=== PATIENT | male | born 1970 | race Caucasian/White ===

== ENCOUNTER 2016-07-17 18:25 | Inpatient (IN) | payer OTHER ==
[~2016-07-17] VITALS: Ht 182.9 cm; Wt 62.5 kg
[~2016-07-17 18:25] MED LIST: DTR/5 PO; HYDR-5688 PO; MULT-1027; URC10 PO; ZINC1CAP PO; [UNRECOGNIZED DRUG - CODE] INJ
[2016-07-17 21:00] VITALS: BP 96/66; PULSE 96; TEMP 37.1; O2SAT 99; Ht 182.9 cm; Wt 62.5 kg
[2016-07-17] MEDS ORDERED: ACETAMINOPHEN 325 MG TAB PO PRN (22:15)
[2016-07-17] MEDS ORDERED: ONDANSETRON INJ 2 MG/ML 2 ML VIAL IV PRN (22:15)
[2016-07-17] MEDS ORDERED: ERTAPENEM IV 1 GM in SODIUM CHLOR 0.9% AD-VAN 50ML 50 ML IV ONE (22:30)
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
[2016-07-17] MEDS: SODIUM CHLORIDE 0.9% 1000ML 1,000 ML IV SCH (22:58)
[2016-07-17 23:02] VITALS: BP 101/69; PULSE 100; TEMP 37.2; O2SAT 98
[2016-07-18] VITALS (7 sets, daily range): BP systolic 80–176; BP diastolic 45–117; PULSE 94–125; TEMP 37–38.1; O2SAT 94–100
[2016-07-18] MEDS: MoRPHine SULFATE 2 MG/ML CARP IV PRN ×2 (00:27→07:26)
[2016-07-18 06:59] LABS: BASO % 0.1 %; BASO ABS # 0.02 K/uL (0-0.2); COMPLETE YES; EOS % 0.9 %; HEMATOCRIT 33.1 % (42-52); IG% 0.2 %; LYMPH % 9.4 %; LYMPH ABS # 1.26 K/uL (1.2-3.4); MEAN CELL VOLUME 79.2 fL (80-100); MEAN CORPUSCULAR HEMOGLOBIN 25.8 pg (25-34); MEAN CORPUSCULAR HGB CONC 32.6 g/dl (32-36); MEAN PLATELET VOLUME 9.3 fL (7.4-10.4); MONO % 7.9 %; NEUT % 81.5 %; PLATELET COUNT 366 K/uL (130-400); RED BLOOD COUNT 4.18 M/uL (4.7-6.1); WHITE BLOOD COUNT 13.36 K/uL (4.8-10.8)
[2016-07-18 07:16] LABS: INR 1.2 (0.9-1.1); PROTHROMBIN TIME (PATIENT) 12.7 SECONDS (9.0-12.0)
[2016-07-18 07:37] LABS: ALB/GLOB RATIO 0.4 (0.9-2); ALKALINE PHOSPHATASE 101 U/L (45-117); ALT/SGPT 31 U/L (12-78); BLOOD UREA NITROGEN 10 mg/dl (7-18); BUN/CREATININE RATIO 22.6 (10-20); CARBON DIOXIDE 25 mmol/L (21-32); CHLORIDE 107 mmol/L (98-107); CREATININE 0.43 mg/dl (0.60-1.40); GLUCOSE 83 mg/dl (70-99); SODIUM 141 mmol/L (136-145)
[2016-07-18] MEDS: SODIUM CHLORIDE 0.9% 1000ML 1,000 ML IV SCH ×2 (08:04→18:16)
[2016-07-18] MEDS ORDERED: HYDROmorphone INJ 0.5 MG/0.5 ML SYR IV PRN (08:15)
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
[2016-07-18 08:55] LABS: POTASSIUM 2.8 mmol/L (3.5-5.1)
[2016-07-18] MEDS: SENNA 8.6 MG TAB PO SCH (09:00)
[2016-07-18] MEDS: OXYBUTYNIN CHLORIDE 5 MG TAB PO SCH ×2 (09:00→20:44)
[2016-07-18] MEDS: HEPARIN SOD 5000 UNIT/0.5 ML CARP SQ SCH ×3 (09:08→22:54)
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
[2016-07-18] MEDS: HYDROmorphone HCL 2 MG TAB PO PRN ×2 (15:03→21:13)
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
[2016-07-18] MEDS ORDERED: POTASSIUM CHLORIDE 10 MEQ TABCR PO ONE ×2 (20:30→22:00)
[2016-07-18] MEDS: NSS + 20MEQ KCL 1000ML 1,000 ML IV SCH (20:44)
[2016-07-18] MEDS: ALBUMIN HUMAN 25% 12.5 GM/50 ML VIAL IV SCH ×4 (20:44→22:53)
[2016-07-18] MEDS: ERTAPENEM IV 1 GM in SODIUM CHLOR 0.9% AD-VAN 50ML 50 ML IV SCH (21:31)
--- NOTE | 2016-07-18 22:00 | DIAGNOSTIC IMAGING REPORT ---
KUB CLINICAL HISTORY: Nephrolithiasis. FINDINGS: 3 AP, portable, supine abdominal radiographs are compared to study dated 05/08/2015 and correlated with abdominal CT dated 10/29/2014. The examination is significantly degraded by portable technique and patient rotation. There is a nonobstructed abdominal bowel gas pattern. Moderate colonic fecal retention is observed. There are at least 3 nonobstructing left renal calculi measuring up to 9 mm. No right renal calculi are identified and there is no radiodense calculus projecting along the course of the ureters. Suture material is noted in the pelvis. A neurostimulator device projects over the right lower quadrant. Leads enter the central canal in the lumbar region. The skeletal structures are osteopenic. Lumbosacral spondylosis is observed. Chronic degenerative change/deformity is suggested in the hips. IMPRESSION: 1. Nonobstructed abdominal bowel gas pattern noting moderate constipation. 2. Nonobstructing left renal calculi. Electronically signed by: Juma Cordoba M.D. 07/18/2016 9:59 PM Dictated Date/Time: 07/18/2016 9:55 PM
[2016-07-19 02:51] VITALS: BP 99/65; PULSE 115; TEMP 36.7; O2SAT 98
[2016-07-19] MEDS: HYDROmorphone HCL 2 MG TAB PO PRN ×2 (04:01→15:34)
[2016-07-19 05:42] LABS: BASO % 0.2 %; BASO ABS # 0.02 K/uL (0-0.2); EOS % 1.2 %; HEMATOCRIT 25.9 % (42-52); IG% 0.2 %; LYMPH % 15.6 %; LYMPH ABS # 1.46 K/uL (1.2-3.4); MEAN CELL VOLUME 79.7 fL (80-100); MEAN CORPUSCULAR HEMOGLOBIN 25.8 pg (25-34); MEAN CORPUSCULAR HGB CONC 32.4 g/dl (32-36); MEAN PLATELET VOLUME 8.4 fL (7.4-10.4); MONO % 9.1 %; NEUT % 73.7 %; PLATELET COUNT 314 K/uL (130-400); RED BLOOD COUNT 3.25 M/uL (4.7-6.1); WHITE BLOOD COUNT 9.33 K/uL (4.8-10.8)
[2016-07-19 05:48] LABS: INR 1.2 (0.9-1.1); PROTHROMBIN TIME (PATIENT) 12.6 SECONDS (9.0-12.0)
[2016-07-19] MEDS: NSS + 20MEQ KCL 1000ML 1,000 ML IV SCH (06:04)
[2016-07-19] MEDS: HEPARIN SOD 5000 UNIT/0.5 ML CARP SQ SCH ×3 (06:04→21:09)
[2016-07-19 06:17] LABS: ANISOCYTOSIS PRESENT; COMPLETE YES
[2016-07-19 06:28] LABS: ALB/GLOB RATIO 0.5 (0.9-2); ALKALINE PHOSPHATASE 80 U/L (45-117); ALT/SGPT 22 U/L (12-78); AST/SGOT 16 U/L (15-37); BUN/CREATININE RATIO 15.3 (10-20); CALCIUM 6.9 mg/dl (8.5-10.1); CARBON DIOXIDE 23 mmol/L (21-32); CHLORIDE 116 mmol/L (98-107); CREATININE 0.34 mg/dl (0.60-1.40); GLUCOSE 98 mg/dl (70-99); POTASSIUM 5.5 mmol/L (3.5-5.1); SODIUM 145 mmol/L (136-145)
[2016-07-19] MEDS ORDERED: NURSING VERBAL MED ORDER ONE (06:45)
[2016-07-19] MEDS: SODIUM CHLORIDE 0.9% 1000ML 1,000 ML IV SCH ×2 (07:00→16:58)
[2016-07-19 07:12] LABS: BLOOD UREA NITROGEN 5 mg/dl (7-18)
[2016-07-19 08:14] VITALS: BP 132/85; PULSE 102; TEMP 37.5; O2SAT 98
[2016-07-19] MEDS: OXYBUTYNIN CHLORIDE 5 MG TAB PO SCH ×3 (08:26→20:04)
[2016-07-19] MEDS: SENNA 8.6 MG TAB PO SCH (08:26)
--- NOTE | 2016-07-19 10:25 | Nephrology Progress Note ---
Nephrology Progress Note Date of Service Jul 19, 2016. Chief Complaint Nephrology follow up Subjective No acute events overnight. Rafael feels well this morning. Appetite improving. No subjective fevers or chills overnight. Tmax 38.1. Denies pain. Review of Systems A complete review of systems was performed. Pertinent positives are noted above. All other systems are negative. Vital Signs Last 8 Hrs Date Time Temp Pulse Resp B/P Pulse Ox O2 Delivery O2 Flow Rate FiO2 07/19/16 09:00 Room Air 07/19/16 08:14 37.5 102 18 132/85 98 Room Air 07/19/16 04:00 Room Air 07/19/16 02:51 36.7 115 20 99/65 98 Room Air I & O 24-Hour Column 07/19/16 07:59 Intake Total 3741 ml Output Total 2375 ml Balance 1366 ml Last Recorded Weight Weight (Kilograms): 62.500 Physical Exam General Appearance: no apparent distress, + thin Head: normocephalic, atraumatic Eyes: normal inspection, sclerae normal ENT: normal ENT inspection, pharynx normal Neck: supple, no JVD Respiratory/Chest: lungs clear, no respiratory distress, no accessory muscle use Cardiovascular: regular rate, rhythm Abdomen/GI: non tender, soft Genitourinary - Male: + pertinent finding (Urostomy draining clear yellow urine with sediment) Extremities/Musculoskelatal: + pertinent finding (contracture and atrophy, no edema or cyanosis) Neurologic/Psych: alert, oriented x 3 Social History Drug Use: none Marital Status: single Housing Status: lives with family Occupation: disabled Laboratory Results Past 24 Hours 07/19/16 05:28 Red Blood Count 3.25, Mean Corpuscular Volume 79.7, Mean Corpuscular Hemoglobin 25.8, Mean Corpuscular Hemoglobin Concent 32.4, Mean Platelet Volume 8.4, Neutrophils (%) (Auto) 73.7, Lymphocytes (%) (Auto) 15.6, Monocytes (%) (Auto) 9.1, Eosinophils (%) (Auto) 1.2, Basophils (%) (Auto) 0.2, Neutrophils # (Auto) 6.87, Lymphocytes # (Auto) 1.46, Monocytes # (Auto) 0.85, Eosinophils # (Auto) 0.11, Basophils # (Auto) 0.02 07/19/16 05:25 Test 07/18/16 14:06 07/19/16 05:25 07/19/16 05:28 Prothrombin Time 12.6 SECONDS (9.0-12.0) Prothromb Time International Ratio 1.2 (0.9-1.1) Anion Gap 6.0 mmol/L (3-11) Est Creatinine Clear Calc Drug Dose 237.4 ml/min Estimated GFR () > 150.0 Estimated GFR (Non- > 150.0 BUN/Creatinine Ratio 15.3 (10-20) Calcium Level 6.9 mg/dl (8.5-10.1) Total Bilirubin 0.4 mg/dl (0.2-1) Aspartate Amino Transf (AST/SGOT) 16 U/L (15-37) Alanine Aminotransferase (ALT/SGPT) 22 U/L (12-78) Alkaline Phosphatase 80 U/L (45-117) Total Protein 6.0 gm/dl (6.4-8.2) Albumin 2.1 gm/dl (3.4-5.0) Globulin 3.9 gm/dl (2.5-4.0) Albumin/Globulin Ratio 0.5 (0.9-2) White Blood Count 9.33 K/uL (4.8-10.8) Red Blood Count 3.25 M/uL (4.7-6.1) Hemoglobin 8.4 g/dL (14.0-18.0) Hematocrit 25.9 % (42-52) Mean Corpuscular Volume 79.7 fL (80-100) Mean Corpuscular Hemoglobin 25.8 pg (25-34) Mean Corpuscular Hemoglobin Concent 32.4 g/dl (32-36) Platelet Count 314 K/uL (130-400) Mean Platelet Volume 8.4 fL (7.4-10.4) Neutrophils (%) (Auto) 73.7 % Lymphocytes (%) (Auto) 15.6 % Monocytes (%) (Auto) 9.1 % Eosinophils (%) (Auto) 1.2 % Basophils (%) (Auto) 0.2 % Neutrophils # (Auto) 6.87 K/uL (1.4-6.5) Lymphocytes # (Auto) 1.46 K/uL (1.2-3.4) Monocytes # (Auto) 0.85 K/uL (0.11-0.59) Eosinophils # (Auto) 0.11 K/uL (0-0.5) Basophils # (Auto) 0.02 K/uL (0-0.2) RDW Standard Deviation 42.2 fL (36.4-46.3) RDW Coefficient of Variation 14.4 % (11.5-14.5) Immature Granulocyte % (Auto) 0.2 % Immature Granulocyte # (Auto) 0.02 K/uL (0.00-0.02) Anisocytosis PRESENT Allergies Coded Allergies: Sulfa Antibiotics (Unverified Allergy, Mild, RASH, 05/07/16) Medications Current Inpatient Medications Medications (Trade) Dose Ordered Sig/Chalo Route Start Time Stop Time Status Last Admin Dose Admin Heparin Sodium (Porcine) (Heparin Sq 5000 Unit/0.5ml) 5,000 unit Q8 SQ 07/18/16 08:00 08/17/16 07:59 07/19/16 06:04 5,000 UNIT Acetaminophen (Tylenol Tab) 650 mg Q4H PRN PO 07/17/16 22:15 08/16/16 22:14 07/18/16 20:45 650 MG Ondansetron HCl 4 mg 4 mg Q6H PRN IV 07/17/16 22:15 08/16/16 22:14 Ertapenem/Sodium Chloride (Invanz Iv/Nss Ad-Van 50ml) 50 ml @ 120 mls/hr Q24H IV 07/18/16 21:00 07/27/16 20:59 07/18/16 21:31 120 MLS/HR Oxybutynin Chloride (Ditropan Tab) 5 mg BID PO 07/18/16 09:00 08/17/16 08:59 Senna (Senokot Tab) 17.2 mg QAM PO 07/18/16 09:00 08/17/16 08:59 07/19/16 08:26 17.2 MG Hydromorphone HCl (Dilaudid Inj) 0.5 mg Q3H PRN IV 07/18/16 08:15 08/01/16 08:14 Hydromorphone HCl 4 mg 4 mg Q4H PRN PO 07/18/16 12:15 08/01/16 12:14 07/19/16 04:01 4 MG Sodium Chloride (Nss 1000ml) 1,000 ml @ 100 mls/hr Q10H IV 07/19/16 07:00 08/18/16 06:59 07/19/16 07:00 100 MLS/HR Impression (1) Nephrolithiasis (2) Calcium oxalate renal calculi (3) History of urostomy (4) Hydronephrosis of left kidney (5) Osteomyelitis (6) Spasticity Mr. 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 He was admitted to [facility] for management of sepsis associated with infection of sacral ulcer. He has chronic pain and spasticity controlled with a baclofen pump. He has an extensive history of nephrolithiasis. Prior stone analysis consistent with calcium oxalate stone formation. Prior 24 hour urine collections and additional metabolic evaluated by Dr. Aquino in the nephrology clinic reviewed. CT abdomen report obtained at outside hospital prior to transfer to [facility] on 07/18/16. Labile blood pressure consistent with autonomic dysfunction. Volume status appropriate. Signs of infection improving. Recommendations -- Continue IVF with NS to maintain positive fluid balance (100 ml/hr) -- Urine strained for stone for analysis, pending -- K citrate held pending stone analysis -- Urology consultation reviewed -- Do not suspect urosepsis -- Renal function preserved -- Hyperkalemia following potassium replacement yesterday, will monitor and suggest dietary potassium restriction -- Left hydronephrosis appears chronic and no additional evaluation needed at this time
--- NOTE | 2016-07-19 10:34 | Surgery Progress Note ---
Surgery Progress Note Date of Service Jul 19, 2016. Subjective Post OP Day: HD 2 No complaints Objective Vital Signs: Date Time Temp Pulse Resp B/P Pulse Ox O2 Delivery O2 Flow Rate FiO2 07/19/16 09:00 Room Air 07/19/16 08:14 37.5 102 18 132/85 98 Room Air 07/19/16 04:00 Room Air 07/19/16 02:51 36.7 115 20 99/65 98 Room Air 07/18/16 23:59 Room Air 07/18/16 23:39 37.4 104 18 102/67 98 Room Air 07/18/16 21:34 128/83 07/18/16 20:00 Room Air 07/18/16 19:45 37.7 124 16 80/45 94 Room Air 07/18/16 16:00 Room Air 07/18/16 15:52 37.5 105 20 118/77 97 Room Air 07/18/16 12:05 38.1 118 18 107/63 96 Room Air 07/18/16 12:00 Room Air General Appearance: WD/WN, no apparent distress Head: normocephalic, atraumatic Neck: supple, trachea midline Respiratory/Chest: lungs clear Cardiovascular: regular rate, rhythm Abdomen: non tender, soft Extremities: non-tender Laboratory Results: Results Past 24 Hours Test 07/18/16 14:06 07/19/16 05:25 07/19/16 05:28 Range/Units Prothrombin Time 12.6 9.0-12.0 SECONDS Prothromb Time International Ratio 1.2 0.9-1.1 Sodium Level 145 136-145 mmol/L Potassium Level 5.5 3.5-5.1 mmol/L Chloride Level 116 98-107 mmol/L Carbon Dioxide Level 23 21-32 mmol/L Anion Gap 6.0 3-11 mmol/L Blood Urea Nitrogen 5 7-18 mg/dl Creatinine 0.34 0.60-1.40 mg/dl Est Creatinine Clear Calc Drug Dose 237.4 ml/min Estimated GFR () > 150.0 Estimated GFR (Non- > 150.0 BUN/Creatinine Ratio 15.3 10-20 Random Glucose 98 70-99 mg/dl Calcium Level 6.9 8.5-10.1 mg/dl Total Bilirubin 0.4 0.2-1 mg/dl Aspartate Amino Transf (AST/SGOT) 16 15-37 U/L Alanine Aminotransferase (ALT/SGPT) 22 12-78 U/L Alkaline Phosphatase 80 45-117 U/L Total Protein 6.0 6.4-8.2 gm/dl Albumin 2.1 3.4-5.0 gm/dl Globulin 3.9 2.5-4.0 gm/dl Albumin/Globulin Ratio 0.5 0.9-2 White Blood Count 9.33 4.8-10.8 K/uL Red Blood Count 3.25 4.7-6.1 M/uL Hemoglobin 8.4 14.0-18.0 g/dL Hematocrit 25.9 42-52 % Mean Corpuscular Volume 79.7 80-100 fL Mean Corpuscular Hemoglobin 25.8 25-34 pg Mean Corpuscular Hemoglobin Concent 32.4 32-36 g/dl Platelet Count 314 130-400 K/uL Mean Platelet Volume 8.4 7.4-10.4 fL Neutrophils (%) (Auto) 73.7 % Lymphocytes (%) (Auto) 15.6 % Monocytes (%) (Auto) 9.1 % Eosinophils (%) (Auto) 1.2 % Basophils (%) (Auto) 0.2 % Neutrophils # (Auto) 6.87 1.4-6.5 K/uL Lymphocytes # (Auto) 1.46 1.2-3.4 K/uL Monocytes # (Auto) 0.85 0.11-0.59 K/uL Eosinophils # (Auto) 0.11 0-0.5 K/uL Basophils # (Auto) 0.02 0-0.2 K/uL RDW Standard Deviation 42.2 36.4-46.3 fL RDW Coefficient of Variation 14.4 11.5-14.5 % Immature Granulocyte % (Auto) 0.2 % Immature Granulocyte # (Auto) 0.02 0.00-0.02 K/uL Anisocytosis PRESENT Assessment & Plan Sacral decubitus -agree with wound care consult -believe wound vac wound be best dressing -will sign off; no debridement needed
[2016-07-19 12:56] VITALS: BP 134/88; PULSE 112; TEMP 36.8; O2SAT 97
--- NOTE | 2016-07-19 13:05 | Progress Note ---
Subjective Date of Service: Jul 19, 2016. Subjective Pt evaluation today including: conversation w/ patient, physical exam, chart review, lab review, review of inpatient medication list Pain: Denies PO Intake: Francie PO Voiding: brooks catheter in place (urostomy draining freely.) 46 yo male admitted with osteomyelitis of sacral decubitus, history of L stones. KUB images reviewed - radioopaque stones present, some reaccumulation since last ESWL in 2014, findings reviewed with patient. Past notes reviewed including nephrology recommendations. He denies any of the symptoms he typically associates with colic or stone passage. Review of Systems Constitutional: + fever (last PM), + sweats Eyes: No worsening of vision ENT: No hearing loss Respiratory: No shortness of breath Cardiac: No chest pain Abdomen: No nausea, No vomiting Male : + see HPI Neurologic: + paralysis, No memory loss Psychiatric: No depression symptoms Heme: No abnormal bleeding/bruising Objective Vital Signs Date Time Temp Pulse Resp B/P Pulse Ox O2 Delivery O2 Flow Rate FiO2 07/19/16 09:00 Room Air 07/19/16 08:14 37.5 102 18 132/85 98 Room Air 07/19/16 04:00 Room Air 07/19/16 02:51 36.7 115 20 99/65 98 Room Air 07/18/16 23:59 Room Air 07/18/16 23:39 37.4 104 18 102/67 98 Room Air 07/18/16 21:34 128/83 07/18/16 20:00 Room Air 07/18/16 19:45 37.7 124 16 80/45 94 Room Air 07/18/16 16:00 Room Air 07/18/16 15:52 37.5 105 20 118/77 97 Room Air Physical Exam General Appearance: no apparent distress ENT: hearing grossly normal Neck: no adenopathy Respiratory/Chest: no respiratory distress Cardiovascular: no JVD Abdomen: non tender, soft, + pertinent finding (functional urostomy) Neurologic/Psychiatric: alert, + motor weakness, + sensory deficit ( quadreplegia) Skin: normal color Laboratory Results Last 24 Hours Test 07/18/16 14:06 07/19/16 05:25 07/19/16 05:28 07/19/16 12:00 Prothrombin Time 12.6 SECONDS Prothromb Time International Ratio 1.2 Sodium Level 145 mmol/L Potassium Level 5.5 mmol/L Chloride Level 116 mmol/L Carbon Dioxide Level 23 mmol/L Anion Gap 6.0 mmol/L Blood Urea Nitrogen 5 mg/dl Creatinine 0.34 mg/dl Est Creatinine Clear Calc Drug Dose 237.4 ml/min Estimated GFR () > 150.0 Estimated GFR (Non- > 150.0 BUN/Creatinine Ratio 15.3 Random Glucose 98 mg/dl Calcium Level 6.9 mg/dl Total Bilirubin 0.4 mg/dl Aspartate Amino Transf (AST/SGOT) 16 U/L Alanine Aminotransferase (ALT/SGPT) 22 U/L Alkaline Phosphatase 80 U/L Total Protein 6.0 gm/dl Albumin 2.1 gm/dl Globulin 3.9 gm/dl Albumin/Globulin Ratio 0.5 White Blood Count 9.33 K/uL Red Blood Count 3.25 M/uL Hemoglobin 8.4 g/dL Hematocrit 25.9 % Mean Corpuscular Volume 79.7 fL Mean Corpuscular Hemoglobin 25.8 pg Mean Corpuscular Hemoglobin Concent 32.4 g/dl Platelet Count 314 K/uL Mean Platelet Volume 8.4 fL Neutrophils (%) (Auto) 73.7 % Lymphocytes (%) (Auto) 15.6 % Monocytes (%) (Auto) 9.1 % Eosinophils (%) (Auto) 1.2 % Basophils (%) (Auto) 0.2 % Neutrophils # (Auto) 6.87 K/uL Lymphocytes # (Auto) 1.46 K/uL Monocytes # (Auto) 0.85 K/uL Eosinophils # (Auto) 0.11 K/uL Basophils # (Auto) 0.02 K/uL RDW Standard Deviation 42.2 fL RDW Coefficient of Variation 14.4 % Immature Granulocyte % (Auto) 0.2 % Immature Granulocyte # (Auto) 0.02 K/uL Anisocytosis PRESENT Assessment and Plan A/P 46 yo male with L stones, neurogenic bladder. Findings reviewed with patient. No acute intervention should be needed from a urologic perspective but I suspect he would benefit from elective ESWL of his left stones at some point in the not distant future. Will arrange for outpatient follow-up in the next few months to address this further. Hopefully between now and then his ongoing wound care and infection issues will be improved. Thank you for allowing us to participate in this patient's care. Will sign off - please recall PRN new questions or concerns.
[2016-07-19 13:51] LABS: BLOOD UREA NITROGEN 5 mg/dl (7-18); BUN/CREATININE RATIO 11.6 (10-20); CALCIUM 8.3 mg/dl (8.5-10.1); CARBON DIOXIDE 27 mmol/L (21-32); CHLORIDE 107 mmol/L (98-107); CREATININE 0.43 mg/dl (0.60-1.40); GLUCOSE 100 mg/dl (70-99); MAGNESIUM 2.1 mg/dl (1.8-2.4); POTASSIUM 3.9 mmol/L (3.5-5.1); SODIUM 142 mmol/L (136-145)
[2016-07-19 15:14] VITALS: BP 168/118; PULSE 110; TEMP 37.2; O2SAT 97
--- NOTE | 2016-07-19 18:30 | Medical Consult ---
Consultation Date of Consultation: Jul 19, 2016. Attending Physician: Kodak Chavez D.O. Reason for Consultation: Osteomyelitis History of Present Illness 46-year-old male with long history of quadriplegia who developed stage IV sacral decubitus with underlying osteomyelitis last summer, requiring prolonged IV antibiotics and wound VAC care with ultimate healing. He now returns with recurrent sacral decubitus formation , significantly worsening over the last week, and has had MRI scan, read by me, which shows evidence of sacral osteomyelitis. He has been started on ertapenem therapy. Blood cultures have been negative to date. Patient denies any significant fever. Does not experience any pain. tolerating his antibiotics thus far. Past Medical/Surgical History Medical Problems: (1) Calcium oxalate renal calculi (2) Hydronephrosis of left kidney (3) Nephrolithiasis (4) Osteomyelitis (5) Spasticity Surgical Problems: (1) History of urostomy Family History noncontributory Social History Smoking Status: Former Smoker Drug Use: none Marital Status: single Occupation Status: disabled Allergies Coded Allergies: Sulfa Antibiotics (Unverified Allergy, Mild, RASH, 05/07/16) Current Inpatient Medications Current Inpatient Medications Medications (Trade) Dose Ordered Sig/Chalo Route Start Time Stop Time Status Last Admin Dose Admin Heparin Sodium (Porcine) (Heparin Sq 5000 Unit/0.5ml) 5,000 unit Q8 SQ 07/18/16 08:00 08/17/16 07:59 07/19/16 14:00 5,000 UNIT Acetaminophen (Tylenol Tab) 650 mg Q4H PRN PO 07/17/16 22:15 08/16/16 22:14 07/18/16 20:45 650 MG Ondansetron HCl 4 mg 4 mg Q6H PRN IV 07/17/16 22:15 08/16/16 22:14 Ertapenem/Sodium Chloride (Invanz Iv/Nss Ad-Van 50ml) 50 ml @ 120 mls/hr Q24H IV 07/18/16 21:00 07/27/16 20:59 07/18/16 21:31 120 MLS/HR Oxybutynin Chloride (Ditropan Tab) 5 mg BID PO 07/18/16 09:00 08/17/16 08:59 Senna (Senokot Tab) 17.2 mg QAM PO 07/18/16 09:00 4/24/17 08:59 07/19/16 08:26 17.2 MG Hydromorphone HCl (Dilaudid Inj) 0.5 mg Q3H PRN IV 07/18/16 08:15 08/01/16 08:14 Hydromorphone HCl 4 mg 4 mg Q4H PRN PO 07/18/16 12:15 08/01/16 12:14 07/19/16 15:34 4 MG Sodium Chloride (Nss 1000ml) 1,000 ml @ 100 mls/hr Q10H IV 07/19/16 07:00 08/18/16 06:59 07/19/16 16:58 100 MLS/HR Review of Systems all systems were reviewed and are negative except as per HPI Physical Exam Date Time Temp Pulse Resp B/P Pulse Ox O2 Delivery O2 Flow Rate FiO2 07/19/16 16:00 Room Air 07/19/16 15:14 37.2 110 19 168/118 97 Room Air 07/19/16 12:56 36.8 112 16 134/88 97 Room Air 07/19/16 12:00 Room Air 07/19/16 09:00 Room Air 07/19/16 08:14 37.5 102 18 132/85 98 Room Air 07/19/16 04:00 Room Air 07/19/16 02:51 36.7 115 20 99/65 98 Room Air 07/18/16 23:59 Room Air 07/18/16 23:39 37.4 104 18 102/67 98 Room Air 07/18/16 21:34 128/83 07/18/16 20:00 Room Air 07/18/16 19:45 37.7 124 16 80/45 94 Room Air General Appearance: WD/WN, no apparent distress Head: normocephalic, atraumatic Eyes: normal inspection, EOMI, sclerae normal ENT: normal ENT inspection, hearing grossly normal, pharynx normal Neck: supple, no adenopathy, thyroid normal, trachea midline Respiratory/Chest: chest non-tender, lungs clear, normal breath sounds, no respiratory distress Cardiovascular: regular rate, rhythm, no gallop, no murmur Abdomen/GI: normal bowel sounds, non tender, soft, no organomegaly Genitourinary - Male: + pertinent finding ( suprapubic catheter in place) Back: normal inspection, no CVA tenderness Extremities/Musculoskelatal: normal inspection, no calf tenderness Neurologic/Psych: alert, normal reflexes, + pertinent finding ( quadriplegic) Skin: normal color, no rash, + pertinent finding ( stage IV sacral decubitus with exposed bone) Lymphatic: no adenopathy Laboratory Results RUN DATE: 07/19/16 [facility] LAB PAGE 1 RUN TIME: 701 Specimen Inquiry PATIENT: IDRIS YIP LOC: Gene U # : [id number] AGE/SX: 46/M ROOM: [facility] REG : 07/17/[address]: Kodak Chavez D.O : 1970 BED: 1 DIS : STATUS: ADM IN TLOC: SPEC #: [id number] MACI: 07/17/16-2244 STATUS: RES REQ #: [id number] RECD: 07/17/16-[address]: Kodak Chavez D.O. SOURCE: BLOOD ENTR: 07/17/16-[address]: Gilbert Arreola MD [facility]: Lan Issa M.D. Miller, Howard I., MD, Urology Boyd Vergara M.D. ORDERED: BLOOD CULTURE Procedure Result Verified Site BLD CULT Preliminary 07/19/16-701 NO GROWTH TO DATE. Last 24 Hours Test 07/19/16 05:25 07/19/16 05:28 07/19/16 12:45 Prothrombin Time 12.6 SECONDS Prothromb Time International Ratio 1.2 Sodium Level 145 mmol/L 142 mmol/L Potassium Level 5.5 mmol/L 3.9 mmol/L Chloride Level 116 mmol/L 107 mmol/L Carbon Dioxide Level 23 mmol/L 27 mmol/L Anion Gap 6.0 mmol/L 8.0 mmol/L Blood Urea Nitrogen 5 mg/dl 5 mg/dl Creatinine 0.34 mg/dl 0.43 mg/dl Est Creatinine Clear Calc Drug Dose 237.4 ml/min 187.7 ml/min Estimated GFR () > 150.0 > 150.0 Estimated GFR (Non- > 150.0 137.3 BUN/Creatinine Ratio 15.3 11.6 Random Glucose 98 mg/dl 100 mg/dl Calcium Level 6.9 mg/dl 8.3 mg/dl Total Bilirubin 0.4 mg/dl Aspartate Amino Transf (AST/SGOT) 16 U/L Alanine Aminotransferase (ALT/SGPT) 22 U/L Alkaline Phosphatase 80 U/L Total Protein 6.0 gm/dl Albumin 2.1 gm/dl Globulin 3.9 gm/dl Albumin/Globulin Ratio 0.5 White Blood Count 9.33 K/uL Red Blood Count 3.25 M/uL Hemoglobin 8.4 g/dL Hematocrit 25.9 % Mean Corpuscular Volume 79.7 fL Mean Corpuscular Hemoglobin 25.8 pg Mean Corpuscular Hemoglobin Concent 32.4 g/dl Platelet Count 314 K/uL Mean Platelet Volume 8.4 fL Neutrophils (%) (Auto) 73.7 % Lymphocytes (%) (Auto) 15.6 % Monocytes (%) (Auto) 9.1 % Eosinophils (%) (Auto) 1.2 % Basophils (%) (Auto) 0.2 % Neutrophils # (Auto) 6.87 K/uL Lymphocytes # (Auto) 1.46 K/uL Monocytes # (Auto) 0.85 K/uL Eosinophils # (Auto) 0.11 K/uL Basophils # (Auto) 0.02 K/uL RDW Standard Deviation 42.2 fL RDW Coefficient of Variation 14.4 % Immature Granulocyte % (Auto) 0.2 % Immature Granulocyte # (Auto) 0.02 K/uL Anisocytosis PRESENT Magnesium Level 2.1 mg/dl Patient Name: IDRIS YIP Unit Number: [id number] Dictated: 07/18/162154 Transcribed: 07/18/162154 EV Printed Date/Time: [~ rep prt dt]/[~ rep prt tm] [~ rep ct labl] - [~ rep ct ivnm] [facility] [place] [address] Dictated: 07/18/162154 Transcribed: 07/18/162154 EV Printed Date/Time: [~ rep prt dt]/[~ rep prt tm] [~ rep ct labl] - [~ rep ct ivnm] CLINICAL HISTORY: Nephrolithiasis. FINDINGS: 3 AP, portable, supine abdominal radiographs are compared to study dated 05/08/2015 and correlated with abdominal CT dated 10/29/2014. The examination is significantly degraded by portable technique and patient rotation. There is a nonobstructed abdominal bowel gas pattern. Moderate colonic fecal retention is observed. There are at least 3 nonobstructing left renal calculi measuring up to 9 mm. No right renal calculi are identified and there is no radiodense calculus projecting along the course of the ureters. Suture material is noted in the pelvis. A neurostimulator device projects over the right lower quadrant. Leads enter the central canal in the lumbar region. The skeletal structures are osteopenic. Lumbosacral spondylosis is observed. Chronic degenerative change/deformity is suggested in the hips. IMPRESSION: 1. Nonobstructed abdominal bowel gas pattern noting moderate constipation. 2. Nonobstructing left renal calculi. Electronically signed by: Juma Cordoba M.D. 07/18/2016 9:59 PM Dictated Date/Time: 07/18/2016 9:55 PM The status of this report is Signed. Draft = Not yet reviewed or approved by Radiologist. Signed = Reviewed and approved by Radiologist. <AttendingPhy>Kodak Chavez D.O.</AttendingPhy> <FamilyPhy>Boyd Vergara M.D.</FamilyPhy> <PrimaryPhy>Boyd Vergara M.D.</PrimaryPhy> <UnitNumber> [id number]</UnitNumber> <VisitNumber>[id number]</VisitNumber> <PatientName> IDRIS YIP</PatientName> <DateOfBirth>1970</DateOfBirth> <Location>C.2T </Location> <ServiceDate></ServiceDate> <MNE>ESINDI</MNE> <OrderingPhy>Jose Lewis MD</OrderingPhy> <OrderingPhyMNE>f rep ord dr mendoza</OrderingPhyMNE> < DictatingPhyMNE>f rep dict dr mendoza</DictatingPhyMNE> <CCListMNE>f rep ct kelly</ CCListMNE> <AdmittingPhyMNE>f pt admit dr mendoza</AdmittingPhyMNE> <AttendingPhyMNE >f pt attend dr mendoza</AttendingPhyMNE> <ConsultingPhyMNE>f pt consult dr mendoza</ConsultingPhyMNE> <FamilyPhyMNE>f pt fam dr mendoza</FamilyPhyMNE> <OtherPhyMNE>f pt other dr mendoza</OtherPhyMNE> < PrimaryPhyMNE>f pt prim care dr mendoza</PrimaryPhyMNE> <ReferringPhyMNE>f pt referring dr mendoza</ReferringPhyMNE> Assessment & Plan sepsis associated with stage IV decubitus ulcer with underlying sacral osteomyelitis. Current antibiotic should provide appropriate coverage pending review of prior Wound Care cultures and clinical response. Patient will likely require wound VAC placement for further management. Patient will also likely require prolonged i.e. 6-8 weeks of IV antibiotics for osteomyelitis. Will discuss with all involved.
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
[2016-07-19 19:14] VITALS: BP 162/102; PULSE 119; TEMP 37.6; O2SAT 96
[2016-07-19] MEDS: ERTAPENEM IV 1 GM in SODIUM CHLOR 0.9% AD-VAN 50ML 50 ML IV SCH (19:22)
[2016-07-19 23:10] VITALS: BP 142/91; PULSE 112; TEMP 36.6; O2SAT 97
[2016-07-20] MEDS: SODIUM CHLORIDE 0.9% 1000ML 1,000 ML IV SCH ×3 (02:43→23:44)
[2016-07-20] MEDS: HYDROmorphone HCL 2 MG TAB PO PRN ×3 (02:43→22:03)
[2016-07-20 03:43] VITALS: BP 146/91; PULSE 110; TEMP 37.1; O2SAT 97
[2016-07-20] MEDS: HEPARIN SOD 5000 UNIT/0.5 ML CARP SQ SCH ×3 (05:54→22:45)
[2016-07-20 07:08] LABS: BASO % 0.2 %; BASO ABS # 0.02 K/uL (0-0.2); COMPLETE YES; HEMATOCRIT 33.3 % (42-52); IG% 0.3 %; LYMPH % 18.8 %; LYMPH ABS # 1.74 K/uL (1.2-3.4); MEAN CORPUSCULAR HEMOGLOBIN 25.3 pg (25-34); MEAN CORPUSCULAR HGB CONC 32.4 g/dl (32-36); MEAN PLATELET VOLUME 8.7 fL (7.4-10.4); NEUT % 71.7 %; PLATELET COUNT 400 K/uL (130-400); RED BLOOD COUNT 4.27 M/uL (4.7-6.1); WHITE BLOOD COUNT 9.26 K/uL (4.8-10.8)
[2016-07-20 07:22] LABS: PROTHROMBIN TIME (PATIENT) 10.7 SECONDS (9.0-12.0)
[2016-07-20 07:43] LABS: BUN/CREATININE RATIO 13.2 (10-20); CALCIUM 8.5 mg/dl (8.5-10.1); CREATININE 0.53 mg/dl (0.60-1.40)
[2016-07-20 07:48] LABS: ALB/GLOB RATIO 0.4 (0.9-2); PHOSPHORUS 2.9 mg/dl (2.5-4.9)
[2016-07-20 07:58] VITALS: BP 120/84; PULSE 104; TEMP 37; O2SAT 96
[2016-07-20] MEDS: OXYBUTYNIN CHLORIDE 5 MG TAB PO SCH ×2 (08:08→20:00)
[2016-07-20] MEDS: SENNA 8.6 MG TAB PO SCH (08:08)
--- NOTE | 2016-07-20 10:36 | Pain Management Progress Note ---
Pain Management Progress Note Date of Service Jul 20, 2016. Subjective Mr. 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 Patient is admitted for a sacral decubitus stage 4 ulcer. Patient is currently on Ertapenem IV and going to be placed on a wound vac. Patient states that his pain is better controlled with Dilaudid 4mg PO x 4 hours. He was previously uncontrolled with Hydrocodone 5/325mg PO. Patient states that his spasms are well controlled. His scheduled intrathecal Baclofen pump refill is on 07/30/16. Patient denies any fevers, chills, nausea, vomiting, abdominal pain, radicular pain. Case discussed with Dr. Patel Objective Vital Signs: Last Vital Signs Documentation Date Time Temp Pulse Resp B/P Pulse Ox O2 Delivery O2 Flow Rate FiO2 07/20/16 07:58 37.0 104 16 120/84 96 Room Air Physical Exam: GENERAL: Mr. Perkins is a 46 y/o white male that appears his stated age. Speech and cognition is intact. Mood and affect is appropriate. Does not appear to be in any acute distress. HEAD: Normocephalic; atraumatic. EYES: Pupils are round, equal, and reactive to light; EOM intact. ENT: No external ear discharge or lesions. No rhinorrhea or epistaxis. No mucosal lesions. + dry buccal mucosa. CHEST: Regular chest respiration and excursion. EXTREMITIES: Flexion contractures of bilateral wrists. Intermittent spasms noted of the arms and legs. No active strength of the lower extremities. NEURO: CN II-XII grossly intact with no focal deficits noted. Laboratory (Last CBC): 07/20/16 06:47 Red Blood Count 4.27 L, Mean Corpuscular Volume 78.0 L, Mean Corpuscular Hemoglobin 25.3, Mean Corpuscular Hemoglobin Concent 32.4, Mean Platelet Volume 8.7, Neutrophils (%) (Auto) 71.7, Lymphocytes (%) (Auto) 18.8, Monocytes (%) ( Auto) 6.0, Eosinophils (%) (Auto) 3.0, Basophils (%) (Auto) 0.2, Neutrophils # ( Auto) 6.63 H, Lymphocytes # (Auto) 1.74, Monocytes # (Auto) 0.56, Eosinophils # (Auto) 0.28, Basophils # (Auto) 0.02 Assessment 1. Stage 4 sacral ulceration with osteomyelitis. 2. Intrathecal pump and catheter delivery system implantation due to spastic quadriplegia. 3. Nephrolithiasis. Recommendations 1. Patient's pump does not alarm until August 31, 2016. Will not make any pump adjustments at this time. His pump refill date on July 30 was cancelled as he cannot be filled with an infection. 2. Continue IV ABX treatment and wound care for stage 4 sacral ulcer. 3. Patient reports improved pain relief with PO Dilaudid 4mg x 4 hrs PRN pain. [employer] Voice Recognition This chart was completed in part utilizing [employer] Voice Recognition Software. Random word insertions, pronoun errors, and incomplete sentences are an occasional consequence of this system due to software limitations and ambient noise. Any questions or concerns about the content, text or information contained within the body of this dictation should be directly addressed to the provider for clarification.
--- NOTE | 2016-07-20 10:39 | Clinical Documentation Query ---
QUERY 1 OF [address] OWEN, In your clinical opinion is this patient being managed for: X(X ) Pressure ulcer of left heel, stage 2, POA ( ) Other explanation of clinical findings (Please Explain) ( ) Unable to determine (Please Define) ( ) Need to Discuss ( ) Not Agree The medical record reflects the following clinical findings, treatment, and risk factors. Clinical Indicators:46 yo male presenting with sepsis, stage IV sacral decubitus. Review of WOCN note indicates pt also has a stage II pressure ulcer on his L heel Treatment: WOCN consult, cleanse with NSS and apply aquacel AG, cover with optifoam and change qod and prn, clinitron bed, offloading, increased dietary protein for wound healing Risk Factors: quadriplegia QUERY 2 OF 2 In your clinical opinion is this patient being managed for: (X ) severe protein-calorie malnutrition ( ) Other explanation of clinical findings (Please Explain) ( ) Unable to determine (Please Define) ( ) Need to Discuss ( ) Not Agree The medical record reflects the following clinical findings, treatment, and risk factors. Clinical Indicators: Dietary consult indicates pt with 14% wt loss in the past 3 months. Pt also with multiple pressure ulcers. Treatment: dietary consult, increased protein and calorie, trial CBE tid with meals. Maintain fluid intake, monitor electrolytes, check iron studies. Pt must be fed. Risk Factors: quadriplegia, pressure ulcers, ileostomy, osteomyelitis. Severe Malnutrition Criteria: (2 criteria needed) Energy intake: <75% of estimated energy requirement for > 1 month Wt loss: >5% in 1 month, > 7.5% in 3 months, >10% in 6 months, >20% in 1 year Body fat: severe loss of SQ fat from the orbits, triceps or fat overlying the ribs Muscle mass: severe muscle wasting at the temples, clavicles, shoulders, interosseous spaces, scapula, thigh, calf Fluid accumulation: severe localized or generalized edema of the extremities, vulva, scrotum-wt loss may be masked by edema Please clarify and document your clinical opinion in the progress notes and discharge summary. Terms such as "probable", "suspected", "likely", "questionable", "possible", or "still to be ruled out" are acceptable. IF IN AGREEMENT, YOU MUST DOCUMENT ABOVE DIAGNOSTIC STATEMENT IN DAILY PROGRESS NOTES AND DISCHARGE SUMMARY. This document is not part of the patient's record. Thank You, Do Palomino RN [phone]
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
[2016-07-20 16:38] VITALS: BP 143/100; PULSE 89; TEMP 36.8; O2SAT 99
--- NOTE | 2016-07-20 17:05 | Infectious Disease Progress Nt ---
Progress Note Date of Service Jul 20, 2016. Subjective Pt evaluation today including: conversation w/ patient, physical exam, chart review, lab review, review of studies, conversation w/ client consultant, review of inpatient medication list wound care consultation noted and discussed with Dr. Borja. Patient offering no new complaints today. Remains afebrile. Tolerating antibiotics without apparent difficulty. All Other Systems: Reviewed and Negative Medications Current Inpatient Medications Medications (Trade) Dose Ordered Sig/Chalo Route Start Time Stop Time Status Last Admin Dose Admin Heparin Sodium (Porcine) (Heparin Sq 5000 Unit/0.5ml) 5,000 unit Q8 SQ 07/18/16 08:00 08/17/16 07:59 07/20/16 12:58 5,000 UNIT Acetaminophen (Tylenol Tab) 650 mg Q4H PRN PO 07/17/16 22:15 08/16/16 22:14 07/18/16 20:45 650 MG Ondansetron HCl 4 mg 4 mg Q6H PRN IV 07/17/16 22:15 08/16/16 22:14 Ertapenem/Sodium Chloride (Invanz Iv/Nss Ad-Van 50ml) 50 ml @ 120 mls/hr Q24H IV 07/18/16 21:00 07/27/16 20:59 07/19/16 19:22 120 MLS/HR Oxybutynin Chloride (Ditropan Tab) 5 mg BID PO 07/18/16 09:00 08/17/16 08:59 07/20/16 08:08 5 MG Senna (Senokot Tab) 17.2 mg QAM PO 07/18/16 09:00 08/17/16 08:59 07/20/16 08:08 17.2 MG Hydromorphone HCl (Dilaudid Inj) 0.5 mg Q3H PRN IV 07/18/16 08:15 08/01/16 08:14 07/19/16 20:16 0.5 MG Hydromorphone HCl 4 mg 4 mg Q4H PRN PO 07/18/16 12:15 08/01/16 12:14 07/20/16 10:29 4 MG Sodium Chloride (Nss 1000ml) 1,000 ml @ 100 mls/hr Q10H IV 07/19/16 07:00 08/18/16 06:59 07/20/16 12:55 100 MLS/HR Objective Vital Signs Date Time Temp Pulse Resp B/P Pulse Ox O2 Delivery O2 Flow Rate FiO2 07/20/16 16:38 36.8 89 16 143/100 99 Room Air 07/20/16 12:00 Room Air 07/20/16 08:00 Room Air 07/20/16 07:58 37.0 104 16 120/84 96 Room Air 07/20/16 04:00 Room Air 07/20/16 03:43 37.1 110 18 146/91 97 Room Air 07/19/16 23:59 Room Air 07/19/16 23:10 36.6 112 18 142/91 97 Room Air 07/19/16 20:00 Room Air 07/19/16 19:14 37.6 119 18 162/102 96 Room Air Physical Exam General Appearance: WD/WN, no apparent distress, + thin Eyes: normal inspection, EOMI, sclerae normal ENT: normal ENT inspection, pharynx normal Neck: supple, no adenopathy, trachea midline Respiratory/Chest: chest non-tender, lungs clear, normal breath sounds, no respiratory distress Cardiovascular: regular rate, rhythm, no gallop, no murmur Abdomen: normal bowel sounds, non tender, soft, no organomegaly Extremities: non-tender, no calf tenderness Neurologic/Psychiatric: alert, oriented x 3 Skin: normal color, no rash, + pertinent finding ( Sacral decubitus without purulence or foul odor, heel unchanged) Lymphatic: no adenopathy Laboratory Results Last 24 Hours Test 07/20/16 06:47 White Blood Count 9.26 K/uL Red Blood Count 4.27 M/uL Hemoglobin 10.8 g/dL Hematocrit 33.3 % Mean Corpuscular Volume 78.0 fL Mean Corpuscular Hemoglobin 25.3 pg Mean Corpuscular Hemoglobin Concent 32.4 g/dl Platelet Count 400 K/uL Mean Platelet Volume 8.7 fL Neutrophils (%) (Auto) 71.7 % Lymphocytes (%) (Auto) 18.8 % Monocytes (%) (Auto) 6.0 % Eosinophils (%) (Auto) 3.0 % Basophils (%) (Auto) 0.2 % Neutrophils # (Auto) 6.63 K/uL Lymphocytes # (Auto) 1.74 K/uL Monocytes # (Auto) 0.56 K/uL Eosinophils # (Auto) 0.28 K/uL Basophils # (Auto) 0.02 K/uL RDW Standard Deviation 40.1 fL RDW Coefficient of Variation 14.2 % Immature Granulocyte % (Auto) 0.3 % Immature Granulocyte # (Auto) 0.03 K/uL Prothrombin Time 10.7 SECONDS Prothromb Time International Ratio 1.0 Sodium Level 139 mmol/L Potassium Level 4.0 mmol/L Chloride Level 104 mmol/L Carbon Dioxide Level 27 mmol/L Anion Gap 8.0 mmol/L Blood Urea Nitrogen 7 mg/dl Creatinine 0.53 mg/dl Est Creatinine Clear Calc Drug Dose 152.3 ml/min Estimated GFR () 146.0 Estimated GFR (Non- 126.0 BUN/Creatinine Ratio 13.2 Random Glucose 107 mg/dl Calcium Level 8.5 mg/dl Ionized Calcium 1.09 mmol/l Phosphorus Level 2.9 mg/dl Total Bilirubin 0.2 mg/dl Aspartate Amino Transf (AST/SGOT) 28 U/L Alanine Aminotransferase (ALT/SGPT) 32 U/L Alkaline Phosphatase 126 U/L Total Protein 7.7 gm/dl Albumin 2.3 gm/dl Globulin 5.4 gm/dl Albumin/Globulin Ratio 0.4 Assessment and Plan (1) Sacral decubitus ulcer, stage IV (2) Sepsis (3) Nephrolithiasis sepsis associated with stage IV decubitus ulcer with underlying sacral osteomyelitis. Current antibiotic should provide appropriate coverage pending review of prior Wound Care cultures and clinical response. Patient will likely require wound VAC placement for further management. Patient will also likely require prolonged i.e. 6-8 weeks of IV antibiotics for osteomyelitis. Will discuss with all involved.
[2016-07-20] MEDS: ERTAPENEM IV 1 GM in SODIUM CHLOR 0.9% AD-VAN 50ML 50 ML IV SCH (22:43)
[2016-07-21] VITALS (21 sets, daily range): BP systolic 67–199; BP diastolic 39–143; PULSE 76–153; TEMP 36.4–36.9; O2SAT 96–98
[2016-07-21] MEDS ORDERED: GLYCERIN ADULT 1 EA SUPP PR PRN (00:30)
[2016-07-21] MEDS: BISACODYL 10 MG SUPP PR PRN ×2 (00:48→22:13)
[2016-07-21] MEDS: HydrALAZINE HCL 20 MG/ML VIAL IV. PRN ×2 (00:48→05:54)
[2016-07-21] MEDS: HEPARIN SOD 5000 UNIT/0.5 ML CARP SQ SCH ×3 (05:55→22:13)
[2016-07-21 06:13] LABS: BASO % 0.3 %; BASO ABS # 0.02 K/uL (0-0.2); COMPLETE YES; EOS % 4.6 %; HEMATOCRIT 32.1 % (42-52); IG% 0.4 %; LYMPH % 23.9 %; LYMPH ABS # 1.82 K/uL (1.2-3.4); MEAN CELL VOLUME 79.7 fL (80-100); MEAN CORPUSCULAR HEMOGLOBIN 25.6 pg (25-34); MEAN CORPUSCULAR HGB CONC 32.1 g/dl (32-36); MEAN PLATELET VOLUME 8.8 fL (7.4-10.4); MONO % 6.9 %; NEUT % 63.9 %; PLATELET COUNT 412 K/uL (130-400); RED BLOOD COUNT 4.03 M/uL (4.7-6.1); WHITE BLOOD COUNT 7.63 K/uL (4.8-10.8)
[2016-07-21 06:38] LABS: PROTHROMBIN TIME (PATIENT) 10.3 SECONDS (9.0-12.0)
[2016-07-21 06:46] LABS: ALT/SGPT 27 U/L (12-78); BUN/CREATININE RATIO 25.6 (10-20); CALCIUM 8.5 mg/dl (8.5-10.1); CARBON DIOXIDE 25 mmol/L (21-32); CHLORIDE 106 mmol/L (98-107); CREATININE 0.41 mg/dl (0.60-1.40); GLUCOSE 101 mg/dl (70-99); POTASSIUM 4.1 mmol/L (3.5-5.1); SODIUM 139 mmol/L (136-145)
[2016-07-21 06:49] LABS: ALB/GLOB RATIO 0.4 (0.9-2); ALKALINE PHOSPHATASE 124 U/L (45-117); AST/SGOT 18 U/L (15-37)
--- NOTE | 2016-07-21 07:46 | Clinical Documentation Query ---
QUERY 1 OF [address] IYER, In your clinical opinion is this patient being managed for: ( x ) Pressure ulcer of left heel, stage 2, POA ( ) Other explanation of clinical findings (Please Explain) ( ) Unable to determine (Please Define) ( ) Need to Discuss ( ) Not Agree The medical record reflects the following clinical findings, treatment, and risk factors. Clinical Indicators:46 yo male presenting with sepsis, stage IV sacral decubitus. Review of WOCN note indicates pt also has a stage II pressure ulcer on his L heel Treatment: WOCN consult, cleanse with NSS and apply aquacel AG, cover with optifoam and change qod and prn, clinitron bed, offloading, increased dietary protein for wound healing Risk Factors: quadriplegia QUERY 2 OF 2 In your clinical opinion is this patient being managed for: ( x ) severe protein-calorie malnutrition ( ) Other explanation of clinical findings (Please Explain) ( ) Unable to determine (Please Define) ( ) Need to Discuss ( ) Not Agree The medical record reflects the following clinical findings, treatment, and risk factors. Clinical Indicators: Dietary consult indicates pt with 14% wt loss in the past 3 months. Pt also with multiple pressure ulcers. Treatment: dietary consult, increased protein and calorie, trial CBE tid with meals. Maintain fluid intake, monitor electrolytes, check iron studies. Pt must be fed. Risk Factors: quadriplegia, pressure ulcers, ileostomy, osteomyelitis. Severe Malnutrition Criteria: (2 criteria needed) Energy intake: <75% of estimated energy requirement for > 1 month Wt loss: >5% in 1 month, > 7.5% in 3 months, >10% in 6 months, >20% in 1 year Body fat: severe loss of SQ fat from the orbits, triceps or fat overlying the ribs Muscle mass: severe muscle wasting at the temples, clavicles, shoulders, interosseous spaces, scapula, thigh, calf Fluid accumulation: severe localized or generalized edema of the extremities, vulva, scrotum-wt loss may be masked by edema Please clarify and document your clinical opinion in the progress notes and discharge summary. Terms such as "probable", "suspected", "likely", "questionable", "possible", or "still to be ruled out" are acceptable. IF IN AGREEMENT, YOU MUST DOCUMENT ABOVE DIAGNOSTIC STATEMENT IN DAILY PROGRESS NOTES AND DISCHARGE SUMMARY. This document is not part of the patient's record. Thank You, Do Palomino RN [phone]
[2016-07-21] MEDS: SODIUM CHLORIDE 0.9% 1000ML 1,000 ML IV SCH ×2 (07:57→22:11)
[2016-07-21] MEDS: OXYBUTYNIN CHLORIDE 5 MG TAB PO SCH ×2 (07:57→21:33)
[2016-07-21] MEDS: SENNA 8.6 MG TAB PO SCH (07:57)
[2016-07-21] MEDS: HYDROmorphone HCL 2 MG TAB PO PRN ×2 (07:58→21:34)
[2016-07-21 08:23] LABS: BLOOD UREA NITROGEN 11 mg/dl (7-18)
--- NOTE | 2016-07-21 08:35 | Progress Note ---
Progress Note Date of Service Jul 21, 2016. Progress Note At around 2 am, I received a call about patient's Blood pressure and constipation. Placed orders for hydralazine PRN and DUlcolax suppository At 6 am I received another call about pt's blood pressure again and not having a bowel movement I went to evaluate the patient. He was asymptomatic but with most recent b/p of 199/140. He was complaining of some abdominal spasming/pain but is unable to tell difference due to pain from Sacral wound. Repeat blood pressure was 125/90 but with tachycardia at 135- still asymptomatic. No Shortness of breath or chest pain, no Neuro Sx. Patient was hesitant to have an enema or stool softeners due to close proximity of sacral Wound and potential for infection with fecal matter. Exam: General: Laying in bed, no acute distress Abd: Bowel sounds hyperactive, Mildly tender in lower quadrants, baclofen pump in place, No guarding or rigidity Lungs: Clear Heart: Tachycardia, S1S2 present A/P Hypertensive urgency treated with hydralazine 10 mg IV x 2 doses , 4 hours apart and resulting rebound tachycardia- asked nurses to do vitals q15 mins- patient still asymptomatic Constipation/ fecal impaction- KUB Xray ordered. May need manual disimpaction if patient does not want any stool softeners. Nurses to discuss with day team about alternatives for B/P control but this may all be due to pain / constipation. Labetalol > hydralazine.
--- NOTE | 2016-07-21 09:17 | DIAGNOSTIC IMAGING REPORT ---
KUB CLINICAL HISTORY: Abdominal pain. Kidney stones. COMPARISON STUDY: CT of the abdomen and pelvis October 29, 2014 and KUB July 18, 2016. FINDINGS: An intrathecal catheter is in place. Several left renal calculi measure up to 1 cm. Are similar to prior exam of July 18, 2016. Evaluation was suboptimal due to difficulty with patient positioning. No ureteral calculi are identified although sensitivity is diminished on this exam. The pelvis was not well evaluated on this exam. IMPRESSION: 1. No change in left-sided nephrolithiasis. 2. No ureteral calculi identified although sensitivity significantly diminished on this exam. 3. No evidence for a bowel obstruction. Electronically signed by: Darrin Herman M.D. 07/21/2016 9:15 AM Dictated Date/Time: 07/21/2016 9:13 AM
[2016-07-21] MEDS ORDERED: SODIUM CHLORIDE 0.9% 1000ML 1,000 ML IV ONE (09:39)
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
[2016-07-21] MEDS ORDERED: SODIUM CHLORIDE 0.9% 1000ML 1,000 ML IV SCH (11:45)
[2016-07-21] MEDS ORDERED: OPTIRAY 320 IV PRN (14:15)
--- NOTE | 2016-07-21 14:24 | DIAGNOSTIC IMAGING REPORT ---
CT ANGIOGRAM OF THE CHEST CLINICAL HISTORY: Acute onset tachycardia. COMPARISON STUDY: Chest x-ray dated 02/23/2014 TECHNIQUE: Following the IV administration of 93 mL of Optiray-320, CT angiogram of the thorax was performed from the thoracic inlet to the lung bases utilizing the pulmonary embolus protocol. Images are reviewed in the axial, sagittal, and coronal planes. IV contrast was administered without complication. MIP imaging was performed. CT DOSE: 445.86 mGy.cm FINDINGS: No pathologically enlarged axillary mediastinal or hilar lymph nodes were visualized. There was no evidence of thoracic aortic dilatation. There were no pulmonary artery filling defects to indicate acute pulmonary embolism. No pleural effusions are visualized. There are left basilar dependent atelectatic changes. There were areas of mild cylindrical bronchiectasis. There is an azygos fissure. There is no focal pulmonary consolidation. IMPRESSION: 1. No CT evidence of acute pulmonary embolism 2. Mild dependent left lower lobe atelectatic change 3. Areas of mild surgical bronchiectasis. 4. No evidence of focal pulmonary consolidation Electronically signed by: Ezequiel Kessler M.D. 07/21/2016 2:22 PM Dictated Date/Time: 07/21/2016 2:19 PM
--- NOTE | 2016-07-21 15:22 | Infectious Disease Progress Nt ---
Progress Note Date of Service Jul 21, 2016. Subjective Pt evaluation today including: conversation w/ patient, physical exam, chart review, lab review, review of studies, conversation w/ information systems consultant, review of inpatient medication list Mild abdominal discomfort, otherwise offers no new specific complaints. Remains afebrile. Culture from sacral tissue growing Staph. Continues to tolerate antibiotics. All Other Systems: Reviewed and Negative Medications Current Inpatient Medications Medications (Trade) Dose Ordered Sig/Chalo Route Start Time Stop Time Status Last Admin Dose Admin Heparin Sodium (Porcine) (Heparin Sq 5000 Unit/0.5ml) 5,000 unit Q8 SQ 07/18/16 08:00 08/17/16 07:59 07/21/16 13:22 5,000 UNIT Acetaminophen (Tylenol Tab) 650 mg Q4H PRN PO 07/17/16 22:15 08/16/16 22:14 07/18/16 20:45 650 MG Ondansetron HCl 4 mg 4 mg Q6H PRN IV 07/17/16 22:15 08/16/16 22:14 Ertapenem/Sodium Chloride (Invanz Iv/Nss Ad-Van 50ml) 50 ml @ 120 mls/hr Q24H IV 07/18/16 21:00 07/27/16 20:59 07/20/16 22:43 120 MLS/HR Oxybutynin Chloride (Ditropan Tab) 5 mg BID PO 07/18/16 09:00 08/17/16 08:59 07/21/16 07:57 5 MG Senna (Senokot Tab) 17.2 mg QAM PO 07/18/16 09:00 08/17/16 08:59 07/21/16 07:57 17.2 MG Hydromorphone HCl (Dilaudid Inj) 0.5 mg Q3H PRN IV 07/18/16 08:15 08/01/16 08:14 07/19/16 20:16 0.5 MG Hydromorphone HCl 4 mg 4 mg Q4H PRN PO 07/18/16 12:15 08/01/16 12:14 07/21/16 07:58 4 MG Sodium Chloride (Nss 1000ml) 1,000 ml @ 100 mls/hr Q10H IV 07/19/16 07:00 08/18/16 06:59 07/21/16 07:57 100 MLS/HR Glycerin (Glycerin Adult Supp) 1 ea DAILY PRN WI 07/21/16 00:30 08/20/16 00:29 Bisacodyl (Dulcolax Supp) 10 mg DAILY PRN WI 07/21/16 00:30 08/20/16 00:29 07/21/16 00:48 10 MG Ioversol (Optiray 320) 125 ml UD PRN IV 07/21/16 14:15 07/25/16 14:14 Objective Vital Signs Date Time Temp Pulse Resp B/P Pulse Ox O2 Delivery O2 Flow Rate FiO2 07/21/16 14:00 116 117/69 07/21/16 12:50 97 106/73 07/21/16 12:35 126 67/39 07/21/16 12:10 Room Air 07/21/16 12:08 112 87/53 07/21/16 11:37 93 77/48 07/21/16 10:45 36.4 125 16 85/53 98 Room Air 07/21/16 09:51 125 84/50 07/21/16 09:34 101 125/90 07/21/16 09:00 111 83/59 07/21/16 08:00 96 Room Air 07/21/16 07:30 36.6 124 18 99/63 96 Room Air 07/21/16 07:15 36.5 121 20 133/87 97 07/21/16 06:48 133 125/87 07/21/16 06:35 153 125/90 07/21/16 05:45 80 199/143 07/21/16 00:00 98 Room Air 07/21/16 00:00 36.5 76 18 190/132 98 Room Air 197/119 07/20/16 16:38 36.8 89 16 143/100 99 Room Air 07/20/16 16:00 Room Air Physical Exam General Appearance: WD/WN, no apparent distress, + thin Eyes: normal inspection, sclerae normal ENT: normal ENT inspection, pharynx normal Neck: supple, no adenopathy, trachea midline Respiratory/Chest: chest non-tender, lungs clear, normal breath sounds, no respiratory distress Cardiovascular: regular rate, rhythm, no gallop, no murmur Abdomen: normal bowel sounds, non tender, soft, no organomegaly Extremities: non-tender, no calf tenderness Neurologic/Psychiatric: alert, oriented x 3 Skin: normal color, no rash, + pertinent finding (No cellulitis surrounding sacral decubitus) Lymphatic: no adenopathy Laboratory Results RUN DATE: 07/21/16 [facility] LAB PAGE 1 RUN TIME: 2878 Specimen Inquiry PATIENT: IDRIS YIP LOC: [facility] U # : [id number] AGE/SX: 46/M ROOM: [facility] REG : 07/17/[address]: Kodak Chavez D.O : 1970 BED: 2 DIS : STATUS: ADM IN TLOC: SPEC #: [id number] MACI: 07/20/16-UNK STATUS: RES REQ #: [id number] RECD: 07/20/[address] [facility] [address]: Kodak Chavez D.O. SOURCE: TISSUE ENTR: 07/20/[address]: Gilbert Arreola MD [facility]: Lan Lopez M.D. Miller, Howard I., MD, Urology Lima Aquino MD, Brandon M. M.D. Shaw, Mark R., DO Thaker, Upendra., M.D. ORDERED: DEP WND CUL/MID [facility] COMMENTS: Has Specimen Been Obtained/Collected? Y Procedure Result Verified Site GRAM STAIN Final 07/21/16-817 RESULT FEW EPITHELIAL CELLS FEW WBCs SEEN NO ORGANISMS SEEN DEEP WOUND CULTURE Preliminary 07/21/16-141 Organism 1 STAPH SPECIES QUANITY RARE SENS SENSITIVITIES DEPENDENT ON FURTHER IDENTIFICATION Last 24 Hours Test 07/21/16 05:25 07/21/16 12:49 White Blood Count 7.63 K/uL Red Blood Count 4.03 M/uL Hemoglobin 10.3 g/dL Hematocrit 32.1 % Mean Corpuscular Volume 79.7 fL Mean Corpuscular Hemoglobin 25.6 pg Mean Corpuscular Hemoglobin Concent 32.1 g/dl Platelet Count 412 K/uL Mean Platelet Volume 8.8 fL Neutrophils (%) (Auto) 63.9 % Lymphocytes (%) (Auto) 23.9 % Monocytes (%) (Auto) 6.9 % Eosinophils (%) (Auto) 4.6 % Basophils (%) (Auto) 0.3 % Neutrophils # (Auto) 4.88 K/uL Lymphocytes # (Auto) 1.82 K/uL Monocytes # (Auto) 0.53 K/uL Eosinophils # (Auto) 0.35 K/uL Basophils # (Auto) 0.02 K/uL RDW Standard Deviation 41.3 fL RDW Coefficient of Variation 14.2 % Immature Granulocyte % (Auto) 0.4 % Immature Granulocyte # (Auto) 0.03 K/uL Prothrombin Time 10.3 SECONDS Prothromb Time International Ratio 1.0 Sodium Level 139 mmol/L Potassium Level 4.1 mmol/L Chloride Level 106 mmol/L Carbon Dioxide Level 25 mmol/L Anion Gap 8.0 mmol/L Blood Urea Nitrogen 11 mg/dl Creatinine 0.41 mg/dl Est Creatinine Clear Calc Drug Dose 196.9 ml/min Estimated GFR () > 150.0 Estimated GFR (Non- 140.0 BUN/Creatinine Ratio 25.6 Random Glucose 101 mg/dl Calcium Level 8.5 mg/dl Total Bilirubin 0.1 mg/dl Aspartate Amino Transf (AST/SGOT) 18 U/L Alanine Aminotransferase (ALT/SGPT) 27 U/L Alkaline Phosphatase 124 U/L Total Protein 7.0 gm/dl Albumin 2.1 gm/dl Globulin 4.9 gm/dl Albumin/Globulin Ratio 0.4 Random Cortisol 12.01 mcg/dl Assessment and Plan (1) Sacral decubitus ulcer, stage IV (2) Sepsis (3) Nephrolithiasis sepsis associated with stage IV decubitus ulcer with underlying sacral osteomyelitis. Current antibiotic should provide appropriate coverage pending review of prior Wound Care cultures and clinical response. Patient will likely require wound VAC placement for further management. Patient will also likely require prolonged i.e. 6-8 weeks of IV antibiotics for osteomyelitis. Will discuss with all involved.
[2016-07-21] MEDS: ERTAPENEM IV 1 GM in SODIUM CHLOR 0.9% AD-VAN 50ML 50 ML IV SCH (21:33)
[2016-07-22 03:56] VITALS: BP 140/102; PULSE 80; TEMP 36.3; O2SAT 97
[2016-07-22] MEDS: SODIUM CHLORIDE 0.9% 1000ML 1,000 ML IV SCH ×2 (05:54→10:20)
[2016-07-22] MEDS: HEPARIN SOD 5000 UNIT/0.5 ML CARP SQ SCH ×3 (06:09→21:31)
[2016-07-22 06:25] LABS: BASO % 0.5 %; BASO ABS # 0.03 K/uL (0-0.2); COMPLETE YES; HEMATOCRIT 29.9 % (42-52); IG% 0.5 %; LYMPH % 32.5 %; LYMPH ABS # 2.08 K/uL (1.2-3.4); MEAN CELL VOLUME 79.5 fL (80-100); MEAN CORPUSCULAR HEMOGLOBIN 25.5 pg (25-34); MEAN CORPUSCULAR HGB CONC 32.1 g/dl (32-36); MEAN PLATELET VOLUME 8.7 fL (7.4-10.4); MONO % 9.5 %; PLATELET COUNT 403 K/uL (130-400); RED BLOOD COUNT 3.76 M/uL (4.7-6.1)
[2016-07-22 06:30] LABS: PROTHROMBIN TIME (PATIENT) 10.9 SECONDS (9.0-12.0)
[2016-07-22 06:52] LABS: ALT/SGPT 20 U/L (12-78); BLOOD UREA NITROGEN 9 mg/dl (7-18); BUN/CREATININE RATIO 28.2 (10-20); CALCIUM 8.1 mg/dl (8.5-10.1); CARBON DIOXIDE 24 mmol/L (21-32); CHLORIDE 111 mmol/L (98-107); CREATININE 0.33 mg/dl (0.60-1.40); GLUCOSE 84 mg/dl (70-99); POTASSIUM 3.7 mmol/L (3.5-5.1); SODIUM 143 mmol/L (136-145)
[2016-07-22 06:55] LABS: ALB/GLOB RATIO 0.4 (0.9-2); ALKALINE PHOSPHATASE 84 U/L (45-117); AST/SGOT 12 U/L (15-37)
[2016-07-22 08:00] VITALS: BP 122/63; PULSE 77; TEMP 36.7; O2SAT 94
[2016-07-22] MEDS: SENNA 8.6 MG TAB PO SCH (08:19)
[2016-07-22] MEDS: OXYBUTYNIN CHLORIDE 5 MG TAB PO SCH ×2 (08:20→21:19)
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
[2016-07-22 10:26] VITALS: BP 122/63; PULSE 77; TEMP 36.7; O2SAT 94
[2016-07-22 10:33] VITALS: BP 179/79; PULSE 91; TEMP 36.3; O2SAT 97
[2016-07-22] MEDS: HYDROmorphone HCL 2 MG TAB PO PRN (10:55)
[2016-07-22 15:48] VITALS: BP 114/76; PULSE 103; TEMP 36.4; O2SAT 97
[2016-07-22] MEDS: ERTAPENEM IV 1 GM in SODIUM CHLOR 0.9% AD-VAN 50ML 50 ML IV SCH (21:19)
--- NOTE | 2016-07-22 21:38 | Infectious Disease Progress Nt ---
Progress Note Date of Service Jul 22, 2016. Subjective Pt evaluation today including: conversation w/ patient, physical exam, chart review, lab review, review of studies, conversation w/ senior staff consultant, review of inpatient medication list Complaining of moderate pain in the sacral area, now about 3/10 in intensity. Remains afebrile. No obvious problems with antibiotics. All Other Systems: Reviewed and Negative Medications Current Inpatient Medications Medications (Trade) Dose Ordered Sig/Chalo Route Start Time Stop Time Status Last Admin Dose Admin Heparin Sodium (Porcine) (Heparin Sq 5000 Unit/0.5ml) 5,000 unit Q8 SQ 07/18/16 08:00 08/17/16 07:59 07/22/16 14:14 5,000 UNIT Acetaminophen (Tylenol Tab) 650 mg Q4H PRN PO 07/17/16 22:15 08/16/16 22:14 07/18/16 20:45 650 MG Ondansetron HCl 4 mg 4 mg Q6H PRN IV 07/17/16 22:15 08/16/16 22:14 Ertapenem/Sodium Chloride (Invanz Iv/Nss Ad-Van 50ml) 50 ml @ 120 mls/hr Q24H IV 07/18/16 21:00 07/27/16 20:59 07/21/16 21:33 120 MLS/HR Oxybutynin Chloride (Ditropan Tab) 5 mg BID PO 07/18/16 09:00 08/17/16 08:59 07/22/16 08:20 5 MG Senna (Senokot Tab) 17.2 mg QAM PO 07/18/16 09:00 08/17/16 08:59 07/22/16 08:19 17.2 MG Hydromorphone HCl (Dilaudid Inj) 0.5 mg Q3H PRN IV 07/18/16 08:15 08/01/16 08:14 07/19/16 20:16 0.5 MG Hydromorphone HCl 4 mg 4 mg Q4H PRN PO 07/18/16 12:15 08/01/16 12:14 07/22/16 10:55 4 MG Sodium Chloride (Nss 1000ml) 1,000 ml @ 100 mls/hr Q10H IV 07/19/16 07:00 08/18/16 06:59 07/22/16 10:20 100 MLS/HR Glycerin (Glycerin Adult Supp) 1 ea DAILY PRN WV 07/21/16 00:30 08/20/16 00:29 Bisacodyl (Dulcolax Supp) 10 mg DAILY PRN WV 07/21/16 00:30 08/20/16 00:29 07/21/16 22:13 10 MG Ioversol (Optiray 320) 125 ml UD PRN IV 07/21/16 14:15 07/25/16 14:14 Objective Vital Signs Date Time Temp Pulse Resp B/P Pulse Ox O2 Delivery O2 Flow Rate FiO2 07/22/16 16:30 Room Air 07/22/16 15:48 36.4 103 16 114/76 97 Room Air 07/22/16 10:33 36.3 91 18 179/79 97 Room Air 07/22/16 10:26 36.7 77 16 94 07/22/16 08:00 36.7 77 16 122/63 94 07/22/16 08:00 Room Air 07/22/16 04:10 Room Air 07/22/16 03:56 36.3 80 15 140/102 97 Room Air 07/22/16 00:00 Room Air 07/21/16 23:08 36.6 96 20 127/97 97 Room Air Physical Exam General Appearance: WD/WN, no apparent distress, + thin Eyes: normal inspection, sclerae normal ENT: normal ENT inspection, pharynx normal Neck: supple, no adenopathy, trachea midline Respiratory/Chest: chest non-tender, lungs clear, normal breath sounds, no respiratory distress Cardiovascular: regular rate, rhythm, no gallop (c), no murmur Abdomen: normal bowel sounds, non tender, soft, no organomegaly Extremities: non-tender, no calf tenderness Neurologic/Psychiatric: alert, oriented x 3, + pertinent finding (quadraplegic) Skin: normal color, no rash, + pertinent finding (sacral decubitus about same) Lymphatic: no adenopathy Laboratory Results RUN DATE: 07/22/16 [facility] PAGE 1 RUN TIME: 1306 Specimen Inquiry PATIENT: IDRIS YIP LOC: [place] U # : [id number] AGE/SX: 46/M ROOM: [facility] REG : 07/17/[address]: Dami Guy MD : 1970 BED: 1 DIS : STATUS: ADM IN TLOC: SPEC #: [id number] MACI: 07/20/16-UNK STATUS: RES REQ #: [id number] RECD: 07/20/16 [facility] [address]: [place] Chavez , D.O. SOURCE: TISSUE ENTR: 07/20/16-[address] [facility] [address]: Gilbert Arreola MD SPDESC: Lan Lopez M.D. Miller, Howard I., MD, Urology Lima Aquino MD, Brandon M. M.D. Shaw, Mark R., DO Thaker, Upendra., M.D. ORDERED: DEP WNHarpreet CUL/ANTONINO COMMENTS: Has Specimen Been Obtained/Collected? Y Procedure Result Verified Site GRAM STAIN Final 07/21/16-817 RESULT FEW EPITHELIAL CELLS FEW WBCs SEEN NO ORGANISMS SEEN DEEP WOUND CULTURE Preliminary 07/22/16-6 Organism 1 STAPHYLOCOCCUS AUREUS QUANITY RARE SENS SENSITIVITY TO FOLLOW +MIXWOUND PLUS LOW COUNTS OF PROBABLE SKIN KLEBER Last 24 Hours Test 07/22/16 05:59 White Blood Count 6.40 K/uL Red Blood Count 3.76 M/uL Hemoglobin 9.6 g/dL Hematocrit 29.9 % Mean Corpuscular Volume 79.5 fL Mean Corpuscular Hemoglobin 25.5 pg Mean Corpuscular Hemoglobin Concent 32.1 g/dl Platelet Count 403 K/uL Mean Platelet Volume 8.7 fL Neutrophils (%) (Auto) 52.0 % Lymphocytes (%) (Auto) 32.5 % Monocytes (%) (Auto) 9.5 % Eosinophils (%) (Auto) 5.0 % Basophils (%) (Auto) 0.5 % Neutrophils # (Auto) 3.33 K/uL Lymphocytes # (Auto) 2.08 K/uL Monocytes # (Auto) 0.61 K/uL Eosinophils # (Auto) 0.32 K/uL Basophils # (Auto) 0.03 K/uL RDW Standard Deviation 42.1 fL RDW Coefficient of Variation 14.6 % Immature Granulocyte % (Auto) 0.5 % Immature Granulocyte # (Auto) 0.03 K/uL Prothrombin Time 10.9 SECONDS Prothromb Time International Ratio 1.0 Sodium Level 143 mmol/L Potassium Level 3.7 mmol/L Chloride Level 111 mmol/L Carbon Dioxide Level 24 mmol/L Anion Gap 8.0 mmol/L Blood Urea Nitrogen 9 mg/dl Creatinine 0.33 mg/dl Est Creatinine Clear Calc Drug Dose 244.6 ml/min Estimated GFR () > 150.0 Estimated GFR (Non- > 150.0 BUN/Creatinine Ratio 28.2 Random Glucose 84 mg/dl Calcium Level 8.1 mg/dl Total Bilirubin 0.1 mg/dl Aspartate Amino Transf (AST/SGOT) 12 U/L Alanine Aminotransferase (ALT/SGPT) 20 U/L Alkaline Phosphatase 84 U/L Total Protein 6.5 gm/dl Albumin 2.0 gm/dl Globulin 4.5 gm/dl Albumin/Globulin Ratio 0.4 CT ANGIOGRAM OF THE CHEST CLINICAL HISTORY: Acute onset tachycardia. COMPARISON STUDY: Chest x-ray dated 02/23/2014 TECHNIQUE: Following the IV administration of 93 mL of Optiray-320, CT angiogram of the thorax was performed from the thoracic inlet to the lung bases utilizing the pulmonary embolus protocol. Images are reviewed in the axial, sagittal, and coronal planes. IV contrast was administered without complication. MIP imaging was performed. CT DOSE: 445.86 mGy.cm FINDINGS: No pathologically enlarged axillary mediastinal or hilar lymph nodes were visualized. There was no evidence of thoracic aortic dilatation. There were no pulmonary artery filling defects to indicate acute pulmonary embolism. No pleural effusions are visualized. There are left basilar dependent atelectatic changes. There w Assessment and Plan (1) Sacral decubitus ulcer, stage IV (2) Sepsis (3) Nephrolithiasis sepsis associated with stage IV decubitus ulcer with underlying sacral osteomyelitis, culture now with Staph aureus. Current antibiotic should provide appropriate coverage pending review of prior Wound Care cultures and clinical response. Patient will likely require wound VAC placement for further management. Patient will also likely require prolonged i.e. 6-8 weeks of IV antibiotics for osteomyelitis. Will discuss with all involved.
[2016-07-23] VITALS (8 sets, daily range): BP systolic 92–187; BP diastolic 61–115; PULSE 80–102; TEMP 36.5–36.9; O2SAT 91–99
[2016-07-23] MEDS: HYDROmorphone HCL 2 MG TAB PO PRN ×2 (00:34→16:26)
[2016-07-23] MEDS: SODIUM CHLORIDE 0.9% 1000ML 1,000 ML IV SCH ×3 (00:34→21:04)
[2016-07-23] MEDS: SENNA 8.6 MG TAB PO SCH (08:01)
[2016-07-23] MEDS: OXYBUTYNIN CHLORIDE 5 MG TAB PO SCH ×2 (08:01→21:08)
[2016-07-23] MEDS: HEPARIN SOD 5000 UNIT/0.5 ML CARP SQ SCH ×3 (08:13→22:08)
[2016-07-23 08:28] LABS: BASO % 0.3 %; BASO ABS # 0.02 K/uL (0-0.2); COMPLETE YES; EOS % 4.1 %; HEMATOCRIT 32.5 % (42-52); IG% 1.5 %; LYMPH % 26.4 %; LYMPH ABS # 1.75 K/uL (1.2-3.4); MEAN CELL VOLUME 79.1 fL (80-100); MEAN CORPUSCULAR HEMOGLOBIN 25.8 pg (25-34); MEAN CORPUSCULAR HGB CONC 32.6 g/dl (32-36); MEAN PLATELET VOLUME 8.4 fL (7.4-10.4); MONO % 6.2 %; NEUT % 61.5 %; PLATELET COUNT 385 K/uL (130-400); RED BLOOD COUNT 4.11 M/uL (4.7-6.1); WHITE BLOOD COUNT 6.62 K/uL (4.8-10.8)
[2016-07-23 09:02] LABS: ALT/SGPT 24 U/L (12-78); BLOOD UREA NITROGEN 11 mg/dl (7-18); BUN/CREATININE RATIO 33.1 (10-20); CALCIUM 8.5 mg/dl (8.5-10.1); CARBON DIOXIDE 22 mmol/L (21-32); CHLORIDE 109 mmol/L (98-107); CREATININE 0.32 mg/dl (0.60-1.40); GLUCOSE 91 mg/dl (70-99); POTASSIUM 3.8 mmol/L (3.5-5.1); SODIUM 140 mmol/L (136-145)
[2016-07-23 09:05] LABS: ALB/GLOB RATIO 0.5 (0.9-2); ALKALINE PHOSPHATASE 108 U/L (45-117); AST/SGOT 21 U/L (15-37)
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
[2016-07-23] MEDS: ERTAPENEM IV 1 GM in SODIUM CHLOR 0.9% AD-VAN 50ML 50 ML IV SCH (21:04)
[2016-07-23] MEDS: BISACODYL 10 MG SUPP PR PRN (21:47)
[2016-07-24 05:19] LABS: BASO % 0.4 %; BASO ABS # 0.03 K/uL (0-0.2); COMPLETE YES; HEMATOCRIT 29.4 % (42-52); IG% 1.9 %; LYMPH ABS # 1.88 K/uL (1.2-3.4); MEAN CELL VOLUME 80.3 fL (80-100); MEAN CORPUSCULAR HEMOGLOBIN 25.4 pg (25-34); MEAN CORPUSCULAR HGB CONC 31.6 g/dl (32-36); MEAN PLATELET VOLUME 8.4 fL (7.4-10.4); MONO % 9.5 %; NEUT % 56.2 %; PLATELET COUNT 362 K/uL (130-400); RED BLOOD COUNT 3.66 M/uL (4.7-6.1); WHITE BLOOD COUNT 6.71 K/uL (4.8-10.8)
[2016-07-24 05:37] LABS: ALT/SGPT 27 U/L (12-78); AST/SGOT 25 U/L (15-37); BLOOD UREA NITROGEN 14 mg/dl (7-18); BUN/CREATININE RATIO 33.1 (10-20); CALCIUM 7.9 mg/dl (8.5-10.1); CARBON DIOXIDE 29 mmol/L (21-32); CHLORIDE 107 mmol/L (98-107); CREATININE 0.43 mg/dl (0.60-1.40); GLUCOSE 94 mg/dl (70-99); POTASSIUM 4.2 mmol/L (3.5-5.1); SODIUM 141 mmol/L (136-145)
[2016-07-24 05:40] LABS: ALB/GLOB RATIO 0.5 (0.9-2); ALKALINE PHOSPHATASE 99 U/L (45-117)
[2016-07-24] MEDS: HEPARIN SOD 5000 UNIT/0.5 ML CARP SQ SCH ×3 (05:41→21:21)
[2016-07-24 08:07] VITALS: BP 130/86; PULSE 70; TEMP 37; O2SAT 94
[2016-07-24] MEDS: OXYBUTYNIN CHLORIDE 5 MG TAB PO SCH ×2 (08:40→21:20)
[2016-07-24] MEDS: SENNA 8.6 MG TAB PO SCH ×2 (08:40→08:41)
[2016-07-24 11:15] VITALS: O2SAT 94
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
--- NOTE | 2016-07-24 15:55 | ECHOCARDIOGRAM REPORT ---
*NOTICE TO RECEIVING [employer] This information is strictly Confidential and protected under [place] law. [place] law prohibits you from making any further disclosure of this information unless further disclosure is expressly permitted by the written consent of the person to whom it pertains or is authorized by law. A general authorization for the release of medical or other information is not sufficient for this purpose. Hospital accepts no responsibility if the information is made available to any other person, INCLUDING THE PATIENT. Interpretation Summary * Name: IDRIS YIP Study Date: 07/24/2016 02:32 PM BP: 120/78 mmHg * Patient Location: .[id number]\S\1 HR: 96 * : 1970 (M/d/yyyy) Gender: Male Height: 72 in * Age: 46 yrs Ethnicity: CA Weight: 137 lb * Ordering Physician: Kalina Yeboah * Referring Physician: No Doctor, Assigned * Performed By: Munira Holloway RCS * * Reason For Study: R/O CARDIOGENIC SHOCK / H/O HYPOTENSION / TACHYCARDIA * BSA: 1.8 m2 * -- Conclusions -- * The left ventricular cavity is small. * There is moderate concentric left ventricular hypertrophy. * Left ventricular systolic function is normal. * Normal diastolic function * Moderate aortic root dilatation. Procedure Details * A complete two-dimensional transthoracic echocardiogram was performed (2D, M-mode, Doppler and color flow Doppler). Left Ventricle * The left ventricular cavity is small. * There is moderate concentric left ventricular hypertrophy. * Left ventricular systolic function is normal. * Ejection Fraction = 60-65%. * Normal diastolic function Right Ventricle * The right ventricle is normal in size and function. Atria * The left atrial size is normal. * Right atrial size is normal. Mitral Valve * The mitral valve anatomy is normal. * Significant mitral regurgitation is absent. Tricuspid Valve * The tricuspid valve is not well visualized, but is grossly normal. * There is trace tricuspid regurgitation. Aortic Valve * The aortic valve is normal in structure and function. * No hemodynamically significant valvular aortic stenosis. * There is no significant aortic regurgitation. Great Vessels * Moderate aortic root dilatation. Pericardium/Pleural * There is no pericardial effusion. Great Vessels * Normal inferior vena cava size and collapsability with sniff indicates a normal right atrial pressure of 3 mmHg MMode 2D Measurements and Calculations IVSd 1.7 cm IVSs 2.1 cm LVIDd 3.5 cm LVIDs 2.1 cm LVPWd 1.6 cm LVPWs 1.5 cm IVS/LVPW 1.0 FS 38.6 % EDV(Teich) 50.9 ml ESV(Teich) 15.2 ml EF(Teich) 70.0 % EDV(cubed) 42.9 ml ESV(cubed) 9.9 ml EF(cubed) 76.9 % % IVS thick 27.7 % % LVPW thick -3.68 % LV mass(C)d 223.5 grams LV mass(C)dI 123.2 grams/m\S\2 LV mass(C)s 156.9 grams LV mass(C)sI 86.5 grams/m\S\2 SV(Teich) 35.6 ml SI(Teich) 19.6 ml/m\S\2 SV(cubed) 33.0 ml SI(cubed) 18.2 ml/m\S\2 Ao root diam 4.9 cm Ao root area 18.8 cm\S\2 ACS 2.2 cm LA dimension 2.5 cm LA/Ao 0.51 LVOT diam 2.0 cm LVOT area 3.1 cm\S\2 LVAd ap4 28.6 cm\S\2 LVLd ap4 8.5 cm EDV(MOD-sp4) 79.2 ml EDV(sp4-el) 82.3 ml LVAs ap4 18.8 cm\S\2 LVLs ap4 7.5 cm ESV(MOD-sp4) 38.9 ml ESV(sp4-el) 40.1 ml EF(MOD-sp4) 50.9 % EF(sp4-el) 51.3 % LVAd ap2 24.2 cm\S\2 LVLd ap2 8.0 cm EDV(MOD-sp2) 60.2 ml EDV(sp2-el) 62.0 ml LVAs ap2 15.1 cm\S\2 LVLs ap2 6.7 cm ESV(MOD-sp2) 29.6 ml ESV(sp2-el) 28.7 ml EF(MOD-sp2) 50.9 % EF(sp2-el) 53.7 % LVLd %diff -5.36 % EDV(MOD-bp) 70.8 ml LVLs %diff -11.24 % ESV(MOD-bp) 35.4 ml EF(MOD-bp) 49.9 % SV(MOD-sp4) 40.4 ml SI(MOD-sp4) 22.2 ml/m\S\2 SV(MOD-sp2) 30.7 ml SI(MOD-sp2) 16.9 ml/m\S\2 SV(MOD-bp) 35.3 ml SI(MOD-bp) 19.5 ml/m\S\2 SV(sp4-el) 42.3 ml SI(sp4-el) 23.3 ml/m\S\2 SV(sp2-el) 33.3 ml SI(sp2-el) 18.3 ml/m\S\2 Doppler Measurements and Calculations MV E max ken 69.0 cm/sec MV A max ken 59.9 cm/sec MV E/A 1.2 MV dec time 0.24 sec Ao V2 max 120.1 cm/sec Ao max PG 5.8 mmHg Ao max PG (full) 0.83 mmHg MARTIN(V,A) 2.9 cm\S\2 MARTIN(V,D) 2.9 cm\S\2 LV V1 max PG 4.9 mmHg LV V1 max 111.1 cm/sec PA V2 max 117.7 cm/sec PA max PG 5.5 mmHg
[2016-07-24 16:00] VITALS: O2SAT 97
[2016-07-24 17:00] VITALS: BP 76/47; PULSE 81; TEMP 36.3; O2SAT 97
[2016-07-24] MEDS: ERTAPENEM IV 1 GM in SODIUM CHLOR 0.9% AD-VAN 50ML 50 ML IV SCH (21:09)
[2016-07-24] MEDS: HYDROmorphone HCL 2 MG TAB PO PRN (22:15)
[2016-07-25 00:43] VITALS: BP 83/59; PULSE 88; TEMP 36.6; O2SAT 95
[2016-07-25] MEDS: HEPARIN SOD 5000 UNIT/0.5 ML CARP SQ SCH ×3 (05:36→21:02)
[2016-07-25 06:03] LABS: BASO % 0.3 %; BASO ABS # 0.02 K/uL (0-0.2); COMPLETE YES; EOS % 3.8 %; HEMATOCRIT 29.4 % (42-52); IG% 1.9 %; LYMPH % 31.3 %; LYMPH ABS # 2.15 K/uL (1.2-3.4); MEAN CELL VOLUME 79.9 fL (80-100); MEAN CORPUSCULAR HEMOGLOBIN 25.3 pg (25-34); MEAN CORPUSCULAR HGB CONC 31.6 g/dl (32-36); MEAN PLATELET VOLUME 8.4 fL (7.4-10.4); MONO % 9.3 %; NEUT % 53.4 %; PLATELET COUNT 350 K/uL (130-400); RED BLOOD COUNT 3.68 M/uL (4.7-6.1); WHITE BLOOD COUNT 6.86 K/uL (4.8-10.8)
[2016-07-25 06:31] LABS: ALT/SGPT 30 U/L (12-78); AST/SGOT 24 U/L (15-37); BLOOD UREA NITROGEN 18 mg/dl (7-18); BUN/CREATININE RATIO 36.4 (10-20); CALCIUM 8.2 mg/dl (8.5-10.1); CARBON DIOXIDE 28 mmol/L (21-32); CHLORIDE 107 mmol/L (98-107); CREATININE 0.49 mg/dl (0.60-1.40); GLUCOSE 94 mg/dl (70-99); POTASSIUM 4.2 mmol/L (3.5-5.1); SODIUM 141 mmol/L (136-145)
[2016-07-25 06:34] LABS: ALB/GLOB RATIO 0.4 (0.9-2); ALKALINE PHOSPHATASE 111 U/L (45-117)
[2016-07-25] MEDS ORDERED: SODIUM CHLORIDE 0.9% 1000ML 1,000 ML IV SCH (08:30)
[2016-07-25] MEDS: SENNA 8.6 MG TAB PO SCH (09:00)
[2016-07-25] MEDS: OXYBUTYNIN CHLORIDE 5 MG TAB PO SCH ×2 (09:00→20:58)
[2016-07-25 09:21] VITALS: BP 99/63; PULSE 67; TEMP 36.7; O2SAT 95
[2016-07-25] MEDS: FERROUS SULFATE 325 MG TAB PO SCH ×2 (12:42→16:51)
[2016-07-25] MEDS: ERTAPENEM IV 1 GM in SODIUM CHLOR 0.9% AD-VAN 50ML 50 ML IV SCH (20:58)
[2016-07-26 00:33] VITALS: BP 91/57; PULSE 76; TEMP 36.4; O2SAT 97
[2016-07-26 06:12] LABS: BASO % 0.4 %; BASO ABS # 0.03 K/uL (0-0.2); COMPLETE YES; EOS % 3.6 %; HEMATOCRIT 30.7 % (42-52); IG% 1.6 %; LYMPH % 25.8 %; LYMPH ABS # 1.91 K/uL (1.2-3.4); MEAN CELL VOLUME 82.3 fL (80-100); MEAN CORPUSCULAR HEMOGLOBIN 25.7 pg (25-34); MEAN CORPUSCULAR HGB CONC 31.3 g/dl (32-36); MEAN PLATELET VOLUME 8.5 fL (7.4-10.4); MONO % 8.1 %; NEUT % 60.5 %; PLATELET COUNT 334 K/uL (130-400); RED BLOOD COUNT 3.73 M/uL (4.7-6.1)
[2016-07-26] MEDS: HEPARIN SOD 5000 UNIT/0.5 ML CARP SQ SCH ×3 (06:18→21:40)
[2016-07-26 06:49] LABS: ALT/SGPT 35 U/L (12-78); AST/SGOT 24 U/L (15-37); BLOOD UREA NITROGEN 18 mg/dl (7-18); BUN/CREATININE RATIO 39.9 (10-20); CARBON DIOXIDE 28 mmol/L (21-32); CHLORIDE 109 mmol/L (98-107); CREATININE 0.45 mg/dl (0.60-1.40); GLUCOSE 98 mg/dl (70-99); POTASSIUM 4.2 mmol/L (3.5-5.1); SODIUM 141 mmol/L (136-145)
[2016-07-26 06:52] LABS: ALB/GLOB RATIO 0.5 (0.9-2); ALKALINE PHOSPHATASE 119 U/L (45-117)
[2016-07-26 07:31] VITALS: BP 97/62; PULSE 75; TEMP 36.5; O2SAT 96
--- NOTE | 2016-07-26 08:15 | Progress Note ---
Subjective Date of Service: LATE ENTRY FOR VISIT Jul 25, 2016. Subjective Pt evaluation today including: conversation w/ patient, physical exam, chart review, lab review, review of studies (ECHO), review of inpatient medication list Pain: NONE VOICED PO Intake: EXCELLENT; EXCITED ABOUT EATING CHICKEN FINGERS Voiding: brooks catheter in place NO ISSUES OVERNIGHT FEELS GOOD Despite BPs being low-normal he denies feeling lightheaded, dizzy, short of breath, etc and has had excellent UOP. Review of Systems Constitutional: No chills, No fever Respiratory: No shortness of breath Cardiac: No chest pain Abdomen: No pain Objective Vital Signs Date Time Temp Pulse Resp B/P Pulse Ox O2 Delivery O2 Flow Rate FiO2 07/26/16 07:31 36.5 75 18 97/62 96 Room Air 07/26/16 00:33 36.4 76 18 91/57 97 Room Air 07/25/16 23:59 Room Air 07/25/16 16:00 Room Air 07/25/16 11:13 Room Air 07/25/16 09:21 36.7 67 20 99/63 95 Room Air Physical Exam General Appearance: no apparent distress, + pertinent finding (quadriplegic) ENT: pharynx normal Neck: no JVD Respiratory/Chest: lungs clear, no respiratory distress, no accessory muscle use Cardiovascular: regular rate, rhythm, no gallop, no murmur Abdomen: normal bowel sounds, non tender, soft, no organomegaly, + pertinent finding (baclofen pump right side of abdomen, urostomy left side of abdomen ) Extremities: no pedal edema Neurologic/Psychiatric: alert, oriented x 3, + motor weakness (quad status; significant muscle wasting of all 4 limbs) Skin: + pertinent finding (stage 2 pressure ulcer, left heel - unchanged) Laboratory Results Last 24 Hours Test 07/26/16 05:58 White Blood Count 7.40 K/uL Red Blood Count 3.73 M/uL Hemoglobin 9.6 g/dL Hematocrit 30.7 % Mean Corpuscular Volume 82.3 fL Mean Corpuscular Hemoglobin 25.7 pg Mean Corpuscular Hemoglobin Concent 31.3 g/dl Platelet Count 334 K/uL Mean Platelet Volume 8.5 fL Neutrophils (%) (Auto) 60.5 % Lymphocytes (%) (Auto) 25.8 % Monocytes (%) (Auto) 8.1 % Eosinophils (%) (Auto) 3.6 % Basophils (%) (Auto) 0.4 % Neutrophils # (Auto) 4.47 K/uL Lymphocytes # (Auto) 1.91 K/uL Monocytes # (Auto) 0.60 K/uL Eosinophils # (Auto) 0.27 K/uL Basophils # (Auto) 0.03 K/uL RDW Standard Deviation 45.7 fL RDW Coefficient of Variation 15.8 % Immature Granulocyte % (Auto) 1.6 % Immature Granulocyte # (Auto) 0.12 K/uL Sodium Level 141 mmol/L Potassium Level 4.2 mmol/L Chloride Level 109 mmol/L Carbon Dioxide Level 28 mmol/L Anion Gap 4.0 mmol/L Blood Urea Nitrogen 18 mg/dl Creatinine 0.45 mg/dl Est Creatinine Clear Calc Drug Dose 179.4 ml/min Estimated GFR () > 150.0 Estimated GFR (Non- 134.8 BUN/Creatinine Ratio 39.9 Random Glucose 98 mg/dl Calcium Level 8.0 mg/dl Total Bilirubin 0.1 mg/dl Aspartate Amino Transf (AST/SGOT) 24 U/L Alanine Aminotransferase (ALT/SGPT) 35 U/L Alkaline Phosphatase 119 U/L Total Protein 6.7 gm/dl Albumin 2.1 gm/dl Globulin 4.6 gm/dl Albumin/Globulin Ratio 0.5 Assessment and Plan (1) Sacral decubitus ulcer, stage IV (2) Sepsis (3) Nephrolithiasis 46yo male with: 1. Sepsis secondary to osteomyelitis of sacrum in the setting of stage 4 sacral decubitus ulcer - Plan: * 6-8 weeks of IV ertapenem (wound cx grew MSSA but Dr. Arreola concerned about polymicrobial process) - day #9 of IV abx at this time * wound vac placed, to be changed M/W/F * Blood cultures negative x 2 * RUE PICC line in place * continue clinitron bed for now * optimize nutrition 2. shock - resolved. Suspect due to autonomic dysfunction in the setting of his cervical spine injury and quadriplegic status. EF preserved on echo. Could have had some iatrogenic role from 2 doses of hydralazine. PE and addisonian crisis all ruled out. H/H stable. likely autonomic dysfunction. 3. pressure ulcer of left heel, stage 2, present on admission - local wound care. 4. severe protein-calorie malnutrition - boost, MVI. 5. nephrolithiasis - urology has seen; planning stone removal in future as outpatient. 6. quadriplegic status - on baclofen pump for spasticity. Will need refill later in July. 7. DVT proph - heparin TID. 8. moderate LVH on echo - not a good candidate for beta narayan due to low- normal BPs and propensity, due to autonomic dysfunction, for very low BPs 9. urostomy status spoke with Dr. Hess at [facility] on Wednesday they are concerned they may not be able to accommodate him because of the bed he is currently using SW involved he will stay the weekend to determine disposition ([facility], [facility], etc) Continued [facility] stay due to: multiple IV medications needed, other (wound care) Discharge planning: uncertain
[2016-07-26] MEDS: OXYBUTYNIN CHLORIDE 5 MG TAB PO SCH ×2 (09:00→20:56)
[2016-07-26] MEDS: SENNA 8.6 MG TAB PO SCH (09:00)
[2016-07-26] MEDS: FERROUS SULFATE 325 MG TAB PO SCH ×2 (09:13→16:48)
[2016-07-26 15:07] VITALS: BP 102/70; PULSE 79; TEMP 36.6; O2SAT 94
[2016-07-26] MEDS: DESONIDE CR 15 GM TUBE EXT SCH ×2 (16:48→21:04)
[2016-07-26] MEDS: BISACODYL 10 MG SUPP PR PRN (20:06)
[2016-07-26] MEDS: ERTAPENEM IV 1 GM in SODIUM CHLOR 0.9% AD-VAN 50ML 50 ML IV SCH (20:56)
--- NOTE | 2016-07-26 23:03 | Progress Note ---
Subjective Date of Service: Jul 26, 2016. Subjective Pt evaluation today including: conversation w/ patient, physical exam, chart review, lab review, review of inpatient medication list Pain: denies PO Intake: normal Voiding: brooks catheter in place (urostomy ) no events overnight feels good no complaints eating well he reports that he has an electric scooter at home but has no way of getting it to our hospital Review of Systems Constitutional: No fever Respiratory: No shortness of breath Cardiac: No chest pain Abdomen: No pain Objective Vital Signs Date Time Temp Pulse Resp B/P Pulse Ox O2 Delivery O2 Flow Rate FiO2 07/26/16 16:00 Room Air 07/26/16 15:07 36.6 79 20 102/70 94 Room Air 07/26/16 10:32 Room Air 07/26/16 07:31 36.5 75 18 97/62 96 Room Air 07/26/16 00:33 36.4 76 18 91/57 97 Room Air 07/25/16 23:59 Room Air Physical Exam General Appearance: no apparent distress, + thin, + pertinent finding ( quadriplegic) ENT: pharynx normal Neck: no JVD Respiratory/Chest: lungs clear, no respiratory distress, no accessory muscle use Cardiovascular: regular rate, rhythm, no gallop, no murmur Abdomen: normal bowel sounds, non tender, soft, no organomegaly, + pertinent finding (scant distension; baclofen pump right abdomen, urostomy left abdomen ) Extremities: no pedal edema Neurologic/Psychiatric: alert, oriented x 3, + motor weakness (quadriplegic with contractures of legs), + pertinent finding (muscle atrophy all 4 extremities) Skin: + rash (severe zachary derm on face; severe seborrhea on scalp), + pertinent finding (stage 2 ulcer, left heel - clean, no cellulitis) Comments: PICC RUE clean Laboratory Results Last 24 Hours Test 07/26/16 05:58 White Blood Count 7.40 K/uL Red Blood Count 3.73 M/uL Hemoglobin 9.6 g/dL Hematocrit 30.7 % Mean Corpuscular Volume 82.3 fL Mean Corpuscular Hemoglobin 25.7 pg Mean Corpuscular Hemoglobin Concent 31.3 g/dl Platelet Count 334 K/uL Mean Platelet Volume 8.5 fL Neutrophils (%) (Auto) 60.5 % Lymphocytes (%) (Auto) 25.8 % Monocytes (%) (Auto) 8.1 % Eosinophils (%) (Auto) 3.6 % Basophils (%) (Auto) 0.4 % Neutrophils # (Auto) 4.47 K/uL Lymphocytes # (Auto) 1.91 K/uL Monocytes # (Auto) 0.60 K/uL Eosinophils # (Auto) 0.27 K/uL Basophils # (Auto) 0.03 K/uL RDW Standard Deviation 45.7 fL RDW Coefficient of Variation 15.8 % Immature Granulocyte % (Auto) 1.6 % Immature Granulocyte # (Auto) 0.12 K/uL Sodium Level 141 mmol/L Potassium Level 4.2 mmol/L Chloride Level 109 mmol/L Carbon Dioxide Level 28 mmol/L Anion Gap 4.0 mmol/L Blood Urea Nitrogen 18 mg/dl Creatinine 0.45 mg/dl Est Creatinine Clear Calc Drug Dose 179.4 ml/min Estimated GFR () > 150.0 Estimated GFR (Non- 134.8 BUN/Creatinine Ratio 39.9 Random Glucose 98 mg/dl Calcium Level 8.0 mg/dl Total Bilirubin 0.1 mg/dl Aspartate Amino Transf (AST/SGOT) 24 U/L Alanine Aminotransferase (ALT/SGPT) 35 U/L Alkaline Phosphatase 119 U/L Total Protein 6.7 gm/dl Albumin 2.1 gm/dl Globulin 4.6 gm/dl Albumin/Globulin Ratio 0.5 Assessment and Plan (1) Sacral decubitus ulcer, stage IV (2) Sepsis (3) Nephrolithiasis 46yo male with: 1. Sepsis secondary to osteomyelitis of sacrum in the setting of stage 4 sacral decubitus ulcer - Plan: * 6-8 weeks of IV ertapenem (wound cx grew MSSA but Dr. Arreola concerned about polymicrobial process) - day #10 of IV abx at this time * wound vac placed, to be changed M/W/F * Blood cultures negative x 2 * RUE PICC line in place * continue clinitron bed for now * optimize nutrition; add MVI; add vit C and zinc x 2 weeks to promote wound healing * boost BID w/ meals 2. shock earlier this hospitalization - resolved. Suspect due to autonomic dysfunction in the setting of his cervical spine injury and quadriplegic status. EF preserved on echo. No valvular disease. Could have had some iatrogenic role from 2 doses of hydralazine. PE and addisonian crisis all ruled out. H/H stable. likely autonomic dysfunction. 3. pressure ulcer of left heel, stage 2, present on admission - local wound care. 4. severe protein-calorie malnutrition - boost, MVI, vit C, zinc. 5. nephrolithiasis - urology has seen; planning stone removal in future as outpatient. 6. quadriplegic status - on baclofen pump for spasticity. Will need refill later in July. Pain management recommends that at time of discharge we provide oral baclofen in the event his pump runs out before it can be adequately refilled. 7. DVT proph - heparin TID. 8. moderate LVH on echo - not a good candidate for beta narayan due to low- normal BPs and propensity for very low BPs 9. urostomy status 10. severe seborrheic dermatitis - start desowen cream to face BID; asked that he call his family and have them bring in OTC nizoral shampoo for his scalp as we do not have medicated shampoo in the pharmacy spoke with Dr. Hess at [facility] on Wednesday they are concerned they may not be able to accommodate him because of the bed he is currently using SW involved he will stay the weekend to determine disposition ([facility], [facility] , etc) Continued [facility] stay due to: multiple IV medications needed, other (wound care) Discharge planning: uncertain
[2016-07-26 23:55] VITALS: BP 84/57; PULSE 80; TEMP 36.4; O2SAT 94
[2016-07-27] MEDS: HEPARIN SOD 5000 UNIT/0.5 ML CARP SQ SCH ×3 (06:22→21:38)
[2016-07-27 07:48] VITALS: BP 108/82; PULSE 69; TEMP 37; O2SAT 99
[2016-07-27] MEDS ORDERED: BOOST VANILLA PO SCH ×2 (08:00)
[2016-07-27 08:27] VITALS: O2SAT 99
[2016-07-27] MEDS: FERROUS SULFATE 325 MG TAB PO SCH ×2 (08:58→18:19)
[2016-07-27] MEDS: DESONIDE CR 15 GM TUBE EXT SCH ×2 (08:58→21:37)
[2016-07-27] MEDS: CEROVITE ADV FORMULA TAB PO SCH (08:58)
[2016-07-27] MEDS: ASCORBIC ACID 500 MG TAB PO SCH (08:58)
[2016-07-27] MEDS: ZINC SULFATE 220 MG CAP PO SCH (08:58)
[2016-07-27] MEDS: OXYBUTYNIN CHLORIDE 5 MG TAB PO SCH ×2 (08:59→21:00)
[2016-07-27] MEDS: SENNA 8.6 MG TAB PO SCH (08:59)
--- NOTE | 2016-07-27 11:14 | Progress Note ---
Subjective Date of Service: Jul 27, 2016. Subjective Pt evaluation today including: conversation w/ patient, physical exam, chart review, review of inpatient medication list Per nursing report patient continued doing the same, he is awake alert and talk , follow-up commands, no acute distress Review of Systems Constitutional: + problem reported (denied fever and chill) Eyes: No diplopia, No discharge, No eye pain, No problem reported, No redness, No see HPI, No worsening of vision ENT: No dental problems, No hearing loss, No nasal symptoms, No problem reported, No see HPI, No sore throat, No tinnitus, No trouble swallowing, No unusual epistaxis Respiratory: No cough, No dyspnea at rest, No dyspnea on exertion, No hemoptysis, No problem reported, No see HPI, No shortness of breath, No sputum, No wheezing Cardiac: No PND, No chest pain, No claudication, No edema, No orthopnea, No palpitations, No problem reported, No see HPI Abdomen: No GI bleeding, No constipation, No diarrhea, No nausea, No pain, No problem reported, No see HPI, No vomiting Musculoskeletal: + problem reported (quadraparasitic with upper arm and hands contracture which is not new) Objective Vital Signs Date Time Temp Pulse Resp B/P Pulse Ox O2 Delivery O2 Flow Rate FiO2 07/27/16 10:01 Room Air 07/27/16 08:27 99 Room Air 07/27/16 07:48 37.0 69 16 108/82 99 Room Air 07/26/16 23:59 Room Air 07/26/16 23:55 36.4 80 16 84/57 94 Room Air 07/26/16 16:00 Room Air 07/26/16 15:07 36.6 79 20 102/70 94 Room Air Physical Exam General Appearance: + thin, + pertinent finding Eyes: PERRL, EOMI ENT: normal ENT inspection, hearing grossly normal, + pertinent finding (mild) Neck: supple, no adenopathy, thyroid normal Respiratory/Chest: normal breath sounds, no respiratory distress, + decreased breath sounds Cardiovascular: regular rate, rhythm, no edema, no gallop, no JVD Abdomen: normal bowel sounds, non tender, + pertinent finding (left lower abdomen urostomy in place, with urologist urine) Extremities: normal range of motion, + pertinent finding (RUE PICC line in place, local no tender no erythema) Neurologic/Psychiatric: + motor weakness (with quadraparasis which is not new) , + pertinent finding (arthritis noticed speeches) Skin: normal color, + pertinent finding (sacral area wound VAC in place) Assessment and Plan (1) Sacral decubitus ulcer, stage IV (2) Sepsis (3) Nephrolithiasis 46yo male dated on 07/17/2016 because of Sepsis secondary to osteomyelitis of sacrum in the setting of stage 4 sacral decubitus ulcer Sepsis secondary to osteomyelitis of sacrum in the setting of stage 4 sacral decubitus ulcer ; stable * 6-8 weeks of IV ertapenem (wound cx grew MSSA but Dr. Arreola concerned about polymicrobial process) - day #11 of IV abx at this time * wound vac placed, to be changed M/W/F * Blood cultures negative x 2 * RUE PICC line in place * continue clinitron bed for now * optimize nutrition; add MVI; add vit C and zinc x 2 weeks to promote wound healing * boost BID w/ meals shock earlier this hospitalization - resolved. Suspect due to autonomic dysfunction in the setting of his cervical spine injury and quadriplegic status. EF preserved on echo. No valvular disease. Could have had some iatrogenic role from 2 doses of hydralazine. PE and addisonian crisis all ruled out. H/H stable. likely autonomic dysfunction. pressure ulcer of left heel, stage 2, present on admission - local wound care. severe protein-calorie malnutrition - boost, MVI, vit C, zinc. nephrolithiasis - urology has seen; planning stone removal in future as outpatient. quadriplegic status - on baclofen pump for spasticity. Will need refill later in July. Pain management recommends that at time of discharge we provide oral baclofen in the event his pump runs out before it can be adequately refilled. moderate LVH on echo - not a good candidate for beta narayan due to low-normal BPs and propensity for very low BPs urostomy status severe seborrheic dermatitis - start desowen cream to face BID; asked that he call his family and have them bring in OTC nizoral shampoo for his scalp as we do not have medicated shampoo in the pharmacy DVT proph - heparin TID. Hospitalist before me was talk with Dr. Hess at [facility] on Wednesday they are concerned they may not be able to accommodate him because of the bed he is currently using SW involved he will stay the weekend to determine disposition ([facility], [facility], etc) Continued [facility] stay due to: multiple IV medications needed, other (wound care) Discharge planning: uncertain
[2016-07-27] MEDS: ERTAPENEM IV 1 GM in SODIUM CHLOR 0.9% AD-VAN 50ML 50 ML IV SCH (14:01)
[2016-07-27 14:34] LABS: BASO % 0.4 %; BASO ABS # 0.03 K/uL (0-0.2); COMPLETE YES; HEMATOCRIT 32.3 % (42-52); IG% 1.7 %; LYMPH % 29.5 %; LYMPH ABS # 2.42 K/uL (1.2-3.4); MEAN CELL VOLUME 80.3 fL (80-100); MEAN CORPUSCULAR HEMOGLOBIN 25.6 pg (25-34); MEAN CORPUSCULAR HGB CONC 31.9 g/dl (32-36); MONO % 5.9 %; NEUT % 59.5 %; PLATELET COUNT 392 K/uL (130-400); RED BLOOD COUNT 4.02 M/uL (4.7-6.1)
[2016-07-27 15:00] LABS: BUN/CREATININE RATIO 32.3 (10-20); C-REACTIVE PROTEIN 1.39 mg/dl (0-0.29); CALCIUM 8.3 mg/dl (8.5-10.1); CREATININE 0.57 mg/dl (0.60-1.40)
[2016-07-27 15:08] VITALS: BP 119/78; PULSE 74; TEMP 36.8; O2SAT 97
[2016-07-27] MEDS: BOOST VANILLA PO SCH ×2 (17:00)
[2016-07-28 00:55] VITALS: BP 96/63; PULSE 87; TEMP 36.6; O2SAT 94
[2016-07-28] MEDS: HEPARIN SOD 5000 UNIT/0.5 ML CARP SQ SCH (05:21)
[2016-07-28 07:42] VITALS: BP 108/75; PULSE 70; TEMP 36.4; O2SAT 96
[2016-07-28] MEDS: FERROUS SULFATE 325 MG TAB PO SCH (09:15)
[2016-07-28] MEDS: CEROVITE ADV FORMULA TAB PO SCH (09:15)
[2016-07-28] MEDS: BOOST VANILLA PO SCH ×4 (09:15→11:52)
[2016-07-28] MEDS: DESONIDE CR 15 GM TUBE EXT SCH (09:15)
[2016-07-28] MEDS: OXYBUTYNIN CHLORIDE 5 MG TAB PO SCH (09:16)
[2016-07-28] MEDS: SENNA 8.6 MG TAB PO SCH (09:16)
[2016-07-28] MEDS: ZINC SULFATE 220 MG CAP PO SCH (09:16)
[2016-07-28] MEDS: ASCORBIC ACID 500 MG TAB PO SCH (09:16)
[2016-07-28] MEDS ORDERED: ASCA500 PO (11:07)
[2016-07-28] MEDS ORDERED: Enteral Nutrition Formula PO (11:07)
[2016-07-28] MEDS ORDERED: HYDR-5688 PO (11:07)
[2016-07-28] MEDS ORDERED: FRRS300 PO (11:07)
[2016-07-28] MEDS ORDERED: ERTA1INJ IV ×2 (11:07→11:09)
--- NOTE | 2016-07-28 11:08 | Discharge Instructions ---
Discharge Instructions Date of Service Jul 28, 2016. Admission Reason for Admission: Osteomylitis, Kidney Stones Discharge Discharge Diagnosis / Problem: Sepsis secondary to osteomyelitis of sacrum in the setting of stage 4 sacra Discharge Goals Goal(s): Decrease discomfort, Improve function, Increase independence, Improve disease control, Improve nutritional status, Learn about illness, Diagnostic testing, Therapeutic intervention, Prevent Disease Progression, Specific goals Activity Recommendations Activity Level: Bedrest Therapies: Physical Therapy, Occupational Therapy . Additional Information Patient informed of condition: Yes Advance Directives: No DNR: No Level of Care: Skilled Communicable Disease: No Prognosis: Other (guarded) Instructions / Follow-Up Instructions / Follow-Up you have Sepsis secondary to osteomyelitis of sacrum in the setting of stage 4 sacral decubitus ulcer you was having shock earlier this hospitalization you have pressure ulcer of left heel, stage 2 severe protein-calorie malnutrition - boost, MVI, vit C, zinc. you have nephrolithiasis - urology has seen; planning stone removal in future as outpatient , please keep appt with quadriplegic status - on baclofen pump for spasticity. you have urostomy status , need to continue urostomy care - you need to follow up with your primary care physician in 1 week, - take medication as instructed, never overdose or any misuse, or take with alcohol, because misuse of medicine may cause organ damage or , call your primary care physician if have questions of medicaitons. - call your primary care physician OR go to local emergency room if has any fever/chill, chest pain, shortness of breathing, nausea/vomiting/abdominal pain , facial droop/slurry speech/local weakness, or if has any questions. - fall precaution - diet as instructed - you need to follow up with your subspecialists - you should understand that it is important to follow up the above instruction , and "not following the above instruction" may cause delayed or missed care of your medical conditions which may cause permanent organ damage and even . Current Hospital Diet Patient's current hospital diet: Regular Diet Discharge Diet Recommended Diet: Regular Diet Pending Studies Studies pending at discharge: no Physician Orders On Transfer POLST Discussion: without POLST completion Medical Emergencies . Who to Call and When: Medical Emergencies: If at any time you feel your situation is an emergency, please call 911 immediately. . Non-Emergent Contact Non-Emergency issues call your: Primary Care Provider . . "Provider Documentation" section prepared by Joshua Fried. Core Measure Problem Core Measures: None
[2016-07-28] MEDS: ERTAPENEM IV 1 GM in SODIUM CHLOR 0.9% AD-VAN 50ML 50 ML IV SCH (11:52)
--- NOTE | 2016-07-28 11:57 | Discharge Summary ---
Discharge Summary Date of Service Jul 28, 2016. Discharge Summary Admission Date: Jul 17, 2016 at 20:57 Discharge Date: Jul 28, 2016 Discharge Disposition: custodial facility Principal Diagnosis: Sepsis secondary to osteomyelitis of sacrum in the setting of stage 4 sacra Problems/Secondary Diagnoses: Sepsis secondary to osteomyelitis of sacrum in the setting of stage 4 sacral decubitus ulcer shock earlier this hospitalization pressure ulcer of left heel, stage 2 severe protein-calorie malnutrition nephrolithiasi quadriplegic Immunizations: Have You Had Influenza Vaccine: Yes Influenza Vaccine Date: Feb 18, 2010 History of Tetanus Vaccine?: Unknown History of Pneumococcal: Yes History of Hepatitis B Vaccine: No Consultations: Infectious disease, urologist, Medication Reconciliation New Medications: Ertapenem Sodium (Invanz) 1 Gm Inj 1 GM IV DAILY for 42 Days, VIAL today is day 12 of 6-8 week Ascorbic Acid (Vitamin C) 500 Mg Tab 500 MG PO QAM for 30 Days, #30 TAB Ferrous Sulfate (Ferrous Sulfate) 325 Mg Tab 325 MG PO BIDM for 30 Days, TAB [Enteral Nutrition Formula] () 1 CAN LIQD 1 CAN PO TIDM for 30 Days Continued Medications: Baclofen (Lioresal Intrathecal) 0.05 Mg/Ml Inj 1 DOSE INJ PUMP BACLOFEN PUMP PER YOGI ALSO HAS CLONIDINE Hydrocodone/Acetaminophen 5MG/325MG ([place] 5MG/325MG) Tab 2 TABLETS PO TID PRN for Pain for 3 Days, TAB (This prescription has been renewed) PRN PAIN Multiple Vitamin (Multi Vitamin) 1 Tab Tab Oxybutynin Chloride (Ditropan) 5 Mg Tab 5 MG PO HS, TAB Potassium Citrate (Potassium Citrate) 10 Meq Tab 10 MEQ PO QAM Zinc Sulfate (Zinc Sulfate) 220 Mg Cap 220 MG PO TID, CAP Discharge Exam Pleasant conversational, the feeding, no other complaint Review of Systems: Constitutional: No chills, No fatigue, No fever, No problem reported, No sweats, No weakness, No weight loss ENT: No dental problems, No hearing loss, No nasal symptoms, No problem reported, No sore throat, No tinnitus, No trouble swallowing, No unusual epistaxis Respiratory: No cough, No dyspnea at rest, No dyspnea on exertion, No hemoptysis, No problem reported, No shortness of breath, No sputum, No wheezing Cardiovascular: No PND, No chest pain, No claudication, No edema, No orthopnea, No palpitations, No problem reported Abdomen: No nausea, No pain, No vomiting Musculoskeletal: No calf pain, No joint pain, No muscle pain, No problem reported, No swelling Genitourinary - Male: No dysuria, No hematuria, No impotence, No lesions, No penile discharge, No problem reported, No urinary frequency, No urinary hesitancy, No urinary incontinence, No urinary retention, No urinary urgency Neurologic: + paralysis Psychiatric: No anhedonism, No anxiety, No depression symptoms, No insomnia , No problem reported, No substance abuse Endocrine: No excessive thirst, No excessive urination, No fatigue, No problem reported Hematologic / Lymphatic: No abnormal bleeding/bruising, No clotting problems , No night sweats, No problem reported, No swollen lymph nodes Integumentary: + problem reported (oscillations is in dressing) Physical Exam: General Appearance: WD/WN, no apparent distress Eyes: normal inspection, PERRL, EOMI ENT: normal ENT inspection, hearing grossly normal, TMs normal Neck: supple, no adenopathy, thyroid normal Respiratory/Chest: chest non-tender, normal breath sounds, no respiratory distress, no accessory muscle use, + decreased breath sounds Cardiovascular: regular rate, rhythm, no edema, no gallop, no JVD, no murmur Abdomen / GI: normal bowel sounds, non tender, soft Extremities: normal inspection, no calf tenderness, normal capillary refill Neurologic/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: 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 Arreola concerned about polymicrobial process) - day #12 of IV abx at this time * wound vac placed, to be changed M/W/F * Blood cultures negative x 2 * RUE PICC line in place * continue clinitron bed for now * optimize nutrition; add MVI; add vit C and zinc x 2 weeks to promote wound healing * boost BID w/ meals shock earlier this hospitalization - resolved. Suspect due to autonomic dysfunction in the setting of his cervical spine injury and quadriplegic status. EF preserved on echo. No valvular disease. Could have had some iatrogenic role from 2 doses of hydralazine. PE and addisonian crisis all ruled out. H/H stable. likely autonomic dysfunction. pressure ulcer of left heel, stage 2, present on admission - local wound care. severe protein-calorie malnutrition - boost, MVI, vit C, zinc. nephrolithiasis - urology has seen; planning stone removal in future as outpatient. quadriplegic status - on baclofen pump for spasticity. Will need refill later in July. Pain management recommends that at time of discharge we provide oral baclofen in the event his pump runs out before it can be adequately refilled. moderate LVH on echo - not a good candidate for beta narayan due to low-normal BPs and propensity for very low BPs urostomy status , stable making urine severe seborrheic dermatitis - start desowen cream to face BID; asked that he call his family and have them bring in OTC nizoral shampoo for his scalp as we do not have medicated shampoo in the pharmacy DVT proph - heparin TID. Instructions / Follow-Up you have Sepsis secondary to osteomyelitis of sacrum in the setting of stage 4 sacral decubitus ulcer you was having shock earlier this hospitalization you have pressure ulcer of left heel, stage 2 severe protein-calorie malnutrition - boost, MVI, vit C, zinc. you have nephrolithiasis - urology has seen; planning stone removal in future as outpatient , please keep appt with quadriplegic status - on baclofen pump for spasticity. you have urostomy status , need to continue urostomy care - you need to follow up with your primary care physician in 1 week, - take medication as instructed, never overdose or any misuse, or take with alcohol, because misuse of medicine may cause organ damage or , call your primary care physician if have questions of medicaitons. - call your primary care physician OR go to local emergency room if has any fever/chill, chest pain, shortness of breathing, nausea/vomiting/abdominal pain , facial droop/slurry speech/local weakness, or if has any questions. - fall precaution - diet as instructed - you need to follow up with your subspecialists - you should understand that it is important to follow up the above instruction , and "not following the above instruction" may cause delayed or missed care of your medical conditions which may cause permanent organ damage and even . Total Time Spent: Greater than 30 minutes This includes examination of the patient, discharge planning, medication reconciliation, and communication with other providers. Discharge Instructions Please refer to the electronic Patient Visit Report (Discharge Instructions) for additional information.
[2016-07-28] MEDS: HYDROmorphone HCL 2 MG TAB PO PRN (12:14)
[2016-07-28 12:23] VITALS: BP 108/75; PULSE 70; TEMP 36.4; O2SAT 96
[2016-12-30] MEDS ORDERED: BISA10SU3 PR (10:49)
[2016-12-30] MEDS ORDERED: HYDR-5688 PO (10:49)
[2016-12-30] MEDS ORDERED: APIX1TAB3 PO (10:49)
[2016-12-30] MEDS ORDERED: DOXY100C76 PO (10:49)
[2016-12-30] MEDS ORDERED: PROT1POW PO (10:49)
[2017-02-25] MEDS ORDERED: HYDR-5688 PO (11:53)
== END 2016-07-28 12:45 | DRG 871 ==
LOC: ENRESERVTM → ENRESERVDT → CANRESERV → C.2T 20:57 → EDBEDREQ 07-20 10:08 → C.MS4W 07-20 16:02 → C.2E 07-21 15:11 → C.MS2W 07-22 08:21
PROVIDERS: ADMIT Hospitalist; ATTEND Internal Medicine
DX: A41.9 Sepsis, unspecified organism (principal); G82.51 Quadriplegia, C1-C4 complete; L89.154 Pressure ulcer of sacral region, stage 4; R65.21 Severe sepsis with septic shock; E43 Unspecified severe protein-calorie malnutrition; N13.2 Hydronephrosis with renal and ureteral calculous obstruction; M86.9 Osteomyelitis, unspecified; N31.9 Neuromuscular dysfunction of bladder, unspecified; L89.622 Pressure ulcer of left heel, stage 2; M62.838 Other muscle spasm; Z87.891 Personal history of nicotine dependence; E87.5 Hyperkalemia; K56.41 Fecal impaction; I16.0 Hypertensive urgency; J47.9 Bronchiectasis, uncomplicated; L21.9 Seborrheic dermatitis, unspecified

== ENCOUNTER → 2016-10-12 | Outpatient (CLI) | payer OTHER ==
[~2016-10-12] MED LIST changes: +APIX1TAB3 PO; +ASCA500 PO; +BISA10SU3 PR; +DOXY100C76 PO; +ERTA1INJ IV; +Enteral Nutrition Formula PO; +FRRS300 PO; +MCRB100 PO; +MRLP17X PO; +ONDA4TAB10 SL; +PROT1POW PO; +SNTO30 TOP; +VLTG EXT; +[UNRECOGNIZED DRUG - CODE] TOP
--- NOTE | 2016-10-12 11:17 | DIAGNOSTIC IMAGING REPORT ---
KUB CLINICAL HISTORY: N20.0 [id number] moderate facet COMPARISON STUDY: 07/21/2016 FINDINGS: Nonobstructive bowel pattern. Moderate increase in fecal load throughout the colon. Multiple left renal calcifications unchanged in the prior study. Right infusion pump unaltered in location. IMPRESSION: 1. Moderate increase in fecal load throughout the colon. 2. Left renal nephrocalcinosis unchanged. Electronically signed by: Jules Moralez M.D. 10/12/2016 11:16 AM Dictated Date/Time: 10/12/2016 11:12 AM
== END | disposition home or self-care (01) ==
LOC: C.RAD 10:18
PROVIDERS: ATTEND Urology
DX: N20.0 Calculus of kidney (principal); E83.59 Other disorders of calcium metabolism; N29 Other disorders of kidney and ureter in diseases classified elsewhere

== ENCOUNTER → 2016-11-19 | Outpatient (CLI) | payer OTHER ==
[~2016-11-19] MED LIST changes: +BACL0.05 INJ; -DTR/5 PO; -MCRB100 PO; -MRLP17X PO; -ONDA4TAB10 SL; +OXYB5TAB74 PO; -SNTO30 TOP; -VLTG EXT; -[UNRECOGNIZED DRUG - CODE] INJ; -[UNRECOGNIZED DRUG - CODE] TOP
--- NOTE | 2016-11-19 16:05 | DIAGNOSTIC IMAGING REPORT ---
LEFT HEEL MIN 2 VIEWS HISTORY: 46 years-old Male LEFT FOOT PAIN; R/O OSTEOMYELITIS COMPARISON: None available TECHNIQUE: 3 views of the left calcaneus FINDINGS: The bones are severely demineralized which limits evaluation for acute nondisplaced fracture. Severe degenerative changes are present within the tibiotalar joint with at least moderate midfoot degenerative changes also present. Corticated ossification, 5.3 cm is seen within the region of the Achilles tendon mid fibers. There there are postsurgical changes with absence of the posterior most aspect of the calcaneus. Cortical lucency and irregularity is seen throughout the posterior aspect of the calcaneus, notably along the lateral margin. There is been partial dilatation of the fifth digit. There is a large skin defect of the posterior heel pad Negative for a foreign body or fracture. IMPRESSION: 1. Severe bone mineralization with apparent postsurgical changes of the distal calcaneus. 2. Large skin defect of the heel pad with cortical lucency and irregularity involving the posterior lateral calcaneus, suspicious for osteomyelitis. 3. Partial amputation of the fifth digit. The above report was generated using voice recognition software. It may contain grammatical, syntax or spelling errors. Electronically signed by: Tres Villanueva M.D. 11/19/2016 4:04 PM Dictated Date/Time: 11/19/2016 4:00 PM
== END ==
LOC: C.RADBC 14:57
PROVIDERS: ATTEND Physician Assistant Medical
DX: M79.672 Pain in left foot (principal)

== ENCOUNTER 2017-03-10 12:34 | Inpatient (IN) | payer OTHER ==
[~2017-03-10] VITALS: Ht 182.9 cm; Wt 74.2 kg
[~2017-03-10 12:34] MED LIST changes: -SNTO30 TOP; -[UNRECOGNIZED DRUG - CODE] TOP
[2017-03-10] MEDS ORDERED: ONDANSETRON INJ 2 MG/ML 2 ML VIAL IV STA (12:54)
[2017-03-10] MEDS ORDERED: MoRPHine SULFATE 10 MG/ML CARP/VIAL IV PRN (13:00)
--- NOTE | 2017-03-10 13:53 | DIAGNOSTIC IMAGING REPORT ---
CHEST ONE VIEW PORTABLE CLINICAL HISTORY: 46 years-old Male presenting with FLANK PAIN/HEMATURIA. TECHNIQUE: Portable upright AP view of the chest was obtained. COMPARISON: 02/18/2017. FINDINGS: Cardiomediastinal silhouette normal. Biapical scarring suggested. Lungs and pleural spaces clear. Degenerative changes of the thoracic spine. Upper abdomen normal. IMPRESSION: 1. No acute cardiopulmonary disease. Electronically signed by: Judah Galraza M.D. 03/10/2017 1:51 PM Dictated Date/Time: 03/10/2017 1:50 PM
--- NOTE | 2017-03-10 13:54 | EMERGENCY ROOM VISIT NOTE ---
History Report prepared by Hannah: Igor Caraballo Under the Supervision of: Dr. Juma Lassiter M.D. First contact with patient: 12:47 Chief Complaint: ABDOMINAL PAIN Stated Complaint: KIDNEY STONES, BLOOD IN URINE, SENT BY DR CELESTE History of Present Illness The patient is a 46 year old male who presents to the Emergency Room with complaints of intermittent generalized abdominal pain beginning two days ago. The patient has a urostomy in place, and a history of quadriplegia. He was recently seen in the ED for sepsis from a kidney stone. He has a history of frequent kidney stones. The patient states that his current pain feels very similar to his previous kidney stones. He also complains of chills, subjective fevers, nausea and hematuria. He has a right urinary stent in place, and was scheduled to have it removed today. The patient is on Eliquis. He is currently on Doxycycline for infection prevention. Source of History: patient Onset: Two days ago Position: abdomen (generalized) Timing: intermittent Associated Symptoms: + fevers (subjective), + chills, + nausea, + urinary symptoms (hematuria) Review of Systems See HPI for pertinent positives & negatives. A total of 10 systems reviewed and were otherwise negative. 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 (15) Spasticity (16) Thrombocytopenia Surgical Problems: (1) History of urostomy Social History Smoking Status: Former Smoker Alcohol Use: occasionally Drug Use: none Marital Status: single Occupation Status: disabled Current/Historical Medications Scheduled Apixaban (Eliquis), 5 MG PO BID Baclofen (Lioresal Intrathecal), 1 DOSE INJ PUMP Bisacodyl (Dulcolax), 1 SUPP [place] PRN Clobetasol Propionate Emollien (Clobetasol Propionate E), 1 APPLN TOP BID Collagenase (Santyl), 1 APPLN TOP 3XWK Doxycycline Monohydrate (Monodox), 100 MG PO QD Potassium Citrate (Potassium Citrate), 5 MEQ PO BID Protein (Protein), 60 GR PO QD Scheduled PRN Hydrocodone/Acetaminophen 5MG/325MG ([place] 5MG/325MG), 2 TABLETS PO Q6H PRN for Pain Oxybutynin Chloride (Ditropan), 5 MG PO HS PRN for BLADDER SPASMS Allergies Coded Allergies: Sulfa Antibiotics (Unverified Adverse Reaction, Mild, N/V, 03/10/17) Physical Exam Vital Signs Date Time Temp Pulse Resp B/P (MAP) Pulse Ox O2 Delivery O2 Flow Rate FiO2 03/10/17 17:50 95 16 102/59 98 Room Air 03/10/17 15:57 76 16 94/63 98 Room Air 03/10/17 15:03 70 03/10/17 14:40 65 16 116/79 95 Room Air 03/10/17 14:16 79 16 98/65 98 Room Air 03/10/17 12:37 36.6 87 20 99/69 97 Room Air Physical Exam GENERAL: Patient is in no acute distress. HEENT: No acute trauma, normocephalic atraumatic, mucous membranes moist, no nasal congestion, no scleral icterus. NECK: No stridor, no adenopathy, no meningismus, trachea is midline. LUNGS: Clear to auscultation bilaterally, no wheeze, no rhonchi, breath sounds equal. HEART: Without murmurs gallops or rubs, regular rate and rhythm. ABDOMEN: Soft, nontender, bowel sounds positive, no hernias, no peritonitis. Urostomy draining bloody urine. EXTREMITIES: Contractures and wasting consistent with quadriplegia. NEUROLOGIC: Awake, and alert. Quadriplegia noted. SKIN: No rash, no jaundice, no diaphoresis. Medical Decision & Procedures ER Provider Diagnostic Interpretation: Radiology results as stated below per my review and radiologist interpretation: CHEST ONE VIEW PORTABLE FINDINGS: Cardiomediastinal silhouette normal. Biapical scarring suggested. Lungs and pleural spaces clear. Degenerative changes of the thoracic spine. Upper abdomen normal. IMPRESSION: 1. No acute cardiopulmonary disease. Electronically signed by: Judah Galarza M.D. 03/10/2017 1:[address] OF THE ABDOMEN AND PELVIS WITHOUT CONTRAST, STONE PROTOCOL FINDINGS: A right ureteral stent remains in place. There is no right hydronephrosis. No ureteral calculi are present. Numerous left renal calculi are unchanged. These measure up to 1.2 cm. There are no left ureteral calculi. There is mild left ureteral dilatation which is unchanged. There is urothelial thickening of the left ureter and renal pelvis which is unchanged since previous exams. A few hypodense right renal lesions are suboptimally assessed on this exam but may reflect cysts. Unenhanced images of the liver, spleen, adrenal glands and pancreas are unremarkable. There is a retroaortic left renal vein. There is no evidence for a bowel obstruction. 3 mm bladder calculus is noted. A previous suprapubic catheter tract is suspected. Caliber and wall thickness of small and large bowel are normal. There is a moderate amount of stool within the colon. A possible sacral the results are as noted with irregularity of the inferior sacrum or coccyx which is probably chronic. Intrathecal catheter is noted. IMPRESSION: 1. Right ureteral stent in place. No ureteral calculi. Punctate bladder calculus. 2. No change in left-sided nephrolithiasis. Stable mild left ureteral dilatation and urothelial thickening which may be chronic however could be correlated with urinalysis to exclude an infectious etiology such as pyelitis. 3. Possible sacral decubitus ulcer. Bony loss of the inferior sacrum and coccyx which is age-indeterminate but likely chronic. Electronically signed by: Darrin Herman M.D. 03/10/2017 2:23 PM Laboratory Results 03/10/17 13:34 Red Blood Count 4.11, Mean Corpuscular Volume 80.5, Mean Corpuscular Hemoglobin 27.5, Mean Corpuscular Hemoglobin Concent 34.1, Mean Platelet Volume 10.0, Neutrophils (%) (Auto) 75.6, Lymphocytes (%) (Auto) 18.3, Monocytes (%) (Auto) 4.6, Eosinophils (%) (Auto) 0.9, Basophils (%) (Auto) 0.3, Neutrophils # (Auto) 5.72, Lymphocytes # (Auto) 1.38, Monocytes # (Auto) 0.35, Eosinophils # (Auto) 0.07, Basophils # (Auto) 0.02 03/10/17 13:34 Test 03/10/17 13:34 03/10/17 14:10 White Blood Count 7.56 K/uL (4.8-10.8) Red Blood Count 4.11 M/uL (4.7-6.1) Hemoglobin 11.3 g/dL (14.0-18.0) Hematocrit 33.1 % (42-52) Mean Corpuscular Volume 80.5 fL (80-100) Mean Corpuscular Hemoglobin 27.5 pg (25-34) Mean Corpuscular Hemoglobin Concent 34.1 g/dl (32-36) Platelet Count 280 K/uL (130-400) Mean Platelet Volume 10.0 fL (7.4-10.4) Neutrophils (%) (Auto) 75.6 % Lymphocytes (%) (Auto) 18.3 % Monocytes (%) (Auto) 4.6 % Eosinophils (%) (Auto) 0.9 % Basophils (%) (Auto) 0.3 % Neutrophils # (Auto) 5.72 K/uL (1.4-6.5) Lymphocytes # (Auto) 1.38 K/uL (1.2-3.4) Monocytes # (Auto) 0.35 K/uL (0.11-0.59) Eosinophils # (Auto) 0.07 K/uL (0-0.5) Basophils # (Auto) 0.02 K/uL (0-0.2) RDW Standard Deviation 44.2 fL (36.4-46.3) RDW Coefficient of Variation 15.0 % (11.5-14.5) Immature Granulocyte % (Auto) 0.3 % Immature Granulocyte # (Auto) 0.02 K/uL (0.00-0.02) Prothrombin Time 11.4 SECONDS (9.0-12.0) Prothromb Time International Ratio 1.1 (0.9-1.1) Activated Partial Thromboplast Time 28.8 SECONDS (21.0-31.0) Partial Thromboplastin Ratio 1.1 Anion Gap 8.0 mmol/L (3-11) Estimated GFR () 142.8 Estimated GFR (Non- 123.2 BUN/Creatinine Ratio 39.5 (10-20) Calcium Level 9.1 mg/dl (8.5-10.1) Total Bilirubin 0.4 mg/dl (0.2-1) Aspartate Amino Transf (AST/SGOT) 25 U/L (15-37) Alanine Aminotransferase (ALT/SGPT) 31 U/L (12-78) Alkaline Phosphatase 154 U/L (45-117) Total Protein 7.9 gm/dl (6.4-8.2) Albumin 3.2 gm/dl (3.4-5.0) Globulin 4.7 gm/dl (2.5-4.0) Albumin/Globulin Ratio 0.7 (0.9-2) Lipase 225 U/L (73-393) Urine Color RED Urine Appearance CLOUDY (CLEAR) Urine pH >= 9.0 (4.5-7.5) Urine Specific [place] 1.010 (1.000-1.030) Urine Protein 2+ (NEG) Urine Glucose (UA) NEG (NEG) Urine Ketones NEG (NEG) Urine Occult Blood 3+ (NEG) Urine Nitrite POS (NEG) Urine Bilirubin NEG (NEG) Urine Urobilinogen NEG (NEG) Urine Leukocyte Esterase MODERATE (NEG) Urine RBC >30 /hpf (0-4) Urine WBC 10-30 /hpf (0-5) Urine Epithelial Cells 20-30 /lpf (0-5) Urine Bacteria 3+ (NEG) Laboratory results reviewed by me. Medications Administered Medications (Trade) Dose Ordered Sig/[place]alo Route Start Time Stop Time Status Last Admin Dose Admin Ondansetron HCl (Zofran Inj) 4 mg NOW STAT IV 03/10/17 12:54 03/10/17 12:59 DC 03/10/17 13:46 4 MG Morphine Sulfate (MoRPHine SULFATE INJ) 6 mg Q15M PRN IV 03/10/17 13:00 03/24/17 12:59 03/10/17 13:46 6 MG Cefepime HCl 2000 mg/Syringe 20 ml @ 5 mls/min NOW ONCE IV 03/10/17 15:45 03/10/17 15:48 DC 03/10/17 15:56 5 MLS/MIN Vancomycin HCl 1750 mg/Sodium Chloride 535 ml @ 200 mls/hr 1830 ONCE IV 03/10/17 18:30 03/10/17 21:10 03/10/17 18:31 200 MLS/HR ED Course 1248: The patient was evaluated in room B11B. A complete history and physical exam was performed. 1254: Ordered Zofran Inj 4 mg IV. 1300: Ordered Morphine Sulfate 6 mg IV. 1545: Ordered Cefepime HCl 2000 mg/Syringe 20 ml @ 5 mL/min IV. 1550: Upon reexamination the patient is resting comfortably. I discussed results and treatment plan with the patient. He verbalizes agreement and understanding. The patient will be evaluated for further management. Medical Decision The patient is a 46 year old male with a history of urostomy and quadriplegia who presents to the ED with complaints of generalized abdominal pain. Differential diagnoses considered include stent irritation, renal stone, hydronephrosis, pyelonephritis, renal failure, bowel obstruction, bowel rupture , and pneumonia. There is no leukocytosis or concerning anemia. No significant electrolyte abnormality, kidney failure, hepatitis or pancreatitis. Urinalysis is suggestive of infection, urine culture is pending. There is no coagulopathy. Chest film does not show pneumonia or CHF. Abdominal and pelvis CT shows the ureteral stent to be in proper position. No hydronephrosis. Pyelonephritis was questioned. The patient received IV cefepime as antibiotic coverage, he was given IV Zofran and IV morphine. The patient presents with symptoms concerning for infection. The patient is quadriplegic and has a urostomy. He has a right ureteral stent in place. He was just in the hospital for sepsis. He is not currently on any antibiotics. Patient has findings concerning for recurrent urinary tract infection/ pyelonephritis. He has ureteral hardware in place. I did speak with urology, a hospital stay was recommended. I spoke to the patient and case management. The on-call hospitalist was consulted. Medication Reconcilliation Current Medication List: was personally reviewed by me Blood Pressure Screening Patient's blood pressure: Normal blood pressure Blood pressure disposition: Did not require urgent referral Consults Time Called: 1535 Consulting Physician: Dr. Davis -[facility] Returned Call: [phone] Discussed the patient's case. The patient will be evaluated for further management. Additional Consults: Time Called: 1530 Consulted Physician: Angela LATHAM -Urology Returned Call: [phone] Additional Comments: Discussed the patient's case. Urology will see the patient as an inpatient. Impression Primary Impression: Pyelonephritis Additional Impressions: Hematuria Right flank pain Scribe Attestation The scribe's documentation has been prepared under my direction and personally reviewed by me in its entirety. I confirm that the note above accurately reflects all work, treatment, procedures, and medical decision making performed by me. Departure Information Dispostion Being Evaluated By Hospitalist Referrals Boyd Vergara M.D. (PCP) Patient Instructions My [facility] Problem Qualifiers
[2017-03-10 14:10] LABS: BASO % 0.3 %; BASO ABS # 0.02 K/uL (0-0.2); COMPLETE YES; EOS % 0.9 %; HEMATOCRIT 33.1 % (42-52); IG% 0.3 %; LYMPH % 18.3 %; LYMPH ABS # 1.38 K/uL (1.2-3.4); MEAN CELL VOLUME 80.5 fL (80-100); MEAN CORPUSCULAR HEMOGLOBIN 27.5 pg (25-34); MEAN CORPUSCULAR HGB CONC 34.1 g/dl (32-36); MONO % 4.6 %; NEUT % 75.6 %; PLATELET COUNT 280 K/uL (130-400); RED BLOOD COUNT 4.11 M/uL (4.7-6.1); WHITE BLOOD COUNT 7.56 K/uL (4.8-10.8)
--- NOTE | 2017-03-10 14:24 | DIAGNOSTIC IMAGING REPORT ---
CT OF THE ABDOMEN AND PELVIS WITHOUT CONTRAST, STONE PROTOCOL CLINICAL HISTORY: Flank pain. Hematuria. COMPARISON STUDY: CT of the abdomen and pelvis February 18, 2017 and KUB performed earlier today. TECHNIQUE: Helical axial images of the abdomen and pelvis were obtained without IV or oral contrast according to renal stone protocol. A dose lowering technique was utilized adhering to the principles of ALARA. FINDINGS: A right ureteral stent remains in place. There is no right hydronephrosis. No ureteral calculi are present. Numerous left renal calculi are unchanged. These measure up to 1.2 cm. There are no left ureteral calculi. There is mild left ureteral dilatation which is unchanged. There is urothelial thickening of the left ureter and renal pelvis which is unchanged since previous exams. A few hypodense right renal lesions are suboptimally assessed on this exam but may reflect cysts. Unenhanced images of the liver, spleen, adrenal glands and pancreas are unremarkable. There is a retroaortic left renal vein. There is no evidence for a bowel obstruction. 3 mm bladder calculus is noted. A previous suprapubic catheter tract is suspected. Caliber and wall thickness of small and large bowel are normal. There is a moderate amount of stool within the colon. A possible sacral the results are as noted with irregularity of the inferior sacrum or coccyx which is probably chronic. Intrathecal catheter is noted. IMPRESSION: 1. Right ureteral stent in place. No ureteral calculi. Punctate bladder calculus. 2. No change in left-sided nephrolithiasis. Stable mild left ureteral dilatation and urothelial thickening which may be chronic however could be correlated with urinalysis to exclude an infectious etiology such as pyelitis. 3. Possible sacral decubitus ulcer. Bony loss of the inferior sacrum and coccyx which is age-indeterminate but likely chronic. Electronically signed by: Darrin Herman M.D. 03/10/2017 2:23 PM Dictated Date/Time: 03/10/2017 2:05 PM
[2017-03-10 14:27] LABS: ALT/SGPT 31 U/L (12-78); AST/SGOT 25 U/L (15-37); BLOOD UREA NITROGEN 22 mg/dl (7-18); BUN/CREATININE RATIO 39.5 (10-20); CALCIUM 9.1 mg/dl (8.5-10.1); CARBON DIOXIDE 24 mmol/L (21-32); CHLORIDE 109 mmol/L (98-107); CREATININE 0.56 mg/dl (0.60-1.40); GLUCOSE 100 mg/dl (70-99); POTASSIUM 3.8 mmol/L (3.5-5.1); SODIUM 141 mmol/L (136-145)
[2017-03-10 14:28] LABS: INR 1.1 (0.9-1.1); PARTIAL THROMBOPLASTIN RATIO 1.1; PROTHROMBIN TIME (PATIENT) 11.4 SECONDS (9.0-12.0)
[2017-03-10] MEDS ORDERED: HYDR-5688 PO (14:28)
[2017-03-10 14:32] LABS: ALB/GLOB RATIO 0.7 (0.9-2); ALKALINE PHOSPHATASE 154 U/L (45-117)
[2017-03-10] MEDS ORDERED: SNTO30 TOP (14:33)
[2017-03-10 15:19] LABS: MANUAL MICROSCOPIC REQUIRED? YES; URINE APPEARANCE CLOUDY (CLEAR); URINE BILIRUBIN NEG (NEG); URINE COLOR RED; URINE NITRITE POS (NEG); URINE PH >= 9.0 (4.5-7.5); UROBILINOGEN NEG (NEG)
[2017-03-10 15:25] LABS: REVIEW REQ? NO; SULFASALICYLIC ACID POS (NEG)
[2017-03-10] MEDS ORDERED: CEFEPIME IV 2,000 MG in DEXTROSE 5% 100ML 100 ML IV STA (15:31)
[2017-03-10 15:37] LABS: URINE BACTERIA 3+ (NEG); URINE RBC >30 /hpf (0-4); ZZURINE CULT IF INDIC CATH YES
[2017-03-10] MEDS ORDERED: CEFEPIME IV 2,000 MG in SYRINGE 7.5 ML IV ONE (15:45)
[2017-03-10] MEDS ORDERED: [UNRECOGNIZED DRUG - CODE] TOP (16:07)
[2017-03-10] MEDS ORDERED: OXYBUTYNIN CHLORIDE 5 MG TAB PO PRN (17:00)
[2017-03-10] MEDS ORDERED: VANCOMYCIN CONSULT ACTIVE SCH (17:29)
[2017-03-10] MEDS ORDERED: LORAZEPAM 2 MG/ML 1 ML VIAL IV PRN ×2 (17:30)
[2017-03-10] MEDS ORDERED: POLYETHYLENE (MIRALAX) 17 GM PACK PO PRN (17:30)
[2017-03-10] MEDS ORDERED: HYDROmorphone INJ 0.5 MG/0.5 ML SYR IV PRN (17:30)
[2017-03-10] MEDS ORDERED: PATIENT'S HEIGHT AND/OR WEIGHT NEEDED SCH (17:30)
--- NOTE | 2017-03-10 17:39 | History and Physical ---
History & Physical Date & Time of Service: Mar 10, 2017 at 17:29 Chief Complaint: Kidney Stones, Blood In Urine, Sent By Dr Lewis Primary Care Physician: Boyd Vergara M.D. History of Present Illness Patient referred from his urologist office he was most recently discharged from [facility] February 26 after he had an episode of what appeared to be sepsis from urinary source with right-sided nephrolithiasis and stent placement no defined organisms were grown with the patient did have a stay in the ICU and appeared to be probably intense and purposes and septic shock. The patient presented to the urologist today for evaluation for possible right ureteral stent removal. He states over last day or so he's had nausea every almost vomited and felt fatigued very similar to the preceded symptoms of this lasts septic episode. At urologist office he had hematuria in his urostomy but he takes chronic anticoagulation and was referred to the ER for further evaluation in the emergency department he had a CT scan of his abdomen showing colitis of the right nares system with stones in the kidney the right ureteral stent was in place his white blood cell count was7.5 and he did not have a significant temperature the patient typically runs generally low blood pressures he may be slightly lower than his usual state. The patient's states himself that he feels ill and he'll be brought into the hospital for observation antibiotic treatment and cultures with urology consultation Past Medical/Surgical History Medical Problems: (1) Spasticity Status: Chronic Social History Smoking Status: Former Smoker Drug Use: none Marital Status: single Housing status: lives with family Occupational Status: disabled Immunizations History of Influenza Vaccine: Yes Influenza Vaccine Date: Feb 18, 2010 History of Tetanus Vaccine?: Unknown History of Pneumococcal: Yes History of Hepatitis B Vaccine: No Allergies Coded Allergies: Sulfa Antibiotics (Unverified Adverse Reaction, Mild, N/V, 03/10/17) Home Medications Scheduled Apixaban (Eliquis), 5 MG PO BID Baclofen (Lioresal Intrathecal), 1 DOSE INJ PUMP Bisacodyl (Dulcolax), 1 SUPP MS PRN Clobetasol Propionate Emollien (Clobetasol Propionate E), 1 APPLN TOP BID Collagenase (Santyl), 1 APPLN TOP 3XWK Doxycycline Monohydrate (Monodox), 100 MG PO QD Potassium Citrate (Potassium Citrate), 5 MEQ PO BID Protein (Protein), 60 GR PO QD Scheduled PRN Hydrocodone/Acetaminophen 5MG/325MG ([place] 5MG/325MG), 2 TABLETS PO Q6H PRN for Pain Oxybutynin Chloride (Ditropan), 5 MG PO HS PRN for BLADDER SPASMS Review of Systems ROS: well nourished well developed, the patient has chronic spasticity and posturing of his upper extremities due to his chronic quadriparetic state he however has good nutritional status No double vision blurry vision No problems with speech or swallowing No palpitations, chest pain or pressure No Wheezing or breathing issues Focal right-sided lower abdominal pain difficult to characterize and also the patient is experiencing some spasticity in the right side abdomen nausea vomiting diarrhea changes in appetite or weight Urostomy output has been bloody No focal joint pain or muscle pain No skin rashes or oral lesions, the patient states his sacral decubitus which was significant the past has healed there is no one to help B Rohl the patient to inspect this will have wound care evaluation once his skin assessment is that of stairs No focused back pain or numbness or loss of strength No changes in memory or confusion Physical Exam Vital Signs Date Time Temp Pulse Resp B/P (MAP) Pulse Ox O2 Delivery O2 Flow Rate FiO2 03/10/17 15:57 76 16 94/63 98 Room Air 03/10/17 15:03 70 03/10/17 14:40 65 16 116/79 95 Room Air 03/10/17 14:16 79 16 98/65 98 Room Air 03/10/17 12:37 36.6 87 20 99/69 97 Room Air General Appearance: WD/WN, no apparent distress (although. Chronically ill) Head: normocephalic, atraumatic Eyes: PERRL, EOMI Neck: supple, no JVD, + pertinent finding (healed tracheostomy scar) Respiratory/Chest: chest non-tender, lungs clear, normal breath sounds ( although decreased at the bases) Cardiovascular: regular rate, rhythm, no murmur Abdomen/GI: normal bowel sounds, non tender, soft, + pertinent finding (pain pump located right lower quadrant is nontender) Extremities/Musculoskelatal: no pedal edema, + pertinent finding (patient is able to move his arms although limited in their dexterity) Neurologic/Psych: alert, oriented x 3 Diagnostics Laboratory Results Results Past 24 Hours Test 03/10/17 13:34 03/10/17 14:10 Range/Units White Blood Count 7.56 4.8-10.8 K/uL Red Blood Count 4.11 4.7-6.1 M/uL Hemoglobin 11.3 14.0-18.0 g/dL Hematocrit 33.1 42-52 % Mean Corpuscular Volume 80.5 80-100 fL Mean Corpuscular Hemoglobin 27.5 25-34 pg Mean Corpuscular Hemoglobin Concent 34.1 32-36 g/dl Platelet Count 280 130-400 K/uL Mean Platelet Volume 10.0 7.4-10.4 fL Neutrophils (%) (Auto) 75.6 % Lymphocytes (%) (Auto) 18.3 % Monocytes (%) (Auto) 4.6 % Eosinophils (%) (Auto) 0.9 % Basophils (%) (Auto) 0.3 % Neutrophils # (Auto) 5.72 1.4-6.5 K/uL Lymphocytes # (Auto) 1.38 1.2-3.4 K/uL Monocytes # (Auto) 0.35 0.11-0.59 K/uL Eosinophils # (Auto) 0.07 0-0.5 K/uL Basophils # (Auto) 0.02 0-0.2 K/uL RDW Standard Deviation 44.2 36.4-46.3 fL RDW Coefficient of Variation 15.0 11.5-14.5 % Immature Granulocyte % (Auto) 0.3 % Immature Granulocyte # (Auto) 0.02 0.00-0.02 K/uL Prothrombin Time 11.4 9.0-12.0 SECONDS Prothromb Time International Ratio 1.1 0.9-1.1 Activated Partial Thromboplast Time 28.8 21.0-31.0 SECONDS Partial Thromboplastin Ratio 1.1 Sodium Level 141 136-145 mmol/L Potassium Level 3.8 3.5-5.1 mmol/L Chloride Level 109 98-107 mmol/L Carbon Dioxide Level 24 21-32 mmol/L Anion Gap 8.0 3-11 mmol/L Blood Urea Nitrogen 22 7-18 mg/dl Creatinine 0.56 0.60-1.40 mg/dl Estimated GFR () 142.8 Estimated GFR (Non- 123.2 BUN/Creatinine Ratio 39.5 10-20 Random Glucose 100 70-99 mg/dl Calcium Level 9.1 8.5-10.1 mg/dl Total Bilirubin 0.4 0.2-1 mg/dl Aspartate Amino Transf (AST/SGOT) 25 15-37 U/L Alanine Aminotransferase (ALT/SGPT) 31 12-78 U/L Alkaline Phosphatase 154 45-117 U/L Total Protein 7.9 6.4-8.2 gm/dl Albumin 3.2 3.4-5.0 gm/dl Globulin 4.7 2.5-4.0 gm/dl Albumin/Globulin Ratio 0.7 0.9-2 Lipase 225 73-393 U/L Urine Color RED Urine Appearance CLOUDY CLEAR Urine pH >= 9.0 4.5-7.5 Urine Specific [place] 1.010 1.000-1.030 Urine Protein 2+ NEG Urine Glucose (UA) NEG NEG Urine Ketones NEG NEG Urine Occult Blood 3+ NEG Urine Nitrite POS NEG Urine Bilirubin NEG NEG Urine Urobilinogen NEG NEG Urine Leukocyte Esterase MODERATE NEG Urine RBC >30 0-4 /hpf Urine WBC 10-30 0-5 /hpf Urine Epithelial Cells 20-30 0-5 /lpf Urine Bacteria 3+ NEG Microbiology Results 03/10/17 Urine Culture, Received Pending Diagnostic Radiology Markedly abnormal urinalysis CT scan showing a right ureteral stent in place left-sided renal stones and pyelitis as mentioned previously significant sacral ulceration is healed however loss of sacral bone CXR normal Impression Assessment and Plan 46-year-old quadriparetic male here for observation for concern for possible sepsis from urinary source The patient admitted on vancomycin and imipenem given these had a ESBL in the past there has been no evidence of MRSA but he has had significant exposure to healthcare system we can BX with these medications if his source is identified however given his urostomy bag urine culture may not be reliable and infectious disease oversight may be needed Nephrolithiasis with pain the patient states his pain is worse than usual and the baclofen pump is not helping as well as his oral medicines are not helping neurology will be consulted to determine if they wish to address his left-sided renal stones as mentioned on CT scan Previous pressure skin-related problems the patient placed on low air loss mattress and if nursing identifies any concerns wound care consult be undertaken Quadrant paresis related constipation the patient will be on every daily Dulcolax suppository at home he typically get typically has a caregiver manually disimpact him if this does not work Chronic thrombophilia the patient will remain on his xarelto twice a day VTE Prophylaxis VTE Risk Assessment Done? Y/N: Yes Risk Level: Moderate Given or contraindicated: Other Anticoagulation
[2017-03-10] MEDS ORDERED: VANCOMYCIN INJ 1,750 MG in SODIUM CHLORIDE 0.9% 500ML 500 ML IV ONE (18:30)
[2017-03-10] MEDS ORDERED: IV FLUIDS COMPLETED PRN (18:45)
[2017-03-10] MEDS: SODIUM CHLORIDE 0.9% 1000ML 1,000 ML IV SCH ×3 (19:15→20:52)
--- NOTE | 2017-03-10 19:42 | Pharmacy Progress Note ---
Pharmacy Abx Initial Consult Date of Service Mar 10, 2017. Pharmacy Dosing Scope Date of Consult: 03/10/17 Consultation requested by: Dr. Carlos Manuel Davis Pharmacy is consulted to initiate Vanco IV dosing therapy, order appropriate labs and adjust drug dose/frequency. Subjective The patient is a 46 year old male admitted on . Objective Height (Feet): 6 Height (Inches): 0 Weight (Kilograms): 74.200 Vital Signs (Past 12Hrs) Vital Signs Past 12 Hours Date Time Temp Pulse Resp B/P (MAP) Pulse Ox O2 Delivery O2 Flow Rate FiO2 03/10/17 19:08 72 16 83/55 94 Room Air 03/10/17 17:50 95 16 102/59 98 Room Air 03/10/17 15:57 76 16 94/63 98 Room Air 03/10/17 15:03 70 03/10/17 14:40 65 16 116/79 95 Room Air 03/10/17 14:16 79 16 98/65 98 Room Air 03/10/17 12:37 36.6 87 20 99/69 97 Room Air Lab Results (24Hrs) Laboratory Tests (24 Hours) Test 03/10/17 13:34 White Blood Count 7.56 K/uL (4.8-10.8) Red Blood Count 4.11 M/uL (4.7-6.1) L Hemoglobin 11.3 g/dL (14.0-18.0) L Hematocrit 33.1 % (42-52) L Mean Corpuscular Volume 80.5 fL (80-100) Mean Corpuscular Hemoglobin 27.5 pg (25-34) Mean Corpuscular Hemoglobin Concent 34.1 g/dl (32-36) Platelet Count 280 K/uL (130-400) Mean Platelet Volume 10.0 fL (7.4-10.4) Neutrophils (%) (Auto) 75.6 % Lymphocytes (%) (Auto) 18.3 % Monocytes (%) (Auto) 4.6 % Eosinophils (%) (Auto) 0.9 % Basophils (%) (Auto) 0.3 % Neutrophils # (Auto) 5.72 K/uL (1.4-6.5) Lymphocytes # (Auto) 1.38 K/uL (1.2-3.4) Monocytes # (Auto) 0.35 K/uL (0.11-0.59) Eosinophils # (Auto) 0.07 K/uL (0-0.5) Basophils # (Auto) 0.02 K/uL (0-0.2) Micro Results Date/Time Source Procedure Growth Status 03/10/17 14:10 Urine,Catheterized Urine Culture Pending Received Risk Factors for Resistance * Hospitalization for 48 hours or more within the past 90 days * History of infection with a multidrug-resistant organism: ESBL in UA Per Dr. Davis's H&P * Antimicrobial use within the last 90 days Vanco/Zosyn/Fluconazole Assessment & Plan Pt is a 46 yo M referred from urologists office. Pt endorses multiple days of feeling fatigued and nauseous. He is currently afebrile with no leukocytosis or left shift. qSOFA score of 1. SysBP </= 100mmHg, RR WNL, nil AMS. Per Dr. Davis, Mr. Perkins has a h/o ESBL in the urine. UC is currently pending. UA looks dirty with positive nitrites, possibly indicative of gram(-) bacteria in the urine. His renal fxn looks to be at baseline. Pt population p'kinetics: T1/2 =6.6hrs, Ke=0.104, Vd=0.7. Due to recent hospital admission(s) medical team wishes to cover for MRSA in the urine. Vanco: * Vanco: 1750 (~24mg/kg) @1830 to quickly achieve a peak of 34mcg/mL * Then Vanco 1000mg (13.5mg/kg) q8 set to start at 0200 on 03/11/17 * Trough ordered for 03/12/17 @0130. This will be at [facility]. * Goal trough: 15-20mcg/mL until c/s's result Primaxin: * Not consulted but appropriately dosed pursuant to his renal fxn Pharmacy will continue to follow and will adjust dose/frequency as necessary. Thank you.
[2017-03-10 20:15] VITALS: BP 111/74; PULSE 81; TEMP 36.7; O2SAT 97; Ht 182.9 cm; Wt 74.2 kg
[2017-03-10 20:29] VITALS: BP 111/74; PULSE 81; TEMP 36.7; O2SAT 97
[2017-03-10] MEDS: HYDROmorphone INJ 1 MG/ML SYR IV PRN (20:54)
[2017-03-10] MEDS: POTASSIUM CITRATE 10 MEQ TAB PO SCH (21:38)
[2017-03-10] MEDS: APIXABAN 2.5 MG TAB PO SCH (21:39)
[2017-03-10] MEDS: IMIPENEM/CILASTATIN IV 500 MG in DEXTROSE 5% 100ML 100 ML IV SCH (22:27)
[2017-03-10 23:15] VITALS: BP 102/67; PULSE 94; TEMP 36.8; O2SAT 94
[2017-03-11] MEDS: HYDROmorphone INJ 1 MG/ML SYR IV PRN ×2 (01:10→22:21)
[2017-03-11] MEDS: ONDANSETRON INJ 2 MG/ML 2 ML VIAL IV PRN ×3 (01:11→19:20)
[2017-03-11] MEDS: IMIPENEM/CILASTATIN IV 500 MG in DEXTROSE 5% 100ML 100 ML IV SCH ×4 (01:54→22:15)
[2017-03-11] MEDS: VANCOMYCIN INJ 1,000 MG in SODIUM CHLORIDE 0.9% 250ML 250 ML IV SCH ×5 (01:59→19:20)
[2017-03-11] MEDS: SODIUM CHLORIDE 0.9% 1000ML 1,000 ML IV SCH ×2 (06:25→16:53)
[2017-03-11 07:28] VITALS: BP 125/85; PULSE 95; TEMP 36.7; O2SAT 97
[2017-03-11] MEDS: POTASSIUM CITRATE 10 MEQ TAB PO SCH ×2 (08:27→21:21)
[2017-03-11] MEDS: APIXABAN 2.5 MG TAB PO SCH ×2 (08:28→21:20)
[2017-03-11 08:54] LABS: BUN/CREATININE RATIO 35.9 (10-20); CALCIUM 8.6 mg/dl (8.5-10.1); CREATININE 0.52 mg/dl (0.60-1.40); POTASSIUM 4.3 mmol/L (3.5-5.1)
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
--- NOTE | 2017-03-11 09:27 | Urology Consultation ---
History General Date of Service: Mar 11, 2017. Chief Complaint: abdominal pain Primary Care Physician: Boyd Vergara M.D. Pt seen a urologist before?: Yes (Dr. Jose Lewis) If yes, why?: nephrolithiasis, ileal conduit History of Present Illness 46 yo male presents to [facility] with c/o abdominal pain and feeling unwell. 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 The pt was admitted to [facility] in January with sepsis and a right ureteral stone. He is s/p right URS on 02-16. He did see Dr. Lewis in the office yesterday for stent removal, but was sent to the ED as the pt reported generally feeling unwell. Stent left in place. The pt c/o abdominal pain 12/03 this morning requiring narcotics, which he reports he doesn't like to take. CT scan on admission shows chronic left hydro likely secondary to his ileal chimney with left nephrolithiasis. No right ureteral stones visualized. Ostomy draining dark tea colored urine this morning. He is afebrile. White count is normal. Repeat UC&S recommended. Imaging Imaging: CT Laboratory Last 24 Hours Test 03/10/17 13:34 03/10/17 14:10 03/11/17 04:44 03/11/17 08:01 White Blood Count 7.56 K/uL Red Blood Count 4.11 M/uL Hemoglobin 11.3 g/dL Hematocrit 33.1 % Mean Corpuscular Volume 80.5 fL Mean Corpuscular Hemoglobin 27.5 pg Mean Corpuscular Hemoglobin Concent 34.1 g/dl Platelet Count 280 K/uL Mean Platelet Volume 10.0 fL Neutrophils (%) (Auto) 75.6 % Lymphocytes (%) (Auto) 18.3 % Monocytes (%) (Auto) 4.6 % Eosinophils (%) (Auto) 0.9 % Basophils (%) (Auto) 0.3 % Neutrophils # (Auto) 5.72 K/uL Lymphocytes # (Auto) 1.38 K/uL Monocytes # (Auto) 0.35 K/uL Eosinophils # (Auto) 0.07 K/uL Basophils # (Auto) 0.02 K/uL RDW Standard Deviation 44.2 fL RDW Coefficient of Variation 15.0 % Immature Granulocyte % (Auto) 0.3 % Immature Granulocyte # (Auto) 0.02 K/uL Prothrombin Time 11.4 SECONDS Prothromb Time International Ratio 1.1 Activated Partial Thromboplast Time 28.8 SECONDS Partial Thromboplastin Ratio 1.1 Sodium Level 141 mmol/L 139 mmol/L Potassium Level 3.8 mmol/L 4.3 mmol/L Chloride Level 109 mmol/L 111 mmol/L Carbon Dioxide Level 24 mmol/L 21 mmol/L Anion Gap 8.0 mmol/L 7.0 mmol/L Blood Urea Nitrogen 22 mg/dl 19 mg/dl Creatinine 0.56 mg/dl 0.52 mg/dl Estimated GFR () 142.8 147.2 Estimated GFR (Non- 123.2 127.0 BUN/Creatinine Ratio 39.5 35.9 Random Glucose 100 mg/dl 86 mg/dl Calcium Level 9.1 mg/dl 8.6 mg/dl Total Bilirubin 0.4 mg/dl Aspartate Amino Transf (AST/SGOT) 25 U/L Alanine Aminotransferase (ALT/SGPT) 31 U/L Alkaline Phosphatase 154 U/L Total Protein 7.9 gm/dl Albumin 3.2 gm/dl Globulin 4.7 gm/dl Albumin/Globulin Ratio 0.7 Lipase 225 U/L Urine Color RED Urine Appearance CLOUDY Urine pH >= 9.0 Urine Specific [place] 1.010 Urine Protein 2+ Urine Glucose (UA) NEG Urine Ketones NEG Urine Occult Blood 3+ Urine Nitrite POS Urine Bilirubin NEG Urine Urobilinogen NEG Urine Leukocyte Esterase MODERATE Urine RBC >30 /hpf Urine WBC 10-30 /hpf Urine Epithelial Cells 20-30 /lpf Urine Bacteria 3+ Est Creatinine Clear Calc Drug Dose 184.3 ml/min Chemistry Specimen Hemolysis Problem List Medical Problems: (1) Hematuria Status: Acute (2) Pyelonephritis Status: Acute (3) Right flank pain Status: Acute Past History kidney stones, urinary tract infection, other (quadriplegia) Past Surgical History: lithotripsy, spinal surgery, ureteral stent, other Family History non-contributory Social History Hx Tobacco Use In Past Year?: No Smoking: non-smoker Alcohol: never Drug use: none Marital status: single Housing status: lives with family Occupation status: disabled Immunizations History of Influenza Vaccine: Yes Influenza Vaccine Date: Feb 18, 2010 History of Tetanus Vaccine?: Unknown History of Pneumococcal: Yes History of Hepatitis B Vaccine: No Allergies Coded Allergies: Sulfa Antibiotics (Unverified Adverse Reaction, Mild, N/V, 03/10/17) Medications Home Medications: Home Meds and Scripts Medications Dose Route/Sig Max Daily Dose Days Date Category Dose Instructions Clobetasol Propionate E (Clobetasol Propionate [place]lien) 0.05 % Cre 1 Appln TOP BID 03/10/17 Reported apply to face for itching Santyl (Collagenase) 250 Unit/Gm Oin 1 Appln TOP 3XWK 03/10/17 Reported ON WOUNDS [place] 5MG/325MG (Acetaminophen/Hydrocodone Bitart) Tab 2 Tablets PO Q6H PRN 03/10/17 Reported PRN PAIN Monodox (Doxycycline Monohydrate) 100 Mg Cap 100 Mg PO QD 12/30/16 Reported Protein 1 Pow Pow 60 Gr PO QD 12/30/16 Reported Eliquis (Apixaban) 5 Mg Tab 5 Mg PO BID 12/30/16 Reported Dulcolax (Bisacodyl) 10 Mg Sup 1 Supp MI PRN 12/30/16 Reported Lioresal Intrathecal (Baclofen) 0.05 Mg/Ml Inj 1 Dose INJ PUMP 09/19/14 Reported BACLOFEN PUMP PER YOGI ALSO HAS CLONIDINE Potassium Citrate 10 Meq Tab 5 Meq PO BID 09/19/14 Reported Ditropan (Oxybutynin Chloride) 5 Mg Tab 5 Mg PO HS PRN 09/19/14 Reported Inpatient Medications: Current Inpatient Medications Medications (Trade) Dose Ordered Sig/Chalo Route Start Time Stop Time Status Last Admin Dose Admin Bisacodyl (Dulcolax Supp) 10 mg DAILY PRN [place] 03/10/17 17:00 04/09/17 16:59 Acetaminophen/ Hydrocodone Bitart ([place] 5/325 Tab) 2 tab Q6H PRN PO 03/10/17 17:00 03/24/17 16:59 Oxybutynin Chloride (Ditropan Tab) 5 mg HS PRN PO 03/10/17 17:00 04/09/17 16:59 Potassium Citrate (Urocit-K Tab) 5 meq BID PO 03/10/17 21:00 04/09/17 20:59 03/11/17 08:27 5 MEQ Apixaban (Eliquis Tab) 5 mg BID PO 03/10/17 21:00 04/09/17 20:59 03/11/17 08:28 5 MG Polyethylene (Miralax Powder Packet) 17 gm DAILY PRN PO 03/10/17 17:30 04/09/17 17:29 Ondansetron HCl (Zofran Inj) 4 mg Q6H PRN IV 03/10/17 17:30 04/09/17 17:29 03/11/17 08:28 4 MG Vancomycin HCl (Consult) 1 ea UD N/A 03/10/17 17:29 04/09/17 17:28 Imipenem/ Cilastatin Sodium 500 mg/Dextrose 110 ml @ 100 mls/hr Q6H IV 03/10/17 21:00 03/20/17 20:59 03/11/17 01:54 100 MLS/HR Lorazepam (Ativan Inj) 1 mg Q4H PRN IV 03/10/17 17:30 04/09/17 17:29 Lorazepam (Ativan Inj) 0.5 mg Q4H PRN IV 03/10/17 17:30 04/09/17 17:29 Sodium Chloride 1,000 ml @ 100 mls/hr Q10H IV 03/10/17 21:14 04/09/17 21:13 03/11/17 06:25 100 MLS/HR Hydromorphone HCl (Dilaudid Inj) 0.5 mg Q4 PRN IV 03/10/17 17:30 03/24/17 17:29 Hydromorphone HCl (Dilaudid Inj) 1 mg Q4 PRN IV 03/10/17 17:30 03/24/17 17:29 03/11/17 01:10 1 MG Miscellaneous (Iv Fluids Completed) 1 ea PRN PRN N/A 03/10/17 18:45 03/10/18 18:44 Vancomycin HCl 1000 mg/Sodium Chloride 270 ml @ 125 mls/hr Q8H IV 03/11/17 03:00 03/21/17 02:59 03/11/17 03:00 125 MLS/HR Review of Systems Review of Systems Constitutional: No fever, No chills Eyes: No double vision Neurological: No dizzy Endocrine: No excessive thirst Gastrointestinal: + abdominal pain (diffuse 8/10), + nausea, No vomiting Cardiovascular: No chest pain Respiratory: No shortness of breath Skin: No rash Musculoskeletal: No back pain Male : + blood in urine Physical Exam Vital Signs: Vital Signs Past 12 Hours Date Time Temp Pulse Resp B/P (MAP) Pulse Ox O2 Delivery O2 Flow Rate FiO2 03/11/17 07:28 36.7 95 18 125/85 (98) 97 Room Air 03/11/17 00:00 Room Air 03/10/17 23:15 36.8 94 16 102/67 (79) 94 Room Air Physical Exam: General Appearance: no apparent distress Eyes: bilateral eyes normal inspection ENT: hearing grossly normal Neck: no JVD Respiratory/Chest: no respiratory distress, no accessory muscle use Cardiovascular: no JVD Extremities: + pertinent finding (contracted) Neurologic/Psychiatric: alert, normal mood/affect, oriented x 3 Skin: normal color Assessment & Plan Assessment & Plan A/P: Gross hematuria, nephrolithiasis, abdominal pain AFVSS. Etiology for pt's abdominal pain unclear at this time. No ureteral stones seen on CT. Pt's renal stones should not be source for pain. Left hydro is chronic and secondary to ileal chimney. Gross hematuria likely secondary to stent. Consider brooks placement if hematuria persists. Unclear whether the pt has a UTI at this point or not. Previously noted to have sepsis. Would continue IV abx to see if symptoms improve. Will plan to leave stent in place for now. Would not want to remove in the possible setting of infection. No plan for surgical intervention at this time. Thanks for the consult. Will continue to follow along with primary service. PM rounds - patient continues to complain of epigastric pain and nausea. Cultures show no pathogens so far, afebrile this admission, WBC wnl. findings reviewed - no change on CT scan findings, stent in place. No acute intervention planned. Plan on outpatient stent removal while patient is covered with antimicrobials and in the absence of significant infection. WIll follow.
[2017-03-11 09:49] LABS: HEMATOCRIT 32.8 % (42-52); MEAN CELL VOLUME 82.4 fL (80-100); MEAN CORPUSCULAR HEMOGLOBIN 26.4 pg (25-34); MEAN PLATELET VOLUME 9.9 fL (7.4-10.4); PLATELET COUNT 229 K/uL (130-400); RED BLOOD COUNT 3.98 M/uL (4.7-6.1); WHITE BLOOD COUNT 9.26 K/uL (4.8-10.8)
[2017-03-11] MEDS: HYDROCODONE/ACETAMOPHEN 5/325MG TAB PO PRN (13:11)
--- NOTE | 2017-03-11 13:58 | Hospitalist Progress Note ---
Hospitalist Progress Note Date of Service Mar 11, 2017. (Nikki Stout PA-C) Subjective Pt evaluation today including: conversation w/ patient, physical exam, chart review, lab review, review of studies, review of inpatient medication list Patient seen and evaluated. No acute events overnight. Reporting continued L-sided pain and gross hematuria. Continues to have nausea and feelings of being fevered/chilled. No documented fevers BP is improving with hydration and does report some improvement. UA appears dirty however culture is with multiple organisms. Will resend however currently on broad-spectrum antibiotics. Denies diarrhea. Does appear to have reasonable anxiety related to his recent hospitalization and concern that he has continued infection. Feels that the stone just needs to be removed. Constitutional: + fever, + chills Respiratory: No cough, No shortness of breath Cardiovascular: No chest pain Abdomen: + pain (L-sided), + nausea, No vomiting, No diarrhea Male : + hematuria Skin: No rash (Nikki Stout PA-C) Medications Current Inpatient Medications Medications (Trade) Dose Ordered Sig/Chalo Route Start Time Stop Time Status Last Admin Dose Admin Bisacodyl (Dulcolax Supp) 10 mg DAILY PRN [place] 03/10/17 17:00 04/09/17 16:59 Acetaminophen/ Hydrocodone Bitart ([place] 5/325 Tab) 2 tab Q6H PRN PO 03/10/17 17:00 03/24/17 16:59 03/11/17 13:11 2 TAB Oxybutynin Chloride (Ditropan Tab) 5 mg HS PRN PO 03/10/17 17:00 04/09/17 16:59 Potassium Citrate (Urocit-K Tab) 5 meq BID PO 03/10/17 21:00 04/09/17 20:59 03/11/17 08:27 5 MEQ Apixaban (Eliquis Tab) 5 mg BID PO 03/10/17 21:00 04/09/17 20:59 03/11/17 08:28 5 MG Polyethylene (Miralax Powder Packet) 17 gm DAILY PRN PO 03/10/17 17:30 04/09/17 17:29 Ondansetron HCl (Zofran Inj) 4 mg Q6H PRN IV 03/10/17 17:30 04/09/17 17:29 03/11/17 08:28 4 MG Vancomycin HCl (Consult) 1 ea UD N/A 03/10/17 17:29 04/09/17 17:28 Imipenem/ Cilastatin Sodium 500 mg/Dextrose 110 ml @ 100 mls/hr Q6H IV 03/10/17 21:00 03/20/17 20:59 03/11/17 11:31 100 MLS/HR Lorazepam (Ativan Inj) 1 mg Q4H PRN IV 03/10/17 17:30 04/09/17 17:29 Lorazepam (Ativan Inj) 0.5 mg Q4H PRN IV 03/10/17 17:30 04/09/17 17:29 Sodium Chloride 1,000 ml @ 100 mls/hr Q10H IV 03/10/17 21:14 04/09/17 21:13 03/11/17 06:25 100 MLS/HR Hydromorphone HCl (Dilaudid Inj) 0.5 mg Q4 PRN IV 03/10/17 17:30 03/24/17 17:29 Hydromorphone HCl (Dilaudid Inj) 1 mg Q4 PRN IV 03/10/17 17:30 03/24/17 17:29 03/11/17 01:10 1 MG Miscellaneous (Iv Fluids Completed) 1 ea PRN PRN N/A 03/10/17 18:45 03/10/18 18:44 Vancomycin HCl 1000 mg/Sodium Chloride 270 ml @ 125 mls/hr Q8H IV 03/11/17 03:00 03/21/17 02:59 03/11/17 03:00 125 MLS/HR (Nkiki Stout, LACEYC) Objective Vital Signs Date Time Temp Pulse Resp B/P (MAP) Pulse Ox O2 Delivery O2 Flow Rate FiO2 03/11/17 08:15 Room Air 03/11/17 07:28 36.7 95 18 125/85 (98) 97 Room Air 03/11/17 00:00 Room Air 03/10/17 23:15 36.8 94 16 102/67 (79) 94 Room Air 03/10/17 20:29 36.7 81 16 111/74 (86) 97 Room Air 03/10/17 20:15 36.7 81 16 111/74 97 Room Air 03/10/17 19:59 74 16 93/59 98 Room Air 03/10/17 19:08 72 16 83/55 94 Room Air 03/10/17 17:50 95 16 102/59 98 Room Air 03/10/17 15:57 76 16 94/63 98 Room Air 03/10/17 15:03 70 03/10/17 14:40 65 16 116/79 95 Room Air 03/10/17 14:16 79 16 98/65 98 Room Air (Nikki Stout PA-C) Physical Exam General Appearance: WD/WN, no apparent distress ENT: hearing grossly normal Neck: supple, no JVD, trachea midline Respiratory/Chest: lungs clear, normal breath sounds, no respiratory distress, no accessory muscle use Cardiovascular: regular rate, rhythm, no gallop, no murmur Abdomen: normal bowel sounds, + pertinent finding (ileal catheter in LLQ with hematuria and clots) Neurologic/Psychiatric: alert, oriented x 3 Skin: normal color, warm/dry (Nikki Stout PA-C) Laboratory Results Last 24 Hours Test 03/10/17 14:10 03/11/17 08:01 03/11/17 09:27 Urine Color RED Urine Appearance CLOUDY Urine pH >= 9.0 Urine Specific [place] 1.010 Urine Protein 2+ Urine Glucose (UA) NEG Urine Ketones NEG Urine Occult Blood 3+ Urine Nitrite POS Urine Bilirubin NEG Urine Urobilinogen NEG Urine Leukocyte Esterase MODERATE Urine RBC >30 /hpf Urine WBC 10-30 /hpf Urine Epithelial Cells 20-30 /lpf Urine Bacteria 3+ Sodium Level 139 mmol/L Potassium Level 4.3 mmol/L Chloride Level 111 mmol/L Carbon Dioxide Level 21 mmol/L Anion Gap 7.0 mmol/L Blood Urea Nitrogen 19 mg/dl Creatinine 0.52 mg/dl Est Creatinine Clear Calc Drug Dose 184.3 ml/min Estimated GFR () 147.2 Estimated GFR (Non- 127.0 BUN/Creatinine Ratio 35.9 Random Glucose 86 mg/dl Calcium Level 8.6 mg/dl Chemistry Specimen Hemolysis White Blood Count 9.26 K/uL Red Blood Count 3.98 M/uL Hemoglobin 10.5 g/dL Hematocrit 32.8 % Mean Corpuscular Volume 82.4 fL Mean Corpuscular Hemoglobin 26.4 pg Mean Corpuscular Hemoglobin Concent 32.0 g/dl RDW Standard Deviation 45.8 fL RDW Coefficient of Variation 15.1 % Platelet Count 229 K/uL Mean Platelet Volume 9.9 fL (Nikki Stout, LACEYC) Assessment and Plan 46-year-old quadriparetic male here for observation for concern for possible sepsis from urinary source L-Sided Abdominal Pain with L Nephrolithiasis and R Ureteral Stent: Chronic Hydronephrosis with UA suggesting UTI - Feeling ill with feelings of being fevered/chilled and nausea - no documented fever or leukocytosis - UA suggests infection however cx not helpful - will redo however is currently on Abx - Pain may be related to moderate stool in colon? 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 relates taht he thinks it started about 8yrs ago after kidney surgeries for a staghorn. off and on with pain - but when it comes it's pretty constant often for days. notes that at times he sees the scars from his G and J tubes "pouch in" when there's more pain , and also often gets leg spasms then. L flank only. no nausea/vomiting. regular BM daily. vitals noted anxious but no distress, abdomen soft nd nt -- palpation does not reproduce pain, although he can't really feel palpation either. ribs decreased ROM especially lower ~10-12 on L compared to R (generally reduced ROM of ribs b/ l but seems stiffer on L) and interestingly, palpation of L posterior ribs does have (+) reproduction of pain including radiating to leg, and when the pain starts there, he appears to contract abdomen causing G/J scars to move inward L sided lower ribs tender (in that palpation reproduces pain in a radiating pattern similar to what he's been feeling) decreased ROM - balanced ligamentous tension, small improvement in tissue texture - pt tolerated well flank pain -ddx wide (see below) but actually rib related MSK pain seems most likely -OMT, voltaren gel. outpt will want to have f/u w dr noah moran for ongoing OMT -if fails to improve w this mode of treatment, then may need to consider other ddxs, although these would seem less likely (given PE above) and would certainly also be harder and more invasive to manage ----ddx at this time - MSK as above, scarring around kidney from prior surgeries , adhesional intestinal pain in the area from prior surgeries, constipation ( even though he has regular BMs, stool was fairly copious on CT), renal stones ( agree this seems less likely since they're unchanged and generally stones in kidney don't hurt) possible infection - abx given his recent course. ?candidate for suppressive abx? rib somatic dysfunction - OMT as above otherwise as above (Eduardo Macias D.O.)
[2017-03-11 15:00] VITALS: BP 120/83; PULSE 102; TEMP 36.9; O2SAT 95
[2017-03-11] MEDS ORDERED: DICLOFENAC SOD 1% GEL 100 GM TUBE EXT ONE (16:52)
[2017-03-11] MEDS ORDERED: COLLAGENASE OINT 30 GM TUBE EXT SCH (17:30)
[2017-03-11] MEDS: POLYETHYLENE (MIRALAX) 17 GM PACK PO SCH (21:00)
[2017-03-11] MEDS: CLOBETASOL PROPIONATE 0.05% OINT 15 GM TUBE EXT SCH (21:19)
[2017-03-11] MEDS: DICLOFENAC SOD 1% GEL 100 GM TUBE EXT SCH (21:20)
[2017-03-11 23:29] VITALS: BP 102/71; PULSE 110; TEMP 36.7; O2SAT 97
[2017-03-12] MEDS ORDERED: VANCOMYCIN TROUGH ONE ×2 (01:30→02:30)
[2017-03-12] MEDS: VANCOMYCIN INJ 1,000 MG in SODIUM CHLORIDE 0.9% 250ML 250 ML IV SCH ×2 (02:23→14:05)
[2017-03-12] MEDS: IMIPENEM/CILASTATIN IV 500 MG in DEXTROSE 5% 100ML 100 ML IV SCH ×4 (04:50→21:46)
[2017-03-12] MEDS: BISACODYL 10 MG SUPP PR PRN (06:26)
[2017-03-12] MEDS: ONDANSETRON INJ 2 MG/ML 2 ML VIAL IV PRN ×2 (06:27→17:36)
[2017-03-12] MEDS: HYDROmorphone INJ 1 MG/ML SYR IV PRN ×2 (06:33→21:18)
[2017-03-12 07:45] VITALS: BP 112/70; PULSE 100; TEMP 36.6; O2SAT 94
[2017-03-12] MEDS: POLYETHYLENE (MIRALAX) 17 GM PACK PO SCH ×2 (07:51→21:21)
[2017-03-12] MEDS: DICLOFENAC SOD 1% GEL 100 GM TUBE EXT SCH ×4 (07:51→21:21)
[2017-03-12] MEDS: POTASSIUM CITRATE 10 MEQ TAB PO SCH ×2 (07:52→21:22)
[2017-03-12] MEDS: APIXABAN 2.5 MG TAB PO SCH ×2 (07:52→21:22)
[2017-03-12] MEDS: SODIUM CHLORIDE 0.9% 1000ML 1,000 ML IV SCH ×3 (07:54→21:46)
[2017-03-12] MEDS: CLOBETASOL PROPIONATE 0.05% OINT 15 GM TUBE EXT SCH ×2 (07:54→21:22)
[2017-03-12 08:02] VITALS: O2SAT 94
--- NOTE | 2017-03-12 08:21 | Progress Note ---
Subjective Date of Service: Mar 12, 2017. Subjective Pt evaluation today including: conversation w/ patient, physical exam, chart review, lab review, review of inpatient medication list Pain: Abdominal pain, unchanged. PO Intake: Francie PO Voiding: brooks catheter in place (pink urine) 46 yo quadraplegic male, admitted for abdominal pain, possible recurrent fever. Inpatient notes and labs reviewed - normal WBC, afebrile, some tachycardia today. No new complaints or events. Problem List Medical Problems: (1) Hematuria Status: Acute (2) Pyelonephritis Status: Acute (3) Right flank pain Status: Acute Review of Systems Constitutional: No fever, No chills Eyes: No worsening of vision ENT: No unusual epistaxis Respiratory: No wheezing, No shortness of breath Abdomen: + pain, + nausea, + vomiting Male : + hematuria Neurologic: + paralysis, No memory loss Skin: No new/changing skin lesions Objective Vital Signs Date Time Temp Pulse Resp B/P (MAP) Pulse Ox O2 Delivery O2 Flow Rate FiO2 03/12/17 08:02 94 Room Air 03/12/17 07:45 36.6 100 20 112/70 (84) 94 Room Air 03/11/17 23:30 Room Air 03/11/17 23:29 36.7 110 18 102/71 (81) 97 Room Air 03/11/17 16:45 Room Air 03/11/17 15:00 36.9 102 20 120/83 (95) 95 Room Air 03/11/17 08:15 Room Air Physical Exam General Appearance: no apparent distress, + thin ENT: hearing grossly normal Respiratory/Chest: no respiratory distress Cardiovascular: no JVD Extremities: + pertinent finding (contracted) Neurologic/Psychiatric: alert, oriented x 3 Skin: normal color Laboratory Results Last 24 Hours Test 03/11/17 09:27 03/12/17 02:18 White Blood Count 9.26 K/uL Red Blood Count 3.98 M/uL Hemoglobin 10.5 g/dL Hematocrit 32.8 % Mean Corpuscular Volume 82.4 fL Mean Corpuscular Hemoglobin 26.4 pg Mean Corpuscular Hemoglobin Concent 32.0 g/dl RDW Standard Deviation 45.8 fL RDW Coefficient of Variation 15.1 % Platelet Count 229 K/uL Mean Platelet Volume 9.9 fL Vancomycin Level Trough 30.3 mcg/ml Assessment and Plan A/P 46 yo male with abdominal pain, emesis, possible UTI. Plan is for outpatient stent removal while possible infection covered. Timing will depend on inpatient clinical course. No change in imaging findings, no evidence for obstructive urosepsis - will hold on any intervention. Continue care per primary service, will follow clinical course. Continued [facility] stay due to: multiple IV medications needed Discharge planning: home with home health
--- NOTE | 2017-03-12 08:55 | Clinical Documentation Query ---
KAYLA Ghosh : CLINICAL DOCUMENTATION QUERY Patient is a 46 year old male admitted with concerns for possible sepsis secondary to UTI. Wound consultation undertaken for "skin related problems". Wound staging, as appropriate, can be documented by ancillary members of the healthcare team. However, the associated mechanism/type of wound must be explicitly documented by the physician. Please clarify as clinically appropriate. Thank you. In your clinical opinion is this patient being managed for: ( x ) Pressure ulcer of left heel, stage 3, POA ( ) Not Agree ( ) Other explanation of clinical findings (Please Explain) ( ) Unable to determine (Please Define) ( ) Need to Discuss The medical record reflects the following clinical findings, treatment, and risk factors. Clinical Indicators: As above Treatment: WOCN consultation Risk Factors: Quadriparesis/limited mobility Please clarify and document your clinical opinion in the progress notes and discharge summary. Terms such as "probable", "suspected", "likely", "questionable", "possible", or "still to be ruled out" are acceptable. IF IN AGREEMENT, YOU MUST DOCUMENT ABOVE DIAGNOSTIC STATEMENT IN DAILY PROGRESS NOTES AND DISCHARGE SUMMARY. This document is not part of the patient's record. Thank You, Juvenal Toure, RN [phone]
[2017-03-12 09:07] LABS: CREATININE 0.49 mg/dl (0.60-1.40)
--- NOTE | 2017-03-12 11:28 | Progress Note ---
Progress Note Date of Service Mar 12, 2017. Progress Note ID Consult Dictated #[id number] A/P: 1. uti -Continue abx, follow urine culture result -Thank you
--- NOTE | 2017-03-12 11:47 | INFECT. DISEASE CONSULTATION ---
DATE OF CONSULTATION: 03/12/2017 REQUESTING PHYSICIAN: Anthony Davis MD. HISTORY OF PRESENT ILLNESS: This is a 46-year-old gentleman who was admitted to the hospital after he was found to be nauseated in the urology office. He was recently hospitalized in January and had a stent placed in the right ureter. He presented yesterday for stent removal but was not feeling well and was subsequently transferred to the hospital for admission. He did have a CAT scan of the abdomen and pelvis which was unchanged. The stent was patent. He also had a chest x-ray which was negative. He has been afebrile since admission. His white blood cell count was normal. He had a urinalysis which showed 10-30 WBCs. He does have a urostomy. He states this was initially taken from his old urostomy. His culture was considered a contaminated specimen. His urostomy was changed yesterday and a repeat urine culture was obtained. Results of this are pending. He denies any fevers or chills. He continues to admit mild nausea but has not had any episodes of vomiting. He was placed on broad spectrum antibiotics. He is currently on vancomycin and imipenem. Infectious disease was consulted for imipenem use. On my examination, his only complaint is of chronic pain. He does have a baclofen pump which is due to be exchanged; however, this has been postponed due to urinary tract infections and multiple kidney stones. He was evaluated by urology here and they are planning to proceed with removing his stent once he is discharged from the hospital. REVIEW OF SYSTEMS: All remaining review of systems are reviewed and are unremarkable. PAST MEDICAL HISTORY: Significant for quadriplegia, spasticity, chronic pain and kidney stones for which he follows at his urologist office. He recently had a stent placed. SOCIAL HISTORY: Significant for history of tobacco use. He denies any alcohol or drug use. ALLERGIES: HE IS ALLERGIC TO SULFA, ANTIBIOTICS. CURRENT MEDICATIONS: Include vancomycin, diclofenac, MiraLax, Santyl, potassium, Eliquis, imipenem, Zofran, Ativan, Dilaudid, Dulcolax, Percocet and Ditropan. PHYSICAL EXAMINATION: VITAL SIGNS: He is afebrile, pulse 100, respiratory rate is 20, blood pressure 112/70, oxygen saturation is 94% on room air. GENERAL: He is awake, alert and oriented x3. He is in no acute distress. HEENT: Mucous membranes are moist. Extraocular muscles are intact. HEART: Regular. LUNGS: Clear. ABDOMEN: Nondistended. There is no edema. He does have contracted extremities. LABORATORY STUDIES: CBC reveals a white blood cell count of 9.2, hemoglobin 10.5 and platelets are 229. Chemistry panel reveals a sodium of 139, potassium 4.3, chloride 111, bicarbonate 21, BUN 19, creatinine 0.5, glucose is 86. LFTs were normal. Urinalysis is as above. Urine culture is pending. Blood cultures were obtained. Imaging is as above. Review of old micro reveals negative blood cultures from the . His urine culture on the was contaminated. He has not had a positive urine cultures here since 2014. ASSESSMENT AND PLAN: Questionable infected stent. Certainly he does not appear to be toxic at this time; however, cultures are pending and he can be followed on broad spectrum antibiotics pending the results of his repeat urine culture. Should he have any fevers, blood culture should be obtained as well.
--- NOTE | 2017-03-12 13:56 | Pharmacy Progress Note ---
Pharmacy Abx Dose Short Note Date of Service Mar 12, 2017. Assessment & Plan Assessment 46 year old male receiving vancomycin for treatment of ?urosepsis/uti Day # 3 of antimicrobial therapy. Plan Vancomycin * Trough level of 30.3 mcg/mL is supratherapeutic- level was drawn ~7 hours from previous dose * Change to 1000 mg IV every 12 hours * Patient specific pk: ke 0.07, T1/2 ~10 hrs * Goal trough level 15-20 mcg/mL * Trough level ordered for: 03/14 @ 0230 Pharmacy will continue to follow and will adjust dose/frequency as necessary. Thank you.
[2017-03-12 15:22] VITALS: BP 123/88; PULSE 78; TEMP 36.7; O2SAT 96
--- NOTE | 2017-03-12 20:41 | Progress Note ---
Subjective Date of Service: Mar 12, 2017. Subjective Pt evaluation today including: conversation w/ patient, physical exam, chart review, lab review, review of studies, review of inpatient medication list pain about the same. reasonable BM, was afraid to take miralax due to concern about having diarrhea and ahving previous sacral ulcers no f/c/s d/w urology at length - and ID input reviewed - all are in agreement of ?+/- if this is truly even a UTI pt amenable to the idea that something besides stones might be causing his pain Problem List Medical Problems: (1) Hematuria Status: Acute (2) Pyelonephritis Status: Acute (3) Right flank pain Status: Acute Review of Systems all other ROS otherwise negative except for as above Objective Vital Signs Date Time Temp Pulse Resp B/P (MAP) Pulse Ox O2 Delivery O2 Flow Rate FiO2 03/12/17 16:00 Room Air 03/12/17 15:22 36.7 78 17 123/88 (100) 96 Room Air 03/12/17 08:02 94 Room Air 03/12/17 07:45 36.6 100 20 112/70 (84) 94 Room Air 03/11/17 23:30 Room Air 03/11/17 23:29 36.7 110 18 102/71 (81) 97 Room Air Physical Exam General Appearance: no apparent distress Eyes: EOMI ENT: hearing grossly normal Neck: trachea midline Respiratory/Chest: no respiratory distress, no accessory muscle use Extremities: normal range of motion 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 outpt will want to have f/u as outpt for ongoing OMT ---for constipation - discussed extensive stool on CT, likelihood that current nausea relates to stool, and trial of miralax -if fails to improve w this mode of treatment, then may need to consider other ddxs, although these would seem less likely (given PE above) and would certainly also be harder and more invasive to manage ----ddx at this time - MSK as above, scarring around kidney from prior surgeries , adhesional intestinal pain in the area from prior surgeries, constipation ( even though he has regular BMs, stool was fairly copious on CT), renal stones ( agree this seems less likely since they're unchanged and generally stones in kidney don't hurt) possible infection - abx given his recent course pending further growth, but seeming less likely that he has active infection at this time. ?candidate for suppressive abx? rib somatic dysfunction - OMT as above DVT proph - apixaban Spastic Quadriparesis: - Has Baclofen pump and pain management following Chronic Thrombophilia: - Eliquis 5 mg BID nausea -likely relates to constipation - miralax, and for now scheduled zofran Continued [facility] stay due to: multiple IV medications needed Discharge planning: home with home health
[2017-03-12] MEDS ORDERED: ONDANSETRON INJ 2 MG/ML 2 ML VIAL ONE (21:12)
[2017-03-12] MEDS: ONDANSETRON INJ 2 MG/ML 2 ML VIAL IV. SCH (21:28)
[2017-03-12 23:10] VITALS: BP 163/99; PULSE 76; TEMP 36.5; O2SAT 96
[2017-03-13 00:05] VITALS: BP 108/73; PULSE 106
[2017-03-13] MEDS ORDERED: VANCOMYCIN TROUGH ONE (02:30)
[2017-03-13] MEDS: VANCOMYCIN INJ 1,000 MG in SODIUM CHLORIDE 0.9% 250ML 250 ML IV SCH (02:40)
[2017-03-13] MEDS: ONDANSETRON INJ 2 MG/ML 2 ML VIAL IV. SCH ×3 (03:56→15:39)
[2017-03-13] MEDS: IMIPENEM/CILASTATIN IV 500 MG in DEXTROSE 5% 100ML 100 ML IV SCH (05:13)
[2017-03-13] MEDS: HYDROCODONE/ACETAMOPHEN 5/325MG TAB PO PRN ×2 (05:16→15:33)
[2017-03-13 07:51] VITALS: PULSE 70; TEMP 36.6; O2SAT 97
[2017-03-13 08:00] VITALS: BP 113/80; PULSE 84
[2017-03-13 08:10] LABS: HEMATOCRIT 32.1 % (42-52); MEAN CELL VOLUME 80.3 fL (80-100); MEAN CORPUSCULAR HGB CONC 32.4 g/dl (32-36); MEAN PLATELET VOLUME 9.7 fL (7.4-10.4); PLATELET COUNT 204 K/uL (130-400); WHITE BLOOD COUNT 4.76 K/uL (4.8-10.8)
[2017-03-13] MEDS: APIXABAN 2.5 MG TAB PO SCH ×2 (08:26→20:58)
[2017-03-13] MEDS: POTASSIUM CITRATE 10 MEQ TAB PO SCH ×2 (08:26→20:59)
[2017-03-13] MEDS: CLOBETASOL PROPIONATE 0.05% OINT 15 GM TUBE EXT SCH ×2 (08:30→20:57)
[2017-03-13] MEDS: DICLOFENAC SOD 1% GEL 100 GM TUBE EXT SCH ×4 (08:30→20:58)
[2017-03-13] MEDS: POLYETHYLENE (MIRALAX) 17 GM PACK PO SCH ×2 (08:55→21:00)
[2017-03-13 08:56] LABS: BUN/CREATININE RATIO 16.7 (10-20); CALCIUM 8.4 mg/dl (8.5-10.1); CREATININE 0.53 mg/dl (0.60-1.40); POTASSIUM 3.7 mmol/L (3.5-5.1)
[2017-03-13] MEDS ORDERED: ONDANSETRON INJ 2 MG/ML 2 ML VIAL IV PRN (09:00)
--- NOTE | 2017-03-13 09:53 | Progress Note ---
Subjective Date of Service: Mar 13, 2017. Subjective Pt evaluation today including: conversation w/ patient, physical exam, chart review, lab review Voiding: brooks catheter in place Urine cleared overnight - subjectively feeling better - some sweating overnight, but denies feeling ill Problem List Medical Problems: (1) Hematuria Status: Acute (2) Pyelonephritis Status: Acute (3) Right flank pain Status: Acute Review of Systems Constitutional: No fever Abdomen: No see HPI, No pain, No nausea, No vomiting, No diarrhea, No constipation, No GI bleeding, No problem reported Objective Vital Signs Date Time Temp Pulse Resp B/P (MAP) Pulse Ox O2 Delivery O2 Flow Rate FiO2 03/13/17 08:00 84 113/80 (91) 03/13/17 07:51 36.6 70 18 97 Room Air 03/13/17 00:05 106 108/73 (85) 03/12/17 23:10 36.5 76 18 163/99 (120) 96 Room Air 03/12/17 21:30 Room Air 03/12/17 16:00 Room Air 03/12/17 15:22 36.7 78 17 123/88 (100) 96 Room Air Physical Exam General Appearance: WD/WN, no apparent distress Eyes: normal inspection ENT: hearing grossly normal Neck: no adenopathy Respiratory/Chest: no respiratory distress Cardiovascular: no edema Neurologic/Psychiatric: alert, normal mood/affect, oriented x 3 Laboratory Results Last 24 Hours Test 03/13/17 07:38 White Blood Count 4.76 K/uL Red Blood Count 4.00 M/uL Hemoglobin 10.4 g/dL Hematocrit 32.1 % Mean Corpuscular Volume 80.3 fL Mean Corpuscular Hemoglobin 26.0 pg Mean Corpuscular Hemoglobin Concent 32.4 g/dl RDW Standard Deviation 43.6 fL RDW Coefficient of Variation 14.9 % Platelet Count 204 K/uL Mean Platelet Volume 9.7 fL Sodium Level 138 mmol/L Potassium Level 3.7 mmol/L Chloride Level 106 mmol/L Carbon Dioxide Level 23 mmol/L Anion Gap 9.0 mmol/L Blood Urea Nitrogen 9 mg/dl Creatinine 0.53 mg/dl Est Creatinine Clear Calc Drug Dose 180.8 ml/min Estimated GFR () 146.0 Estimated GFR (Non- 126.0 BUN/Creatinine Ratio 16.7 Random Glucose 89 mg/dl Calcium Level 8.4 mg/dl Assessment and Plan Infection; hematuria; recent stone surgery (sepsis) progressing appropriately cont IV abx (imipenem and vanco) stent removal as outpt Continued [facility] stay due to: multiple IV medications needed Discharge planning: home with home health
[2017-03-13] MEDS: NITROFURANTOIN MONOHYDRATE 100 MG CAP PO SCH ×2 (12:08→20:59)
[2017-03-13 15:08] VITALS: BP 92/60; PULSE 89; TEMP 36.9; O2SAT 92
--- NOTE | 2017-03-13 17:57 | Progress Note ---
Subjective Date of Service: Mar 13, 2017. Subjective Pt evaluation today including: conversation w/ patient, physical exam, chart review, lab review, review of inpatient medication list feeling better had large BM pain improving urine clearing still nervous but imprving no f/c/s "but i never get a fever, my body is weird" Problem List Medical Problems: (1) Hematuria Status: Acute (2) Pyelonephritis Status: Acute (3) Right flank pain Status: Acute Review of Systems all other ROS otherwise negative except for as above Objective Vital Signs Date Time Temp Pulse Resp B/P (MAP) Pulse Ox O2 Delivery O2 Flow Rate FiO2 03/13/17 15:15 Room Air 03/13/17 15:08 36.9 89 17 92/60 (71) 92 Room Air 03/13/17 14:24 Room Air 03/13/17 08:00 84 113/80 (91) 03/13/17 07:51 36.6 70 18 97 Room Air 03/13/17 00:05 106 108/73 (85) 03/12/17 23:10 36.5 76 18 163/99 (120) 96 Room Air 03/12/17 21:30 Room Air Physical Exam General Appearance: no apparent distress Eyes: EOMI ENT: hearing grossly normal Respiratory/Chest: no respiratory distress, no accessory muscle use Abdomen: soft Comments: ost/msk - L sided lower ribs high tone/decreased ROM - improved from before - balanced ligamentous tension - improved fruther w tissue tone, pt tolerated well Laboratory Results Last 24 Hours Test 03/13/17 07:38 White Blood Count 4.76 K/uL Red Blood Count 4.00 M/uL Hemoglobin 10.4 g/dL Hematocrit 32.1 % Mean Corpuscular Volume 80.3 fL Mean Corpuscular Hemoglobin 26.0 pg Mean Corpuscular Hemoglobin Concent 32.4 g/dl RDW Standard Deviation 43.6 fL RDW Coefficient of Variation 14.9 % Platelet Count 204 K/uL Mean Platelet Volume 9.7 fL Sodium Level 138 mmol/L Potassium Level 3.7 mmol/L Chloride Level 106 mmol/L Carbon Dioxide Level 23 mmol/L Anion Gap 9.0 mmol/L Blood Urea Nitrogen 9 mg/dl Creatinine 0.53 mg/dl Est Creatinine Clear Calc Drug Dose 180.8 ml/min Estimated GFR () 146.0 Estimated GFR (Non- 126.0 BUN/Creatinine Ratio 16.7 Random Glucose 89 mg/dl Calcium Level 8.4 mg/dl Assessment and Plan flank pain -ddx wide (see below) but actually rib related MSK pain + pain from constipation ezequiel both are causative -- and treating as such is showing improvement -OMT, voltaren gel. outpt will want to have f/u as outpt for ongoing OMT ---for constipation - discussed extensive stool on CT, likelihood that current nausea relates to stool, and trial of miralax - improving ----more detailed ddx at this time - MSK as above, scarring around kidney from prior surgeries, adhesional intestinal pain in the area from prior surgeries, constipation (even though he has regular BMs, stool was fairly copious on CT), renal stones (agree this seems less likely since they're unchanged and generally stones in kidney don't hurt) possible infection - seeming less likely but with recent sepsis picture and " not negative" cultures - will finish course of treatment BUT while inpatient and still under close supervision will change to macrobid and follow clinically. 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
[2017-03-13 23:25] VITALS: BP 148/94; PULSE 66; TEMP 36.7; O2SAT 98
[2017-03-14] MEDS ORDERED: VANCOMYCIN TROUGH ONE (02:30)
[2017-03-14 07:13] VITALS: BP 173/91; PULSE 69; TEMP 36.8; O2SAT 96
--- NOTE | 2017-03-14 07:19 | Progress Note ---
Subjective Date of Service: Mar 14, 2017. Subjective Pt evaluation today including: conversation w/ patient, physical exam, chart review, lab review, review of studies, review of inpatient medication list feeling better again - had nausea and abdominal pain earlier - improving again no further BM no f/c/s feels like he's makign progress Problem List Medical Problems: (1) Hematuria Status: Acute (2) Pyelonephritis Status: Acute (3) Right flank pain Status: Acute Review of Systems all other ROS otherwise negative except for as above Objective Vital Signs Date Time Temp Pulse Resp B/P (MAP) Pulse Ox O2 Delivery O2 Flow Rate FiO2 03/14/17 07:13 36.8 69 19 173/91 (118) 96 Room Air 03/13/17 23:50 Room Air 03/13/17 23:25 36.7 66 16 148/94 (112) 98 Room Air 03/13/17 20:00 Room Air 03/13/17 15:15 Room Air 03/13/17 15:08 36.9 89 17 92/60 (71) 92 Room Air 03/13/17 14:24 Room Air 03/13/17 08:00 84 113/80 (91) 03/13/17 07:51 36.6 70 18 97 Room Air Physical Exam General Appearance: no apparent distress Eyes: EOMI ENT: hearing grossly normal Neck: trachea midline Respiratory/Chest: no respiratory distress, no accessory muscle use Abdomen: non tender, soft 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 Laboratory Results Last 24 Hours Test 03/13/17 07:38 03/14/17 04:44 White Blood Count 4.76 K/uL Red Blood Count 4.00 M/uL Hemoglobin 10.4 g/dL Hematocrit 32.1 % Mean Corpuscular Volume 80.3 fL Mean Corpuscular Hemoglobin 26.0 pg Mean Corpuscular Hemoglobin Concent 32.4 g/dl RDW Standard Deviation 43.6 fL RDW Coefficient of Variation 14.9 % Platelet Count 204 K/uL Mean Platelet Volume 9.7 fL Sodium Level 138 mmol/L Potassium Level 3.7 mmol/L Chloride Level 106 mmol/L Carbon Dioxide Level 23 mmol/L Anion Gap 9.0 mmol/L Blood Urea Nitrogen 9 mg/dl Creatinine 0.53 mg/dl Est Creatinine Clear Calc Drug Dose 180.8 ml/min Estimated GFR () 146.0 Estimated GFR (Non- 126.0 BUN/Creatinine Ratio 16.7 Random Glucose 89 mg/dl Calcium Level 8.4 mg/dl Assessment and Plan flank pain -ddx wide (see below) but actually rib related MSK pain + pain from constipation likley both are causative -- and treating as such is showing improvement -OMT, voltaren gel. outpt will want to have f/u as outpt for ongoing OMT (dr moran locally or someone closer to home if possible) ---for constipation - discussed extensive stool on CT, likelihood that current nausea relates to stool, and trial of miralax - improving; pain earlier today constipation related, KUB confirms ----more detailed ddx at this time - MSK as above, scarring around kidney from prior surgeries, adhesional intestinal pain in the area from prior surgeries, constipation (even though he has regular BMs, stool was fairly copious on CT), renal stones (agree this seems less likely since they're unchanged and generally stones in kidney don't hurt) possible infection - seeming less likely but with recent sepsis picture and " not negative" cultures - will finish course of treatment BUT while inpatient and still under close supervision have changed to macrobid. doing well. ? 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
[2017-03-14] MEDS: HYDROmorphone INJ 1 MG/ML SYR IV PRN (08:03)
[2017-03-14] MEDS: POLYETHYLENE (MIRALAX) 17 GM PACK PO SCH ×2 (09:00→20:42)
--- NOTE | 2017-03-14 09:31 | DIAGNOSTIC IMAGING REPORT ---
KUB CLINICAL HISTORY: Left upper quadrant abdominal pain COMPARISON STUDY: 03/10/2017 FINDINGS: There is a right-sided nephroureteral stent. There is an intrathecal pain pump and catheter. There are multiple right renal calculi measuring up to 11 mm in diameter. There is moderate fecal retention with a slightly diminished stone burden when compared the prior study. There are no transition zones indicate bowel obstruction IMPRESSION: 1. Left-sided nephrolithiasis 2. No change the position of the right-sided double pigtail nephroureteral stent 3. Fecal retention, with a slightly diminished stone burden when compared the prior study Electronically signed by: Ezequiel Kessler M.D. 03/14/2017 9:30 AM Dictated Date/Time: 03/14/2017 9:28 AM
[2017-03-14] MEDS: DICLOFENAC SOD 1% GEL 100 GM TUBE EXT SCH ×4 (09:41→20:44)
[2017-03-14] MEDS: POTASSIUM CITRATE 10 MEQ TAB PO SCH ×2 (09:42→20:44)
[2017-03-14] MEDS: NITROFURANTOIN MONOHYDRATE 100 MG CAP PO SCH ×2 (09:42→20:42)
[2017-03-14] MEDS: CLOBETASOL PROPIONATE 0.05% OINT 15 GM TUBE EXT SCH ×2 (09:42→20:45)
[2017-03-14] MEDS: APIXABAN 2.5 MG TAB PO SCH ×2 (09:43→20:43)
[2017-03-14] MEDS: ONDANSETRON INJ 2 MG/ML 2 ML VIAL IV SCH ×3 (10:10→20:50)
--- NOTE | 2017-03-14 11:48 | Progress Note ---
Subjective Date of Service: Mar 14, 2017. Subjective Pt evaluation today including: conversation w/ patient, physical exam, lab review continues to make subjective improvements - urine clear - no complaints at present Problem List Medical Problems: (1) Hematuria Status: Acute (2) Pyelonephritis Status: Acute (3) Right flank pain Status: Acute Objective Vital Signs Date Time Temp Pulse Resp B/P (MAP) Pulse Ox O2 Delivery O2 Flow Rate FiO2 03/14/17 08:00 Room Air 03/14/17 07:13 36.8 69 19 173/91 (118) 96 Room Air 03/13/17 23:50 Room Air 03/13/17 23:25 36.7 66 16 148/94 (112) 98 Room Air 03/13/17 20:00 Room Air 03/13/17 15:15 Room Air 03/13/17 15:08 36.9 89 17 92/60 (71) 92 Room Air 03/13/17 14:24 Room Air Physical Exam General Appearance: no apparent distress Respiratory/Chest: no respiratory distress Abdomen: soft Laboratory Results Last 24 Hours Test 03/14/17 07:36 C-Reactive Protein 1.56 mg/dl Assessment and Plan Infection?; hematuria; recent stone surgery (sepsis?) tapering abx as per primary team seems reasonable plan for outpt stent removal Continued [facility] stay due to: multiple IV medications needed Discharge planning: home with home health
[2017-03-14 15:27] VITALS: BP 147/92; PULSE 72; TEMP 36.6; O2SAT 98
[2017-03-14] MEDS: HYDROCODONE/ACETAMOPHEN 5/325MG TAB PO PRN (18:07)
[2017-03-14 23:00] VITALS: BP 116/80; PULSE 80; TEMP 36.5; O2SAT 96
[2017-03-15] MEDS: ONDANSETRON INJ 2 MG/ML 2 ML VIAL IV SCH ×4 (02:57→21:28)
[2017-03-15 07:46] LABS: HEMATOCRIT 32.1 % (42-52); MEAN CELL VOLUME 80.9 fL (80-100); MEAN CORPUSCULAR HEMOGLOBIN 25.9 pg (25-34); MEAN CORPUSCULAR HGB CONC 32.1 g/dl (32-36); MEAN PLATELET VOLUME 9.7 fL (7.4-10.4); PLATELET COUNT 238 K/uL (130-400); RED BLOOD COUNT 3.97 M/uL (4.7-6.1); WHITE BLOOD COUNT 4.62 K/uL (4.8-10.8)
[2017-03-15 07:49] VITALS: BP 127/88; PULSE 72; TEMP 36.7; O2SAT 95
[2017-03-15 07:56] VITALS: O2SAT 95
[2017-03-15 08:17] LABS: BUN/CREATININE RATIO 15.4 (10-20); CALCIUM 8.7 mg/dl (8.5-10.1); CREATININE 0.64 mg/dl (0.60-1.40); POTASSIUM 3.8 mmol/L (3.5-5.1)
[2017-03-15] MEDS: DICLOFENAC SOD 1% GEL 100 GM TUBE EXT SCH ×4 (09:54→21:27)
[2017-03-15] MEDS: POTASSIUM CITRATE 10 MEQ TAB PO SCH ×2 (09:55→21:29)
[2017-03-15] MEDS: APIXABAN 2.5 MG TAB PO SCH ×2 (09:55→21:28)
[2017-03-15] MEDS: POLYETHYLENE (MIRALAX) 17 GM PACK PO SCH ×2 (09:56→21:29)
[2017-03-15] MEDS: NITROFURANTOIN MONOHYDRATE 100 MG CAP PO SCH ×2 (09:56→21:29)
[2017-03-15] MEDS: CLOBETASOL PROPIONATE 0.05% OINT 15 GM TUBE EXT SCH ×2 (09:57→21:27)
--- NOTE | 2017-03-15 10:18 | Progress Note ---
Subjective Date of Service: Mar 15, 2017. Subjective pt resting comfortably, tolerating abx. urine culture with contaminant x 2. Now on macrobid, tolerating well. afebrile. for stent removal soon by urology as outpatient. wbc nml. Problem List Medical Problems: (1) Hematuria Status: Acute (2) Pyelonephritis Status: Acute (3) Right flank pain Status: Acute Objective Vital Signs Date Time Temp Pulse Resp B/P (MAP) Pulse Ox O2 Delivery O2 Flow Rate FiO2 03/15/17 07:56 95 Room Air 03/15/17 07:49 36.7 14 127/88 (101) 95 Room Air 03/14/17 23:35 Room Air 03/14/17 23:00 36.5 80 18 116/80 (92) 96 Room Air 03/14/17 15:27 36.6 72 18 147/92 (110) 98 Room Air 03/14/17 15:15 Room Air Physical Exam General Appearance: no apparent distress Respiratory/Chest: normal breath sounds, no respiratory distress Extremities: + pertinent finding (contracted) Skin: normal color Laboratory Results Item Value Date Time Urine Culture - Final Complete 03/11/17 1655 Urine,Catheterized THREE TYPES OF ORGANISMS PRESENT, ALL... Urine Culture - Final Complete 03/10/17 1410 Urine,Catheterized GREATER THAN THREE TYPES OF ORGANISMS... Last 24 Hours Test 03/15/17 07:18 White Blood Count 4.62 K/uL Red Blood Count 3.97 M/uL Hemoglobin 10.3 g/dL Hematocrit 32.1 % Mean Corpuscular Volume 80.9 fL Mean Corpuscular Hemoglobin 25.9 pg Mean Corpuscular Hemoglobin Concent 32.1 g/dl RDW Standard Deviation 44.2 fL RDW Coefficient of Variation 14.9 % Platelet Count 238 K/uL Mean Platelet Volume 9.7 fL Sodium Level 138 mmol/L Potassium Level 3.8 mmol/L Chloride Level 105 mmol/L Carbon Dioxide Level 26 mmol/L Anion Gap 8.0 mmol/L Blood Urea Nitrogen 10 mg/dl Creatinine 0.64 mg/dl Est Creatinine Clear Calc Drug Dose 149.8 ml/min Estimated GFR () 135.1 Estimated GFR (Non- 116.6 BUN/Creatinine Ratio 15.4 Random Glucose 89 mg/dl Calcium Level 8.7 mg/dl Assessment and Plan (1) Right flank pain Assessment & Plan: can continue macrobid pending stent removal. will be done as outpatient. ok for d/c from ID standpoint when otherwise stable. Discharge planning: home with home health
--- NOTE | 2017-03-15 11:11 | Progress Note ---
Subjective Date of Service: Mar 15, 2017. Subjective Pt evaluation today including: conversation w/ patient, chart review, lab review Pt denies pain or n/v this morning. Was sleeping comfortably prior to my arrival. Urostomy draining clear, yellow urine. Cultures negative. Problem List Medical Problems: (1) Hematuria Status: Acute (2) Pyelonephritis Status: Acute (3) Right flank pain Status: Acute Review of Systems Constitutional: No fever, No chills Respiratory: No shortness of breath Cardiac: No chest pain Abdomen: No pain, No nausea, No vomiting Male : No hematuria Heme: No abnormal bleeding/bruising Objective Vital Signs Date Time Temp Pulse Resp B/P (MAP) Pulse Ox O2 Delivery O2 Flow Rate FiO2 03/15/17 07:56 95 Room Air 03/15/17 07:49 36.7 14 127/88 (101) 95 Room Air 03/14/17 23:35 Room Air 03/14/17 23:00 36.5 80 18 116/80 (92) 96 Room Air 03/14/17 15:27 36.6 72 18 147/92 (110) 98 Room Air 03/14/17 15:15 Room Air Physical Exam General Appearance: no apparent distress Eyes: normal inspection ENT: hearing grossly normal Neck: no JVD Respiratory/Chest: no respiratory distress, no accessory muscle use Cardiovascular: no JVD Extremities: normal inspection Neurologic/Psychiatric: alert, normal mood/affect, oriented x 3 Skin: normal color Laboratory Results Last 24 Hours Test 03/15/17 07:18 White Blood Count 4.62 K/uL Red Blood Count 3.97 M/uL Hemoglobin 10.3 g/dL Hematocrit 32.1 % Mean Corpuscular Volume 80.9 fL Mean Corpuscular Hemoglobin 25.9 pg Mean Corpuscular Hemoglobin Concent 32.1 g/dl RDW Standard Deviation 44.2 fL RDW Coefficient of Variation 14.9 % Platelet Count 238 K/uL Mean Platelet Volume 9.7 fL Sodium Level 138 mmol/L Potassium Level 3.8 mmol/L Chloride Level 105 mmol/L Carbon Dioxide Level 26 mmol/L Anion Gap 8.0 mmol/L Blood Urea Nitrogen 10 mg/dl Creatinine 0.64 mg/dl Est Creatinine Clear Calc Drug Dose 149.8 ml/min Estimated GFR () 135.1 Estimated GFR (Non- 116.6 BUN/Creatinine Ratio 15.4 Random Glucose 89 mg/dl Calcium Level 8.7 mg/dl Assessment and Plan A/P: Nephrolithiasis AFVSS. Pain improved. Cultures negative. Abx per ID. No surgical intervention needed at this time. Will plan for outpatient f/u with Dr. Lewis for stent pull. Thanks for allowing us to participate in this pt's care. Will sign off for now. Recall PRN issues. Discharge planning: home with home health
[2017-03-15 15:16] VITALS: BP 104/67; PULSE 113; TEMP 36.8; O2SAT 98
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
[2017-03-15] MEDS: BISACODYL 10 MG SUPP PR PRN (21:28)
[2017-03-15 22:54] VITALS: BP 121/83; PULSE 103; TEMP 37; O2SAT 95
[2017-03-16] MEDS: ONDANSETRON INJ 2 MG/ML 2 ML VIAL IV SCH ×2 (03:12→09:10)
[2017-03-16 07:01] VITALS: BP 137/86; PULSE 68; TEMP 36.8; O2SAT 98
[2017-03-16] MEDS: POLYETHYLENE (MIRALAX) 17 GM PACK PO SCH (08:57)
[2017-03-16] MEDS: POTASSIUM CITRATE 10 MEQ TAB PO SCH (08:58)
[2017-03-16] MEDS: NITROFURANTOIN MONOHYDRATE 100 MG CAP PO SCH (08:58)
[2017-03-16] MEDS: APIXABAN 2.5 MG TAB PO SCH (08:58)
[2017-03-16] MEDS: CLOBETASOL PROPIONATE 0.05% OINT 15 GM TUBE EXT SCH (09:14)
[2017-03-16] MEDS: DICLOFENAC SOD 1% GEL 100 GM TUBE EXT SCH ×2 (09:14→12:51)
[2017-03-16] MEDS ORDERED: MRLP17X PO (09:27)
[2017-03-16] MEDS ORDERED: VLTG EXT (09:27)
[2017-03-16] MEDS ORDERED: ONDA4TAB10 SL (09:27)
[2017-03-16] MEDS ORDERED: MCRB100 PO (09:27)
--- NOTE | 2017-03-16 09:35 | Discharge Instructions ---
Discharge Instructions Date of Service Mar 16, 2017. Admission Reason for Admission: Hematuria, Renal Colic On Left Side Discharge Discharge Diagnosis / Problem: Hematuria and Renal Colic Discharge Goals Goal(s): Decrease discomfort, Improve function, Increase independence Activity Recommendations Activity Limitations: resume your previous activity . Instructions / Follow-Up Instructions / Follow-Up Left Sided Abdominal Pain - Left Kidney Stone with Right Ureteral Stent: - You will continue on Macrobid twice a day until after your stent is removed and possibly longer pending on recommendations from Urology - Follow-up with Urology to have that stent removed - Unfortunately your pain is likely caused by multiple things and may need continued monitoring after the stent is removed to see if this resolves your issues - Would recommend to be mindful of your bowel habits. Recommend daily Miralax and continue your Dulcolax as prescribed -- Recommend to keep this regular as you may have a slow motility (movement through bowels) - even in the hospital with good bowel movements the images showed that there was still stool in your bowels. - Recommend to continue Voltaren gel and consider seeing an osteopathic doctor for musculoskeletal manipulation - Dr. Niraj Lewis is an option in [place] but your family doctor may have recommendations for someone close to you - You may continue to use Zofran as needed for nausea Heel Pressure Ulcer: - Continue your outpatient follow-up for this to monitor for improvement Spastic Quadriparesis: - Continue following with pain management for your bump and further medication adjustments Current Hospital Diet Patient's current hospital diet: Regular Diet Discharge Diet Recommended Diet: Regular Diet Pending Studies Studies pending at discharge: no Medical Emergencies . Who to Call and When: Medical Emergencies: If at any time you feel your situation is an emergency, please call 911 immediately. . Non-Emergent Contact Non-Emergency issues call your: Primary Care Provider Call Non-Emergent contact if: you have a fever, your pain is concerning you, you have any medication questions . . "Provider Documentation" section prepared by Nikki Stout. . VTE Core Measure Inpt VTE Proph given/why not?: Other Anticoagulation
[2017-03-16 10:13] VITALS: BP 137/86; PULSE 68; TEMP 36.8; O2SAT 98
[2017-03-16] MEDS: HYDROCODONE/ACETAMOPHEN 5/325MG TAB PO PRN (14:06)
--- NOTE | 2017-03-16 17:14 | Discharge Summary ---
Discharge Summary Date of Service Mar 16, 2017. (Nikki Stout PA-C) Discharge Summary Admission Date: Mar 11, 2017 at 13:42 Discharge Date: Mar 16, 2017 Discharge Disposition: Home Principal Diagnosis: Hematuria with UTI Problems/Secondary Diagnoses: 1. Spastic Quadriplegia 2. Chronic Thrombophilia 3. Nephrolithiasis 4. S/P Urostomy 5. Chronic L Hydronephrosis Immunizations: Have You Had Influenza Vaccine: Yes Influenza Vaccine Date: Feb 18, 2010 History of Tetanus Vaccine?: Unknown History of Pneumococcal: Yes History of Hepatitis B Vaccine: No Procedures: CT OF THE ABDOMEN AND PELVIS WITHOUT CONTRAST, STONE PROTOCOL FINDINGS: A right ureteral stent remains in place. There is no right hydronephrosis. No ureteral calculi are present. Numerous left renal calculi are unchanged. These measure up to 1.2 cm. There are no left ureteral calculi. There is mild left ureteral dilatation which is unchanged. There is urothelial thickening of the left ureter and renal pelvis which is unchanged since previous exams. A few hypodense right renal lesions are suboptimally assessed on this exam but may reflect cysts. Unenhanced images of the liver, spleen, adrenal glands and pancreas are unremarkable. There is a retroaortic left renal vein. There is no evidence for a bowel obstruction. 3 mm bladder calculus is noted. A previous suprapubic catheter tract is suspected. Caliber and wall thickness of small and large bowel are normal. There is a moderate amount of stool within the colon. A possible sacral the results are as noted with irregularity of the inferior sacrum or coccyx which is probably chronic. Intrathecal catheter is noted. IMPRESSION: 1. Right ureteral stent in place. No ureteral calculi. Punctate bladder calculus. 2. No change in left-sided nephrolithiasis. Stable mild left ureteral dilatation and urothelial thickening which may be chronic however could be correlated with urinalysis to exclude an infectious etiology such as pyelitis. 3. Possible sacral decubitus ulcer. Bony loss of the inferior sacrum and coccyx which is age-indeterminate but likely chronic. Consultations: 1. Urology 2. Pain Management 3. Infectious Disease 4. Wound Care (Nikki Stout PA-C) Problems/Secondary Diagnoses: left heel ulcer (Dami Guy MD) Medication Reconciliation New Medications: Ondasetron Odt (Zofran Odt) 4 Mg Tab 4 MG SL Q6H PRN for Nausea for 5 Days, #20 TAB Diclofenac Sod (Voltaren) 100 Appln/100 Gm Gel 1 APPLN EXT QID for 14 Days, #1 TUBE Nitrofurantoin Monohyd Macrocr (Nitrofurantoin Monohydrat) 100 Mg Cap 100 MG PO BID for 30 Days, #60 CAP Polyethylene (Miralax) 17 Gm Pow 17 GM PO DAILY for 30 Days Continued Medications: Apixaban (Eliquis) 5 Mg Tab 5 MG PO BID, TAB Baclofen (Lioresal Intrathecal) 0.05 Mg/Ml Inj 1 DOSE INJ PUMP BACLOFEN PUMP PER YOGI ALSO HAS CLONIDINE Bisacodyl (Dulcolax) 10 Mg Sup 1 SUPP TX PRN, SUP Clobetasol Propionate Emollien (Clobetasol Propionate E) 0.05 % Cre 1 APPLN TOP BID apply to face for itching Collagenase (Santyl) 250 Unit/Gm Oin 1 APPLN TOP 3XWK ON WOUNDS Doxycycline Monohydrate (Monodox) 100 Mg Cap 100 MG PO QD, CAP Hydrocodone/Acetaminophen 5MG/325MG ([place] 5MG/325MG) Tab 2 TABLETS PO Q6H PRN for Pain, TAB PRN PAIN Oxybutynin Chloride (Ditropan) 5 Mg Tab 5 MG PO HS PRN for BLADDER SPASMS, TAB Potassium Citrate (Potassium Citrate) 10 Meq Tab 5 MEQ PO BID Protein (Protein) 1 Pow Pow 60 GR PO QD Discharge Exam Review of Systems: Constitutional: No fever, No chills Respiratory: No cough, No shortness of breath Cardiovascular: No chest pain Abdomen: No pain, No nausea, No vomiting, No diarrhea, No constipation Genitourinary - Male: No hematuria Hematologic / Lymphatic: No abnormal bleeding/bruising Integumentary: No rash Physical Exam: General Appearance: no apparent distress, + thin ENT: hearing grossly normal Neck: supple, no JVD, trachea midline Respiratory/Chest: lungs clear, normal breath sounds, no respiratory distress, no accessory muscle use Cardiovascular: regular rate, rhythm, no gallop, no murmur Abdomen / GI: normal bowel sounds, non tender, + pertinent finding ( multiple surgical incisions - well-healed; urostomy in LLQ without surrounding skin erythema or purulent drainage) Extremities: + pertinent finding (L heel wound dressing C/D/I; extremities spastic and contractured) Neurologic/Psychiatric: alert, oriented x 3 Skin: normal color, warm/dry (Nikki Stout, PJ) Hospital Course ADMISSION: Patient referred from his urologist office he was most recently discharged from [facility] February 26 after he had an episode of what appeared to be sepsis from urinary source with right-sided nephrolithiasis and stent placement no defined organisms were grown with the patient did have a stay in the ICU and appeared to be probably intense and purposes and septic shock. The patient presented to the urologist today for evaluation for possible right ureteral stent removal. He states over last day or so he's had nausea every almost vomited and felt fatigued very similar to the preceded symptoms of this lasts septic episode. At urologist office he had hematuria in his urostomy but he takes chronic anticoagulation and was referred to the ER for further evaluation in the emergency department he had a CT scan of his abdomen showing colitis of the right nares system with stones in the kidney the right ureteral stent was in place his white blood cell count was7.5 and he did not have a significant temperature the patient typically runs generally low blood pressures he may be slightly lower than his usual state. The patient's states himself that he feels ill and he'll be brought into the hospital for observation antibiotic treatment and cultures with urology consultation HOSPITAL COURSE: Mr. Perkins was admitted for hematuria and possible UTI. Patient has urostomy placed and culture x 2 with multiple organisms but unable to identify. He will be maintained on Macrobid 100 mg BID until stent removed and consideration for a suppressive approach possibly. With Abx treatment his hematuria resolved and abdominal pain improved. His abdominal pain is likely multifactorial. Possibly adhesional vs spasm from stent vs constipation. Symptoms did improve with aggressive bowel regimen. Did recommend to utilize Miralax daily and Dulcolax if no bowel movement in 3 days. Did recommend consideration for daily use if necessary given his quadriplegia. Will need to continue follow-up for L heel pressure ulcer and follow-up with pain management for his Baclofen pump. Patient is afebrile and without leukocytosis. Presenting symptoms resolved. He is optimal for D/C home. Total Time Spent: Greater than 30 minutes This includes examination of the patient, discharge planning, medication reconciliation, and communication with other providers. (Nikki Stout, LACEYC) Attending Discharge note & attestation: Pt seen/examined, chart reviewed, discharge care plan d/w PA Nikki Stout. I agree w/ the gautam components of her discharge summary. 46yo male with quadriplegia and recent hospital admission for severe sepsis 2nd to UTI in setting of obstructing kidney stone who presented with metabolic encephalopathy, gross hematuria, and abdominal pain. The suspicion was that he had recurrent UTI causing his symptoms but two urine cultures this admission did not grow a specific pathogen. [id number] his hematuria, pain, and mental status all improved and/or resolved. He was seen in consult by urology, ID, and pain management while hospitalized. He will have stent retrieval and stone management in the next few weeks. Until then macrobid 100mg BID will be used for UTI prophylaxis. No changes were made in his baclofen pump by pain management. He is due for intrathecal pump refill on 05/27/2017 at 1300. Discharge exam: gen - nad, thin mouth - MMM heart - RRR lungs - CTA b/l abd - minimally distended, BS+, nontender, baclofen pump right side of abdominal wall; urostomy left side of abdomen with clear yellow urine, multiple scars ext - contractures, no edema skin - left heel ulcer without superimposed cellulitis, drainage, or odor Dami Guy MD (Dami Guy MD) Discharge Instructions Please refer to the electronic Patient Visit Report (Discharge Instructions) for additional information. (Nikki Stout, ROGELIO-C) Additional Copies To Boyd Vergara M.D.
== END 2017-03-16 14:20 | disposition home health service (06) | DRG 871 ==
LOC: C.EDB 12:35 → C.MSW 17:24 → ENRESERV 17:49 → OBSVTOIN 03-11 13:42
PROVIDERS: ADMIT Internal Medicine; ATTEND Internal Medicine
DX: A41.9 Sepsis, unspecified organism (principal); G82.50 Quadriplegia, unspecified; N12 Tubulo-interstitial nephritis, not specified as acute or chronic; L89.154 Pressure ulcer of sacral region, stage 4; Z87.442 Personal history of urinary calculi; N13.30 Unspecified hydronephrosis; R65.21 Severe sepsis with septic shock; L89.623 Pressure ulcer of left heel, stage 3; S14.104S Unspecified injury at C4 level of cervical spinal cord, sequela; D68.59 Other primary thrombophilia; Z96.89 Presence of other specified functional implants; Z87.891 Personal history of nicotine dependence; Z88.2 Allergy status to sulfonamides; N20.0 Calculus of kidney; K59.09 Other constipation; Z79.01 Long term (current) use of anticoagulants; R31.9 Hematuria, unspecified; V89.2XXS Person injured in unspecified motor-vehicle accident, traffic, sequela; Z93.6 Other artificial openings of urinary tract status

== ENCOUNTER → 2017-03-10 | Outpatient (CLI) | payer OTHER ==
[~2017-03-10] MED LIST changes: -ASCA500 PO; -BACL0.05 INJ; +DTR/5 PO; -ERTA1INJ IV; -Enteral Nutrition Formula PO; -FRRS300 PO; -MULT-1027; -OXYB5TAB74 PO; +SNTO30 TOP; -ZINC1CAP PO; +[UNRECOGNIZED DRUG - CODE] INJ; +[UNRECOGNIZED DRUG - CODE] TOP
--- NOTE | 2017-03-10 10:14 | DIAGNOSTIC IMAGING REPORT ---
KUB HISTORY: Kidney stones. COMPARISON: KUB 02/18/2017. FINDINGS: The bowel gas pattern is unremarkable. There are no dilated loops of small bowel to suggest an obstruction. Large amount well-formed stool seen throughout the colon. Right-sided intrathecal pain pump and catheter are noted. The tip of the catheter is not included on this study. A right ureteral stent is again noted. No definite ureteral calculi. No right renal calculi. Multiple stones within the left kidney remain unchanged. IMPRESSION: 1. Left-sided nephrolithiasis, unchanged. 2. No definite ureteral calculi. 3. A right ureteral stent appears to be in good position. Electronically signed by: Rober Caceres M.D. 03/10/2017 10:13 AM Dictated Date/Time: 03/10/2017 10:09 AM
== END | disposition home or self-care (01) ==
LOC: C.RAD 09:30
PROVIDERS: ATTEND Urology
DX: N20.0 Calculus of kidney (principal)

== ENCOUNTER → 2017-04-09 | Outpatient (CLI) | payer OTHER ==
[~2017-04-09] MED LIST changes: +MCRB100 PO; +MRLP17X PO; +SNTO30 TOP; +VLTG EXT; +[UNRECOGNIZED DRUG - CODE] TOP
--- NOTE | 2017-04-09 10:02 | DIAGNOSTIC IMAGING REPORT ---
KUB CLINICAL HISTORY: N20.0 [id number] nephrocalcinosis COMPARISON STUDY: 03/14/2017 FINDINGS: Right ureteral stent unchanged in location. Left and to a lesser extent right nephrocalcinosis unchanged. Unchanged position of her right ureteral stent. Nonobstructive bowel pattern. 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 A right ureteral stent remains in good position. The above report was generated using voice recognition software. It may contain grammatical, syntax or spelling errors. Electronically signed by: Jules Moralez M.D. 04/09/2017 10:01 AM Dictated Date/Time: 04/09/2017 10:00 AM
== END | disposition home or self-care (01) ==
LOC: C.RAD 08:58
PROVIDERS: ATTEND Urology
DX: G82.50 Quadriplegia, unspecified (principal); E83.59 Other disorders of calcium metabolism; N29 Other disorders of kidney and ureter in diseases classified elsewhere; Z96.0 Presence of urogenital implants

== ENCOUNTER → 2017-07-02 | Outpatient (CLI) | payer OTHER ==
[~2017-07-02] MED LIST changes: +CHOL1TAB42 PO; +DICL1GEL12 EXT; -MCRB100 PO; +MISCCAP80 PO; -MRLP17X PO; +PENI-82 PO; -VLTG EXT
--- NOTE | 2017-07-02 08:38 | DIAGNOSTIC IMAGING REPORT ---
KUB HISTORY: N20.0 Nephrolithiasis COMPARISON: KUB 04/09/2017. IVP 06/16/2017. FINDINGS: The bowel gas pattern is unremarkable. Large amount well-formed stool seen throughout the colon. There are no dilated loops of small bowel to suggest an obstruction. Multiple left renal calculi are again noted. These have a slightly different configuration than the previous studies. However, the dominant stone within the lower pole of the left kidney persists and measures 1.5 cm. No ureteral or right renal calculi identified. Of note, the right kidney is partially obscured by overlying bowel gas. There is a right lower quadrant pain pump with the intrathecal catheter seen within the thoracolumbar region. The tip is not included on this study. Left lower quadrant ostomy site is again noted. No pneumoperitoneum or pneumatosis. IMPRESSION: Left-sided nephrolithiasis as described above. No ureteral calculi identified. Electronically signed by: Rober Caceres M.D. 07/02/2017 8:37 AM Dictated Date/Time: 07/02/2017 8:30 AM
== END | disposition home or self-care (01) ==
LOC: C.RAD 07:27
PROVIDERS: ATTEND Urology
DX: G82.50 Quadriplegia, unspecified (principal); N20.0 Calculus of kidney

== ENCOUNTER → 2017-07-02 | Day surgery (SDC) | payer OTHER ==
[2017-06-21 15:03] VITALS: Ht 182.9 cm; Wt 77.3 kg
[~2017-07-02] VITALS: Ht 182.9 cm; Wt 77.3 kg
[~2017-07-02] MED LIST changes: +ACETAMINOPHEN 325 MG TAB PO PRN; +ATROPINE SULFATE 0.1 MG/ML 5ML SYR IV PRN; +CIPROFLOXACIN 400MG / D5W IV SCH; +EpHEDrine SULFATE INJ 50 MG/ML AMP IV PRN; +EpHEDrine SULFATE INJ 50 MG/ML AMP ONE; +FENTANYL CITRATE INJ 50 MCG/1 ML 2 ML VIAL IV PRN; +FENTANYL CITRATE INJ 50 MCG/1 ML 2 ML VIAL ONE; +LACTATED RINGER'S 1000ML 1,000 ML IV SCH; +LIDOCAINE 2% 20 MG/ML 5ML SYR IV ONE; +LIDOCAINE HCL 2% 2 ML VIAL (20MG/ML) ONE; +MIDAZOLAM HCL 1 MG/ML 2ML VIAL ONE; +ONDANSETRON INJ 2 MG/ML 2 ML VIAL IV PRN; +ONDANSETRON INJ 2 MG/ML 2 ML VIAL ONE; +OXYCODONE/ACETAMINOPHEN 5-325 TAB PO PRN; +PROPOFOL IV EMULSION 10 MG/ML 20 ML VIAL IV ONE; +SODIUM CHLORIDE 0.9% 1000ML 1,000 ML IV SCH; +SODIUM CHLORIDE 0.9% INJ 10 ML VIAL ONE
--- NOTE | 2017-07-02 10:51 | History & Physical Bridge Note ---
H&P Re-Evaluation Bridge Note: I have examined the patient, reviewed the History & Physical and in the interval since the performance of the History & Physical I have noted the following changes of clinical significance: No changes noted
--- NOTE | 2017-07-02 12:04 | Discharge Instructions-SurgCtr ---
Discharge Instructions Date of Service Jul 02, 2017. Visit Reason for Visit: Stones Discharge Discharge Diagnosis / Problem: stones Discharge Goals Goal(s): Decrease discomfort, Improve function Medications Stopped Medications Name(s): Stopped Eliquis 5 days ago. Activity Recommendations Activity Limitations: resume your previous activity Lifting Limitations: none Exercise/Sports Limitations: none May Resume Sexual Activity: when tolerated Shower/Bathe: no limitations Driving or Machine Use: resume 1 day after discharge Anesthesia . Post Anesthesia Instructions: If you have had General Anesthesia or IV Sedation: * Do not drive today. * Resume driving when surgeon permits. * Do not make important decisions or sign legal documents today. * Call surgeon for: 1. Temperature elevations greater than 101 degrees F. 2. Uncontrollable pain. 3. Excessive bleeding. 4. Persistent nausea and vomiting. 5. Medication intolerance (nausea, vomiting or rash). * For nausea and vomiting use only clear liquids such as: tea, soda, bouillon until nausea subsides, then gradually increase diet as tolerated. * If you have any concerns or questions, call your surgeon's office. If physician is unavailable and it is an emergency, call 911 or go to the nearest emergency room. . Diet Recommendations Home Diet: no limitations, resume previous diet Pending Studies Studies pending at discharge: no Medical Emergencies . Who to Call and When: Medical Emergencies: If at any time you feel your situation is an emergency, please call 911 immediately. . Non-Emergent Contact Non-Emergency issues call your: Urologist Call Non-Emergent contact if: you have a fever, temperature is above 101.5, your pain is not controlled, your pain is worsening . . "Provider Documentation" section prepared by Reji Easley. .
--- NOTE | 2017-07-02 12:13 | [facility] Operative Report ---
Operative Report Operative Date Jul 02, 2017. Pre-Operative Diagnosis Stones Post-Operative Diagnosis stones Procedure(s) Performed L ESWL Surgeon Gabino Ennis Estimated Blood Loss 0cc Drains None Anesthesia Type None Complication(s) none Disposition yes Recovery Room / PACU Indications stones; recurrent infections Description of Procedure The patient was identified in the preoperative holding area, appropriate informed consent was reviewed and completed and the patient was transported to the operating suite. Upon arrival appropriate preoperative antibiotics were administered and general anesthesia induced. The patient was placed in supine position and the stone was localized under fluoroscopy. A total of 2500 shocks were delivered to the stones. In the midst of the procedure, the first stone targeted had broken nicely and we moved to treating the lower pole stone. There appeared to be good fragmentation of the stone. Details of this procedure can be found on the [place] [facility] information sheet. At the conclusion of the case the patient was extubated and taken to the PACU in stable condition. There were no complications. I attest to the content of the Intraoperative Record and any orders documented therein. Any exceptions are noted below.
[2017-07-02 13:05] VITALS: TEMP 36.1
[2017-07-02 13:55] VITALS: BP 98/66; PULSE 86; O2SAT 98
--- NOTE | 2017-07-02 15:52 | Anesthesia Progress Nt - [facility] ---
Anesthesia Post Op Note Date & Time Jul 02, 2017 at 15:52 Vital Signs Pain Intensity: 4.0 Vital Signs Past 12 Hours Date Time Temp Pulse Resp B/P (MAP) Pulse Ox O2 Delivery O2 Flow Rate FiO2 07/02/17 13:55 86 16 98/66 (77) 98 Room Air 07/02/17 13:05 36.1 87 18 91/65 (74) 98 Room Air 07/02/17 12:52 95 20 07/02/17 12:52 95 20 98 07/02/17 12:51 36.9 84 16 104/74 98 Room Air 07/02/17 12:50 104/74 07/02/17 12:47 96 18 98 07/02/17 12:47 96 18 07/02/17 12:45 104/78 07/02/17 12:42 82 11 07/02/17 12:42 81 11 100 07/02/17 12:40 118/73 07/02/17 12:37 89 9 100 07/02/17 12:37 89 9 07/02/17 12:35 116/83 07/02/17 12:32 100 20 07/02/17 12:32 100 20 100 07/02/17 12:30 110/76 07/02/17 12:28 90/79 07/02/17 12:27 36.8 105 12 90/79 99 Mask 6 07/02/17 12:27 107 07/02/17 12:27 107 99 07/02/17 09:00 36.0 69 20 101/68 (79) 98 Room Air Notes Mental Status: alert / awake / arousable, participated in evaluation Pt Amnestic to Procedure: Yes Nausea / Vomiting: adequately controlled Pain: adequately controlled Airway Patency, RR, SpO2: stable & adequate BP & HR: stable & adequate Hydration State: stable & adequate Anesthetic Complications: no major complications apparent
== END | disposition home or self-care (01) ==
LOC: X.SURG 08:32
PROVIDERS: ATTEND Urology
DX: N20.0 Calculus of kidney (principal); Z86.73 Personal history of transient ischemic attack (TIA), and cerebral infarction without residual deficits; G82.50 Quadriplegia, unspecified; E55.9 Vitamin D deficiency, unspecified; Z79.01 Long term (current) use of anticoagulants; Z79.899 Other long term (current) drug therapy; Z88.2 Allergy status to sulfonamides

== ENCOUNTER → 2017-07-14 | Outpatient (CLI) | payer OTHER ==
[~2017-07-14] MED LIST changes: -ACETAMINOPHEN 325 MG TAB PO PRN; -ATROPINE SULFATE 0.1 MG/ML 5ML SYR IV PRN; -CIPROFLOXACIN 400MG / D5W IV SCH; -EpHEDrine SULFATE INJ 50 MG/ML AMP IV PRN; -EpHEDrine SULFATE INJ 50 MG/ML AMP ONE; -FENTANYL CITRATE INJ 50 MCG/1 ML 2 ML VIAL IV PRN; -FENTANYL CITRATE INJ 50 MCG/1 ML 2 ML VIAL ONE; -LACTATED RINGER'S 1000ML 1,000 ML IV SCH; -LIDOCAINE 2% 20 MG/ML 5ML SYR IV ONE; -LIDOCAINE HCL 2% 2 ML VIAL (20MG/ML) ONE; -MIDAZOLAM HCL 1 MG/ML 2ML VIAL ONE; -ONDANSETRON INJ 2 MG/ML 2 ML VIAL IV PRN; -ONDANSETRON INJ 2 MG/ML 2 ML VIAL ONE; -OXYCODONE/ACETAMINOPHEN 5-325 TAB PO PRN; -PROPOFOL IV EMULSION 10 MG/ML 20 ML VIAL IV ONE; -SODIUM CHLORIDE 0.9% 1000ML 1,000 ML IV SCH; -SODIUM CHLORIDE 0.9% INJ 10 ML VIAL ONE
--- NOTE | 2017-07-14 12:01 | DIAGNOSTIC IMAGING REPORT ---
KUB CLINICAL HISTORY: N20.0 Nephrolithiasis COMPARISON STUDY: 07/02/2017 FINDINGS: The study is significantly limited from a technical standpoint. There is no pathologic bowel dilatation. An intrathecal catheter is again visualized. There are multiple faint calcific densities projected over the left kidney suspicious for calculi. IMPRESSION: 1. Left-sided nephrolithiasis 2. No evidence of pathologic bowel dilatation Electronically signed by: Ezequiel Kessler M.D. 07/14/2017 11:59 AM Dictated Date/Time: 07/14/2017 11:58 AM
== END | disposition home or self-care (01) ==
LOC: C.RAD 11:10
PROVIDERS: ATTEND Urology
DX: G82.50 Quadriplegia, unspecified (principal); N20.0 Calculus of kidney

== ENCOUNTER → 2017-07-23 | Day surgery (SDC) | payer OTHER ==
[2017-07-15 10:44] VITALS: BMI 23.0
[2017-07-22 08:44] VITALS: Ht 182.9 cm; Wt 77.3 kg
[~2017-07-23] VITALS: Ht 182.9 cm; Wt 77.3 kg
[~2017-07-23] MED LIST changes: +ATROPINE SULFATE 0.1 MG/ML 5ML SYR IV PRN; -CHOL1TAB42 PO; +CIPROFLOXACIN 400MG / D5W IV SCH; +DEXAMETHASONE SOD INJ 4 MG/ML VIAL IV PRN; +DEXAMETHASONE SOD INJ 4 MG/ML VIAL ONE; +EpHEDrine SULFATE INJ 50 MG/ML AMP IV PRN; +FENTANYL CITRATE INJ 50 MCG/1 ML 2 ML VIAL IV PRN; +FENTANYL CITRATE INJ 50 MCG/1 ML 2 ML VIAL ONE; +KETOROLAC TROMETHAMINE 30 MG/ML VIAL IV. PRN; +LABETALOL HCL IV 5 MG/ML 20ML IV PRN; +LACTATED RINGER'S 1000ML 1,000 ML IV SCH; +LIDOCAINE HCL 2% 2 ML VIAL (20MG/ML) ONE; +METOCLOPRAMIDE HCL INJ 5 MG/ML 2 ML VIAL IV PRN; +MIDAZOLAM HCL 1 MG/ML 2ML VIAL ONE; +MoRPHine SULFATE 10 MG/ML CARP/VIAL IV PRN; +ONDANSETRON INJ 2 MG/ML 2 ML VIAL IV PRN; +ONDANSETRON INJ 2 MG/ML 2 ML VIAL ONE; +OXYC-57 PO; +OXYCODONE/ACETAMINOPHEN 5-325 TAB PO PRN; -PENI-82 PO; +PHENYLEPHRINE 100MCG/ML 5ML SYR IV PRN; +PROPOFOL IV EMULSION 10 MG/ML 20 ML VIAL IV ONE; -PROT1POW PO
--- NOTE | 2017-07-23 13:14 | [facility] Operative Report ---
Operative Report Operative Date Jul 23, 2017. Pre-Operative Diagnosis Left renal stones Post-Operative Diagnosis Left renal stones Procedure(s) Performed Left ESWL Surgeon Eileen Hat Body Inspector Surgeon(s) none Estimated Blood Loss none Findings left renal stones Specimens none Drains None Anesthesia Type General Complication(s) none Disposition yes Recovery Room / PACU Indications left renal stones Description of Procedure Patient was identified in the preoperative holding area, appropriate informed consent was reviewed and completed and the patient was transported to the operating suite. Upon arrival appropriate preoperative antibiotics were administered and general anesthesia induced. The patient was placed in supine position and the stone was localized under fluoroscopy. A total of [__2500_] shocks were delivered to the stone. There appeared to be good fragmentation of the stone. Details of this procedure can be found on the [facility] information sheet. At the conclusion of the case the patient was extubated and taken to the PACU in stable condition. There were no complications. I attest to the content of the Intraoperative Record and any orders documented therein. Any exceptions are noted below.
--- NOTE | 2017-07-23 13:17 | Discharge Instructions-SurgCtr ---
Discharge Instructions Date of Service Jul 23, 2017. Visit Reason for Visit: Stones Discharge Discharge Diagnosis / Problem: stones Discharge Goals Goal(s): Therapeutic intervention Activity Recommendations Activity Limitations: resume your previous activity Anesthesia . Post Anesthesia Instructions: If you have had General Anesthesia or IV Sedation: * Do not drive today. * Resume driving when surgeon permits. * Do not make important decisions or sign legal documents today. * Call surgeon for: 1. Temperature elevations greater than 101 degrees F. 2. Uncontrollable pain. 3. Excessive bleeding. 4. Persistent nausea and vomiting. 5. Medication intolerance (nausea, vomiting or rash). * For nausea and vomiting use only clear liquids such as: tea, soda, bouillon until nausea subsides, then gradually increase diet as tolerated. * If you have any concerns or questions, call your surgeon's office. If physician is unavailable and it is an emergency, call 911 or go to the nearest emergency room. . Instructions / Follow-Up Instructions / Follow-Up MEDICATIONS: Resume previous medications unless instructed otherwise by your surgeon. Resume pre-ESWL medication except for aspirin, coumadin or other blood thinners. __ Toradol 10 mg every 6 hours for initial pain. __ Lortab 5 mg 1-2 every 4 hours for pain. _x_ Percocet 5 mg 1-2 every 4 hours for pain. __ Macrodantin 50 mg x 3 a day. __ Flomax 1 tab daily one half (1/2) hour after supper. SPECIAL CARE INSTRUCTIONS: 1. Get KUB (x-ray) _x_ day before or day of office visit and bring x-ray to office __ get x-ray 2 days before and tell office you are getting x-rays when you call for the appointment. 2. Strain ALL urine. 3. Please call if you have a fever, chills, severe pain, or constant dribbling of urine. 4. Office phone number . FOLLOW UP VISIT: Please call the office to schedule a follow-up appointment at . Diet Recommendations Home Diet: resume previous diet Procedures Procedures Performed: Left ESWL Pending Studies Studies pending at discharge: no Medical Emergencies . Who to Call and When: Medical Emergencies: If at any time you feel your situation is an emergency, please call 911 immediately. . Non-Emergent Contact Non-Emergency issues call your: Urologist Call Non-Emergent contact if: temperature is above 101.5, your pain is not controlled . . "Provider Documentation" section prepared by Manny Arellano. . [place] Drug Monitoring Program Search Results: patient reviewed within database
--- NOTE | 2017-07-23 14:55 | Anesthesia Progress Nt - [facility] ---
Anesthesia Post Op Note Date & Time Jul 23, 2017 at 14:55 Vital Signs Pain Intensity: 6.0 Vital Signs Past 12 Hours Date Time Temp Pulse Resp B/P (MAP) Pulse Ox O2 Delivery O2 Flow Rate FiO2 07/23/17 14:28 80 16 132/97 (109) 96 Room Air 07/23/17 14:23 36.6 97 Room Air 07/23/17 14:20 122/89 07/23/17 14:18 101 18 97 07/23/17 14:18 105 18 07/23/17 14:15 120/89 07/23/17 14:13 108 13 97 07/23/17 14:13 105 13 07/23/17 14:10 128/91 07/23/17 14:08 75 13 100 07/23/17 14:08 76 13 07/23/17 14:05 119/82 07/23/17 14:03 80 25 100 07/23/17 14:03 79 25 07/23/17 14:00 119/87 07/23/17 13:58 77 10 07/23/17 13:58 79 10 100 07/23/17 13:55 126/92 07/23/17 13:53 100 14 07/23/17 13:53 100 14 100 07/23/17 13:50 121/91 07/23/17 13:48 120 20 07/23/17 13:48 120 20 100 07/23/17 13:45 118/91 07/23/17 13:44 107/83 07/23/17 13:43 36.2 105 16 107/83 99 Mask 6 07/23/17 13:43 111 99 07/23/17 13:43 111 07/23/17 10:42 36.3 65 20 110/69 (83) 100 Room Air Notes Mental Status: alert / awake / arousable, participated in evaluation Pt Amnestic to Procedure: Yes Nausea / Vomiting: adequately controlled Pain: adequately controlled Airway Patency, RR, SpO2: stable & adequate BP & HR: stable & adequate Hydration State: stable & adequate Anesthetic Complications: no major complications apparent
[2017-07-23 14:57] VITALS: BP 123/79; PULSE 112; TEMP 36.5; O2SAT 96
== END | disposition home or self-care (01) ==
LOC: X.SURG 10:22
PROVIDERS: ATTEND Urology
DX: N20.0 Calculus of kidney (principal); G82.50 Quadriplegia, unspecified; Z88.2 Allergy status to sulfonamides; Z86.73 Personal history of transient ischemic attack (TIA), and cerebral infarction without residual deficits; Z87.440 Personal history of urinary (tract) infections; Z82.49 Family history of ischemic heart disease and other diseases of the circulatory system; Z80.1 Family history of malignant neoplasm of trachea, bronchus and lung

== ENCOUNTER 2017-08-03 10:22 | Inpatient (IN) | payer OTHER ==
[~2017-08-03] VITALS: Ht 182.9 cm; Wt 67.4 kg
[~2017-08-03 10:22] MED LIST changes: -ATROPINE SULFATE 0.1 MG/ML 5ML SYR IV PRN; -CIPROFLOXACIN 400MG / D5W IV SCH; -DEXAMETHASONE SOD INJ 4 MG/ML VIAL IV PRN; -DEXAMETHASONE SOD INJ 4 MG/ML VIAL ONE; -EpHEDrine SULFATE INJ 50 MG/ML AMP IV PRN; -FENTANYL CITRATE INJ 50 MCG/1 ML 2 ML VIAL IV PRN; -FENTANYL CITRATE INJ 50 MCG/1 ML 2 ML VIAL ONE; -KETOROLAC TROMETHAMINE 30 MG/ML VIAL IV. PRN; -LABETALOL HCL IV 5 MG/ML 20ML IV PRN; -LACTATED RINGER'S 1000ML 1,000 ML IV SCH; -LIDOCAINE HCL 2% 2 ML VIAL (20MG/ML) ONE; -METOCLOPRAMIDE HCL INJ 5 MG/ML 2 ML VIAL IV PRN; -MIDAZOLAM HCL 1 MG/ML 2ML VIAL ONE; -MoRPHine SULFATE 10 MG/ML CARP/VIAL IV PRN; -ONDANSETRON INJ 2 MG/ML 2 ML VIAL IV PRN; -ONDANSETRON INJ 2 MG/ML 2 ML VIAL ONE; -OXYCODONE/ACETAMINOPHEN 5-325 TAB PO PRN; -PHENYLEPHRINE 100MCG/ML 5ML SYR IV PRN; -PROPOFOL IV EMULSION 10 MG/ML 20 ML VIAL IV ONE
[2017-08-03] MEDS ORDERED: SODIUM CHLORIDE 0.9% 1000ML 1,000 ML IV STA (10:37)
[2017-08-03] MEDS ORDERED: PIPERACILLIN/TAZOBACTAM 4.5 GM/100ML D5W IV STA (10:37)
--- NOTE | 2017-08-03 11:07 | DIAGNOSTIC IMAGING REPORT ---
CHEST ONE VIEW PORTABLE CLINICAL HISTORY: 47 years-old Male presenting with Evaluate Fever/Sepsis. TECHNIQUE: Portable upright AP view of the chest was obtained. COMPARISON: 03/10/2017. FINDINGS: Atherosclerosis of the aortic arch. Cardiac silhouette normal in size. Incidental note made of an azygos fissure. Added density at the bilateral apices may relate to overlapping soft tissues. Lungs and pleural spaces clear. Degenerative changes of the thoracic spine. Upper abdomen normal. IMPRESSION: 1. No convincing evidence of a focal infiltrate to suggest acute cardiopulmonary disease. Added density at the apices is likely due to overlapping soft tissue. Electronically signed by: Judah Galarza M.D. 08/03/2017 11:06 AM Dictated Date/Time: 08/03/2017 11:04 AM
[2017-08-03 11:58] LABS: BASO % 0.3 %; BASO ABS # 0.02 K/uL (0-0.2); EOS % 0.4 %; EOS ABS # 0.03 K/uL (0-0.5); HEMATOCRIT 36.1 % (42-52); HEMOGLOBIN 11.6 g/dL (14.0-18.0); LYMPH % 20.6 %; LYMPH ABS # 1.38 K/uL (1.2-3.4); MEAN CELL VOLUME 73.8 fL (80-100); MEAN CORPUSCULAR HEMOGLOBIN 23.7 pg (25-34); MEAN CORPUSCULAR HGB CONC 32.1 g/dl (32-36); MEAN PLATELET VOLUME 10.3 fL (7.4-10.4); NEUT % 72.7 %; NEUT ABS # 4.86 K/uL (1.4-6.5); PLATELET COUNT 212 K/uL (130-400); RED CELL DISTRIBUTION WIDTH CV 17.7 % (11.5-14.5); RED CELL DISTRIBUTION WIDTH SD 47.4 fL (36.4-46.3); WHITE BLOOD COUNT 6.69 K/uL (4.8-10.8)
[2017-08-03 12:14] LABS: ALBUMIN 3.2 gm/dl (3.4-5.0); ALT/SGPT 36 U/L (12-78); BLOOD UREA NITROGEN 20 mg/dl (7-18); CALCIUM 8.8 mg/dl (8.5-10.1); CARBON DIOXIDE 23 mmol/L (21-32); CREATININE 0.38 mg/dl (0.60-1.40); GLUCOSE 109 mg/dl (70-99); LIPASE 188 U/L (73-393); POTASSIUM 3.6 mmol/L (3.5-5.1); SODIUM 138 mmol/L (136-145)
[2017-08-03 12:17] LABS: INR 1.1 (0.9-1.1)
[2017-08-03 12:19] LABS: ALKALINE PHOSPHATASE 149 U/L (45-117); AST/SGOT 35 U/L (15-37); TOTAL PROTEIN 7.7 gm/dl (6.4-8.2)
[2017-08-03] MEDS ORDERED: BACLOFEN 50 MCG/ML ITR SCH (13:30)
[2017-08-03] MEDS ORDERED: DICLOFENAC SOD 1% GEL 100 GM TUBE EXT PRN (13:30)
[2017-08-03] MEDS ORDERED: ACETAMINOPHEN 325 MG TAB PO PRN (13:30)
[2017-08-03] MEDS ORDERED: OXYBUTYNIN CHLORIDE 5 MG TAB PO PRN (13:30)
[2017-08-03] MEDS ORDERED: SODIUM CHLORIDE 0.9% 1000ML 1,000 ML IV SCH (13:30)
[2017-08-03] MEDS ORDERED: PIPERACILL/TAZOBAC CONSULT ACTIVE PRN (13:30)
[2017-08-03] MEDS ORDERED: PIPERACILL/TAZOBAC IV 4.5 GM in DEXTROSE 5% 100ML 100 ML IV SCH (13:30)
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
[2017-08-03] MEDS ORDERED: PATIENT'S HEIGHT AND/OR WEIGHT NEEDED STA (15:05)
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
[2017-08-03 15:27] VITALS: BP 107/74; PULSE 67; TEMP 36.4; O2SAT 99; Ht 182.9 cm; Wt 67.4 kg
[2017-08-03] MEDS: OXYCODONE HCL IR 5 MG TAB (IMMEDIATE RELEASE) PO PRN ×2 (16:25→23:58)
[2017-08-03] MEDS: PIPERACILL/TAZOBAC IV 3.375 GM in SODIUM CHLORIDE 0.9% 100ML 100 ML IV SCH ×2 (16:48→23:49)
[2017-08-03] MEDS: COLLAGENASE OINT 30 GM TUBE EXT SCH ×2 (16:49→19:27)
[2017-08-03] MEDS: CLOBETASOL PROPIONATE 0.05% OINT 15 GM TUBE EXT SCH (19:27)
[2017-08-03] MEDS: APIXABAN 2.5 MG TAB PO SCH (19:28)
[2017-08-03] MEDS ORDERED: BISACODYL 10 MG SUPP PR SCH (21:00)
[2017-08-04 00:19] VITALS: BP 117/78; PULSE 69; TEMP 36.6; O2SAT 98
[2017-08-04 05:51] LABS: BASO % 0.7 %; BASO ABS # 0.04 K/uL (0-0.2); EOS % 2.1 %; EOS ABS # 0.12 K/uL (0-0.5); HEMATOCRIT 34.6 % (42-52); HEMOGLOBIN 11.1 g/dL (14.0-18.0); IG# 0.01 K/uL (0.00-0.02); LYMPH % 28.8 %; LYMPH ABS # 1.68 K/uL (1.2-3.4); MEAN CELL VOLUME 74.2 fL (80-100); MEAN CORPUSCULAR HEMOGLOBIN 23.8 pg (25-34); MEAN CORPUSCULAR HGB CONC 32.1 g/dl (32-36); MEAN PLATELET VOLUME 10.9 fL (7.4-10.4); MONO % 9.8 %; MONO ABS # 0.57 K/uL (0.11-0.59); NEUT % 58.4 %; NEUT ABS # 3.41 K/uL (1.4-6.5); PLATELET COUNT 212 K/uL (130-400); RED CELL DISTRIBUTION WIDTH CV 17.8 % (11.5-14.5); RED CELL DISTRIBUTION WIDTH SD 47.5 fL (36.4-46.3); WHITE BLOOD COUNT 5.83 K/uL (4.8-10.8)
[2017-08-04 06:17] LABS: CALCIUM 8.4 mg/dl (8.5-10.1); CREATININE 0.58 mg/dl (0.60-1.40)
[2017-08-04 07:09] VITALS: BP 126/79; PULSE 69; TEMP 36.7; O2SAT 97
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
[2017-08-04] MEDS: CLOBETASOL PROPIONATE 0.05% OINT 15 GM TUBE EXT SCH ×2 (08:03→20:39)
[2017-08-04] MEDS: PIPERACILL/TAZOBAC IV 3.375 GM in SODIUM CHLORIDE 0.9% 100ML 100 ML IV SCH ×3 (08:03→23:25)
[2017-08-04] MEDS: APIXABAN 2.5 MG TAB PO SCH ×2 (08:04→20:38)
[2017-08-04] MEDS: COLLAGENASE OINT 30 GM TUBE EXT SCH ×3 (08:04→20:40)
--- NOTE | 2017-08-04 08:51 | Clinical Documentation Query ---
CLINICAL DOCUMENTATION QUERY 47-y/o male with quadriplegia and chronic indwelling Banuelos catheter who presents with UTI. H&P is confusing in type of urinary device patient has and does not link UTI to device as necessary to capture intended SOI. Per H&P patient has an indwelling Banuelos catheter and Urostomy bag. Nursing assessment states ileoconduit. Query #1/2 In your clinical opinion is this patient being managed for: ( x ) Banuelos catheter associated UTI ( x ) Urostomy associated UTI ( ) Not Agree ( ) Other explanation of clinical findings (Please Explain) ( ) Unable to determine (Please Define) ( ) Need to Discuss The medical record reflects the following clinical findings, treatment, and risk factors. Clinical Indicators: C4-C5 cervical spinal cord injury resulting quadriplegia. Chronic indwelling Banuelos, UTI, Treatment: IVF's with bolus, IV Zosyn Risk Factors: Chronic indwelling Banuelos catheter Query #2/2 H&P makes reference to patient needing "skin management", but never describes why. Admission nursing assessment describes bilateral heel ulcerations. In your clinical opinion is this patient being managed for: ( ) Bilateral heel pressure ulcers ( ) Stage I ( ) Stage II ( ) Stage III ( ) Stage IV ( ) unstageable ( ) Not Agree ( ) Other explanation of clinical findings (Please Explain) ( ) Unable to determine (Please Define) ( ) Need to Discuss The medical record reflects the following clinical findings, treatment, and risk factors. Clinical Indicators: As above. Treatment: WOCN consult, Q2hr repositioning. Risk Factors: Quadriplegia, Hx of pressure ulcers. Please clarify and document your clinical opinion in the progress notes and discharge summary. Terms such as "probable", "suspected", "likely", "questionable", "possible", or "still to be ruled out" are acceptable. IF IN AGREEMENT, YOU MUST DOCUMENT ABOVE DIAGNOSTIC STATEMENT IN DAILY PROGRESS NOTES AND DISCHARGE SUMMARY. This document is not part of the patient's record. Thank You, Naeem Stout, PALMER [phone]
--- NOTE | 2017-08-04 08:53 | Clinical Documentation Query ---
CLINICAL DOCUMENTATION QUERY 47-y/o male with quadriplegia and chronic indwelling Banuelos catheter who presents with UTI. H&P is confusing in type of urinary device patient has and does not link UTI to device as necessary to capture intended SOI. Per H&P patient has an indwelling Banuelos catheter and Urostomy bag. Nursing assessment state ileoconduit. Query #1/2 In your clinical opinion is this patient being managed for: (x) Banuelos catheter associated UTI ( ) Urostomy associated UTI ( ) Not Agree ( ) Other explanation of clinical findings (Please Explain) ( ) Unable to determine (Please Define) ( ) Need to Discuss The medical record reflects the following clinical findings, treatment, and risk factors. Clinical Indicators: C4-C5 cervical spinal cord injury resulting quadriplegia. Chronic indwelling Banuelos, UTI, Treatment: IVF's with bolus, IV Zosyn Risk Factors: Chronic indwelling Banuelos catheter Query #2/2 H&P makes reference to patient needing "skin management", but never describes why. Admission nursing assessment describes bilateral heel ulcerations. In your clinical opinion is this patient being managed for: ( x ) Bilateral heel pressure ulcers ( x ) Stage I ( x ) Stage II ( ) Stage III ( ) Stage IV (x ) unstageable ( ) Not Agree ( ) Other explanation of clinical findings (Please Explain) ( ) Unable to determine (Please Define) ( ) Need to Discuss The medical record reflects the following clinical findings, treatment, and risk factors. Clinical Indicators: As above. Treatment: WOCN consult, Q2hr repositioning. Risk Factors: Quadriplegia, Hx of pressure ulcers. Please clarify and document your clinical opinion in the progress notes and discharge summary. Terms such as "probable", "suspected", "likely", "questionable", "possible", or "still to be ruled out" are acceptable. IF IN AGREEMENT, YOU MUST DOCUMENT ABOVE DIAGNOSTIC STATEMENT IN DAILY PROGRESS NOTES AND DISCHARGE SUMMARY. This document is not part of the patient's record. Thank You, Naeem Stout RN [phone]
[2017-08-04] MEDS ORDERED: COLLAGENASE OINT 30 GM TUBE EXT SCH (09:00)
[2017-08-04] MEDS ORDERED: LACTOBACILLUS ACIDOPHILUS (FLORANEX) TAB PO SCH (09:00)
[2017-08-04] MEDS ORDERED: DOXYCYCLINE HYCLATE 100 MG CAP PO SCH (09:00)
[2017-08-04] MEDS: BACLOFEN TAB 20 MG TAB PO PRN ×2 (09:02→19:58)
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
--- NOTE | 2017-08-04 10:18 | Progress Note ---
Progress Note Date of Service Aug 04, 2017. Progress Note ID Consult Dictated#[id number] A/P: 1. UTI -Continue zosyn, stop vanco, add caspo -Final recs based on culture results -Will follow, thank you
--- NOTE | 2017-08-04 10:58 | INFECT. DISEASE CONSULTATION ---
DATE OF CONSULTATION: 08/04/2017 HISTORY OF PRESENT ILLNESS: This is a 47-year-old gentleman who was admitted from the infectious diseases office yesterday after he was found to have shaking chills, bladder spasms, and vomiting in the office. He has undergone multiple lithotripsy procedures in the past weeks to months to lessen his stone burden as these were felt to be infected. He is awaiting a baclofen pump change and pain management has been holding off on this until his kidney stone burden infection has been resolved. He appears to have been on suppressive Macrobid by urology, but he denies taking this. He states he recently had a procedure done a week ago, but did not have any post-procedure antibiotics and continued to have worsening bladder spasms and subjective fevers. He lives greater than 2 hours away, although the majority of his medical care is provided here. He did have a urine culture most recently obtained on 07/21/2017 which grew greater than 100,000 Enterococcus faecalis which was sensitive to amoxicillin as well as vancomycin. He also had greater than 100,000 Pseudomonas species, but no sensitivities were initially provided. He currently remains off of antibiotics. A discussion was had with the patient yesterday regarding his ongoing medical care and his anxiety regarding losing his battery in his baclofen pump and a decision was made to admit the patient for intravenous antibiotics and pain management consultation. He was admitted yesterday and started on empiric antibiotics. He is currently on doxycycline and Zosyn. He has been afebrile since admission and his white blood cell count is normal. Urinalysis showed large leukocyte esterase, greater than 30 wbc's, and 1+ yeast, there was no bacteria. His creatinine has been normal. He is being followed by pain management here. Blood and urine cultures are pending. Overall, he states he is feeling better today, but still continues to have bladder spasms. He does have questions regarding his bed and mattress. His remaining review of systems is unremarkable. PAST MEDICAL HISTORY: Significant for quadriplegia with a C4-C5 injury, on chronic Banuelos catheter, a baclofen pump, multiple infected kidney stones, history of DVT, history of osteomyelitis, sacral ulceration. PAST SURGICAL HISTORY: Significant for cervical spine surgery, PEG tube placement, lithotripsy, urostomy. FAMILY HISTORY: Noncontributory. SOCIAL HISTORY: Negative for tobacco, drug, or alcohol use. He does have a history of tobacco use. ALLERGIES: HE IS ALLERGIC TO SULFA ANTIBIOTICS. MEDICATIONS: Include doxycycline, Floranex, baclofen, Eliquis, Dulcolax, Zosyn, Santyl, Ditropan, Tylenol, MiraLax, Zofran, Dilaudid, and Roxicodone. PHYSICAL EXAMINATION: VITAL SIGNS: He is afebrile, pulse 69, respiratory rate 15, blood pressure 126/79, oxygen saturation is 97% on room air. GENERAL: He is awake, alert, and oriented x3. He is in no acute distress. HEENT: Mucous membranes are moist. HEART: Regular. LUNGS: Clear. ABDOMEN: Soft. EXTREMITIES: Legs are contracted. LABORATORY STUDIES: CBC today reveals a white blood cell count of 5.8, hemoglobin 11.1, platelets 212. Chemistry panel reveals a sodium of 137, potassium of 4.0, chloride 109, bicarbonate 23, BUN 16, creatinine 0.5, glucose 82. Urinalysis again had large leukocyte esterase, greater than 30 wbc's, no bacteria, but budding yeast. Blood and urine cultures are pending. Chest x-ray was unremarkable. ASSESSMENT AND PLAN: Likely infected stone with urinary tract infection. He will remain on Zosyn. His doxycycline can be discontinued. Caspofungin will be added pending results of blood and urine cultures. Thank you for this consultation.
[2017-08-04] MEDS: CASPOFUNGIN INJ 50 MG in SODIUM CHLORIDE 0.9% 250ML 250 ML IV SCH (12:04)
[2017-08-04 15:06] VITALS: BP 123/64; PULSE 113; TEMP 37; O2SAT 98
[2017-08-04] MEDS: OXYCODONE HCL IR 5 MG TAB (IMMEDIATE RELEASE) PO PRN (16:38)
[2017-08-04] MEDS: ONDANSETRON INJ 2 MG/ML 2 ML VIAL IV PRN (16:52)
[2017-08-04] MEDS: HYDROmorphone INJ 0.5 MG/0.5 ML SYR IM PRN ×2 (19:34→23:18)
[2017-08-04] MEDS: LACTOBACILLUS ACIDOPHILUS (FLORANEX) TAB PO SCH (20:39)
[2017-08-04] MEDS: POLYETHYLENE (MIRALAX) 17 GM PACK PO PRN (23:03)
[2017-08-04] MEDS: BISACODYL 10 MG SUPP PR PRN (23:03)
[2017-08-04 23:46] VITALS: BP 173/99; PULSE 86; TEMP 36.5; O2SAT 99
[2017-08-05] MEDS ORDERED: LABETALOL HCL 100 MG TAB PO ONE ×2 (02:00→04:30)
[2017-08-05] MEDS: HYDROmorphone INJ 0.5 MG/0.5 ML SYR IM PRN ×2 (03:56→08:34)
[2017-08-05] MEDS: ONDANSETRON INJ 2 MG/ML 2 ML VIAL IV PRN ×2 (04:52→14:18)
[2017-08-05 07:23] VITALS: BP 91/63; PULSE 105; TEMP 36.8; O2SAT 100
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
[2017-08-05 08:03] LABS: BASO % 0.4 %; BASO ABS # 0.03 K/uL (0-0.2); EOS % 0.8 %; EOS ABS # 0.06 K/uL (0-0.5); HEMATOCRIT 35.8 % (42-52); HEMOGLOBIN 11.5 g/dL (14.0-18.0); IG# 0.01 K/uL (0.00-0.02); LYMPH % 18.3 %; LYMPH ABS # 1.35 K/uL (1.2-3.4); MEAN CELL VOLUME 74.1 fL (80-100); MEAN CORPUSCULAR HEMOGLOBIN 23.8 pg (25-34); MEAN PLATELET VOLUME 10.2 fL (7.4-10.4); MONO % 10.6 %; MONO ABS # 0.78 K/uL (0.11-0.59); NEUT % 69.8 %; NEUT ABS # 5.14 K/uL (1.4-6.5); PLATELET COUNT 206 K/uL (130-400); RED CELL DISTRIBUTION WIDTH CV 18.1 % (11.5-14.5); RED CELL DISTRIBUTION WIDTH SD 48.4 fL (36.4-46.3); WHITE BLOOD COUNT 7.37 K/uL (4.8-10.8)
[2017-08-05 08:07] LABS: MEAN CORPUSCULAR HGB CONC 32.1 g/dl (32-36)
[2017-08-05 08:21] LABS: CALCIUM 8.6 mg/dl (8.5-10.1); CREATININE 0.7 mg/dl (0.60-1.40); POTASSIUM 3.8 mmol/L (3.5-5.1)
[2017-08-05] MEDS: CLOBETASOL PROPIONATE 0.05% OINT 15 GM TUBE EXT SCH ×2 (08:35→20:45)
[2017-08-05] MEDS: APIXABAN 2.5 MG TAB PO SCH ×2 (08:35→20:38)
[2017-08-05] MEDS: LACTOBACILLUS ACIDOPHILUS (FLORANEX) TAB PO SCH ×2 (08:35→20:38)
[2017-08-05] MEDS: COLLAGENASE OINT 30 GM TUBE EXT SCH ×4 (08:35→20:45)
[2017-08-05] MEDS: PIPERACILL/TAZOBAC IV 3.375 GM in SODIUM CHLORIDE 0.9% 100ML 100 ML IV SCH ×3 (08:36→23:32)
[2017-08-05] MEDS ORDERED: NURSING VERBAL MED ORDER ONE (08:45)
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
--- NOTE | 2017-08-05 10:39 | Progress Note ---
Subjective Date of Service: Aug 05, 2017. Subjective remains afebrile. blood cultures negative, urine culture with > 3 organisms, yeast on ua. remains on zosyn and caspo, tolerating well. previous culture from 07/21 done as outp grew E. faecalis and pseudomonas, zosyn would treat both. no labs. pending plan for pump change. Problem List Medical Problems: (1) Cellulitis of right foot Status: Acute (2) Hematuria Status: Acute (3) Pyelonephritis Status: Acute (4) Quadriplegia Status: Acute (5) Right flank pain Status: Acute (6) UTI (lower urinary tract infection) Status: Acute (7) UTI (urinary tract infection) Status: Acute Objective Vital Signs Date Time Temp Pulse Resp B/P (MAP) Pulse Ox O2 Delivery O2 Flow Rate FiO2 08/05/17 08:00 Room Air 08/05/17 07:23 36.8 105 18 91/63 (72) 100 Room Air 08/05/17 00:00 Room Air 08/04/17 23:46 36.5 86 20 173/99 (123) 99 Room Air 08/04/17 16:00 Room Air 08/04/17 15:06 37.0 113 18 123/64 (83) 98 Room Air Laboratory Results Item Value Date Time Blood Culture - Preliminary Resulted 08/03/17 1136 Blood NO GROWTH TO DATE. Urine Culture - Final Complete 08/03/17 1111 Urine , Clean Catch GREATER THAN THREE TYPES OF ORGANISMS... Blood Culture - Preliminary Resulted 08/03/17 0000 Blood NO GROWTH TO DATE. Last 24 Hours Test 08/05/17 07:20 White Blood Count 7.37 K/uL Red Blood Count 4.83 M/uL Hemoglobin 11.5 g/dL Hematocrit 35.8 % Mean Corpuscular Volume 74.1 fL Mean Corpuscular Hemoglobin 23.8 pg Mean Corpuscular Hemoglobin Concent 32.1 g/dl Platelet Count 206 K/uL Mean Platelet Volume 10.2 fL Neutrophils (%) (Auto) 69.8 % Lymphocytes (%) (Auto) 18.3 % Monocytes (%) (Auto) 10.6 % Eosinophils (%) (Auto) 0.8 % Basophils (%) (Auto) 0.4 % Neutrophils # (Auto) 5.14 K/uL Lymphocytes # (Auto) 1.35 K/uL Monocytes # (Auto) 0.78 K/uL Eosinophils # (Auto) 0.06 K/uL Basophils # (Auto) 0.03 K/uL RDW Standard Deviation 48.4 fL RDW Coefficient of Variation 18.1 % Immature Granulocyte % (Auto) 0.1 % Immature Granulocyte # (Auto) 0.01 K/uL Sodium Level 138 mmol/L Potassium Level 3.8 mmol/L Chloride Level 107 mmol/L Carbon Dioxide Level 25 mmol/L Anion Gap 5.0 mmol/L Blood Urea Nitrogen 14 mg/dl Creatinine 0.70 mg/dl Est Creatinine Clear Calc Drug Dose 123.0 ml/min Estimated GFR () 129.3 Estimated GFR (Non- 111.6 BUN/Creatinine Ratio 19.2 Random Glucose 109 mg/dl Calcium Level 8.6 mg/dl Assessment and Plan (1) UTI (urinary tract infection) Assessment & Plan: continue zosyn and caspo, will need 14 days. If pump to be changed soon, may benefit from procedure while on broad spectrum abx. will continue to follow blood cultures, negative to date.
[2017-08-05] MEDS ORDERED: D5W AND NSS 1,000 ML IV ONE (10:45)
[2017-08-05] MEDS: CASPOFUNGIN INJ 50 MG in SODIUM CHLORIDE 0.9% 250ML 250 ML IV SCH (12:57)
[2017-08-05] MEDS: BACLOFEN TAB 20 MG TAB PO PRN (14:12)
[2017-08-05] MEDS: HYDROmorphone INJ 0.5 MG/0.5 ML SYR IV PRN ×2 (14:12→20:43)
[2017-08-05 15:13] VITALS: BP_SYST 119; BP_SYST 194; BP_SYST 207; BP_DIAS 129; BP_DIAS 130; BP_DIAS 84; PULSE 112; TEMP 36.7; O2SAT 96
[2017-08-05] MEDS ORDERED: CLIN300C2 PO (15:43)
--- NOTE | 2017-08-05 16:33 | DIAGNOSTIC IMAGING REPORT ---
CT OF THE ABDOMEN AND PELVIS WITHOUT CONTRAST, STONE PROTOCOL CLINICAL HISTORY: Quadriplegic. Left flank pain. Recurrent urinary tract infection. History of stones. COMPARISON STUDY: CT of the abdomen and pelvis March 10, 2017 and KUB July 14, 2017. TECHNIQUE: Helical axial images of the abdomen and pelvis were obtained without IV or oral contrast according to renal stone protocol. A dose lowering technique was utilized adhering to the principles of ALARA. FINDINGS: Subpleural opacities within the lower lungs suggest atelectasis. No pneumatosis, free air or portal venous gas is present. Unenhanced images of liver, spleen, adrenal glands and pancreas are normal. Multiple large left renal calculi measure up to 1.2 cm. There are multiple layering calculi within the left renal pelvis. There is mild left hydroureteronephrosis which was shown on previous exam of March 10, 2017. There is urothelial thickening and adjacent infiltration which is unchanged. No ureteral calculi are identified. There are no right-sided renal calculi. There is no right hydronephrosis. Several right renal lesions measure up to 1.6 cm. These measure just above water attenuation. Multiple bladder calculi are noted. There is no evidence for a bowel obstruction. There is a moderate amount of stool within the colon and rectum. There is apparent rectal wall thickening. Chronic deformity of the hips and pelvis is noted. There may be a sacral decubitus ulcer which is unchanged in appearance. There is apparent bone loss along the right inferior sacrum and coccyx. Intracanalicular catheter is noted. IMPRESSION: 1. Extensive left-sided nephrolithiasis and multiple left renal pelvis calculi with mild left hydroureteronephrosis. No ureteral calculi. Persistent left sided urothelial thickening and adjacent infiltration which is similar to prior exams. This could be correlated with urinalysis. 2. Moderate amount stool within the colon and rectum with nonspecific rectal wall thickening. No evidence for a bowel obstruction. 3. Possible sacral acute ulcer with apparent bone loss of the right inferior aspect of the coccyx and sacrum. This raises the possibility of osteomyelitis. 4. A few right renal lesions which measure just above water attenuation. These likely reflect cysts. However, a follow-up renal ultrasound is recommended. Electronically signed by: Darrin Herman M.D. 08/05/2017 4:32 PM Dictated Date/Time: 08/05/2017 4:16 PM
--- NOTE | 2017-08-05 18:02 | DIAGNOSTIC IMAGING REPORT ---
L FOOT MIN 3 VIEWS ROUTINE, R FOOT MIN 3 VIEWS ROUTINE, L ANKLE MIN 3 VIEWS ROUTINE, R ANKLE MIN 3 VIEWS ROUTINE CLINICAL HISTORY: evaluate for osteo from Pressure Ulcers, quadraplegic COMPARISON STUDY: None. 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 Old, healed fracture at the left distal fibula. Deformity at the head of the left fifth metatarsal which appears to be chronic. No acute fractures within the ankles or feet. There is a 2.7 cm focal skin ulceration at the posterior aspect of the left ankle/heel. There are small focal areas of abnormal lucency and cortical destruction at the left posterior calcaneus consistent with osteomyelitis. There is a 4 cm skin ulceration within the right posterior heel. However, no areas of cortical obstruction or erosions within the right ankle or right foot to suggest osteomyelitis. IMPRESSION: 1. Bilateral posterior heel skin ulcerations. 2. Small focal areas of cortical destruction and abnormal lucency within the posterior left calcaneus consistent with osteomyelitis. 3. No evidence for osteomyelitis within the right ankle/foot. Electronically signed by: Rober Caceres M.D. 08/05/2017 6:01 PM Dictated Date/Time: 08/05/2017 5:54 PM
[2017-08-05 23:41] VITALS: BP 140/96; PULSE 85; TEMP 36.4; O2SAT 96
[2017-08-06] MEDS: BACLOFEN TAB 20 MG TAB PO PRN (00:53)
[2017-08-06] MEDS: HYDROmorphone INJ 0.5 MG/0.5 ML SYR IV PRN ×5 (02:11→19:53)
[2017-08-06 07:30] VITALS: BP 104/72; PULSE 70; TEMP 36.4; O2SAT 96
[2017-08-06] MEDS: PIPERACILL/TAZOBAC IV 3.375 GM in SODIUM CHLORIDE 0.9% 100ML 100 ML IV SCH ×2 (07:57→16:11)
[2017-08-06] MEDS: APIXABAN 2.5 MG TAB PO SCH ×2 (07:58→21:03)
[2017-08-06] MEDS: COLLAGENASE OINT 30 GM TUBE EXT SCH ×3 (07:58→21:00)
[2017-08-06] MEDS: CLOBETASOL PROPIONATE 0.05% OINT 15 GM TUBE EXT SCH ×3 (07:58→21:03)
[2017-08-06] MEDS: LACTOBACILLUS ACIDOPHILUS (FLORANEX) TAB PO SCH ×2 (07:59→21:03)
[2017-08-06] MEDS: ONDANSETRON INJ 2 MG/ML 2 ML VIAL IV PRN ×2 (08:19→19:52)
[2017-08-06 08:29] LABS: BASO % 0.5 %; BASO ABS # 0.03 K/uL (0-0.2); EOS % 4.8 %; EOS ABS # 0.29 K/uL (0-0.5); HEMATOCRIT 32.8 % (42-52); HEMOGLOBIN 10.6 g/dL (14.0-18.0); IG# 0.02 K/uL (0.00-0.02); LYMPH % 22.1 %; LYMPH ABS # 1.34 K/uL (1.2-3.4); MEAN CELL VOLUME 73.9 fL (80-100); MEAN CORPUSCULAR HEMOGLOBIN 23.9 pg (25-34); MEAN CORPUSCULAR HGB CONC 32.3 g/dl (32-36); MEAN PLATELET VOLUME 10.7 fL (7.4-10.4); MONO % 9.9 %; NEUT % 62.4 %; NEUT ABS # 3.77 K/uL (1.4-6.5); PLATELET COUNT 200 K/uL (130-400); RED CELL DISTRIBUTION WIDTH CV 18.3 % (11.5-14.5); RED CELL DISTRIBUTION WIDTH SD 48.7 fL (36.4-46.3); WHITE BLOOD COUNT 6.05 K/uL (4.8-10.8)
[2017-08-06 08:44] LABS: ALBUMIN 2.9 gm/dl (3.4-5.0); ALT/SGPT 28 U/L (12-78); CALCIUM 8.3 mg/dl (8.5-10.1); CARBON DIOXIDE 24 mmol/L (21-32); CREATININE 0.48 mg/dl (0.60-1.40); GLUCOSE 93 mg/dl (70-99); SODIUM 141 mmol/L (136-145)
[2017-08-06 08:47] LABS: ALKALINE PHOSPHATASE 124 U/L (45-117); AST/SGOT 26 U/L (15-37); TOTAL PROTEIN 7.1 gm/dl (6.4-8.2)
[2017-08-06 08:49] LABS: BLOOD UREA NITROGEN 9 mg/dl (7-18)
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
[2017-08-06] MEDS ORDERED: D5W AND NSS 1,000 ML IV SCH (11:00)
[2017-08-06] MEDS ORDERED: NURSING VERBAL MED ORDER ONE (11:15)
--- NOTE | 2017-08-06 11:16 | Progress Note ---
Subjective Date of Service: Aug 06, 2017. Subjective pt urine culture contaminant. blood cultures negative to date. remains on zosyn and caspo. tolerating well. afebrile. ct abd pelvis again showing multiple stones, sacral ulcer noted, ? osteo. Problem List Medical Problems: (1) Cellulitis of right foot Status: Acute (2) Hematuria Status: Acute (3) Pyelonephritis Status: Acute (4) Quadriplegia Status: Acute (5) Right flank pain Status: Acute (6) UTI (lower urinary tract infection) Status: Acute (7) UTI (urinary tract infection) Status: Acute Objective Vital Signs Date Time Temp Pulse Resp B/P (MAP) Pulse Ox O2 Delivery O2 Flow Rate FiO2 08/06/17 08:00 Room Air 08/06/17 07:30 36.4 70 20 104/72 (83) 96 08/06/17 00:00 Room Air 08/05/17 23:41 36.4 85 19 140/96 (111) 96 Room Air 08/05/17 20:00 Room Air 08/05/17 16:00 Room Air 08/05/17 15:13 36.7 112 18 194/130 (151) 96 207/129 (155) 119/84 (96) Physical Exam Comments: Item Value Date Time Blood Culture - Preliminary Resulted 08/03/17 1136 Blood NO GROWTH TO DATE. Blood Culture - Preliminary Resulted 08/03/17 0000 Blood NO GROWTH TO DATE. Laboratory Results Last 24 Hours Test 08/06/17 08:00 White Blood Count 6.05 K/uL Red Blood Count 4.44 M/uL Hemoglobin 10.6 g/dL Hematocrit 32.8 % Mean Corpuscular Volume 73.9 fL Mean Corpuscular Hemoglobin 23.9 pg Mean Corpuscular Hemoglobin Concent 32.3 g/dl Platelet Count 200 K/uL Mean Platelet Volume 10.7 fL Neutrophils (%) (Auto) 62.4 % Lymphocytes (%) (Auto) 22.1 % Monocytes (%) (Auto) 9.9 % Eosinophils (%) (Auto) 4.8 % Basophils (%) (Auto) 0.5 % Neutrophils # (Auto) 3.77 K/uL Lymphocytes # (Auto) 1.34 K/uL Monocytes # (Auto) 0.60 K/uL Eosinophils # (Auto) 0.29 K/uL Basophils # (Auto) 0.03 K/uL RDW Standard Deviation 48.7 fL RDW Coefficient of Variation 18.3 % Immature Granulocyte % (Auto) 0.3 % Immature Granulocyte # (Auto) 0.02 K/uL Sodium Level 141 mmol/L Potassium Level 4.0 mmol/L Chloride Level 112 mmol/L Carbon Dioxide Level 24 mmol/L Anion Gap 4.0 mmol/L Blood Urea Nitrogen 9 mg/dl Creatinine 0.48 mg/dl Est Creatinine Clear Calc Drug Dose 179.4 ml/min Estimated GFR () > 150.0 Estimated GFR (Non- 130.3 BUN/Creatinine Ratio 19.5 Random Glucose 93 mg/dl Calcium Level 8.3 mg/dl Total Bilirubin 0.4 mg/dl Aspartate Amino Transf (AST/SGOT) 26 U/L Alanine Aminotransferase (ALT/SGPT) 28 U/L Alkaline Phosphatase 124 U/L Total Protein 7.1 gm/dl Albumin 2.9 gm/dl Globulin 4.2 gm/dl Albumin/Globulin Ratio 0.7 Assessment and Plan (1) UTI (urinary tract infection) Assessment & Plan: continue zosyn and caspo, will need 14 days. If pump to be changed soon, may benefit from procedure while on broad spectrum abx. will continue to follow blood cultures, negative to date. If concern for sacal osteo, will need debridement, deep cultures
[2017-08-06] MEDS: CASPOFUNGIN INJ 50 MG in SODIUM CHLORIDE 0.9% 250ML 250 ML IV SCH (12:29)
[2017-08-06 15:11] VITALS: BP 124/83; PULSE 67; TEMP 36.3; O2SAT 94
[2017-08-06 23:43] VITALS: BP 102/61; PULSE 64; TEMP 36.5; O2SAT 95
[2017-08-07] MEDS: HYDROmorphone INJ 0.5 MG/0.5 ML SYR IV PRN ×3 (00:04→13:27)
[2017-08-07] MEDS: PIPERACILL/TAZOBAC IV 3.375 GM in SODIUM CHLORIDE 0.9% 100ML 100 ML IV SCH ×3 (00:06→16:25)
[2017-08-07 07:46] VITALS: BP 111/77; PULSE 64; TEMP 36.5; O2SAT 96
[2017-08-07] MEDS: CLOBETASOL PROPIONATE 0.05% OINT 15 GM TUBE EXT SCH ×2 (08:08→20:51)
[2017-08-07] MEDS: COLLAGENASE OINT 30 GM TUBE EXT SCH ×3 (08:08→20:51)
[2017-08-07] MEDS: LACTOBACILLUS ACIDOPHILUS (FLORANEX) TAB PO SCH ×2 (08:09→20:51)
[2017-08-07 08:10] VITALS: O2SAT 96
[2017-08-07] MEDS: ONDANSETRON INJ 2 MG/ML 2 ML VIAL IV PRN ×2 (08:10→17:22)
[2017-08-07] MEDS: APIXABAN 2.5 MG TAB PO SCH ×2 (08:10→20:51)
[2017-08-07 08:29] LABS: BASO % 0.2 %; BASO ABS # 0.01 K/uL (0-0.2); EOS % 3.3 %; EOS ABS # 0.17 K/uL (0-0.5); HEMATOCRIT 33.3 % (42-52); HEMOGLOBIN 10.8 g/dL (14.0-18.0); LYMPH % 21.9 %; LYMPH ABS # 1.14 K/uL (1.2-3.4); MEAN CELL VOLUME 73.8 fL (80-100); MEAN CORPUSCULAR HEMOGLOBIN 23.9 pg (25-34); MEAN CORPUSCULAR HGB CONC 32.4 g/dl (32-36); MEAN PLATELET VOLUME 10.3 fL (7.4-10.4); MONO % 10.4 %; MONO ABS # 0.54 K/uL (0.11-0.59); NEUT % 64.2 %; NEUT ABS # 3.35 K/uL (1.4-6.5); PLATELET COUNT 181 K/uL (130-400); RED CELL DISTRIBUTION WIDTH CV 18.7 % (11.5-14.5); RED CELL DISTRIBUTION WIDTH SD 49.6 fL (36.4-46.3); WHITE BLOOD COUNT 5.21 K/uL (4.8-10.8)
[2017-08-07 08:48] LABS: ALBUMIN 2.8 gm/dl (3.4-5.0); ALT/SGPT 23 U/L (12-78); BLOOD UREA NITROGEN 5 mg/dl (7-18); CALCIUM 8.3 mg/dl (8.5-10.1); CARBON DIOXIDE 23 mmol/L (21-32); CREATININE 0.45 mg/dl (0.60-1.40); GLUCOSE 88 mg/dl (70-99); SODIUM 142 mmol/L (136-145)
[2017-08-07 08:51] LABS: ALKALINE PHOSPHATASE 106 U/L (45-117); AST/SGOT 20 U/L (15-37); TOTAL PROTEIN 6.8 gm/dl (6.4-8.2)
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
[2017-08-07] MEDS: CASPOFUNGIN INJ 50 MG in SODIUM CHLORIDE 0.9% 250ML 250 ML IV SCH (13:27)
[2017-08-07 15:22] VITALS: BP 100/65; PULSE 59; TEMP 36.3; O2SAT 96
[2017-08-07 16:22] VITALS: O2SAT 96
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
--- NOTE | 2017-08-07 16:26 | ORTHOPEDIC CONSULTATION ---
DATE OF CONSULTATION: 08/07/2017 ADDENDUM I just spoke personally with Dr. Lanette Poon with Family Medicine. I told her that I did not feel an operation would be beneficial at this time and she understood. I believe we should continue with wound care and antibiotics as needed based on symptoms. If you have any further questions, please feel free to contact me personally on my cell phone at #[phone]. Otherwise, I am going to sign off for now. GAYLE
[2017-08-07 23:08] VITALS: BP 124/76; PULSE 69; TEMP 36.4; O2SAT 95
[2017-08-08] MEDS: PIPERACILL/TAZOBAC IV 3.375 GM in SODIUM CHLORIDE 0.9% 100ML 100 ML IV SCH ×4 (00:04→23:49)
[2017-08-08] MEDS: ONDANSETRON INJ 2 MG/ML 2 ML VIAL IV PRN (00:49)
[2017-08-08] MEDS: HYDROmorphone INJ 0.5 MG/0.5 ML SYR IV PRN ×2 (02:42→21:37)
[2017-08-08 07:25] VITALS: BP 117/79; PULSE 74; TEMP 36.7; O2SAT 97
[2017-08-08 08:05] LABS: BASO % 0.2 %; BASO ABS # 0.01 K/uL (0-0.2); EOS % 2.4 %; EOS ABS # 0.12 K/uL (0-0.5); HEMATOCRIT 33.7 % (42-52); HEMOGLOBIN 10.8 g/dL (14.0-18.0); IG# 0.01 K/uL (0.00-0.02); LYMPH % 28.7 %; LYMPH ABS # 1.45 K/uL (1.2-3.4); MEAN CELL VOLUME 74.6 fL (80-100); MEAN CORPUSCULAR HEMOGLOBIN 23.9 pg (25-34); MEAN PLATELET VOLUME 9.9 fL (7.4-10.4); MONO % 8.1 %; MONO ABS # 0.41 K/uL (0.11-0.59); NEUT % 60.4 %; NEUT ABS # 3.05 K/uL (1.4-6.5); PLATELET COUNT 187 K/uL (130-400); RED CELL DISTRIBUTION WIDTH SD 50.4 fL (36.4-46.3); WHITE BLOOD COUNT 5.05 K/uL (4.8-10.8)
[2017-08-08 08:11] VITALS: O2SAT 96
[2017-08-08 08:15] LABS: ALBUMIN 2.8 gm/dl (3.4-5.0); ALT/SGPT 21 U/L (12-78); AST/SGOT 15 U/L (15-37); BLOOD UREA NITROGEN 7 mg/dl (7-18); CALCIUM 8.1 mg/dl (8.5-10.1); CARBON DIOXIDE 24 mmol/L (21-32); CREATININE 0.46 mg/dl (0.60-1.40); GLUCOSE 75 mg/dl (70-99); POTASSIUM 3.9 mmol/L (3.5-5.1); SODIUM 142 mmol/L (136-145)
[2017-08-08 08:17] LABS: ALKALINE PHOSPHATASE 109 U/L (45-117)
[2017-08-08] MEDS: CLOBETASOL PROPIONATE 0.05% OINT 15 GM TUBE EXT SCH ×2 (09:00→21:32)
[2017-08-08] MEDS: COLLAGENASE OINT 30 GM TUBE EXT SCH ×4 (09:00→21:44)
[2017-08-08] MEDS: APIXABAN 2.5 MG TAB PO SCH ×2 (09:17→21:32)
[2017-08-08] MEDS: LACTOBACILLUS ACIDOPHILUS (FLORANEX) TAB PO SCH ×2 (09:18→21:32)
[2017-08-08] MEDS ORDERED: SODIUM CHLORIDE 0.9% 1000ML 1,000 ML IV ONE (11:30)
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
[2017-08-08] MEDS: CASPOFUNGIN INJ 50 MG in SODIUM CHLORIDE 0.9% 250ML 250 ML IV SCH (11:57)
[2017-08-08] MEDS: BISACODYL 10 MG SUPP PR PRN (11:58)
[2017-08-08 15:48] VITALS: BP 100/63; PULSE 81; TEMP 36.7; O2SAT 95
[2017-08-08 16:09] VITALS: O2SAT 96
[2017-08-08 23:20] VITALS: BP 110/69; PULSE 75; TEMP 36.7; O2SAT 95
[2017-08-09 07:32] VITALS: BP 126/77; PULSE 74; TEMP 36.7; O2SAT 96
[2017-08-09 07:44] LABS: BASO % 0.5 %; BASO ABS # 0.02 K/uL (0-0.2); EOS % 2.1 %; EOS ABS # 0.09 K/uL (0-0.5); HEMATOCRIT 34.5 % (42-52); HEMOGLOBIN 11.1 g/dL (14.0-18.0); IG# 0.01 K/uL (0.00-0.02); MEAN CELL VOLUME 74.7 fL (80-100); MEAN CORPUSCULAR HGB CONC 32.2 g/dl (32-36); MEAN PLATELET VOLUME 10.7 fL (7.4-10.4); MONO % 8.3 %; MONO ABS # 0.36 K/uL (0.11-0.59); NEUT % 58.9 %; NEUT ABS # 2.55 K/uL (1.4-6.5); PLATELET COUNT 231 K/uL (130-400); RED CELL DISTRIBUTION WIDTH CV 18.8 % (11.5-14.5); RED CELL DISTRIBUTION WIDTH SD 50.8 fL (36.4-46.3); WHITE BLOOD COUNT 4.33 K/uL (4.8-10.8)
[2017-08-09] MEDS: PIPERACILL/TAZOBAC IV 3.375 GM in SODIUM CHLORIDE 0.9% 100ML 100 ML IV SCH ×3 (07:47→23:41)
[2017-08-09 07:52] LABS: INR 1.1 (0.9-1.1); PTT PATIENT 29.2 SECONDS (21.0-31.0)
[2017-08-09] MEDS: HYDROmorphone INJ 0.5 MG/0.5 ML SYR IV PRN ×2 (07:58→21:52)
[2017-08-09] MEDS: ONDANSETRON INJ 2 MG/ML 2 ML VIAL IV PRN (08:01)
[2017-08-09 08:19] LABS: ALBUMIN 2.9 gm/dl (3.4-5.0); ALT/SGPT 19 U/L (12-78); AST/SGOT 15 U/L (15-37); BLOOD UREA NITROGEN 7 mg/dl (7-18); CALCIUM 8.4 mg/dl (8.5-10.1); CARBON DIOXIDE 24 mmol/L (21-32); GLUCOSE 77 mg/dl (70-99); POTASSIUM 3.7 mmol/L (3.5-5.1); SODIUM 141 mmol/L (136-145)
[2017-08-09 08:22] LABS: ALKALINE PHOSPHATASE 107 U/L (45-117); TOTAL PROTEIN 7.3 gm/dl (6.4-8.2)
[2017-08-09] MEDS: LACTOBACILLUS ACIDOPHILUS (FLORANEX) TAB PO SCH ×2 (09:09→21:51)
[2017-08-09] MEDS: APIXABAN 2.5 MG TAB PO SCH ×2 (09:10→21:52)
[2017-08-09] MEDS: CLOBETASOL PROPIONATE 0.05% OINT 15 GM TUBE EXT SCH ×2 (09:10→21:00)
--- NOTE | 2017-08-09 09:57 | Family Medicine Progress Note ---
Progress Note Date of Service Aug 09, 2017. Subjective Pt evaluation today including: conversation w/ patient, conversation w/ family , physical exam, chart review, lab review, review of studies, review of inpatient medication list Pain: denies PO Intake: adequate Voiding: brooks catheter in place Hematuria reported overnight. Patient denies pain, fevers chills, n/v, CP, SOB Constitutional: No fever, No chills Respiratory: No cough, No sputum, No shortness of breath Cardiovascular: No chest pain, No edema, No palpitations Abdomen: No pain, No nausea, No vomiting, No diarrhea Musculoskeletal: No calf pain Male : + hematuria, No dysuria Neurologic: + paralysis (paraplegic( non-acute)), + weakness Skin: No rash, No itch Medications Current Inpatient Medications Medications (Trade) Dose Ordered Sig/Chalo Route Start Time Stop Time Status Last Admin Dose Admin Baclofen (Lioresal) BACLOFEN PAIN PUMP ... UD ITR 08/03/17 13:30 09/02/17 13:29 Diclofenac Sodium (Voltaren 1% Top Gel) 2 appln DAILY PRN EXT 08/03/17 13:30 09/02/17 13:29 08/04/17 09:42 2 APPLN Oxybutynin Chloride (Ditropan Tab) 5 mg HS PRN PO 08/03/17 13:30 09/02/17 13:29 Apixaban (Eliquis Tab) 5 mg BID PO 08/03/17 21:00 09/02/17 20:59 08/09/17 21:52 5 MG Clobetasol Propionate (Clobetasol Propionate Oint) 1 appln BID EXT 08/03/17 21:00 09/02/17 20:59 08/09/17 09:10 1 APPLN Acetaminophen (Tylenol Tab) 650 mg Q4H PRN PO 08/03/17 13:30 09/02/17 13:29 Polyethylene (Miralax Powder Packet) 17 gm DAILY PRN PO 08/03/17 13:30 09/02/17 13:29 08/04/17 23:03 17 GM Ondansetron HCl (Zofran Inj) 4 mg Q6H PRN IV 08/03/17 13:30 09/02/17 13:29 08/09/17 08:01 4 MG Miscellaneous Information (Consult) 1 ea UD PRN N/A 08/03/17 13:30 09/02/17 13:29 Oxycodone HCl (Roxicodone Immediate Rel Tab) 5 mg Q4 PRN PO 08/03/17 13:30 08/17/17 13:29 08/04/17 16:38 5 MG Piperacillin Sod/ Tazobactam Sod 3.375 gm/Sodium Chloride 115 ml @ 28.75 mls/ hr Q8H IV 08/03/17 16:00 08/17/17 15:59 08/09/17 17:15 28.75 MLS/HR Bisacodyl (Dulcolax Supp) 10 mg HS PRN MA 08/03/17 21:00 09/02/17 20:59 08/08/17 11:58 10 MG Collagenase (Santyl Oint) 1 appln TID EXT 08/03/17 14:00 09/03/17 08:59 08/07/17 08:08 1 APPLN Baclofen (Lioresal Tab) 20 mg TID PRN PO 08/04/17 08:15 09/03/17 08:14 08/06/17 00:53 20 MG Lactobacillus Acidophilus (Floranex Tab) 4 tab BID PO 08/04/17 21:00 09/03/17 20:59 08/09/17 21:51 4 TAB Caspofungin 50 mg/ Sodium Chloride 257.1429 ml @ 250 mls/hr Q24H IV 08/07/17 12:00 08/18/17 11:59 08/09/17 12:49 250 MLS/HR Hydromorphone HCl (Dilaudid Inj) 0.5 mg Q3H PRN IV 08/08/17 09:45 08/19/17 09:14 08/09/17 21:52 0.5 MG Carbamide Peroxide (Earwax Removal Soln) 8 drops BID OT 08/09/17 21:00 08/13/17 20:59 08/09/17 21:51 8 DROPS Objective Vital Signs Date Time Temp Pulse Resp B/P (MAP) Pulse Ox O2 Delivery O2 Flow Rate FiO2 08/09/17 16:09 96 Room Air 08/09/17 15:14 36.4 71 18 125/87 (100) 97 Room Air 08/09/17 08:00 Room Air 08/09/17 07:32 36.7 74 18 126/77 (93) 96 Room Air 08/09/17 00:00 Room Air 08/08/17 23:20 36.7 75 18 110/69 (83) 95 Room Air Physical Exam Notes: GENERAL: alert, paraplegic no distress, non-toxic EYE EXAM: normal conjunctiva, PERRL and EOM's grossly intact OROPHARYNX: no exudate, no erythema, lips, buccal mucosa, and tongue normal and mucous membranes are moist NECK: supple,no adenopathy LUNGS: Clear to auscultation. Normal chest wall mechanics HEART: no murmurs, S1 normal and S2 normal ABDOMEN: abdomen soft, non-tender, urostomy, Colostomy in place SKIN: no rashes and no bruising UPPER EXTREMITIES: upper extremities are grossly normal. LOWER EXTREMITIES: multiple contractures NEURO EXAM: Normal sensorium, paraplegic Laboratory Results Results Past 24 Hours Test 08/09/17 07:09 08/09/17 07:25 Range/Units Sodium Level 141 136-145 mmol/L Potassium Level 3.7 3.5-5.1 mmol/L Chloride Level 109 98-107 mmol/L Carbon Dioxide Level 24 21-32 mmol/L Anion Gap 8.0 3-11 mmol/L Blood Urea Nitrogen 7 7-18 mg/dl Creatinine 0.40 0.60-1.40 mg/dl Est Creatinine Clear Calc Drug Dose 215.3 ml/min Estimated GFR () > 150.0 Estimated GFR (Non- 140.5 BUN/Creatinine Ratio 16.8 10-20 Random Glucose 77 70-99 mg/dl Calcium Level 8.4 8.5-10.1 mg/dl Total Bilirubin 0.5 0.2-1 mg/dl Aspartate Amino Transf (AST/SGOT) 15 15-37 U/L Alanine Aminotransferase (ALT/SGPT) 19 12-78 U/L Alkaline Phosphatase 107 45-117 U/L Total Protein 7.3 6.4-8.2 gm/dl Albumin 2.9 3.4-5.0 gm/dl Globulin 4.4 2.5-4.0 gm/dl Albumin/Globulin Ratio 0.7 0.9-2 White Blood Count 4.33 4.8-10.8 K/uL Red Blood Count 4.62 4.7-6.1 M/uL Hemoglobin 11.1 14.0-18.0 g/dL Hematocrit 34.5 42-52 % Mean Corpuscular Volume 74.7 80-100 fL Mean Corpuscular Hemoglobin 24.0 25-34 pg Mean Corpuscular Hemoglobin Concent 32.2 32-36 g/dl Platelet Count 231 130-400 K/uL Mean Platelet Volume 10.7 7.4-10.4 fL Neutrophils (%) (Auto) 58.9 % Lymphocytes (%) (Auto) 30.0 % Monocytes (%) (Auto) 8.3 % Eosinophils (%) (Auto) 2.1 % Basophils (%) (Auto) 0.5 % Neutrophils # (Auto) 2.55 1.4-6.5 K/uL Lymphocytes # (Auto) 1.30 1.2-3.4 K/uL Monocytes # (Auto) 0.36 0.11-0.59 K/uL Eosinophils # (Auto) 0.09 0-0.5 K/uL Basophils # (Auto) 0.02 0-0.2 K/uL RDW Standard Deviation 50.8 36.4-46.3 fL RDW Coefficient of Variation 18.8 11.5-14.5 % Immature Granulocyte % (Auto) 0.2 % Immature Granulocyte # (Auto) 0.01 0.00-0.02 K/uL Prothrombin Time 11.6 9.0-12.0 SECONDS Prothromb Time International Ratio 1.1 0.9-1.1 Activated Partial Thromboplast Time 29.2 21.0-31.0 SECONDS Partial Thromboplastin Ratio 1.1 Assessment and Plan 47 yo M paraplegic s/p colostomy s/p urostomy with chronic Brooks p/w n/v, chills admitted with Catheter associated UTI Urostomy bag with Brooks Catheter Associated UTI - UA consistent with UTI, urine cx positive for non-sonya funguria - c/w Zosyn and Caspofungin day 7/14 - blood cultures negative to date Hematuria - on Eliquis - Hematuria improving Left sided abdominal pain chronic - c/w Pain control with Dilaudid 0.5mg IV q 3 hours PRN and Oxycodone 5mg po q 4 hours PRN - await further Pain management reccs Possible Osteomyelitis Scarum and left calcaneal - CT Scan suggested osteomyelitis of sacrum however closed wound and gen surg does not feel this is osteo as wound is closed - XR suggest left calcaneal osteomyelitis, Per Ortho, no need for MRI, defer intervention at this time - appreciate recs from both gen surg and ortho History of DVT - c/w Eliquis 5mg po BID- Spastic paralysis managed with Baclofen pump - appreciate pain team recommendations - pump change after patient is stable from his UTI - Continue Oxybutynin Pressure Ulcers on feet Continue Santyl TID Continue Clobetasol BID q2H repositioning VTE Prophylaxis - continue Eliquis Code - Full Disposition - Will require PICC line prior to discharge - Battery requiring replacement for Baclofen pump -Per conversation w/ pain management, should follow course of current course of abx Resident Physician Supervision Note: I interviewed and examined the patient. Discussed with Dr. Mccall and agree with findings and plan as documented in the note. Any exceptions or clarifications are listed here: None Documented By: Eduardo Macias feeling ok worried about baclofen pump running out of battery d/w dr daniel who is well familiar w situation - current plan would be to change pump the day after current abx complete so as to best balance risks of pump needing changed but also minimizing risk of pump (and subsequent redevelopment specialist) infection vitals noted nad breathing unlabored complicated UTI w chronic catheter -zosyn, caspofungin 2wks total - picc line spastic paralysis -baclofen pump to be changed as above, follow closely Continued [facility] stay due to: multiple IV medications needed Discharge planning: home with home health Resident Tracking Resident Involvement: Resident Care Provided Care Provided: Adult Hospital Medicine
--- NOTE | 2017-08-09 10:48 | Progress Note ---
Subjective Date of Service: Aug 09, 2017. Subjective tolerating abx. surgery eval noted, no plans for OR for sacrum at this time. blood cultures negative and final. remains afebrile. Problem List Medical Problems: (1) Cellulitis of right foot Status: Acute (2) Hematuria Status: Acute (3) Pyelonephritis Status: Acute (4) Quadriplegia Status: Acute (5) Right flank pain Status: Acute (6) UTI (lower urinary tract infection) Status: Acute (7) UTI (urinary tract infection) Status: Acute Objective Vital Signs Date Time Temp Pulse Resp B/P (MAP) Pulse Ox O2 Delivery O2 Flow Rate FiO2 08/09/17 07:32 36.7 74 18 126/77 (93) 96 Room Air 08/09/17 00:00 Room Air 08/08/17 23:20 36.7 75 18 110/69 (83) 95 Room Air 08/08/17 20:00 Room Air 08/08/17 16:09 96 Room Air 08/08/17 15:48 36.7 81 18 100/63 (75) 95 Room Air Laboratory Results Item Value Date Time Urine Culture - Final Complete 08/03/17 1111 Urine , Clean Catch GREATER THAN THREE TYPES OF ORGANISMS... Blood Culture - Final Complete 08/03/17 0000 Blood NO GROWTH Blood Culture - Final Complete 08/03/17 1136 Blood NO GROWTH Last 24 Hours Test 08/09/17 07:09 08/09/17 07:25 Sodium Level 141 mmol/L Potassium Level 3.7 mmol/L Chloride Level 109 mmol/L Carbon Dioxide Level 24 mmol/L Anion Gap 8.0 mmol/L Blood Urea Nitrogen 7 mg/dl Creatinine 0.40 mg/dl Est Creatinine Clear Calc Drug Dose 215.3 ml/min Estimated GFR () > 150.0 Estimated GFR (Non- 140.5 BUN/Creatinine Ratio 16.8 Random Glucose 77 mg/dl Calcium Level 8.4 mg/dl Total Bilirubin 0.5 mg/dl Aspartate Amino Transf (AST/SGOT) 15 U/L Alanine Aminotransferase (ALT/SGPT) 19 U/L Alkaline Phosphatase 107 U/L Total Protein 7.3 gm/dl Albumin 2.9 gm/dl Globulin 4.4 gm/dl Albumin/Globulin Ratio 0.7 White Blood Count 4.33 K/uL Red Blood Count 4.62 M/uL Hemoglobin 11.1 g/dL Hematocrit 34.5 % Mean Corpuscular Volume 74.7 fL Mean Corpuscular Hemoglobin 24.0 pg Mean Corpuscular Hemoglobin Concent 32.2 g/dl Platelet Count 231 K/uL Mean Platelet Volume 10.7 fL Neutrophils (%) (Auto) 58.9 % Lymphocytes (%) (Auto) 30.0 % Monocytes (%) (Auto) 8.3 % Eosinophils (%) (Auto) 2.1 % Basophils (%) (Auto) 0.5 % Neutrophils # (Auto) 2.55 K/uL Lymphocytes # (Auto) 1.30 K/uL Monocytes # (Auto) 0.36 K/uL Eosinophils # (Auto) 0.09 K/uL Basophils # (Auto) 0.02 K/uL RDW Standard Deviation 50.8 fL RDW Coefficient of Variation 18.8 % Immature Granulocyte % (Auto) 0.2 % Immature Granulocyte # (Auto) 0.01 K/uL Prothrombin Time 11.6 SECONDS Prothromb Time International Ratio 1.1 Activated Partial Thromboplast Time 29.2 SECONDS Partial Thromboplastin Ratio 1.1 Assessment and Plan (1) UTI (urinary tract infection) Assessment & Plan: continue zosyn and caspo, will need 14 days. If pump to be changed soon, may benefit from procedure while on broad spectrum abx. will continue to follow blood cultures, negative to date. would continue current emperic abx as this will treat culture obtained as outpt on 07/21 as well. blood cultures negative and final. ok for picc from ID standpoint. Continued [facility] stay due to: multiple IV medications needed Discharge planning: uncertain
[2017-08-09] MEDS: CASPOFUNGIN INJ 50 MG in SODIUM CHLORIDE 0.9% 250ML 250 ML IV SCH (12:49)
[2017-08-09] MEDS: COLLAGENASE OINT 30 GM TUBE EXT SCH ×2 (12:49→21:00)
[2017-08-09 15:14] VITALS: BP 125/87; PULSE 71; TEMP 36.4; O2SAT 97
[2017-08-09 16:09] VITALS: O2SAT 96
[2017-08-09] MEDS: CARBAMIDE PEROXIDE 6.5% 15 ML BTL OT SCH (21:51)
[2017-08-09 23:07] VITALS: BP 156/98; PULSE 78; TEMP 36.8; O2SAT 95
[2017-08-09] MEDS: BACLOFEN TAB 20 MG TAB PO PRN (23:41)
[2017-08-10 07:13] VITALS: BP 163/104; PULSE 71; TEMP 36.5; O2SAT 96
[2017-08-10] MEDS: APIXABAN 2.5 MG TAB PO SCH ×2 (07:47→21:34)
[2017-08-10] MEDS: BACLOFEN TAB 20 MG TAB PO PRN (07:47)
[2017-08-10] MEDS: LACTOBACILLUS ACIDOPHILUS (FLORANEX) TAB PO SCH ×2 (07:48→21:34)
[2017-08-10] MEDS: CLOBETASOL PROPIONATE 0.05% OINT 15 GM TUBE EXT SCH ×2 (07:48→21:33)
[2017-08-10] MEDS: COLLAGENASE OINT 30 GM TUBE EXT SCH ×3 (07:48→21:00)
[2017-08-10] MEDS: CARBAMIDE PEROXIDE 6.5% 15 ML BTL OT SCH ×2 (07:48→21:33)
[2017-08-10 07:50] VITALS: BP 104/74; PULSE 134
[2017-08-10] MEDS: PIPERACILL/TAZOBAC IV 3.375 GM in SODIUM CHLORIDE 0.9% 100ML 100 ML IV SCH ×2 (07:50→16:43)
[2017-08-10] MEDS: HYDROmorphone INJ 0.5 MG/0.5 ML SYR IV PRN ×2 (07:52→13:19)
[2017-08-10 08:00] VITALS: O2SAT 96
[2017-08-10 08:38] LABS: BASO % 0.2 %; BASO ABS # 0.01 K/uL (0-0.2); EOS % 1.5 %; EOS ABS # 0.07 K/uL (0-0.5); HEMATOCRIT 34.1 % (42-52); HEMOGLOBIN 10.9 g/dL (14.0-18.0); IG# 0.01 K/uL (0.00-0.02); LYMPH % 30.9 %; LYMPH ABS # 1.47 K/uL (1.2-3.4); MEAN CELL VOLUME 73.8 fL (80-100); MEAN CORPUSCULAR HEMOGLOBIN 23.6 pg (25-34); MEAN PLATELET VOLUME 9.9 fL (7.4-10.4); MONO % 10.1 %; MONO ABS # 0.48 K/uL (0.11-0.59); NEUT % 57.1 %; NEUT ABS # 2.71 K/uL (1.4-6.5); PLATELET COUNT 234 K/uL (130-400); RED CELL DISTRIBUTION WIDTH CV 18.6 % (11.5-14.5); RED CELL DISTRIBUTION WIDTH SD 49.2 fL (36.4-46.3); WHITE BLOOD COUNT 4.75 K/uL (4.8-10.8)
[2017-08-10 09:03] LABS: ALBUMIN 2.8 gm/dl (3.4-5.0); ALT/SGPT 18 U/L (12-78); AST/SGOT 15 U/L (15-37); BLOOD UREA NITROGEN 6 mg/dl (7-18); CALCIUM 8.5 mg/dl (8.5-10.1); CARBON DIOXIDE 23 mmol/L (21-32); GLUCOSE 85 mg/dl (70-99); POTASSIUM 3.4 mmol/L (3.5-5.1); SODIUM 138 mmol/L (136-145)
[2017-08-10 09:06] LABS: ALKALINE PHOSPHATASE 107 U/L (45-117); TOTAL PROTEIN 7.2 gm/dl (6.4-8.2)
[2017-08-10] MEDS: POLYETHYLENE (MIRALAX) 17 GM PACK PO PRN (09:24)
--- NOTE | 2017-08-10 12:00 | Family Medicine Progress Note ---
Progress Note Date of Service Aug 10, 2017. Subjective Pt evaluation today including: conversation w/ patient, conversation w/ family , physical exam, chart review, lab review, review of studies, review of inpatient medication list Pain: Right flank pain PO Intake: adequate Voiding: brooks catheter in place No acute events. Patient continues to report ongoing right sides flank pain significantly relived with pain medication. Constitutional: No fever, No chills Respiratory: No cough, No shortness of breath Cardiovascular: No chest pain, No edema, No palpitations Abdomen: No pain, No nausea, No vomiting, No diarrhea Male : + hematuria, + problem reported (catheter in place) Neurologic: + paralysis, + problem reported (paraplegia ( chronic)) Skin: No rash Medications Current Inpatient Medications Medications (Trade) Dose Ordered Sig/Chalo Route Start Time Stop Time Status Last Admin Dose Admin Baclofen (Lioresal) BACLOFEN PAIN PUMP ... UD ITR 08/03/17 13:30 09/02/17 13:29 Diclofenac Sodium (Voltaren 1% Top Gel) 2 appln DAILY PRN EXT 08/03/17 13:30 09/02/17 13:29 08/04/17 09:42 2 APPLN Oxybutynin Chloride (Ditropan Tab) 5 mg HS PRN PO 08/03/17 13:30 09/02/17 13:29 Apixaban (Eliquis Tab) 5 mg BID PO 08/03/17 21:00 09/02/17 20:59 08/10/17 21:34 5 MG Clobetasol Propionate (Clobetasol Propionate Oint) 1 appln BID EXT 08/03/17 21:00 09/02/17 20:59 08/10/17 21:33 1 APPLN Acetaminophen (Tylenol Tab) 650 mg Q4H PRN PO 08/03/17 13:30 09/02/17 13:29 Polyethylene (Miralax Powder Packet) 17 gm DAILY PRN PO 08/03/17 13:30 09/02/17 13:29 08/10/17 09:24 17 GM Ondansetron HCl (Zofran Inj) 4 mg Q6H PRN IV 08/03/17 13:30 09/02/17 13:29 08/09/17 08:01 4 MG Miscellaneous Information (Consult) 1 ea UD PRN N/A 08/03/17 13:30 09/02/17 13:29 Oxycodone HCl (Roxicodone Immediate Rel Tab) 5 mg Q4 PRN PO 08/03/17 13:30 08/17/17 13:29 08/04/17 16:38 5 MG Piperacillin Sod/ Tazobactam Sod 3.375 gm/Sodium Chloride 115 ml @ 28.75 mls/ hr Q8H IV 08/03/17 16:00 08/17/17 15:59 08/10/17 16:43 28.75 MLS/HR Bisacodyl (Dulcolax Supp) 10 mg HS PRN [place] 08/03/17 21:00 09/02/17 20:59 08/08/17 11:58 10 MG Collagenase (Santyl Oint) 1 appln TID EXT 08/03/17 14:00 09/03/17 08:59 08/10/17 13:20 1 APPLN Baclofen (Lioresal Tab) 20 mg TID PRN PO 08/04/17 08:15 09/03/17 08:14 08/10/17 07:47 20 MG Lactobacillus Acidophilus (Floranex Tab) 4 tab BID PO 08/04/17 21:00 09/03/17 20:59 08/10/17 21:34 4 TAB Caspofungin 50 mg/ Sodium Chloride 257.1429 ml @ 250 mls/hr Q24H IV 08/07/17 12:00 08/18/17 11:59 08/10/17 12:07 250 MLS/HR Hydromorphone HCl (Dilaudid Inj) 0.5 mg Q3H PRN IV 08/08/17 09:45 08/19/17 09:14 08/10/17 13:19 0.5 MG Carbamide Peroxide (Earwax Removal Soln) 8 drops BID OT 08/09/17 21:00 08/13/17 20:59 08/10/17 21:33 8 DROPS Heparin Sodium (Porcine) (Heparin 10 Unit/ ml 5 ml Flush) 5 ml PRN PRN FLUSH 08/10/17 11:15 09/09/17 11:14 08/10/17 13:19 5 ML Objective Vital Signs Date Time Temp Pulse Resp B/P (MAP) Pulse Ox O2 Delivery O2 Flow Rate FiO2 4/17/18 16:10 36.6 88 18 95/62 (73) 94 Room Air 08/10/17 16:00 Room Air 08/10/17 08:00 96 Room Air 08/10/17 07:50 134 104/74 (84) 08/10/17 07:13 36.5 71 20 163/104 (123) 96 Room Air 08/10/17 00:00 Room Air 08/09/17 23:07 36.8 78 18 156/98 (117) 95 Room Air Physical Exam Notes: GENERAL: alert, paraplegic no distress, non-toxic EYE EXAM: normal conjunctiva, PERRL and EOM's grossly intact OROPHARYNX: no exudate, no erythema, lips, buccal mucosa, and tongue normal and mucous membranes are moist NECK: supple,no adenopathy LUNGS: Clear to auscultation. no crackles no wheezes HEART: no murmurs, S1 normal and S2 normal ABDOMEN: abdomen soft, non-tender, urostomy, colostomy in place SKIN: no rashes and no bruising UPPER EXTREMITIES: upper extremities are grossly normal. LOWER EXTREMITIES: multiple contractures NEURO EXAM: Normal sensorium, paraplegic Laboratory Results Results Past 24 Hours Test 08/10/17 08:26 Range/Units White Blood Count 4.75 4.8-10.8 K/uL Red Blood Count 4.62 4.7-6.1 M/uL Hemoglobin 10.9 14.0-18.0 g/dL Hematocrit 34.1 42-52 % Mean Corpuscular Volume 73.8 80-100 fL Mean Corpuscular Hemoglobin 23.6 25-34 pg Mean Corpuscular Hemoglobin Concent 32.0 32-36 g/dl Platelet Count 234 130-400 K/uL Mean Platelet Volume 9.9 7.4-10.4 fL Neutrophils (%) (Auto) 57.1 % Lymphocytes (%) (Auto) 30.9 % Monocytes (%) (Auto) 10.1 % Eosinophils (%) (Auto) 1.5 % Basophils (%) (Auto) 0.2 % Neutrophils # (Auto) 2.71 1.4-6.5 K/uL Lymphocytes # (Auto) 1.47 1.2-3.4 K/uL Monocytes # (Auto) 0.48 0.11-0.59 K/uL Eosinophils # (Auto) 0.07 0-0.5 K/uL Basophils # (Auto) 0.01 0-0.2 K/uL RDW Standard Deviation 49.2 36.4-46.3 fL RDW Coefficient of Variation 18.6 11.5-14.5 % Immature Granulocyte % (Auto) 0.2 % Immature Granulocyte # (Auto) 0.01 0.00-0.02 K/uL Sodium Level 138 136-145 mmol/L Potassium Level 3.4 3.5-5.1 mmol/L Chloride Level 106 98-107 mmol/L Carbon Dioxide Level 23 21-32 mmol/L Anion Gap 9.0 3-11 mmol/L Blood Urea Nitrogen 6 7-18 mg/dl Creatinine 0.40 0.60-1.40 mg/dl Est Creatinine Clear Calc Drug Dose 215.3 ml/min Estimated GFR () > 150.0 Estimated GFR (Non- 140.5 BUN/Creatinine Ratio 14.5 10-20 Random Glucose 85 70-99 mg/dl Calcium Level 8.5 8.5-10.1 mg/dl Total Bilirubin 0.4 0.2-1 mg/dl Aspartate Amino Transf (AST/SGOT) 15 15-37 U/L Alanine Aminotransferase (ALT/SGPT) 18 12-78 U/L Alkaline Phosphatase 107 45-117 U/L Total Protein 7.2 6.4-8.2 gm/dl Albumin 2.8 3.4-5.0 gm/dl Globulin 4.4 2.5-4.0 gm/dl Albumin/Globulin Ratio 0.6 0.9-2 Assessment and Plan 47 yo M paraplegic s/p colostomy s/p urostomy with chronic Brooks p/w n/v, chills admitted with Catheter associated UTI Urostomy bag with Brooks Catheter Associated UTI - UA consistent with UTI, urine cx positive for non-sonya funguria - c/w Zosyn and Caspofungin day 8 - blood cultures negative to date Hematuria - while on Eliquis -resolving Left sided abdominal pain chronic - c/w Pain control with Dilaudid 0.5mg IV q 3 hours PRN and Oxycodone 5mg po q 4 hours PRN - await further Pain management reccs Possible Osteomyelitis Scarum and left calcaneal - CT Scan suggested osteomyelitis of sacrum however closed wound and gen surg does not feel this is osteo as wound is closed - XR suggest left calcaneal osteomyelitis, Per Ortho, no need for MRI, defer intervention at this time - appreciate recs from both gen surg and ortho History of DVT - c/w Eliquis 5mg po BID- Spastic paralysis managed with Baclofen pump - appreciate pain team recommendations - pump change after patient is stable from his UTI - Continue Oxybutynin Pressure Ulcers on feet Continue Santyl TID Continue Clobetasol BID q2H repositioning VTE Prophylaxis - continue Eliquis Code - Full Disposition - s/p PICC line - Battery requiring replacement for Baclofen pump following course of abx - awaiting authorization for SNF Resident Physician Supervision Note: I interviewed and examined the patient. Discussed with Dr. Mccall and agree with findings and plan as documented in the note. Any exceptions or clarifications are listed here: None Documented By: Eduardo Macias feeling ok updated pain management on duration of abx to help coordinate pump change pt prefers SNF while on abx vitals noted nad breathing unlabored complicated UTI w chronic catheter -zosyn, caspofungin 2wks total - picc line being placed spastic paralysis -baclofen pump to be changed as above, follow closely, ezequiel to be changed on otherwise as above Continued [facility] stay due to: multiple IV medications needed [facility]charge planning[facility] jail facility Resident Tracking Resident Involvement: Resident Care Provided Care Provided: Adult Hospital Medicine
[2017-08-10] MEDS: CASPOFUNGIN INJ 50 MG in SODIUM CHLORIDE 0.9% 250ML 250 ML IV SCH (12:07)
[2017-08-10 16:10] VITALS: BP 95/62; PULSE 88; TEMP 36.6; O2SAT 94
[2017-08-10 23:43] VITALS: BP 106/59; PULSE 69; TEMP 36.6; O2SAT 95
[2017-08-11] MEDS: PIPERACILL/TAZOBAC IV 3.375 GM in SODIUM CHLORIDE 0.9% 100ML 100 ML IV SCH ×2 (00:39→08:04)
[2017-08-11 07:33] VITALS: BP 117/84; PULSE 69; TEMP 36.6; O2SAT 98
[2017-08-11 08:25] VITALS: O2SAT 98
[2017-08-11] MEDS: CLOBETASOL PROPIONATE 0.05% OINT 15 GM TUBE EXT SCH (09:00)
[2017-08-11] MEDS: COLLAGENASE OINT 30 GM TUBE EXT SCH ×2 (09:11→12:49)
[2017-08-11] MEDS: CARBAMIDE PEROXIDE 6.5% 15 ML BTL OT SCH (09:13)
[2017-08-11] MEDS: LACTOBACILLUS ACIDOPHILUS (FLORANEX) TAB PO SCH (09:13)
[2017-08-11] MEDS: APIXABAN 2.5 MG TAB PO SCH (09:13)
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
[2017-08-11 10:13] LABS: CALCIUM 8.3 mg/dl (8.5-10.1); CREATININE 0.6 mg/dl (0.60-1.40); POTASSIUM 2.8 mmol/L (3.5-5.1)
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
[2017-08-11] MEDS ORDERED: POTASSIUM CHLR 20 MEQ / WTR 20 MEQ in PREMIXED WATER 100 ML IV STA (11:09)
[2017-08-11 11:17] VITALS: BP 117/84; PULSE 69; TEMP 36.6; O2SAT 98
[2017-08-11] MEDS: CASPOFUNGIN INJ 50 MG in SODIUM CHLORIDE 0.9% 250ML 250 ML IV SCH (11:31)
[2017-08-11] MEDS: POTASSIUM CHLORIDE 20 MEQ TABCR PO SCH ×2 (11:54→12:49)
[2017-08-11] MEDS ORDERED: PIPE1INJ11 IV (13:47)
[2017-08-11] MEDS ORDERED: CNCI50 IV (13:47)
[2017-08-11] MEDS ORDERED: HYDR-5688 PO (14:07)
== END 2017-08-11 15:05 | DRG 698 ==
LOC: C.EDB 10:24 → C.MS2W 13:36 → EDBEDREQ 13:40 → ENRESERV 13:50
PROVIDERS: ADMIT Internal Medicine; ATTEND Family Medicine
PROC: 05H933Z Insertion of Infusion Device into Right Brachial Vein, Percutaneous Approach (ICD-10-PCS; principal; 2017-08-10)
DX: T83.518A Infection and inflammatory reaction due to other urinary catheter, initial encounter (principal); G82.50 Quadriplegia, unspecified; M86.9 Osteomyelitis, unspecified; B49 Unspecified mycosis; Y84.6 Urinary catheterization as the cause of abnormal reaction of the patient, or of later complication, without mention of misadventure at the time of the procedure; Z96.0 Presence of urogenital implants; N20.0 Calculus of kidney; L89.621 Pressure ulcer of left heel, stage 1; L89.159 Pressure ulcer of sacral region, unspecified stage; R10.9 Unspecified abdominal pain; R31.0 Gross hematuria; R51 Headache; S14.104S Unspecified injury at C4 level of cervical spinal cord, sequela; V89.2XXS Person injured in unspecified motor-vehicle accident, traffic, sequela; Z74.01 Bed confinement status; Z99.3 Dependence on wheelchair; Z96.89 Presence of other specified functional implants; Z87.440 Personal history of urinary (tract) infections; Z87.442 Personal history of urinary calculi; Z86.718 Personal history of other venous thrombosis and embolism; Z87.891 Personal history of nicotine dependence; Z79.01 Long term (current) use of anticoagulants; Z79.2 Long term (current) use of antibiotics; Z79.899 Other long term (current) drug therapy; Z88.2 Allergy status to sulfonamides

== ENCOUNTER 2017-08-20 08:39 | Observation (INO) | payer OTHER ==
[2017-07-22 09:47] VITALS: BMI 23.0
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
[2017-08-20] VITALS (10 sets, daily range): BP systolic 78–150; BP diastolic 53–92; PULSE 66–97; TEMP 36.6–36.7; O2SAT 95–97; Ht 182.9 cm; Wt 67.4 kg
[~2017-08-20] VITALS: Ht 182.9 cm; Wt 67.4 kg
[~2017-08-20 08:39] MED LIST changes: +CEFAZOLIN 2000MG IV PUSH 15 ML IV SCH; +CNCI50 IV; +LACTATED RINGER'S 1000ML 1,000 ML IV SCH; +PIPE1INJ11 IV; +VANCOMYCIN 1GM/270ML NSS IV SCH
[2017-08-20] MEDS ORDERED: LACTATED RINGER'S 1000ML 1,000 ML IV SCH (09:00)
[2017-08-20] MEDS ORDERED: OXYC-643 PO (09:29)
[2017-08-20] MEDS ORDERED: CLC/300 PO (09:29)
[2017-08-20 09:44] LABS: BASO % 0.5 %; BASO ABS # 0.03 K/uL (0-0.2); EOS ABS # 0.11 K/uL (0-0.5); HEMATOCRIT 37.3 % (42-52); HEMOGLOBIN 11.9 g/dL (14.0-18.0); IG# 0.02 K/uL (0.00-0.02); LYMPH % 27.6 %; LYMPH ABS # 1.55 K/uL (1.2-3.4); MEAN CELL VOLUME 75.5 fL (80-100); MEAN CORPUSCULAR HEMOGLOBIN 24.1 pg (25-34); MONO % 8.4 %; MONO ABS # 0.47 K/uL (0.11-0.59); NEUT % 61.1 %; NEUT ABS # 3.43 K/uL (1.4-6.5); PLATELET COUNT 315 K/uL (130-400); RED CELL DISTRIBUTION WIDTH CV 19.9 % (11.5-14.5); RED CELL DISTRIBUTION WIDTH SD 55.2 fL (36.4-46.3); WHITE BLOOD COUNT 5.61 K/uL (4.8-10.8)
[2017-08-20 09:53] LABS: MEAN CORPUSCULAR HGB CONC 31.9 g/dl (32-36)
[2017-08-20 10:06] LABS: CREATININE 0.6 mg/dl (0.60-1.40)
[2017-08-20 10:07] LABS: CALCIUM 8.6 mg/dl (8.5-10.1); POTASSIUM 4.6 mmol/L (3.5-5.1)
[2017-08-20] MEDS ORDERED: MIDAZOLAM HCL 1 MG/ML 2ML VIAL ONE (10:36)
[2017-08-20] MEDS ORDERED: FENTANYL CITRATE INJ 50 MCG/1 ML 2 ML VIAL ONE ×2 (10:36→11:48)
[2017-08-20] MEDS ORDERED: LIDO 2%/EPINEPHRINE 1:100000 20 ML VIAL INFIL ONE (10:39)
[2017-08-20] MEDS ORDERED: BACITRACIN 50000 UNIT VIAL ONE (10:40)
--- NOTE | 2017-08-20 10:40 | History & Physical Bridge Note ---
H&P Re-Evaluation Bridge Note: History reviewed, examination performed, pertinent laboratory and imaging studies reviewed. No contraindications noted to proceeding with the proposed procedure. Potential risks including infection, nerve injury, bleeding, hematoma or seroma formation, additional surgical procedures to address these complications, as well as failure to achieve complete relief of preoperative symptoms after the procedure were discussed with the patient. Risks associated with anesthesia required to perform this procedure were reviewed. Alternatives to this procedure were discussed with the patient. Patient's questions were answered. Patient gave informed consent. I have examined the patient, reviewed the History & Physical and in the interval since the performance of the History & Physical I have noted the following changes of clinical significance: No changes noted
[2017-08-20] MEDS ORDERED: POVIDONE-IODINE OP SOLN 30 ML BTL ONE (11:44)
[2017-08-20] MEDS ORDERED: ATROPINE SULFATE 0.1 MG/ML 5ML SYR IV PRN (12:30)
[2017-08-20] MEDS ORDERED: HYDROmorphone INJ 0.5 MG/0.5 ML SYR IV PRN (12:30)
[2017-08-20] MEDS ORDERED: FENTANYL CITRATE INJ 50 MCG/1 ML 2 ML VIAL IV PRN (12:30)
[2017-08-20] MEDS ORDERED: EpHEDrine SULFATE INJ 50 MG/ML AMP IV PRN (12:30)
[2017-08-20] MEDS ORDERED: ORM MISCELLANEOUS MED XX ONE (12:37)
--- NOTE | 2017-08-20 13:19 | [facility] Operative Report ---
Operative Report Operative Date Aug 20, 2017. Pre-Operative Diagnosis End of life of intrathecal pump Post-Operative Diagnosis End of life of intrathecal pump Procedure(s) Performed Replacement of intrathecal pump,interrogation, refill and reprogramming Surgeon Dr. Constantin Guillen Sales Representative [employer] Surgeon(s) None Estimated Blood Loss 3ml Specimens A. Explanted intrathecal pump Drains None Anesthesia Type General Complication(s) none Disposition Recovery Room / PACU Description of Procedure INTRATHECAL PUMP REPLACEMENT PROCEDURE PERFORMED: Intrathecal pump replacement, refill, interrogation and reprogram of the pump.. PREOPERATIVE DIAGNOSIS: End of life intrathecal pump POSTOPERATIVE DIAGNOSIS: Same. COMPLICATIONS: None. SURGEON: Dr. Vijay Guillen. ANESTHESIA: General/LMA. MATERIAL FORWARDED TO THE LAB: Explanted pump. EBL: 3 ml IMPLANTED PUMP SIZE: 20 mL. MEDICATIONS PLACED IN THE PUMP: Preservative-free baclofen 2000 mcg/mL and clonidine 125.0 mcg/mL INDICATIONS: The patient had an end of life pump with less than 1 month prior to system failure, thus requiring replacement. The patient was explained the risks, benefits, alternatives of the procedure and agreed to proceed as above. Informed consent was obtained and witnessed. A time out was performed after the patient was brought into the Operating Room. Antibiotics were given. The patient was then induced with general anesthesia without complications and was placed in the supine. The skin was prepped with DuraPrep and Betadine. and draped in sterile fashion. The existing pump was identified and using a scalpel , electro cautery, and blunt dissection, the existing pump was exposed. The four retaining sutures were removed and the old pump was explanted. The catheter was disconnected from the old pump and free flowing CSF was noted. No CSF from the catheter was aspirated but free flow was noted. The new pump was opened and prepared according to Induction Manager standards and was filled with 19 mL of new medication of same type and concentration. The pump catheter was secured to the new pump and secured. The catheter access port was accessed and revealed free flowing CSF. Next, the pocket was irrigated with sterile normal saline with bacitracin. Hemostasis was checked. The new pump was placed into the pocket in the 12 O'clock position. The intrathecal pump was anchored in the pocket with 4-0 Prolene sutures. Both wounds were irrigated with bacitracin-containing normal saline. Both wounds were closed in similar fashion using continuous 0 V lock suture for deeper layer and running 3-0 V lock suture for subcuticular layer. Prineo to the skin. 4 x 4 gauze and pressure dressing was applied to both sites. Abdominal binder was placed. At the conclusion of the procedure, the pump was re-interrogated and reprogrammed to deliver 3 and 39.2 mcg of baclofen and 21.20 mcg of clonidine per day. The patient was allowed to emerge from general anesthesia and transported to the recovery room in stable condition uneventfully. The patient will follow up at [facility] pain clinic within 7 days for a wound check and then plan to have the kaylene removed at day 14. I attest to the content of the Intraoperative Record and any orders documented therein. Any exceptions are noted below.
[2017-08-20] MEDS ORDERED: ONDANSETRON INJ 2 MG/ML 2 ML VIAL ONE (13:31)
[2017-08-20] MEDS ORDERED: PROPOFOL IV EMULSION 10 MG/ML 20 ML VIAL IV ONE (13:31)
[2017-08-20] MEDS ORDERED: LIDOCAINE HCL 2% 2 ML VIAL (20MG/ML) ONE (13:31)
[2017-08-20] MEDS ORDERED: EpHEDrine SULFATE 50MG/5ML SYR ONE (13:31)
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
[2017-08-20] MEDS ORDERED: NALOXONE HCL 0.4 MG/1 ML VIAL/CARP IV PRN (13:45)
[2017-08-20] MEDS ORDERED: OXYCODONE HCL IR 5 MG TAB (IMMEDIATE RELEASE) PO PRN (13:45)
[2017-08-20] MEDS ORDERED: OXYBUTYNIN CHLORIDE 5 MG TAB PO PRN (13:45)
[2017-08-20] MEDS ORDERED: BACLOFEN 50 MCG/ML ITR SCH (13:45)
[2017-08-20] MEDS ORDERED: NON-FORMULARY MEDICATION (Probiotic Product (Probiotic) 1 CAP) PO PRN (13:45)
[2017-08-20] MEDS ORDERED: ONDANSETRON INJ 8 MG in DEXTROSE 5% 50ML 50 ML IV PRN (13:45)
--- NOTE | 2017-08-20 15:14 | Anesthesiology Progress Note ---
Anesthesia Post Op Note Date & Time Aug 20, 2017 at 15:14 Vital Signs Pain Intensity: 0 Vital Signs Past 12 Hours Date Time Temp Pulse Resp B/P (MAP) Pulse Ox O2 Delivery O2 Flow Rate FiO2 08/20/17 14:57 77 14 08/20/17 14:57 77 14 95 08/20/17 14:56 114/67 08/20/17 14:52 70 15 95 08/20/17 14:52 72 15 08/20/17 14:51 109/72 08/20/17 14:47 88 19 95 08/20/17 14:47 86 19 08/20/17 14:46 111/73 08/20/17 14:42 84 19 95 08/20/17 14:42 83 19 08/20/17 14:41 115/80 08/20/17 14:37 79 17 08/20/17 14:37 79 17 95 08/20/17 14:36 118/78 08/20/17 14:32 84 13 08/20/17 14:32 85 13 95 08/20/17 14:31 101/71 08/20/17 14:27 85 16 08/20/17 14:27 85 16 97 08/20/17 14:26 108/73 08/20/17 14:24 37.4 83 18 108/73 (77) 99 Nasal Cannula 08/20/17 14:22 67 16 08/20/17 14:22 69 16 99 08/20/17 14:21 102/65 08/20/17 14:17 80 16 08/20/17 14:17 83 16 99 08/20/17 14:16 102/66 08/20/17 14:12 77 17 08/20/17 14:12 78 17 99 08/20/17 14:11 98/66 08/20/17 14:07 68 19 08/20/17 14:07 68 19 99 08/20/17 14:06 91/58 08/20/17 14:02 79 13 99 08/20/17 14:02 78 13 08/20/17 14:01 102/62 08/20/17 13:57 73 12 08/20/17 13:57 72 12 98 08/20/17 13:56 98/64 08/20/17 13:53 72 12 99 08/20/17 13:53 74 12 08/20/17 13:51 95/63 08/20/17 13:48 80 14 99 08/20/17 13:48 82 14 08/20/17 13:46 100/66 08/20/17 13:43 77 14 99 08/20/17 13:43 81 14 08/20/17 13:42 82 18 08/20/17 13:42 81 18 99 08/20/17 13:41 103/64 08/20/17 13:41 103/64 08/20/17 13:40 78 17 08/20/17 13:40 78 17 98 08/20/17 13:40 78 17 08/20/17 13:40 78 17 98 08/20/17 13:36 99/72 08/20/17 13:36 99/72 08/20/17 13:35 101 15 08/20/17 13:35 102 15 98 08/20/17 13:35 102 15 98 08/20/17 13:35 101 15 08/20/17 13:31 109/73 08/20/17 13:31 109/73 08/20/17 13:30 86 14 08/20/17 13:30 86 14 08/20/17 13:30 88 14 98 08/20/17 13:30 88 14 98 08/20/17 13:25 96 17 100/65 96 08/20/17 13:25 96 17 100/65 96 08/20/17 13:25 95 17 08/20/17 13:25 36.9 90 16 100/65 (76) 96 Oxymask 10 08/20/17 13:25 95 17 08/20/17 13:25 36.9 90 16 100/65 (76) 96 Oxymask 10 08/20/17 09:39 36.7 67 18 97/65 (76) 96 Room Air Notes Mental Status: alert / awake / arousable, participated in evaluation Pt Amnestic to Procedure: Yes Nausea / Vomiting: adequately controlled Pain: adequately controlled Airway Patency, RR, SpO2: stable & adequate BP & HR: stable & adequate Hydration State: stable & adequate Anesthetic Complications: no major complications apparent
[2017-08-20] MEDS ORDERED: IV FLUIDS COMPLETED PRN (15:45)
[2017-08-20] MEDS: CLINDAMYCIN HCL 150 MG CAP PO SCH ×2 (16:58→21:49)
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
[2017-08-20] MEDS: CLOBETASOL PROPIONATE 0.05% OINT 15 GM TUBE EXT SCH (21:49)
[2017-08-20] MEDS: POTASSIUM CITRATE 10 MEQ TAB PO SCH (21:50)
[2017-08-21] VITALS: O2SAT 95
[2017-08-21 00:30] VITALS: BP 84/52
[2017-08-21 03:56] VITALS: BP 128/87; PULSE 74; TEMP 36.7; O2SAT 97
[2017-08-21 04:00] VITALS: O2SAT 95
[2017-08-21 07:16] VITALS: BP 109/75; PULSE 87; TEMP 36.9; O2SAT 97
[2017-08-21] MEDS: POTASSIUM CITRATE 10 MEQ TAB PO SCH (07:44)
[2017-08-21] MEDS: CLINDAMYCIN HCL 150 MG CAP PO SCH (07:44)
[2017-08-21] MEDS: CLOBETASOL PROPIONATE 0.05% OINT 15 GM TUBE EXT SCH (07:45)
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
[2017-08-21 11:39] VITALS: BP 109/75; PULSE 87; TEMP 36.9; O2SAT 97
== END 2017-08-21 12:26 | disposition home or self-care (01) ==
LOC: C.ACU 08:39 → C.2T 13:47 → ENRESERV 14:16
PROVIDERS: ADMIT Anesthesiology; ATTEND Anesthesiology
DX: Z45.49 Encounter for adjustment and management of other implanted nervous system device (principal); M62.838 Other muscle spasm; G82.50 Quadriplegia, unspecified; S14.104S Unspecified injury at C4 level of cervical spinal cord, sequela; V89.2XXS Person injured in unspecified motor-vehicle accident, traffic, sequela; Z96.89 Presence of other specified functional implants; Z79.01 Long term (current) use of anticoagulants; Z79.2 Long term (current) use of antibiotics; Z79.899 Other long term (current) drug therapy; Z88.2 Allergy status to sulfonamides; Z93.3 Colostomy status; Z87.891 Personal history of nicotine dependence; Z86.718 Personal history of other venous thrombosis and embolism

== ENCOUNTER → 2017-09-02 | Outpatient (CLI) | payer OTHER ==
[~2017-09-02] MED LIST changes: -CEFAZOLIN 2000MG IV PUSH 15 ML IV SCH; +CLC/300 PO; -CNCI50 IV; -HYDR-5688 PO; -LACTATED RINGER'S 1000ML 1,000 ML IV SCH; -OXYC-57 PO; +OXYC-643 PO; -PIPE1INJ11 IV; -VANCOMYCIN 1GM/270ML NSS IV SCH
--- NOTE | 2017-09-02 15:28 | DIAGNOSTIC IMAGING REPORT ---
KUB CLINICAL HISTORY: 47 years-old Male presenting with N20.0 Nephrolithiasis. TECHNIQUE: Single supine view of the abdomen was obtained. COMPARISON: 07/14/2017. FINDINGS: A medical office professional instructor projects over the right lower quadrant with a catheter projecting over the right abdomen coursing to the spinal canal at the level of L3-4. This terminates superior to the [id number]. Moderate stool burden degrades evaluation of the renal shadows. Allowing for this, redemonstration of multifocal left renal calculi. No radiographic evidence of ureteral calculi allowing for significant limitations in image quality. Osseous structures normal. Lung bases clear. IMPRESSION: 1. Extremely limited image quality. Allowing for this no change in left nephrolithiasis. No convincing evidence of ureteral calculi. Electronically signed by: Judah Galarza M.D. 09/02/2017 3:26 PM Dictated Date/Time: 09/02/2017 3:24 PM
[2017-09-02 17:14] LABS: BASO % 0.4 %; BASO ABS # 0.03 K/uL (0-0.2); EOS % 0.4 %; EOS ABS # 0.03 K/uL (0-0.5); HEMATOCRIT 38.3 % (42-52); HEMOGLOBIN 12.6 g/dL (14.0-18.0); IG# 0.03 K/uL (0.00-0.02); LYMPH % 24.8 %; LYMPH ABS # 1.73 K/uL (1.2-3.4); MEAN CELL VOLUME 73.8 fL (80-100); MEAN CORPUSCULAR HEMOGLOBIN 24.3 pg (25-34); MEAN CORPUSCULAR HGB CONC 32.9 g/dl (32-36); MEAN PLATELET VOLUME 10.3 fL (7.4-10.4); MONO % 10.2 %; MONO ABS # 0.71 K/uL (0.11-0.59); NEUT % 63.8 %; NEUT ABS # 4.45 K/uL (1.4-6.5); PLATELET COUNT 306 K/uL (130-400); RED CELL DISTRIBUTION WIDTH CV 18.1 % (11.5-14.5); RED CELL DISTRIBUTION WIDTH SD 48.9 fL (36.4-46.3); WHITE BLOOD COUNT 6.98 K/uL (4.8-10.8)
[2017-09-02 18:34] LABS: BLOOD UREA NITROGEN 17 mg/dl (7-18); CARBON DIOXIDE 23 mmol/L (21-32); CREATININE 0.57 mg/dl (0.60-1.40); POTASSIUM 3.8 mmol/L (3.5-5.1); SODIUM 136 mmol/L (136-145)
== END | disposition home or self-care (01) ==
LOC: C.RADBC 14:20
PROVIDERS: ATTEND Urology
DX: G82.50 Quadriplegia, unspecified (principal); N20.0 Calculus of kidney

== ENCOUNTER 2018-05-23 16:20 | Inpatient (IN) ==
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
[2018-05-23] MEDS ORDERED: POLYETHYLENE (MIRALAX) 17 GM PACK PO PRN (22:21)
[2018-05-23] MEDS ORDERED: MAGNESIUM HYDROXIDE SUSP 30 ML UDC PO PRN (22:21)
[2018-05-23] MEDS ORDERED: ONDANSETRON INJ 2 MG/ML 2 ML VIAL IV PRN (22:21)
[2018-05-23] MEDS ORDERED: ALUMINUM/MAGNESIUM SUSP 30 ML UDC PO PRN (22:21)
[2018-05-23] MEDS ORDERED: ACETAMINOPHEN 325 MG TAB PO PRN (22:21)
[2018-05-23] MEDS ORDERED: VANCOMYCIN CONSULT ACTIVE PRN (22:26)
[2018-05-23] MEDS ORDERED: BISACODYL 5 MG TABEC PO PRN (22:36)
[2018-05-23] MEDS ORDERED: OXYBUTYNIN CHLORIDE 5 MG TAB PO PRN (22:41)
[2018-05-23 23:40] LABS: Basophils # (auto) 0.02 K/uL (0-0.2); Basophils % (auto) 0.3 %; Eosinophils # (auto) 0.42 K/uL (0-0.5); Eosinophils % (auto) 5.3 %; Hematocrit (blood only) 33.6 % (42-52); Hemoglobin 10.8 g/dL (14.0-18.0); Immature Granulocytes # (auto) 0.01 K/uL (0.00-0.02); Immature Granulocytes % (auto) 0.1 %; Lymphocytes # (auto) 1.14 K/uL (1.2-3.4); Lymphocytes % (auto) 14.3 %; Mean Corpuscular Hgb Conc 32.1 g/dL (32-36); Mean Corpuscular Volume 75.3 fL (80-100); Mean Platelet Volume 9.3 fL (7.4-10.4); Monocytes # (auto) 0.74 K/uL (0.11-0.59); Monocytes % (auto) 9.3 %; Neutrophils # (auto) 5.65 K/uL (1.4-6.5); Neutrophils % (auto) 70.7 %; Platelet Count 289 K/uL (130-400); RDW Coefficient of Variation 17.5 % (11.5-14.5); RDW Standard Deviation 47.1 fL (36.4-46.3); Red Blood Count 4.46 M/uL (4.7-6.1); White Blood Count 7.98 K/uL (4.8-10.8)
[2018-05-23 23:58] LABS: INR 1.3 (0.9-1.1); Partial Thromboplastin Ratio 1.2; Partial Thromboplastin Time 31.5 Seconds (21.0-31.0); Prothrombin Time 12.7 Seconds (9.0-12.0)
[2018-05-24 00:33] LABS: Albumin Level 2.5 gm/dl (3.4-5.0); BUN Creatinine Ratio 13.4 (10-20); Calcium 8.1 mg/dl (8.5-10.1); Creatinine Clr Calc Pharmacy 82.7 ml/min; Est GFR (African American) 117.2; Est GFR (Non-African American) 101.1; Potassium 3.1 mmol/L (3.5-5.1)
[2018-05-24 00:36] LABS: Albumin Globulin Ratio 0.5 (0.9-2); Bilirubin,Total 0.6 mg/dl (0.2-1); Globulin 4.8 gm/dl (2.5-4.0); Total Protein 7.3 gm/dl (6.4-8.2)
[2018-05-24] MEDS: GABAPENTIN 300 MG CAP PO SCH ×2 (00:48→22:06)
[2018-05-24] MEDS: METOPROLOL TARTRATE 25 MG TAB PO SCH ×3 (00:48→22:03)
[2018-05-24] MEDS: POTASSIUM CITRATE 10 MEQ TAB PO SCH ×3 (00:49→22:06)
[2018-05-24] MEDS: NYSTATIN CR 15 GM TUBE EXT SCH ×3 (00:49→22:04)
[2018-05-24] MEDS: ENOXAPARIN INJ 30 MG/0.3 ML SYR SQ SCH ×2 (00:50→11:02)
[2018-05-24 00:56] LABS: C Reactive Protein 11.7 mg/dl (0-0.29)
[2018-05-24] MEDS: CEFEPIME 2,000 MG in SYRINGE 7.5 ML IV SCH ×2 (02:23→14:31)
--- NOTE | 2018-05-24 06:49 | CT Scan Report ---
CT foot LT wo con CT DOSE: CLINICAL HISTORY: Suspected osteomyelitis. Quadriplegic. TECHNIQUE: Helical images were acquired in transverse plane. Sagittal and coronal reformatted images were acquired. A dose lowering technique was utilized adhering to the principles of ALARA. COMPARISON STUDY: Commensurate radiographic study dated 08/05/2017 FINDINGS: The bones are severely osteopenic. There is a chronic hindfoot deformity. There is dorsal soft tissue edema. There is a chronic hindfoot deformity. There is thinning of the soft tissues adjacent to the posterior calcaneus. There is mild sclerosis. T here is a 5 mm subcortical lucency however the overlying cortex appears largely intact. Early osteomy elitis cannot be excluded. MRI would be considered the test of choice for evaluation of early osteomy elitis. IMPRESSION: 1. Chronic hindfoot deformity 2. Dorsal soft tissue edema 3. Nonspecific 5 mm subcortical lucency within the calcaneus. An MRI would be considered the test of choice for evaluation of early osteomyelitis. Electronically signed by: Ezequiel Kessler M.D. 05/24/2018 6:48 AM
--- NOTE | 2018-05-24 07:57 | CT Scan Report ---
CT foot RT wo con CLINICAL HISTORY: 47 years-old Male presenting with query osteomyelitis. TECHNIQUE: Multidetector CT of the right foot was performed without the use of intravenous contrast. IV contrast: None. One or more dose lowering techniques were used consistent with the principles of A DEON (as low as reasonably achievable), including automatic exposure control, mA or kV adjustment to individual patient size, and/or use of iterative reconstruction. COMPARISON: Plain radiographs from 08/05/2017. CT DOSE (mGy.cm): The estimated cumulative dose is 767.59 mGy.cm. 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 Subcutaneous edema and swelling along the dorsum of the foot. Underlying osteopenia. This limits eval uation for osteomyelitis. Allowing for this, no periosteal reaction or gross evidence of osteolysis a long the dorsum of the foot. Significant thinning of the subcutaneous tissue overlying the posterior calcaneus with a suspected de cubitus ulcer. A bandage is in place. The underlying cortex of the calcaneus is indistinct. Allowing for osteopenia, no acute fracture. Chronic malalignment of the foot. The ankle mortise is co ngruent. IMPRESSION: Findings raise concern for osteomyelitis of the posterior calcaneus associated with the decubitus ulc er. MRI is more sensitive for the diagnosis of osteomyelitis. Electronically signed by: Judah Galarza M.D. 05/24/2018 7:56 AM
[2018-05-24] MEDS ORDERED: POTASSIUM CHLORIDE 20 MEQ TABCR PO SCH (09:00)
[2018-05-24] MEDS: POTASSIUM CHLORIDE / WTR 10 MEQ/100 ML PLCT IV SCH ×3 (09:13→11:30)
[2018-05-24] MEDS: dilTIAZem HCL 240 MG CAPCR PO SCH (09:16)
--- NOTE | 2018-05-24 09:40 | Consultation ---
Date of Consultation May 24, 2018 Assessment & Plan (1) Stenosis of artery of left lower extremity: Patient is a middle-aged male with quadriparesis and bilateral lower extremity heel wounds; Vascular Surgery was consulted for evaluation of arterial disease as a contributing factor to his wounds. On physical exam, patient has palpable pulses at the level of the feet bilaterally, and appears to have adequate inflow to be able to heal his wounds. I do not think the narrowing seen on the ultrasound of the arterial system of the left leg is significant enough to warrant any intervention in view of the palpable pulses in the foot. Agree with continuing aggressive local wound care and antibiotics if concern for osteomyelitis persists, but no indication for acute vascular surgery intervention at this time. Please call Vascular Surgery if have additional questions or concerns. Present on Admission?: Yes History of Present Illness Reason for Consultation: Bilateral heel ulcers Attending Physician: Kevin Marinelli History of Present Illness Patient is a 47 year old male with a history of quadriparesis following a C4/C5 injury approximately 15 years ago, admitted to [facility] for hematuria from his stoma and anemia. Upon admission he was also found to have concern for osteomyelitis originating from pressure ulcers in the bilateral heel regions, and was started on empiric antibiotics. He is currently not experiencing any pain in his bilateral lower extremities, although it is difficult to assess sensation given his quadriparesis. He believes that the left foot is "worse" than the right foot, but otherwise has no complaints. Records from the referring facility are significant for stenosis identified in the distal left SFA/left popliteal artery region, but biphasic flow was visualized in the left posterior tibial artery. Vascular Surgery was consulted for further recommendations. Allergies Allergy/AdvReac Type Severity Reaction Status Date / Time Sulfa (Sulfonamide AdvReac Mild N/V Verified 02/17/18 13:25 Antibiotics) Home Medications Home Medications Medication Instructions Recorded Confirmed Type Baclofen pump INTRATHECAL 02/14/18 02/14/18 History apixaban 5 mg tablet 5 mg PO BID 02/14/18 02/14/18 History cholecalciferol (vitamin D3) 5,000 5,000 units PO DAILY 02/14/18 05/23/18 History unit capsule clobetasol 0.05 % topical cream 1 appln TOP BID 02/14/18 05/23/18 History diclofenac 1 % topical gel 2 gm TOP .prn gm 02/14/18 02/14/18 History diltiazem ER 60 mg 60 mg PO BID 02/14/18 02/14/18 History capsule,extended release 12 hr doxycycline monohydrate 100 mg 100 mg PO DAILY 02/14/18 02/14/18 History capsule gabapentin 300 mg capsule 300 mg PO TID 02/14/18 05/23/18 History nystatin 100,000 unit/gram topical 1 appln TOP BID 02/14/18 05/23/18 History powder ondansetron HCl 4 mg tablet 4 mg PO TID PRN 02/14/18 05/23/18 History oxybutynin chloride ER 5 mg 5 mg PO DAILY 02/14/18 05/23/18 History tablet,extended release 24 hr polyethylene glycol 3350 17 PO DAILY gm 02/14/18 02/14/18 History gram/dose oral powder oxycodone 5 mg capsule 5 mg PO Q6H PRN 02/17/18 02/17/18 History Patient History Medical History Presence of intrathecal baclofen pump (Chronic) Spastic quadriparesis (Chronic) Recurrent urinary tract infection (Chronic) Nephrolithiasis (Chronic) Neurogenic bladder (Chronic) 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) History of DVT (deep vein thrombosis) (Resolved) Surgical History History of urostomy (Chronic) History of lithotripsy (Chronic) H/O cervical spine surgery (Resolved) Social History marital status: Single Current Living Situation: Family Other Information That Helps Us Care for You: No Feels Safe at Home: Yes Safety Concerns: Feels Safe At This Time Smoking Status: Former smoker Tobacco Type: cigarettes Do You Dip or Chew Tobacco: No Smoking End Date: 2008 Second Hand Exposure: Yes Tobacco Cessation Education Requested by Patient: No Hx Alcohol Use: Yes Alcohol Intake Frequency: holidays/special occasions only Hx Substance Use: No Beliefs That Will Affect Care: None Communication Ability: Effective Review of Systems Other than noted in HPI a full 14-point review of systems is negative. Physical Exam 2 Vital Signs (Past 24 Hours): Last Vital Signs Temp 36.6 C 05/24/18 07:28 Pulse 87 05/24/18 07:28 Resp 12 05/24/18 07:28 BP 127/87 05/24/18 07:28 Pulse Ox 98 05/23/18 23:38 Patient lying in bed, appears comfortable. Mild pallor. Alert and oriented x3. Nonlabored breathing. Nontachycardic on monitor. Bilateral lower extremities with bandages in place. There are +2 femoral pulses, 2+ palpable posterior tibial pulse on left and 2+ palpable dorsalis pedis pulse on right lower extremity. Brisk capillary refill, no significant edema, significant muscular atrophy of lower extremities. Arterial noninvasive suggested a significant narrowing of the left popliteal artery distally. Blood flow beyond this was biphasic.
--- NOTE | 2018-05-24 10:26 | Pharmacy Report ---
Pharmacy Abx Initial Consult - Date of Service May 24, 2018 - Pharmacy Dosing Scope Date of Consult: 05/23/18 Consultation requested by: Dr. Muna Mejia Pharmacy is consulted to initiate vancomcyin IV dosing therapy, order appropriate labs and adjust drug dose/frequency. - Subjective The patient is a 47 year old M admitted on 05/23/18 19:38. - Objective Height: 5 ft 10 in Weight: 57.6 kg Vital Signs (Past 12hrs): Vital Signs Temp Pulse Pulse Resp BP Pulse Ox 05/24/18 07:28 36.6 C 87 12 127/87 05/24/18 00:46 106 H 129/84 05/23/18 23:38 37.2 C 97 H 18 120/86 98 Lab Results (24hrs): Laboratory Tests (24 Hours) 05/24/18 05/24/18 05/23/18 00:04 00:04 23:30 WBC Neut # (Auto) ESR > 90 H Creatinine 0.89 Est Cr Clr Drug Dosing 82.7 C-Reactive Protein 11.70 H Random Vancomycin 34.1 05/23/18 05/23/18 23:26 23:26 WBC 7.98 Neut # (Auto) 5.65 ESR Creatinine Cancelled Est Cr Clr Drug Dosing Cancelled C-Reactive Protein Random Vancomycin Micro Results: 05/24/18 01:10 Urine Culture - Pending Urine,Suprapubic 05/23/18 23:26 Blood Culture - Pending Blood 05/23/18 23:30 Blood Culture - Pending Blood - Assessment & Plan Assessment 47 year old quadriplegic male admitted with pressure ulcer of both feet, concern for osteo * Admitted to [facility] on 05/19/17 with fevers, nausea, increased left sided pain, and hematuria from ostomy bag * h/o MRSA and VRE, h/o osteo of sacrum * Per [facility] records * pt was started on empiric cefepime and vancomcycin IV on 05/21 (1500 mg x1, then 1000 mg IV q12h) * trough level was drawn prior to the 4 th dose and resulted at 46.8 mcg/mL - of note a partial dose of vancomycin IV (28 mL) was infused prior to level being drawn * last full dose was given on 05/23 @ 0300 Plan Vancomycin IV * Random level ordered today @ 0004. Level remains supratherapeutic; 34.1 mcg/ mL. * Estimated PK Parameters based on trough of 46.8 mcg/mL and random level of 34.1 mcg/mL drawn 9.3 hr apart: * Vd 40.3 L/kg, Chris 0.034 hr-1, t1/2 20.4 hr * Goal trough level for osteo: 15 to 20 mcg/mL * Repeat random level ordered for 1800 today. I anticipate level to be around 18 mcg/mL at this time. * Vancomycin on hold until random level is < 20 mcg/mL Pharmacy will continue to follow and will adjust dose/frequency as necessary. Thank you.
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
[2018-05-24] MEDS: HYDROCODONE/ACETAMOPHEN 5/325MG TAB PO PRN (11:27)
[2018-05-24] MEDS: HEPARIN 100 UNIT/ML 5ML FLUSH FLUSH PRN ×2 (13:00→18:20)
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
[2018-05-24] MEDS ORDERED: DAPTOmycin 350 MG in SYRINGE 0 ML IV ONE ×2 (18:36→19:00)
--- NOTE | 2018-05-24 22:36 | Hospitalist Progress Note ---
Date of Service May 24, 2018 Assessment & Plan (1) Pressure ulcer of both feet: Pressure ulcer of both feet, concern for osteomyelitis Patient has elevated ESR. Very likely patient has osteomyelitis. ID recommended to add daptomycin. This was added to the cefepime. Patient will have Above knee amputation tomorrow. Appreciate Infectious Disease input after consult was placed. 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 Consult placed. (3) Presence of intrathecal baclofen pump: see Pain mgmt clinic nurse note -pt is not due for refill until early May -- sees [facility] Dr. Guillen. Per nurse note, "If eMrritt is still in on 05/31/18, we would like to be made aware so that we can try to make some arrangements for him to have his pump refilled. " (4) Spastic quadriparesis: [facility] bed ordered (5) Recurrent urinary tract infection: urine cultures to be drawn, pt has been on vanc/cefepime since at least 4 days (6) History of DVT (deep vein thrombosis): Home medication Eliquis was discontinued at outside hospital due to hematuria that has resolved. -recommend restart before discharging -will replace with lovenox in light of possible surgical considerations (7) History of urostomy: exploration performed at outside hospital, per pt, did not reveal any source of bleeding -routine care Spent 35 minutes in management of patient. Included chart review, discussing with consultants, and patient. Subjective Pleasant 47 yo male. He states that he is intrested in having his bilateral amputations tomorrow. He currently denies any complaints of fever, chills, nausea, vomiting. He is asking what time his procedure will be. Constitutional: no sweats and no malaise Eyes: no diplopia Ear, Nose, Mouth, Throat: no tinnitus Respiratory: no cough Cardiovascular: no chest pain Gastrointestinal: no abdominal pain Neurologic: + paralysis Endocrine: no fatigue Hematologic / Lymphatic: no easy bleeding Physical Exam 2 Vital Signs (Past 24 Hours): Last Vital Signs Temp 37.1 C 05/24/18 15:54 Pulse 72 05/24/18 22:01 Resp 15 05/24/18 15:54 BP 93/62 L 05/24/18 22:01 Pulse Ox 97 05/24/18 15:54 Physical Exam: GENERAL: Awake, alert, well-appearing, in no distress. Laying in bed. HENT: Normocephalic, atraumatic. EYES: Normal conjunctiva. Sclera non-icteric. EOMI. NECK: Supple. Full range of motion. no JVD RESPIRATORY: Clear to auscultation. CARDIAC: Regular rate, normal rhythm. Extremities warm and well perfused. Pulses faint, equal. ABDOMEN: Soft, non-distended. No tenderness to palpation. No rebound or guarding. Bowel sounds are normal. RLQ baclofen pump in place. Left sided urostomy bag in tact and draining clear yellow urine. LOWER EXTREMITIES: Calves are equal size bilaterally and insensate. 3+ edema up to ankles bilaterally. Mild discoloration. Ulcer dressings in place on bilateral feet. NEURO: Spastic quadraparesis. Insensate up to level of about mid thoracic ( level of nipples). CN II-XII in tact. SKIN: Rash not present. No jaundice noted. Several old scars on thorax and left arm, in tact. LINES: Right upper chest port in tact with no erythema or skin breakdown. RT wrist IV in place.
[2018-05-25] MEDS ORDERED: VANCOMYCIN HCL 1,000 MG in SODIUM CHLORIDE 0.9% 250 ML IV ONE (02:00)
[2018-05-25] MEDS: CEFEPIME 2,000 MG in SYRINGE 7.5 ML IV SCH ×2 (02:10→14:12)
[2018-05-25 05:58] LABS: Hematocrit (blood only) 29.1 % (42-52); Hemoglobin 9.1 g/dL (14.0-18.0); Mean Corpuscular Hgb Conc 31.3 g/dL (32-36); Mean Corpuscular Volume 77.4 fL (80-100); Mean Platelet Volume 9.4 fL (7.4-10.4); Platelet Count 240 K/uL (130-400); RDW Coefficient of Variation 17.8 % (11.5-14.5); RDW Standard Deviation 50.3 fL (36.4-46.3); Red Blood Count 3.76 M/uL (4.7-6.1); White Blood Count 5.33 K/uL (4.8-10.8)
[2018-05-25 06:44] LABS: BUN Creatinine Ratio 17.4 (10-20); Calcium 7.7 mg/dl (8.5-10.1); Creatinine Clr Calc Pharmacy 66.3 ml/min; Est GFR (African American) 90.5; Est GFR (Non-African American) 78.1; Potassium 4.3 mmol/L (3.5-5.1)
[2018-05-25] MEDS: METOPROLOL TARTRATE 25 MG TAB PO SCH ×2 (08:21→21:46)
[2018-05-25] MEDS: dilTIAZem HCL 240 MG CAPCR PO SCH (08:21)
[2018-05-25] MEDS: POTASSIUM CITRATE 10 MEQ TAB PO SCH ×2 (09:58→21:47)
[2018-05-25] MEDS: NYSTATIN CR 15 GM TUBE EXT SCH ×2 (09:59→21:48)
[2018-05-25] MEDS: HYDROCODONE/ACETAMOPHEN 5/325MG TAB PO PRN (10:15)
[2018-05-25] MEDS ORDERED: fentaNYL citrate 100 MCG/2 ML VIAL ONE (10:42)
[2018-05-25] MEDS ORDERED: GLYCOPYRROLATE 0.2 MG/ML VIAL ONE (10:42)
[2018-05-25] MEDS ORDERED: DEXAMETHASONE SOD INJ 4 MG/ML VIAL ONE (10:42)
[2018-05-25] MEDS ORDERED: NEOSTIGMINE METHYLSULFATE 5 MG/5 ML SYR ONE (10:42)
[2018-05-25] MEDS ORDERED: LIDOCAINE HCL 2% 2 ML VIAL/AMP(20MG/ML) INFIL ONE ×2 (10:42→13:58)
[2018-05-25] MEDS ORDERED: PROPOFOL IV EMULSION 10 MG/ML 20 ML VIAL IV ONE ×3 (10:42→14:18)
[2018-05-25] MEDS ORDERED: ONDANSETRON INJ 2 MG/ML 2 ML VIAL ONE (10:42)
[2018-05-25] MEDS ORDERED: MIDAZOLAM HCL 1 MG/ML 2ML VIAL ONE (10:42)
[2018-05-25] MEDS ORDERED: SODIUM NITROPRUSSIDE 50 MG/2 ML ONE (10:54)
--- NOTE | 2018-05-25 11:05 | Pharmacy Report ---
Pharmacy Abx Dose Short Note - Date of Service May 25, 2018 - Assessment & Plan Assessment 47 year old M receiving vancomycin and cefepime for treatment of possible osteomyelitis of right foot. Day # 5 of antimicrobial therapy (transfer from [facility]). Plan Vancomycin * Random vancomycin levels obtained yesterday at 0004 (34.1) and 1815 (22.2) * These levels yielded a new ke of 0.024 and corresponding t1/2 of 28.9 * Slight increase in SCr from 0.89 to 1.11. * Based on these new PK parameters, will adjust vancomycin dose to 1 g IV (17 mg /kg) q36h * Patient agreed to elective bilateral above the knee amputations (surgery scheduled for today) * If source control is achieved. Vancomycin/cefepime may no longer be necessary. Cefepime * Continue cefepime 2 g IV q12h for now. Pharmacy will continue to follow and will adjust dose/frequency as necessary. Thank you.
--- NOTE | 2018-05-25 11:07 | Pain Management Consultation ---
Date of Consultation May 25, 2018 Assessment & Plan (1) Presence of intrathecal baclofen pump: The intrathecal pump was interrogated and the low reservoir volume was decreased to 1mL to further prolong pump refill date as he does have active osteomyelitis and having a large surgery performed today. Pump refill date is scheduled for 06/02/18 at 1300. History of Present Illness Attending Physician: Kevin Marinelli History of Present Illness Mr. Perkins is a 47 year old white male that is well known to the [facility] with spastic quadraplegia that has required the implantation of an intrathecal pump and catheter delivery system. The pump does contain Balcofen, and recently introduced a small amount of Morphine to control chronic spasms and chronic abdominal pain. He has been hospitalized for osteomyelitis in the lower extremities as well as GI bleeding that required a blood transfusion. Patient is scheduled for a bilateral above the knee amputation today which he is very excited about as he did try to have a tendon release done but it kept getting cancelled because of the chronic lower extremity osteomyelitis. Patient denies any complaints at this time. Case discussed with Dr. Shayla Patel Allergies Allergy/AdvReac Type Severity Reaction Status Date / Time Sulfa (Sulfonamide AdvReac Mild N/V Verified 02/17/18 13:25 Antibiotics) Home Medications Home Medications Medication Instructions Recorded Confirmed Type Baclofen pump INTRATHECAL 02/14/18 02/14/18 History apixaban 5 mg tablet 5 mg PO BID 02/14/18 02/14/18 History cholecalciferol (vitamin D3) 5,000 5,000 units PO DAILY 02/14/18 05/23/18 History unit capsule clobetasol 0.05 % topical cream 1 appln TOP BID 02/14/18 05/23/18 History diclofenac 1 % topical gel 2 gm TOP .prn gm 02/14/18 02/14/18 History diltiazem ER 60 mg 60 mg PO BID 02/14/18 02/14/18 History capsule,extended release 12 hr doxycycline monohydrate 100 mg 100 mg PO DAILY 02/14/18 02/14/18 History capsule gabapentin 300 mg capsule 300 mg PO TID 02/14/18 05/23/18 History nystatin 100,000 unit/gram topical 1 appln TOP BID 02/14/18 05/23/18 History powder ondansetron HCl 4 mg tablet 4 mg PO TID PRN 10/22/18 01/28/19 History oxybutynin chloride ER 5 mg 5 mg PO DAILY 02/14/18 05/23/18 History tablet,extended release 24 hr polyethylene glycol 3350 17 PO DAILY gm 02/14/18 02/14/18 History gram/dose oral powder oxycodone 5 mg capsule 5 mg PO Q6H PRN 02/17/18 02/17/18 History Patient History Medical History Presence of intrathecal baclofen pump (Chronic) Spastic quadriparesis (Chronic) Recurrent urinary tract infection (Chronic) Nephrolithiasis (Chronic) Neurogenic bladder (Chronic) 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) History of DVT (deep vein thrombosis) (Resolved) Surgical History History of urostomy (Chronic) History of lithotripsy (Chronic) H/O cervical spine surgery (Resolved) Social History marital status: Single Current Living Situation: Family Feels Safe at Home: Yes Smoking Status: Former smoker Tobacco Type: cigarettes Second Hand Exposure: Yes Hx Alcohol Use: Yes Alcohol Intake Frequency: holidays/special occasions only Hx Substance Use: No Beliefs That Will Affect Care: None Communication Ability: Effective Review of Systems Denies any constitutional, cardiac, pulmonary, neurological, GI, , extremity, endocrine, neuro, ENT, dermatological, or musculoskeletal complaints other than stated in HPI Physical Exam 2 Vital Signs (Past 24 Hours): Last Vital Signs Temp 36.9 C 05/25/18 07:12 Pulse 72 05/25/18 07:12 Resp 16 05/25/18 07:12 BP 92/54 L 05/25/18 07:12 Pulse Ox 95 05/25/18 07:12 Physical Exam: GENERAL: Mr. Perkins appears to be his approximate stated age of 47. The patient is thin and frail in appearance. His speech and thought process are appropriate. Cognition intact. EXTREMITIES: The patient has visible evidence for spastic rigidity of the upper and lower extremities bilaterally. Significant flexion contracture of the hand and wrist bilaterally, left greater than right sided. ABDOMEN: Pump site is unremarkable without evidence of edema, erythema or skin breakdown. Colostomy is present in the left lower quadrant without evidence of edema, erythema or skin breakdown. Pump is located in the RLQ of abdomen. NEURO: Cranial nerves are grossly intact.
--- NOTE | 2018-05-25 12:33 | History & Physical Bridge Note ---
Date of Service May 25, 2018 History & Physical Bridge Note I have examined the patient, reviewed the History & Physical and in the interval since the performance of the History & Physical I have noted the following changes of clinical significance: no changes noted
[2018-05-25] MEDS ORDERED: BACITRACIN INJ 50,000 UNIT VIAL ONE (12:36)
[2018-05-25] MEDS ORDERED: BUPIVACAINE 0.5 % 5 MG/1 ML PF 10ML VIAL ONE (12:47)
--- NOTE | 2018-05-25 12:48 | Progress Note ---
DATE: 05/25/2018 SUBJECTIVE: A 47-year-old gentleman with paraplegia with bilateral heel ulcers and osteomyelitis. He is doing okay. He really does not have any pain as he can feel his legs. No other complaints. PHYSICAL EXAMINATION: EXTREMITIES: Examination of both legs reveals open wounds down to his heels on both sides. He has got dry tissue around there. Not a lot of cellulitis. Some diffuse edema in his lower extremities. He has got global contractures of his knees, his foot and ankle. LABORATORY DATA: Hemoglobin is 9.1. Hematocrit 29.1. Electrolytes are stable. Potassium is improved. ASSESSMENT: A 47-year-old gentleman, 15+-year paraplegic with a bilateral heel ulcers and chronic osteomyelitis. We once again talked about treatment and I think in this gentleman the most appropriate treatment is bilateral above knee amputations. If we do a BKA, he is just going to get ulcers in the bottom of his stumps due to the contractures. We had a long discussion and he would really like to proceed with bilateral above knee amputations. We will proceed. We will do the right side first. Depending on how he is doing, we will proceed with the left side. The risks and benefits of this procedure were explained to the patient including but not limited to DVT, PE, , infection, neurological injury, vascular injury, bleeding problems, persistent pain, heart failure to heal, persistent ulcerations, etc. The patient understands and desires to proceed. Informed consent was obtained. We will keep him on his perioperative antibiotics that he is already on. His Lovenox has been stopped. All questions have been answered. GAYLE
[2018-05-25] MEDS ORDERED: BUPIVACAINE/EPINEPHRINE 0.5% MPF 1:200,000 30 ML VIAL ONE (14:15)
--- NOTE | 2018-05-25 15:50 | Post Operative Brief Note ---
Immediate Post Op Note v1 Date of Surgery May 25, 2018 Pre & Post Diagnosis Operation Date: 05/25/18 11:00 Pre-Op Diagnosis: OSTEOMYELITIS - Bilateral Lower Extremity Post-Op Diagnosis: OSTEOMYELITIS - Bilateral Lower Extremity Procedure Operation Date: 05/25/18 11:00 Actual Procedures p Bilateral Above Knee Amputation(Bilateral) - Adrian Lopez MD Surgeon Adrian Lopez MD [employer] [facility], PAC Estimated Blood Loss 100 Findings Consistent with Post-Op Diagnosis Specimens Bilateral Lower Extemities Anesthesia Type Spinal Complications none Disposition Accompanied Patient To Recovery: No Disposition: Recovery Room
[2018-05-25] MEDS ORDERED: ATROPINE SULFATE 0.1 MG/ML 10ML SYR IV PRN (15:53)
[2018-05-25] MEDS ORDERED: ePHEDrine sulfate 50 MG/ML AMP IV PRN (15:53)
[2018-05-25] MEDS ORDERED: METOCLOPRAMIDE HCL INJ 5 MG/ML 2 ML VIAL IV PRN (17:25)
[2018-05-25] MEDS: HEPARIN 100 UNIT/ML 5ML FLUSH FLUSH PRN (17:57)
--- NOTE | 2018-05-25 18:08 | Anesthesiology Progress Note ---
Date of Service May 25, 2018 Anesthesia Post Procedure Vital Signs Vital Signs: Temp Pulse Pulse Resp BP BP Pulse Ox 05/25/18 17:45 36.5 C 72 18 103/67 93 05/25/18 16:45 36.4 C L 62 18 96/58 L 97 05/25/18 16:35 36.4 C L 62 18 96/56 L 97 05/25/18 16:25 74 18 95/58 L 97 05/25/18 16:15 69 18 94/59 L 97 05/25/18 16:05 69 20 99/58 L 96 05/25/18 15:59 36.5 C 64 20 98/59 L 98/59 L 95 05/25/18 12:24 36.9 C 77 20 109/64 97 05/25/18 07:12 36.9 C 72 16 92/54 L 95 05/24/18 23:33 37.0 C 78 16 86/58 L 97 05/24/18 22:01 72 93/62 L 91/60 L Pain Intensity Upper Ribs: Pain Intensity: 0 Left Flank: Pain Intensity: 8 Notes Mental Status: alert / awake / arousable and participated in evaluation Nausea / Vomiting: adequately controlled Pain: adequately controlled Airway Patency, RR, SpO2: stable & adequate BP & HR: stable & adequate Hydration State: stable & adequate Neuraxial Anesthesia: was administered and see Notes below (Patient had no sensation below T4 prior to placement of spinal - patient was at his baseline at the time of d/c from PACU, but unable to track the spinal due to his quadraplegia) Anesthetic Complications: no major complications apparent
[2018-05-25] MEDS: FERROUS GLUCONATE 324 MG TAB PO SCH (18:29)
[2018-05-25] MEDS: GABAPENTIN 300 MG CAP PO SCH (21:47)
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
[2018-05-26] MEDS: CEFEPIME 2,000 MG in SYRINGE 7.5 ML IV SCH ×2 (01:33→14:10)
[2018-05-26] MEDS: HEPARIN 100 UNIT/ML 5ML FLUSH FLUSH PRN ×6 (01:33→19:22)
[2018-05-26] MEDS: HYDROCODONE/ACETAMOPHEN 5/325MG TAB PO PRN ×2 (01:41→09:39)
[2018-05-26 06:39] LABS: Creatinine Clr Calc Pharmacy 69.4 ml/min; Est GFR (African American) 95.7; Est GFR (Non-African American) 82.6
--- NOTE | 2018-05-26 08:01 | Progress Note ---
DATE: 05/26/2018 SUBJECTIVE: A 47-year-old paraplegic postop day 1 from bilateral above knee amputations for chronic lower extremity infections and ulcers. He is doing well. Reports no pain. He is in good spirits. OBJECTIVE: VITAL SIGNS: Temperature 37.3. Vital signs stable. EXTREMITIES: Examination of both lower extremities reveals the dressing to be clean, dry and intact. No signs of any significant drainage. LABORATORY DATA: Labs are still pending. ASSESSMENT: A 47-year-old gentleman postop day 1 from bilateral above knee amputations, doing pretty well. Not really having any pain. He has been anemic, but currently without symptoms. PLAN: 1. DVT prophylaxis including bilateral thigh-high TEDs and SCDs early on an option in this gentleman. We would recommend a baby aspirin twice a day. His mobility status really is unchanged from previously. 2. PT/OT. He can be instructed on transfers. 3. Medical management. 4. Disposition: He is orthopedically stable for discharge any time medically stable. I think once he has had 24 hours of postoperative antibiotics, he does not need any more antibiotics from the orthopedic standpoint. He needs to leave these bandages on for 2 weeks. I will see him back in my office in 2 weeks. Any orthopedic questions can be directed at [phone].
[2018-05-26 08:11] LABS: Hematocrit (blood only) 30.1 % (42-52); Hemoglobin 9.1 g/dL (14.0-18.0); Mean Corpuscular Hgb Conc 30.2 g/dL (32-36); Mean Corpuscular Volume 78.2 fL (80-100); Mean Platelet Volume 9.6 fL (7.4-10.4); Platelet Count 259 K/uL (130-400); RDW Standard Deviation 51.5 fL (36.4-46.3); Red Blood Count 3.85 M/uL (4.7-6.1)
[2018-05-26 08:31] LABS: Calcium 7.6 mg/dl (8.5-10.1); Creatinine Clr Calc Pharmacy 77.5 ml/min; Est GFR (African American) 109.3; Est GFR (Non-African American) 94.3; Potassium 3.9 mmol/L (3.5-5.1)
[2018-05-26] MEDS: PANTOprazole 40 MG TAB PO SCH (09:16)
[2018-05-26] MEDS: dilTIAZem HCL 240 MG CAPCR PO SCH (09:16)
[2018-05-26] MEDS: MULTIVITAMIN TAB PO SCH (09:16)
[2018-05-26] MEDS: FERROUS GLUCONATE 324 MG TAB PO SCH ×3 (09:16→16:23)
[2018-05-26] MEDS: NYSTATIN CR 15 GM TUBE EXT SCH ×2 (09:16→21:25)
[2018-05-26] MEDS: METOPROLOL TARTRATE 25 MG TAB PO SCH ×2 (09:17→21:29)
[2018-05-26] MEDS: POTASSIUM CITRATE 10 MEQ TAB PO SCH ×2 (09:17→21:29)
--- NOTE | 2018-05-26 09:39 | Anesthesiology Progress Note ---
Date of Service May 26, 2018 Anesthesia Post Procedure Vital Signs Vital Signs: Temp Pulse Pulse Resp BP BP Pulse Ox 05/26/18 09:10 108 H 16 121/85 94 05/26/18 07:20 37.5 C 98 H 16 120/80 95 05/26/18 04:11 37.3 C 93 H 16 110/76 94 05/25/18 23:19 36.9 C 74 15 97/68 L 94 05/25/18 21:45 68 18 90/55 L 95 05/25/18 19:58 68 12 92/56 L 93 05/25/18 18:58 73 18 92/59 L 93 05/25/18 17:58 67 18 95/62 L 94 05/25/18 17:45 36.5 C 72 18 103/67 93 05/25/18 16:45 36.4 C L 62 18 96/58 L 97 05/25/18 16:35 36.4 C L 62 18 96/56 L 97 05/25/18 16:25 74 18 95/58 L 97 05/25/18 16:15 69 18 94/59 L 97 05/25/18 16:05 69 20 99/58 L 96 05/25/18 15:59 36.5 C 64 20 98/59 L 98/59 L 95 05/25/18 12:24 36.9 C 77 20 109/64 97 Pain Intensity Upper Ribs: Pain Intensity: 0 Left Flank: Pain Intensity: 6 Notes Mental Status: alert / awake / arousable and participated in evaluation Patient Amnestic to Procedure: Yes Nausea / Vomiting: adequately controlled Pain: adequately controlled Airway Patency, RR, SpO2: stable & adequate BP & HR: stable & adequate Hydration State: stable & adequate Neuraxial Anesthesia: was administered and sensory block is resolving Anesthetic Complications: no major complications apparent and Pt Satisfied with anesthetic care
--- NOTE | 2018-05-26 10:25 | Hospitalist Progress Note ---
Date of Service May 25, 2018 Assessment & Plan (1) Pressure ulcer of both feet: Pressure ulcer of both feet, concern for osteomyelitis Patient has elevated ESR. Very likely patient has osteomyelitis. ID recommended to add daptomycin. This was added to the cefepime. Patient had Above knee amuptation today. Will continue antibiotics for at least 24 hours. Will continue to monitor. 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 Consult placed. As noted above, above kne amputation were done bilaterally. (3) Presence of intrathecal baclofen pump: see Pain mgmt clinic nurse note -pt is not due for refill until early May -- sees [facility] Dr. Guillen. Per nurse note, "If Merritt is still in on 05/31/18, we would like to be made aware so that we can try to make some arrangements for him to have his pump refilled. " (4) Spastic quadriparesis: [facility] bed ordered (5) Recurrent urinary tract infection: urine cultures to be drawn, pt has been on vanc/cefepime since at least 4 days (6) History of DVT (deep vein thrombosis): Home medication Eliquis was discontinued at outside hospital due to hematuria that has resolved. -recommend restart before discharging -will replace with lovenox in light of possible surgical considerations (7) History of urostomy: exploration performed at outside hospital, per pt, did not reveal any source of bleeding -routine care Spent 25 minutes in management of patient. Included chart review, discussing with consultants, and patient. Subjective Patient reports no new complaints. He just states that he is drowsy after his procedure. Patient denies any fever, chills, nausea, vomiting. Physical Exam 2 Vital Signs (Past 24 Hours): Last Vital Signs Temp 36.5 C 05/25/18 17:45 Pulse 72 05/25/18 17:45 Resp 18 05/25/18 17:45 BP 96/58 05/25/18 17:45 Pulse Ox 97 05/25/18 17:45 Physical Exam: GENERAL: Awake, alert, well-appearing, in no distress. Laying in bed. HENT: Normocephalic, atraumatic. EYES: Normal conjunctiva. Sclera non-icteric. EOMI. NECK: Supple. Full range of motion. no JVD RESPIRATORY: Clear to auscultation. CARDIAC: Regular rate, normal rhythm. Extremities warm and well perfused. Pulses faint, equal. ABDOMEN: Soft, non-distended. No tenderness to palpation. No rebound or guarding. Bowel sounds are normal. RLQ baclofen pump in place. Left sided urostomy bag in tact and draining clear yellow urine. LOWER EXTREMITIES: S/P Above knee amputation NEURO: Spastic quadraparesis. Insensate up to level of about mid thoracic ( level of nipples). CN II-XII in tact. SKIN: Rash not present. No jaundice noted. Several old scars on thorax and left arm, in tact. LINES: Right upper chest port in tact with no erythema or skin breakdown. .
--- NOTE | 2018-05-26 13:34 | Infectious Disease Progress Nt ---
Date of Service May 26, 2018 Assessment & Plan (1) Acute osteomyelitis of right calcaneus: Patient with chronic bilateral foot infections in the setting of quadriplegia, now status post bilateral AKA's. Given that site of infection has been removed, think that IV antibiotics can be safely discontinued. Will discuss with all involved. Will follow. (2) Pressure ulcer of both feet: Subjective Patient seen in follow-up for osteomyelitis of the feet. Recent events reviewed. Patient now status post bilateral itudt-kog-twuq amputations. Remains afebrile. Pain reasonably well controlled. No other new complaints. Review of Systems All systems reviewed & are unremarkable except as noted in HPI & below Physical Exam 2 Vital Signs (Past 24 Hours): Last Vital Signs Temp 37.9 C H 05/26/18 12:27 Pulse 100 H 05/26/18 12:27 Resp 20 05/26/18 12:27 BP 110/72 05/26/18 12:27 Pulse Ox 93 05/26/18 12:27 Constitutional: WD/WN, vitals as above comfortable; no acute distress Eyes: PERRL, conjunctivae normal, anicteric sclerae ENMT: external ear and nose normal, oropharynx normal Neck: trachea midline, no thyromegaly neck nontender Respiratory: normal respiratory effort, lungs clear to auscultation normal percussion; does not use accessory muscles Cardiovascular: Rate/Rhythm: regular rate and regular rhythm Heart Sounds: normal S1 and normal S2; no gallop, no murmur and no cardiac rub Vessels: normal peripheral pulses; no JVD Gastrointestinal (Abdomen): normal bowel sounds, soft, nontender, no hepatosplenomegaly Musculoskeletal: Head/Neck/Chest: normocephalic and head atraumatic Skin: normal turgor; no rashes Surgical dressing intact Neurologic: awake Psychiatric: A+Ox3, euthymic affect Orientation: cooperative Lymphatic: no cervical or axillary lymphadenopathy no inguinal lymphadenopathy Results & Data Laboratory Results Short CBC 05/26/18 Range/Units 07:49 WBC 7.50 (4.8-10.8) K/uL Hgb 9.1 L (14.0-18.0) g/dL Hct 30.1 L (42-52) % Plt Count 259 (130-400) K/uL BMP 05/26/18 05/26/18 05:31 07:49 Sodium 138 Potassium 3.9 Chloride 107 Carbon Dioxide 24 BUN 19 H Creatinine 1.06 0.95 Glucose 119 H Calcium 7.6 L Diagnostic Findings Microbiology 05/24/18 01:10 Urine,Suprapubic Urine Culture - Final No growth - less than 1,000 colonies/mL. 05/23/18 23:30 Blood Blood Culture - Preliminary No growth to date. 05/23/18 23:26 Blood Blood Culture - Preliminary No growth to date.
--- NOTE | 2018-05-26 15:12 | Pharmacy Report ---
Pharmacy Abx Dose Short Note - Date of Service May 26, 2018 - Assessment & Plan Assessment 47 year old M on vancomycin and cefepime IV for treatment of acute osteomyelitis of right calcaneus * POD # 1 s/p b/l above the knee amputation * Day # 6 of antimicrobial therapy (started at [facility]) * The plan was to discontinue antibiotics 24 hours post -op since the source of infection has been removed. Patient spiked a fever today at 1227 (37.9 C), therefore antibiotics were continued for an additional 24 hours. Plan Continue antibiotics another 24 hours: Vancomycin * Estimated ke = 0.024 mcg/mL, half life = 28.9 hr (based on previous levels) * Will order a singe dose of 1000 mg IV (17 mg/kg) for now - patient does not require re-dosing unless antibiotics are continued * Goal trough level for osteo: 15 to 20 mcg/mL * Trough level not ordered at this time; if antibiotics are continued, I recommend checking trough prior to next dose Cefepime - resume 2000 mg IV q12h (not pharm consult) Pharmacy will continue to follow and will adjust dose/frequency as necessary. Thank you.
[2018-05-26] MEDS ORDERED: VANCOMYCIN HCL 1,000 MG in SODIUM CHLORIDE 0.9% 250 ML IV ONE (15:30)
[2018-05-26] MEDS: GABAPENTIN 300 MG CAP PO SCH (21:29)
--- NOTE | 2018-05-26 23:27 | Hospitalist Progress Note ---
Date of Service May 26, 2018 Assessment & Plan (1) Pressure ulcer of both feet: Pressure ulcer of both feet, concern for osteomyelitis Patient has elevated ESR. Very likely patient has osteomyelitis. Patient on vanco and cefepime Patient had Above knee amuptation S/P Day 1 Will continue antibiotics for at least 24 hours more due to fever today. repeated cultures. Will continue to monitor. 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 Consult placed. As noted above, above knee amputation were done bilaterally. (3) Presence of intrathecal baclofen pump: see Pain mgmt clinic nurse note -pt is not due for refill until early May -- sees [facility] Dr. Guillen. Per nurse note, "If Merritt is still in on 05/31/18, we would like to be made aware so that we can try to make some arrangements for him to have his pump refilled. " (4) Spastic quadriparesis: [facility] bed ordered (5) Recurrent urinary tract infection: urine cultures to be drawn, pt has been on vanc/cefepime since at least 4 days (6) History of DVT (deep vein thrombosis): Home medication Eliquis was discontinued at outside hospital due to hematuria that has resolved. -recommend restart before discharging -will replace with lovenox in light of possible surgical considerations (7) History of urostomy: exploration performed at outside hospital, per pt, did not reveal any source of bleeding -routine care Spent 35 minutes in management of patient. Included chart review, discussing with consultants, and patient. Subjective Patient reports havng fever and chills. Patient denies any nausea, vomiting. Neurologic: + paralysis Physical Exam 2 Vital Signs (Past 24 Hours): Last Vital Signs Temp 37.6 C H 05/26/18 23:00 Pulse 100 H 05/26/18 23:00 Resp 14 05/26/18 23:00 BP 111/77 05/26/18 23:00 Pulse Ox 96 05/26/18 23:00 Physical Exam: GENERAL: Awake, alert, well-appearing, in no distress. Laying in bed. HENT: Normocephalic, atraumatic. EYES: Normal conjunctiva. Sclera non-icteric. EOMI. NECK: Supple. Full range of motion. no JVD RESPIRATORY: Clear to auscultation. CARDIAC: Regular rate, normal rhythm. Extremities warm and well perfused. Pulses faint, equal. ABDOMEN: Soft, non-distended. No tenderness to palpation. No rebound or guarding. Bowel sounds are normal. RLQ baclofen pump in place. Left sided urostomy bag in tact and draining clear yellow urine. LOWER EXTREMITIES: S/P Above knee amputation NEURO: Spastic quadraparesis. Insensate up to level of about mid thoracic ( level of nipples). CN II-XII in tact. SKIN: Rash not present. No jaundice noted. Several old scars on thorax and left arm, in tact. LINES: Right upper chest port in tact with no erythema or skin breakdown. .
[2018-05-27] MEDS: HYDROCODONE/ACETAMOPHEN 5/325MG TAB PO PRN ×2 (01:02→16:45)
[2018-05-27] MEDS ORDERED: BISACODYL 10 MG SUPP PR ONE (02:05)
[2018-05-27] MEDS: CEFEPIME 2,000 MG in SYRINGE 7.5 ML IV SCH ×2 (02:47→14:03)
[2018-05-27] MEDS: HEPARIN 100 UNIT/ML 5ML FLUSH FLUSH PRN ×4 (02:49→19:34)
[2018-05-27 06:31] LABS: Creatinine Clr Calc Pharmacy 96.8 ml/min; Est GFR (Non-African American) 107.9
[2018-05-27] MEDS: METOPROLOL TARTRATE 25 MG TAB PO SCH ×2 (09:59→21:23)
[2018-05-27] MEDS: PANTOprazole 40 MG TAB PO SCH (09:59)
[2018-05-27] MEDS: MULTIVITAMIN TAB PO SCH (09:59)
[2018-05-27] MEDS: FERROUS GLUCONATE 324 MG TAB PO SCH ×3 (10:00→19:35)
[2018-05-27] MEDS: dilTIAZem HCL 240 MG CAPCR PO SCH (10:00)
[2018-05-27] MEDS: POTASSIUM CITRATE 10 MEQ TAB PO SCH ×2 (10:00→21:21)
[2018-05-27] MEDS: NYSTATIN CR 15 GM TUBE EXT SCH ×2 (10:56→21:22)
--- NOTE | 2018-05-27 14:58 | Pharmacy Report ---
Pharmacy Abx Dose Short Note - Date of Service May 27, 2018 - Assessment & Plan Assessment 47 year old M on vancomycin and cefepime IV for treatment of acute osteomyelitis of right calcaneus * POD # 2 s/p b/l above the knee amputation * Day # 7 of antimicrobial therapy (started at [facility]) * Antibiotics were extended through today. Pt continued to be febrile yesterday evening. Dr. Marinelli would like to continue antibiotics through tomorrow morning for now. * Random level ordered for today. * Nursing to obtain new weight since surgery. Plan Vancomycin * Random level of 14.9 mcg/mL is subtherapeutic * Ordered 750 mg x 1 today. * Goal trough level : 15 to 20 mcg/mL * No further levels ordered at this time. Consider ordering a random level tomorrow if antibiotics extended. Cefepime * Continue 2gm q12h (not a pharmacy consult) Pharmacy will continue to follow and will adjust dose/frequency as necessary. Thank you.
[2018-05-27] MEDS ORDERED: VANCOMYCIN HCL 1,000 MG in SODIUM CHLORIDE 0.9% 250 ML IV ONE (15:00)
[2018-05-27] MEDS ORDERED: VANCOMYCIN HCL 750 MG in SODIUM CHLORIDE 0.9% 250 ML IV ONE (16:30)
[2018-05-27] MEDS: GABAPENTIN 300 MG CAP PO SCH (21:21)
[2018-05-28] MEDS: HEPARIN 100 UNIT/ML 5ML FLUSH FLUSH PRN ×3 (01:50→14:23)
[2018-05-28] MEDS: CEFEPIME 2,000 MG in SYRINGE 7.5 ML IV SCH ×2 (01:50→14:22)
[2018-05-28] MEDS: dilTIAZem HCL 240 MG CAPCR PO SCH (08:34)
[2018-05-28] MEDS: METOPROLOL TARTRATE 25 MG TAB PO SCH ×2 (08:34→21:22)
[2018-05-28] MEDS: HYDROCODONE/ACETAMOPHEN 5/325MG TAB PO PRN ×2 (08:37→18:20)
[2018-05-28] MEDS: BISACODYL 10 MG SUPP PR PRN (08:38)
[2018-05-28] MEDS: PANTOprazole 40 MG TAB PO SCH (08:38)
[2018-05-28] MEDS: FERROUS GLUCONATE 324 MG TAB PO SCH ×3 (08:38→18:31)
[2018-05-28] MEDS: MULTIVITAMIN TAB PO SCH (08:38)
[2018-05-28] MEDS: ONDANSETRON INJ 2 MG/ML 2 ML VIAL IV PRN (08:38)
[2018-05-28] MEDS: NYSTATIN CR 15 GM TUBE EXT SCH ×2 (08:39→21:23)
[2018-05-28] MEDS: POTASSIUM CITRATE 10 MEQ TAB PO SCH ×2 (08:47→21:22)
--- NOTE | 2018-05-28 08:48 | Hospitalist Progress Note ---
Date of Service May 27, 2018 Assessment & Plan (1) Pressure ulcer of both feet: Pressure ulcer of both feet, concern for osteomyelitis Patient has elevated ESR. Very likely patient has osteomyelitis. Patient on vanco and cefepime Patient had Above knee amuptation S/P Day 2 Patient had fever around 11pm on 05/26 Will continue antibiotics at least until morning of 05/28 repeated cultures on 05/26. Will continue to monitor. 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 Consult placed. As noted above, above knee amputation were done bilaterally. (3) Presence of intrathecal baclofen pump: see Pain mgmt clinic nurse note -pt is not due for refill until early May -- sees [facility] Dr. Guillen. Per nurse note, "If Merritt is still in on 05/31/18, we would like to be made aware so that we can try to make some arrangements for him to have his pump refilled. " Patient would like to get his pump refilled Wednesday. will discus with pain management. (4) Spastic quadriparesis: [facility] bed ordered (5) Recurrent urinary tract infection: urine cultures to be drawn, pt has been on vanc/cefepime since at least 4 days (6) History of DVT (deep vein thrombosis): Home medication Eliquis was discontinued at outside hospital due to hematuria that has resolved. -recommend restart before discharging -will restart eliquis in AM. (7) History of urostomy: exploration performed at outside hospital, per pt, did not reveal any source of bleeding -routine care Spent 25 minutes in management of patient. Included chart review, discussing with consultants, and patient. Subjective Patient reports feeling better in regards to his fever, chills. Patient though states that his abdominal pain which is chronic is acting up which has caused him to be nauseous today. He reports that he has apian pump that will be filled next week. He is worried about his trip back home given that he lives by [address], and his center of gravity is changed now that he has a bilateral above knee amputation. Neurologic: + paralysis Physical Exam 2 Vital Signs (Past 24 Hours): Last Vital Signs Temp 37 C 05/27/18 07:44 Pulse 85 05/27/18 07:44 Resp 14 05/27/18 07:44 BP 114/79 05/27/18 07:44 Pulse Ox 99 05/27/18 07:44 Physical Exam: GENERAL: Awake, alert, well-appearing, in no distress. Laying in bed. HENT: Normocephalic, atraumatic. EYES: Normal conjunctiva. Sclera non-icteric. EOMI. NECK: Supple. Full range of motion. no JVD RESPIRATORY: Clear to auscultation. CARDIAC: Regular rate, normal rhythm. Extremities warm and well perfused. Pulses faint, equal. ABDOMEN: Soft, non-distended. No tenderness to palpation. No rebound or guarding. Bowel sounds are normal. RLQ baclofen pump in place. Left sided urostomy bag in tact and draining clear yellow urine. LOWER EXTREMITIES: S/P Above knee amputation NEURO: Spastic quadraparesis. Insensate up to level of about mid thoracic ( level of nipples). CN II-XII in tact. SKIN: Rash not present. No jaundice noted. Several old scars on thorax and left arm, in tact. LINES: Right upper chest port in tact with no erythema or skin breakdown.
--- NOTE | 2018-05-28 09:23 | Progress Note ---
DATE: 05/28/2018 SUBJECTIVE: A 47-year-old gentleman, paraplegic, postop day 3 from bilateral above-knee amputations for chronic osteomyelitis and heel ulcers. Seems to be doing okay. His stomach is little bit upset this morning. No leg pain. OBJECTIVE: VITAL SIGNS: Temperature is 36.7. Vital signs stable. GENERAL: Physical examination shows a healthy pleasant, middle-aged male. He is lying in bed, looks pretty comfortable. EXTREMITIES: Examination of both legs reveals the stump wrap to be in place. There are no signs of drainage. No signs of problems. ASSESSMENT: A 47-year-old paraplegic 3 days out from bilateral above-knee amputations for chronic wound problems and ulcers. This seems to be doing okay from the orthopedic standpoint. The infections in his legs are gone. Does not require further antibiotic management for that alone. He is anemic. Not really have any symptoms. PLAN: 1. DVT prophylaxis including thigh-high TEDs, SCDs, and he is on Eliquis as per the primary care service. 2. PT/OT. Just needs mobilization instructions and help with transfers. 3. Medical management as per the medicine service. From an orthopedic standpoint, he does not need any further antibiotics for his leg standpoint. 4. Disposition: He is orthopedically stable and acceptable for discharge any time. I need to see him somewhere between 2 and 3 weeks postop. Any orthopedic questions can be directed to me at [phone]. [facility]
[2018-05-28] MEDS: APIXABAN 5 MG TABLET PO SCH ×2 (11:13→21:22)
--- NOTE | 2018-05-28 11:54 | Hospitalist Progress Note ---
Date of Service May 28, 2018 Assessment & Plan (1) Pressure ulcer of both feet: Pressure ulcer of both feet, concern for osteomyelitis Patient has elevated ESR. Very likely patient has osteomyelitis. Patient on vanco and cefepime Patient had Above knee amuptation S/P Day 3 Patient had fever around 11pm on 05/26 Patient has been afebrile since. Will stop antibiotics. Will continue to monitor off antibiotics. repeated cultures on 05/26; pending. Patient can be discharged like prabha, however requires setting him up with home health. He may also need a belt which could restrain him in the wheel chair, since his center of gravity is off, now that he had an Above knee amputation. 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 Consult placed. As noted above, above knee amputation were done bilaterally. (3) Presence of intrathecal baclofen pump: see Pain mgmt clinic nurse note -pt is not due for refill until early May -- sees [facility] Dr. Guillen. Per nurse note, "If Merritt is still in on 05/31/18, we would like to be made aware so that we can try to make some arrangements for him to have his pump refilled. " Had phone conversation with Dr. Guillen. Patient has enough pain medicine to last him up until or Wednesday. May have a possibility of getting an agency to refill the pump at his home, if it is difficult for him to return. If the patient is still in the hopsital however, the earliest the supplies for the pump to arrive would be wednesday afternoon. By then however, patient would have been discharged. (4) Spastic quadriparesis: [facility] bed ordered (5) Recurrent urinary tract infection: urine cultures to be drawn, pt has been on vanc/cefepime. will stop today (6) History of DVT (deep vein thrombosis): Home medication Eliquis was discontinued at outside hospital due to hematuria that has resolved. -recommend restart before discharging -restarted eliquis. (7) History of urostomy: exploration performed at outside hospital, per pt, did not reveal any source of bleeding -routine care Spent 25 minutes in management of patient. Included chart review, discussing with consultants, and patient. Subjective Patient reports feeling better in regards to his fever, chills. Patient reports that his pain is better today. Patient denies any other symptoms. ROS: negative. Neurologic: + paralysis Physical Exam 2 Vital Signs (Past 24 Hours): Last Vital Signs Temp 36.7 C 05/28/18 07:00 Pulse 90 05/28/18 07:00 Resp 18 05/28/18 07:00 BP 95/61 L 05/28/18 07:00 Pulse Ox 99 05/28/18 07:00 Physical Exam: GENERAL: Awake, alert, well-appearing, in no distress. Laying in bed. HENT: Normocephalic, atraumatic. EYES: Normal conjunctiva. Sclera non-icteric. EOMI. NECK: Supple. Full range of motion. no JVD RESPIRATORY: Clear to auscultation. CARDIAC: Regular rate, normal rhythm. Extremities warm and well perfused. Pulses faint, equal. ABDOMEN: Soft, non-distended. No tenderness to palpation. No rebound or guarding. Bowel sounds are normal. RLQ baclofen pump in place. Left sided urostomy bag in tact and draining clear yellow urine. LOWER EXTREMITIES: S/P Above knee amputation NEURO: Spastic quadraparesis. Insensate up to level of about mid thoracic ( level of nipples). CN II-XII in tact. SKIN: Rash not present. No jaundice noted. Several old scars on thorax and left arm, in tact. LINES: Right upper chest port in tact with no erythema or skin breakdown.
[2018-05-28] MEDS: GABAPENTIN 300 MG CAP PO SCH (21:22)
[2018-05-29] MEDS: CEFEPIME 2,000 MG in SYRINGE 7.5 ML IV SCH (02:04)
[2018-05-29] MEDS: HEPARIN 100 UNIT/ML 5ML FLUSH FLUSH PRN ×3 (02:05→21:46)
[2018-05-29] MEDS: HYDROCODONE/ACETAMOPHEN 5/325MG TAB PO PRN ×2 (08:08→17:53)
[2018-05-29] MEDS: MULTIVITAMIN TAB PO SCH (08:09)
[2018-05-29] MEDS: PANTOprazole 40 MG TAB PO SCH (08:09)
[2018-05-29] MEDS: POTASSIUM CITRATE 10 MEQ TAB PO SCH ×2 (08:09→21:04)
[2018-05-29] MEDS: NYSTATIN CR 15 GM TUBE EXT SCH ×2 (08:10→21:04)
[2018-05-29] MEDS: APIXABAN 5 MG TABLET PO SCH ×2 (08:10→22:42)
[2018-05-29] MEDS: dilTIAZem HCL 240 MG CAPCR PO SCH (08:10)
[2018-05-29] MEDS: METOPROLOL TARTRATE 25 MG TAB PO SCH ×2 (08:10→21:02)
[2018-05-29] MEDS: FERROUS GLUCONATE 324 MG TAB PO SCH ×3 (08:10→18:32)
--- NOTE | 2018-05-29 08:36 | Progress Note ---
DATE: 05/29/2018 SUBJECTIVE: A 47-year-old gentleman postop day 4 from bilateral above-knee amputations for chronic ulcerations and osteomyelitis. Seems to be doing okay. No new complaints today. Denies any pain. OBJECTIVE: VITAL SIGNS: Temperature 36.8. Vital signs are stable. PHYSICAL EXAMINATION: GENERAL: Reveals a pleasant, middle-aged male. He is lying in bed, looks pretty comfortable. EXTREMITIES: Examination of the lower extremities reveals the dressing to be in place. No signs of drainage. ASSESSMENT: A 47-year-old gentleman postoperative day 4 from bilateral above-knee amputations for chronic osteomyelitis and ulcers. His dressings look good. He medically appears stable. There is really not much to do from the orthopedic standpoint until suture removal in 2 weeks. PLAN: 1. DVT prophylaxis including thigh-high TEDs, SCDs, and Eliquis as per the primary care service. 2. PT/OT. He can be instructed on transfers. He can start using a wheelchair. 3. Wound care. We will just want to leave these bandages in place for the first 2 weeks. 4. Medical management as per the medicine service. 5. Disposition: He is orthopedically acceptable for discharge at any time when medically stable. I need to see him back 2 weeks postop. Any orthopedic questions can be directed at [phone].
[2018-05-29] MEDS: BISACODYL 10 MG SUPP PR PRN (16:03)
[2018-05-29] MEDS: ONDANSETRON INJ 2 MG/ML 2 ML VIAL IV PRN (18:52)
--- NOTE | 2018-05-29 22:34 | Progress Note ---
Date of Service May 29, 2018 Subjective Nursing reports hematuria in brooks bag. Order to hold Eliquis placed. H&H ordered. Vitals stable. H&H resulted stable from previous. Defer to day team as to resuming Eliquis. -Kajal Mejia MD, [facility] In[facility] Physical Exam Vital Signs (Past 24 Hours): Last Vital Signs Temp 36.8 C 05/29/18 15:13 Pulse 90 05/29/18 21:02 Resp 20 05/29/18 15:13 BP 95/65 L 05/29/18 21:02 Pulse Ox 99 05/29/18 15:13
[2018-05-29] MEDS: GABAPENTIN 300 MG CAP PO SCH (23:03)
[2018-05-29 23:07] LABS: Hematocrit (blood only) 27.7 % (42-52); Hemoglobin 8.7 g/dL (14.0-18.0)
--- NOTE | 2018-05-29 23:39 | Hospitalist Progress Note ---
Date of Service May 29, 2018 Assessment & Plan (1) Pressure ulcer of both feet: Pressure ulcer of both feet, concern for osteomyelitis Patient has elevated ESR. Very likely patient has osteomyelitis. Patient on vanco and cefepime Patient had Above knee amuptation S/P Day 3 Patient had fever around 11pm on 05/26 Patient has been afebrile since. Will stop antibiotics. Will continue to monitor off antibiotics. repeated cultures on 05/26; pending. Patient can be discharged early in the week as case management is setting him up with home health. He may also need a belt which could restrain him in the wheel chair, since his center of gravity is off, now that he had an Above knee amputation. 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 Consult placed. As noted above, above knee amputation were done bilaterally. (3) Presence of intrathecal baclofen pump: see Pain mgmt clinic nurse note -pt is not due for refill until early May -- sees [facility] Dr. Guillen. Per nurse note, "If Merritt is still in on 05/31/18, we would like to be made aware so that we can try to make some arrangements for him to have his pump refilled. " Had phone conversation with Dr. Guillen. Patient has enough pain medicine to last him up until or Wednesday. May have a possibility of getting an agency to refill the pump at his home, if it is difficult for him to return. If the patient is still in the hopsital however, the earliest the supplies for the pump to arrive would be wednesday. By then however, patient would have been discharged. Please inform Dr. Guillen that patient is still in hospital on Wednesday though, if he patient is not discharged wednesday afternoon. (4) Spastic quadriparesis: [facility] bed ordered (5) Recurrent urinary tract infection: urine cultures to be drawn, pt has been on vanc/cefepime. will stop today (6) History of DVT (deep vein thrombosis): Home medication Eliquis was discontinued at outside hospital due to hematuria that has resolved. -recommend restart before discharging -restarted eliquis. (7) History of urostomy: exploration performed at outside hospital, per pt, did not reveal any source of bleeding -routine care Spent 25 minutes in management of patient. Included chart review, discussing with consultants, and patient. Needsstrap for wheelchair and home health before discharge. Also needs to coordniate pain pump refill for late in the week. Subjective Patient reports feeling better in regards to his fever, chills. Patient reports that his pain is better today. He asks if he can get pump filled this week again. He is concerned that there may not be an agency that can come and fill he pain pump. Patient denies any other symptoms. ROS: negative. Neurologic: + paralysis Physical Exam 2 Vital Signs (Past 24 Hours): Last Vital Signs Temp 36.8 C 05/29/18 15:13 Pulse 90 05/29/18 21:02 Resp 20 05/29/18 15:13 BP 95/65 L 05/29/18 21:02 Pulse Ox 99 05/29/18 15:13 Physical Exam: GENERAL: Awake, alert, well-appearing, in no distress. Laying in bed. HENT: Normocephalic, atraumatic. EYES: Normal conjunctiva. Sclera non-icteric. EOMI. NECK: Supple. Full range of motion. no JVD RESPIRATORY: Clear to auscultation. CARDIAC: Regular rate, normal rhythm. Extremities warm and well perfused. Pulses faint, equal. ABDOMEN: Soft, non-distended. No tenderness to palpation. No rebound or guarding. Bowel sounds are normal. RLQ baclofen pump in place. Left sided urostomy bag in tact and draining clear yellow urine. LOWER EXTREMITIES: S/P Above knee amputation NEURO: Spastic quadraparesis. Insensate up to level of about mid thoracic ( level of nipples). CN II-XII in tact. SKIN: Rash not present. No jaundice noted. Several old scars on thorax and left arm, intact. LINES: Right upper chest port intact with no erythema or skin breakdown.
[2018-05-30] MEDS: BISACODYL 10 MG SUPP PR PRN (08:08)
--- NOTE | 2018-05-30 08:57 | Hospitalist Progress Note ---
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 (3) Presence of intrathecal baclofen pump: see Pain mgmt clinic nurse note Pt will have arrangements for him to have his pump refilled prior to discharge to avoid baclofen withdrawal issues (4) Spastic quadriparesis: [facility], fluid bed ordered, baclofen pump helps control issues (5) Recurrent urinary tract infection: (6) History of DVT (deep vein thrombosis): Home medication Eliquis was discontinued at outside hospital due to hematuria that has resolved. -restarted eliquis mild hematuria persists. (7) History of urostomy: exploration performed at outside hospital, per pt, did not reveal any source of bleeding -routine care Subjective Mr. Perkins is status post bilateral [id number] amputations. He is a quadriplegic due to spinal cord injury. He is due to have his baclofen intrathecal pump refilled this week. We will try to coordinate his care and transportation given the pumps need to be refilled and his need for later transport given his bilateral amputations and instructions from orthopedics not to have patient sit for 2 weeks Overall the patient has very little complaints or problems he says he actually feels better since he has had his ostial myelitis removed from both legs Review of Systems ROS: Patient is weak and spastic but this is chronic for him No double vision blurry vision No problems with speech or swallowing No palpitations, chest pain or pressure No Wheezing or breathing issues No abdominal pain nausea vomiting diarrhea changes in appetite or weight Spastic contractures of both upper extremities he does have some movement of them which is normal for him No changes in memory or confusion Physical Exam 2 Vital Signs (Past 24 Hours): Last Vital Signs Temp 36.8 C 05/30/18 07:47 Pulse 84 05/30/18 07:47 Resp 20 05/30/18 07:47 BP 114/81 05/30/18 07:47 Pulse Ox 94 05/30/18 07:47 The patient appeared chronically ill with atrophic upper extremities and some spastic movements which he can direct to or things such as his call christie etc. Vital signs as documented. Head exam is unremarkable. normocephalic, atraumatic Neck is without jugular venous distension, thyromegaly, or lymphademopathy Lungs are clear but diminished bilaterally Cardiac exam reveals Rhythm is regular. First and second heart sounds normal. Abdominal exam reveals normal bowel sounds, slightly protuberant, soft, no masses, no organomegaly Neurologic exam is A&Ox3, Psychologically seems neither anxious or depressed Skin is warm Dry without bruises or lesions
[2018-05-30] MEDS: METOPROLOL TARTRATE 25 MG TAB PO SCH ×2 (09:30→22:07)
[2018-05-30] MEDS: dilTIAZem HCL 240 MG CAPCR PO SCH (09:31)
[2018-05-30] MEDS: FERROUS GLUCONATE 324 MG TAB PO SCH ×3 (09:31→17:59)
[2018-05-30] MEDS: PANTOprazole 40 MG TAB PO SCH (09:31)
[2018-05-30] MEDS: POTASSIUM CITRATE 10 MEQ TAB PO SCH ×2 (09:31→21:49)
[2018-05-30] MEDS: MULTIVITAMIN TAB PO SCH (09:31)
[2018-05-30] MEDS: NYSTATIN CR 15 GM TUBE EXT SCH ×2 (09:32→21:49)
[2018-05-30] MEDS: HYDROCODONE/ACETAMOPHEN 5/325MG TAB PO PRN (19:18)
--- NOTE | 2018-05-30 20:29 | Infectious Disease Progress Nt ---
Date of Service May 30, 2018 Assessment & Plan (1) Acute osteomyelitis of right calcaneus: Patient with chronic bilateral foot infections in the setting of quadriplegia, now status post bilateral AKA's. Given that site of infection has been removed, antibiotics discontinued. Will follow. (2) Pressure ulcer of both feet: Subjective Patient seen in follow-up for osteomyelitis of the feet. Recent events reviewed. Patient status post bilateral [id number] amputations. Remains afebrile. Pain reasonably well controlled. No other new complaints. Review of Systems All systems reviewed & are unremarkable except as noted in HPI & below Physical Exam 2 Vital Signs (Past 24 Hours): Last Vital Signs Temp 37.1 C 05/30/18 15:41 Pulse 83 05/30/18 15:41 Resp 18 05/30/18 15:41 BP 92/57 L 05/30/18 15:41 Pulse Ox 99 05/30/18 15:41 Constitutional: WD/WN, vitals as above comfortable; no acute distress Eyes: PERRL, conjunctivae normal, anicteric sclerae ENMT: external ear and nose normal, oropharynx normal Neck: trachea midline, no thyromegaly neck nontender Respiratory: normal respiratory effort, lungs clear to auscultation normal percussion; does not use accessory muscles Cardiovascular: Rate/Rhythm: regular rate and regular rhythm Heart Sounds: normal S1 and normal S2; no gallop, no murmur and no cardiac rub Vessels: normal peripheral pulses; no JVD Gastrointestinal (Abdomen): normal bowel sounds, soft, nontender, no hepatosplenomegaly Musculoskeletal: Head/Neck/Chest: normocephalic and head atraumatic Skin: normal turgor; no rashes Neurologic: awake Psychiatric: A+Ox3, euthymic affect Orientation: cooperative Lymphatic: no cervical or axillary lymphadenopathy no inguinal lymphadenopathy Results & Data Laboratory Results Short CBC 05/29/18 Range/Units 22:58 Hgb 8.7 L (14.0-18.0) g/dL Hct 27.7 L (42-52) % Diagnostic Findings Microbiology 05/23/18 23:30 Blood Blood Culture - Final No growth 05/23/18 23:26 Blood Blood Culture - Final No growth 05/26/18 15:26 Blood Blood Culture - Preliminary No growth to date. 05/26/18 15:10 Blood Blood Culture - Preliminary No growth to date. 05/24/18 01:10 Urine,Suprapubic Urine Culture - Final No growth - less than 1,000 colonies/mL.
[2018-05-30] MEDS: GABAPENTIN 300 MG CAP PO SCH (21:49)
[2018-05-31] MEDS: CLOBETASOL PROPIONATE 0.05% OINT 15 GM TUBE EXT SCH ×3 (00:30→20:55)
[2018-05-31] MEDS: HEPARIN 100 UNIT/ML 5ML FLUSH FLUSH PRN (05:43)
[2018-05-31 06:32] LABS: Hematocrit (blood only) 27.6 % (42-52); Hemoglobin 8.3 g/dL (14.0-18.0); Mean Corpuscular Hgb Conc 30.1 g/dL (32-36); Mean Corpuscular Volume 77.3 fL (80-100); Mean Platelet Volume 9.3 fL (7.4-10.4); Platelet Count 438 K/uL (130-400); RDW Standard Deviation 51.5 fL (36.4-46.3); Red Blood Count 3.57 M/uL (4.7-6.1); White Blood Count 5.13 K/uL (4.8-10.8)
[2018-05-31 06:51] LABS: BUN Creatinine Ratio 37.8 (10-20); Calcium 8.6 mg/dl (8.5-10.1); Creatinine Clr Calc Pharmacy 96.8 ml/min; Est GFR (Non-African American) 107.9; Potassium 4.1 mmol/L (3.5-5.1)
[2018-05-31] MEDS: HYDROCODONE/ACETAMOPHEN 5/325MG TAB PO PRN (08:16)
[2018-05-31] MEDS: FERROUS GLUCONATE 324 MG TAB PO SCH ×3 (09:40→17:26)
[2018-05-31] MEDS: METOPROLOL TARTRATE 25 MG TAB PO SCH ×2 (09:40→20:54)
[2018-05-31] MEDS: POTASSIUM CITRATE 10 MEQ TAB PO SCH ×2 (09:40→20:53)
[2018-05-31] MEDS: MULTIVITAMIN TAB PO SCH (09:42)
[2018-05-31] MEDS: PANTOprazole 40 MG TAB PO SCH (09:42)
[2018-05-31] MEDS: NYSTATIN CR 15 GM TUBE EXT SCH ×2 (09:43→20:54)
[2018-05-31] MEDS: dilTIAZem HCL 240 MG CAPCR PO SCH (09:50)
--- NOTE | 2018-05-31 18:12 | Hospitalist Progress Note ---
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 (3) Presence of intrathecal baclofen pump: see Pain mgmt clinic nurse note Pt will have arrangements for him to have his pump refilled prior to discharge to avoid baclofen withdrawal issues (4) Spastic quadriparesis: [facility], fluid bed ordered, baclofen pump helps control issues (5) Recurrent urinary tract infection: urine cultures to be drawn, pt has been on vanc/cefepime. have been stopped (6) History of DVT (deep vein thrombosis): Home medication Eliquis was discontinued at outside hospital due to hematuria that has resolved. -restarted eliquis mild hematuria persists. (7) History of urostomy: exploration performed at outside hospital, per pt, did not reveal any source of bleeding -routine care Subjective Review of Systems pt is about the same in recovery from b/l aka, awaiting baclofen pump refill Constitutional: + fatigue and + weakness Respiratory: no cough, no chest congestion and no dyspnea Cardiovascular: no chest pain and no dyspnea on exertion Gastrointestinal: no abdominal pain, no nausea and no vomiting Integumentary: no rash and no lesions Physical Exam 2 Vital Signs (Past 24 Hours): Last Vital Signs Temp 36.7 C 05/31/18 15:22 Pulse 65 05/31/18 15:22 Resp 14 05/31/18 15:22 BP 98/63 L 05/31/18 15:22 Pulse Ox 96 05/31/18 15:22 Constitutional: well developed and well nourished Eyes: PERRL, conjunctivae normal, anicteric sclerae Neck: trachea midline Thyroid: normal thyroid Respiratory: normal respiratory effort, lungs clear to auscultation Cardiovascular: RRR, no murmur, no edema Gastrointestinal (Abdomen): normal bowel sounds, soft, nontender, no hepatosplenomegaly Skin: no rashes, warm and dry Neurologic: PERRL, EOMI, accommodation nl, no face palsy, no dysarthria Psychiatric: A+Ox3, euthymic affect
--- NOTE | 2018-05-31 21:03 | Infectious Disease Progress Nt ---
Date of Service May 31, 2018 Assessment & Plan (1) Acute osteomyelitis of right calcaneus: Patient with chronic bilateral foot infections in the setting of quadriplegia, now status post bilateral AKA's. Given that site of infection has been removed, antibiotics discontinued. Will follow. (2) Pressure ulcer of both feet: Subjective Patient seen in follow-up for osteomyelitis of the feet. Recent events reviewed. Patient status post bilateral [id number] amputations. Remains afebrile. Pain reasonably well controlled. No other new complaints. Review of Systems All systems reviewed & are unremarkable except as noted in HPI & below Physical Exam 2 Vital Signs (Past 24 Hours): Last Vital Signs Temp 36.7 C 05/31/18 15:22 Pulse 76 05/31/18 20:58 Resp 14 05/31/18 15:22 BP 110/74 05/31/18 20:58 Pulse Ox 96 05/31/18 15:22 Constitutional: WD/WN, vitals as above comfortable; no acute distress Eyes: PERRL, conjunctivae normal, anicteric sclerae ENMT: external ear and nose normal, oropharynx normal Neck: trachea midline, no thyromegaly neck nontender Respiratory: normal respiratory effort, lungs clear to auscultation normal percussion; does not use accessory muscles Cardiovascular: Rate/Rhythm: regular rate and regular rhythm Heart Sounds: normal S1 and normal S2; no gallop, no murmur and no cardiac rub Vessels: normal peripheral pulses; no JVD Gastrointestinal (Abdomen): normal bowel sounds, soft, nontender, no hepatosplenomegaly Musculoskeletal: Head/Neck/Chest: normocephalic and head atraumatic Skin: normal turgor; no rashes Neurologic: awake Psychiatric: A+Ox3, euthymic affect Orientation: cooperative Lymphatic: no cervical or axillary lymphadenopathy no inguinal lymphadenopathy Results & Data Laboratory Results Short CBC 05/31/18 Range/Units 05:43 WBC 5.13 (4.8-10.8) K/uL Hgb 8.3 L (14.0-18.0) g/dL Hct 27.6 L (42-52) % Plt Count 438 H (130-400) K/uL BMP 05/31/18 05:43 Sodium 138 Potassium 4.1 Chloride 104 Carbon Dioxide 28 BUN 29 H Creatinine 0.76 Glucose 92 Calcium 8.6 Diagnostic Findings Microbiology 05/30/18 16:30 Urine,Indwelling Cath Urine Culture - Preliminary Pin-point growth present, reincubating. 05/23/18 23:30 Blood Blood Culture - Final No growth 05/23/18 23:26 Blood Blood Culture - Final No growth 05/26/18 15:26 Blood Blood Culture - Preliminary No growth to date. 05/26/18 15:10 Blood Blood Culture - Preliminary No growth to date. 05/24/18 01:10 Urine,Suprapubic Urine Culture - Final No growth - less than 1,000 colonies/mL.
[2018-05-31] MEDS: GABAPENTIN 300 MG CAP PO SCH (22:32)
[2018-06-01] MEDS: BISACODYL 10 MG SUPP PR PRN (00:16)
[2018-06-01] MEDS: HEPARIN 100 UNIT/ML 5ML FLUSH FLUSH PRN (05:48)
[2018-06-01 06:16] LABS: Hematocrit (blood only) 29.5 % (42-52); Hemoglobin 9.2 g/dL (14.0-18.0); Mean Corpuscular Hgb Conc 31.2 g/dL (32-36); Mean Corpuscular Volume 76.8 fL (80-100); Mean Platelet Volume 9.1 fL (7.4-10.4); Platelet Count 444 K/uL (130-400); RDW Coefficient of Variation 17.7 % (11.5-14.5); RDW Standard Deviation 50.1 fL (36.4-46.3); Red Blood Count 3.84 M/uL (4.7-6.1); White Blood Count 6.44 K/uL (4.8-10.8)
[2018-06-01 06:42] LABS: Calcium 8.6 mg/dl (8.5-10.1); Creatinine Clr Calc Pharmacy 98.1 ml/min; Est GFR (African American) 125.7; Est GFR (Non-African American) 108.5; Potassium 3.9 mmol/L (3.5-5.1)
[2018-06-01] MEDS: FERROUS GLUCONATE 324 MG TAB PO SCH ×2 (08:50→12:18)
[2018-06-01] MEDS: NYSTATIN CR 15 GM TUBE EXT SCH (08:50)
[2018-06-01] MEDS: CLOBETASOL PROPIONATE 0.05% OINT 15 GM TUBE EXT SCH (08:50)
[2018-06-01] MEDS: POTASSIUM CITRATE 10 MEQ TAB PO SCH (08:51)
[2018-06-01] MEDS: MULTIVITAMIN TAB PO SCH (08:51)
[2018-06-01] MEDS: PANTOprazole 40 MG TAB PO SCH (08:51)
[2018-06-01] MEDS: dilTIAZem HCL 240 MG CAPCR PO SCH (08:51)
[2018-06-01] MEDS: METOPROLOL TARTRATE 25 MG TAB PO SCH (08:51)
--- NOTE | 2018-06-01 09:32 | Pain Management Progress Note ---
Date of Service June 01, 2018 Assessment & Plan (1) Presence of intrathecal baclofen pump: 1. Intrathecal pump was routinely refilled at today's visit. There was a change in morphine concentration from 0.2 mg/mL to 0.4 mg/mL with corresponding change in total daily dose of morphine. There was no change to baclofen or clonidine concentration or dosing. Refer to pump print out in EMR as well as the pump refill procedure note below for further details. 2. Patient will be scheduled in the pain clinic to resume Botox injections in the upper extremities for flexion contracture to coordinate with a follow-up visit with Dr. Lopez in 2-3 weeks duration 3. Patient will be scheduled for his next pump refill in the pain clinic on 08/31 at 1300. INTRATHECAL PUMP REFILL AND REPROGRAM PROCEDURE Procedure performed by: Lou Lewis RN. Procedure supervised by: Davey Snyder PA-C. Pump site: Right lower quadrant. Pump size: 20 mL. Medication: Baclofen preservative-free 2000 mcg/mL, clonidine preservative-free 125 mcg/mL and morphine preservative-free 0.4 mg/mL. Daily dose: Baclofen 339.2 mcg/day, clonidine 21.20 mcg/day and morphine 0.55633 mg/day. LALA: 71 months. The patient was brought to the procedure room and placed in supine position. Immediately prior to starting the procedure, a ``time out was conducted with the staff and the patient where the patient was identified, proposed procedure was verified, consent was reviewed and the proper site for the planned procedure was identified. On examination, no signs of skin breakdown or infection were noted at the injection site. The site was cleansed with DuraPrep followed by Betadine. Sterile drapes were applied. Using the template and 22 gauge, 1.5 inch non-coring Barnett needle pump reservoir was accessed uneventfully. 2.0 mL of the remaining medication for pump was removed and discarded. This volume was compared to the calculated volume of 1.4 mL. Pump was then refilled with medications as documented above. Bacteriostatic filter and constant negative pressure was maintained throughout the refill. Needle was withdrawn. Hemostasis noted. Band-Aid was applied. Pump was reprogrammed as documented above. Patient was given a printout and discharge instructions. Patient voiced understanding. 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 Present on Admission?: Yes Subjective Mr. Perkins is a 47-year-old white male who is well-known to the pain service with history of spastic quadriplegia which has required implantation of intrathecal pump and catheter delivery system. His intrathecal pump continues to provide him with baclofen, clonidine and morphine intrathecally. Morphine has been added recently in an attempt to diminish chronic abdominal pain and to assist in control his spasms. The patient had an alarming pump at the time of his transfer to [facility] due to low reservoir volume. His alarms were adjusted as the patient does have adequate residual in his pump at this time. The pump is to be refilled at today's visit while the patient is hospitalized. Patient underwent AKA upon his hospitalization due to lower extremity osteomyelitis. Antibiotics have been discontinued per infectious disease. The patient has remained afebrile and is being followed by wound clinic at this time. The patient has no further constitutional complaints at this time. Pain Assessment Pain Assessment Full Body Front + Back: 2 1. Left lower abdomen Pain scale - at its best (0-10): 3 Pain scale - at its worst (0-10): 7 Physical Exam 2 Vital Signs (Past 24 Hours): Last Vital Signs Temp 36.5 C 06/01/18 07:53 Pulse 90 06/01/18 07:53 Resp 16 06/01/18 07:53 BP 99/66 L 06/01/18 07:53 Pulse Ox 98 06/01/18 07:53 Physical Exam: General: Mr. Perkins is lying quietly upon entering the room in no acute distress. Speech and thought process appropriate. Mood and affect appropriate. Cognition intact. Abdomen: Pump present in the right lower quadrant without evidence of edema, erythema or skin breakdown. Colostomy present in the left lower quadrant. Some generalized tenderness is appreciated in left lower quadrant upon palpation. Sacral/gluteal region: Patient has a superficial wound in the right gluteal region with dressing in place which was not removed for visual inspection. Patient has no open areas or signs of infection in the sacral region at this time. Lower extremity's: Bilateral AKA appreciated with bandages in place which were not removed for visual inspection.
--- NOTE | 2018-06-01 10:11 | Progress Note ---
DATE: 06/01/2018 SUBJECTIVE: A 47-year-old paraplegic gentleman now 1 week out from a bilateral above-knee amputations for ulcers and osteomyelitis. He seems to be doing well. Apparently, one of his dressings got wet and it has been changed. He has no pain. No other complaints. OBJECTIVE: VITAL SIGNS: Temperature 36.5. Vital signs stable. EXTREMITIES: Examination of both legs reveals the dressing to be in place. No signs of drainage. LABORATORY DATA: Hemoglobin 9.2. Hematocrit 29.5. Electrolytes are stable. ASSESSMENT: A 47-year-old gentleman now a week out from bilateral above-knee amputations for chronic osteomyelitis and heel ulcers. He is doing pretty well from the orthopedic standpoint. One of his bandages got wet, but it has been changed. Everything else looks good. PLAN: 1. DVT prophylaxis including thigh-high TEDs, SCDs, and Eliquis as per the primary care service. 2. PT/OT. Mobilization strategies and techniques. 3. Medical management as per the medicine service. 4. Disposition: He is orthopedically stable and okay for discharge any time. He just needs to leave theses dressings clean, dry and intact, though I see him back. I should see him somewhere between the next week or two.
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
== END 2018-06-01 15:00 | disposition home health service (06) | DRG 474 ==
LOC: SUATTDRO 19:38 → 3N 19:38